=== PATIENT | female | born 1960 | race Caucasian/White ===

== ENCOUNTER 2019-01-17 13:47 | Outpatient (CLI) | payer OTHER ==
[2019-01-17] MEDS ORDERED: GADOPENTETATE DIMEGLUMINE 15 ML VIAL IV ONE (14:22)
== END 2019-01-17 21:20 | disposition home or self-care (01) ==
LOC: SMI 13:47
PROVIDERS: ATTEND Internal Medicine Infectious Disease
DX: M47.816 Spondylosis without myelopathy or radiculopathy, lumbar region (principal); N39.0 Urinary tract infection, site not specified; D72.828 Other elevated white blood cell count
CPT/HCPCS: 72158; A9579

== ENCOUNTER 2019-09-26 19:00 | Inpatient (IN) | payer OTHER, MEDICAID ==
[~2019-09-26] VITALS: Ht 152.4 cm; Wt 47.6 kg
--- NOTE | 2019-09-26 19:00 | NUR ---
BIB sq [facility] from [facility] for respiratory distress. Vent pt, RT at bedside to place pt on vent.
[2019-09-26 19:05] VITALS: BP_SYST 128
--- NOTE | 2019-09-26 19:05 | NUR ---
Patient to ER bed 1 to gown for evaluation. Side rails up. Report given to GIANLUCA KENNEY PATIENT BROUGHT IN BY [facility] FROM RESPIRATORY DISTRESS FROM [facility] NURSING REPORTS TACYPNEIC UPON ARRIVAL. VENT SETTINGS AC 12 VT 3250 AT 25% O2. DISCHARGED FROM [facility] DX OF PNA WIT HISTORY OF COPD, EMPHYSEMA, DEMENTIA, ANXIETY, OSTEOMYELITIS RULL OUT LARYNGEAL CANCERS, CHRONIC ENCHEPHALOPATHY, TYPE 2 DM.
--- NOTE | 2019-09-26 19:05 | NUR ---
ER Dr. Bedoya at bedside examining patient.
--- NOTE | 2019-09-26 19:10 | NUR ---
Note undone in EDM - 09/26/19 at 2116 by [email or web address] Pt came to the ED from [facility] by EMS for respiratory distress. Reports that pt was at [facility] for 30 minutes after being discharged from [facility] with dx of pneumonia. Reports that pt was tachypneic at [facility]. Pt is non-verbal which is her baseline. Reports pt has hx of laryngeal CA, anxiety, COPD, Dementia, dysphagia, HTN, osteomyletis, g-tube, COPD, emphysema.
--- NOTE | 2019-09-26 19:10 | NUR ---
Pt came to the ED from [facility] by EMS for respiratory distress. Reports that pt was at [facility] for 30 minutes after being discharged from [facility] with dx of pneumonia. Reports that pt was tachypneic at [facility]. Pt is non-verbal which is her baseline. Reports pt has hx of laryngeal CA, anxiety, COPD, Dementia, dysphagia,osteomyletis, g-tube, COPD, emphysema.
[2019-09-26] MEDS ORDERED: ALBUTEROL SULFATE 0.083% 2.5 MG/3 ML VIAL.NEB INH ONE (19:15)
[2019-09-26] MEDS ORDERED: LEVOFLOXACIN 500 MG/D5W 100 ML IV ONE (19:15)
[2019-09-26] MEDS ORDERED: LORA-258 GT (19:29)
[2019-09-26] MEDS ORDERED: ALBU2.5V7 INH (19:29)
[2019-09-26] MEDS ORDERED: MIRT15TA7 GT (19:29)
[2019-09-26] MEDS ORDERED: PRED15SO23 GT (19:29)
[2019-09-26] MEDS ORDERED: SER25 GT (19:29)
[2019-09-26] MEDS ORDERED: CALC-823 GT (19:29)
[2019-09-26] MEDS ORDERED: ACET325T53 GT (19:29)
[2019-09-26] MEDS ORDERED: [UNRECOGNIZED DRUG - OTHER] TP (19:29)
[2019-09-26] MEDS ORDERED: LANS15CA19 GT (19:29)
[2019-09-26] MEDS ORDERED: MAGN400T10 GT (19:29)
[2019-09-26] MEDS ORDERED: HYDR-3607 GT (19:29)
[2019-09-26] MEDS ORDERED: BUDESONIDE INH (19:29)
[2019-09-26] MEDS ORDERED: ASCO500T20 GT (19:29)
[2019-09-26] MEDS ORDERED: IPRA4AER INH (19:29)
[2019-09-26] MEDS ORDERED: LACT1TAB10 GT (19:29)
[2019-09-26] MEDS ORDERED: SULF1TAB48 GT (19:29)
[2019-09-26] MEDS ORDERED: LOVI40 SQ (19:29)
--- NOTE | 2019-09-26 19:30 | NUR ---
Medication reconciliation completed with information provided by [facility]. Any prior medication reconciliation on file was reviewed and corrected.
[2019-09-26 19:50] LABS: BASOPHILS # (AUTO) 0.1 K/uL (0.0-0.2); BASOPHILS % (AUTO) 0.6 % (0.0-2.0); EOSINOPHILS % (AUTO) 0.5 % (0.0-4.0); HEMATOCRIT 27.4 % (36-48); HEMOGLOBIN 9.2 g/dL (12.0-16.0); LYMPHOCYTES # (AUTO) 0.3 K/uL (1.0-5.5); MEAN CORPUSCULAR HEMOGLOBIN 32 pg (27-31); MEAN CORPUSCULAR HGB CONC 34 % (32-36); MEAN CORPUSCULAR VOLUME 95 fL (79.0-98.0); MONOCYTES # (AUTO) 0.4 K/uL (0.0-1.0); MONOCYTES % (AUTO) 3.9 % (1.7-9.3); NEUTROPHILS # (AUTO) 8.6 K/uL (1.8-7.7); PLATELET COUNT (AUTO) 355 K/uL (130-430); RED BLOOD CELL COUNT(AUTO) 2.88 MIL/uL (4.2-6.2); RED CELL DISTRIBUTION WIDTH 16.7 % (9.0-15.0); WHITE BLOOD COUNT (AUTO) 9.3 K/uL (4.8-10.8)
[2019-09-26 20:00] LABS: CALCIUM 8.3 mg/dL (8.4-11.0); CREATININE 0.53 mg/dL (0.55-1.30); POTASSIUM 3.1 mmol/L (3.5-5.1)
[2019-09-26 20:06] LABS: ALBUMIN 1.8 g/dL (3.4-4.8); INR 1.1 (0.8-1.2); TOTAL BILIRUBIN 0.4 mg/dL (0.0-1.0)
--- NOTE | 2019-09-26 20:10 | NUR ---
Pt with large diarrhea BM. Sacral decubitus noted as documented per admission report as Stage III from [facility]. No dsg to site and wound covered in feces. Also red and irritated external hemorroid noted. Pt cleaned, wound cleaned with NS and covered with non adherent dsg. New linens applied to bed. Pt tolerated well.
[2019-09-26] MEDS ORDERED: HYDROcodone/ACETAMIN 5-325 MG TAB (NORCO/ VICODIN) GT PRN (20:15)
[2019-09-26] MEDS ORDERED: VANCOMYCIN HCL 1,000 MG in NS 250 ML IV ONE (20:15)
[2019-09-26] MEDS ORDERED: PIPERACILLIN/TAZO 3.375 GM in NS 50 ML IV ONE ×5 (20:15)
--- NOTE | 2019-09-26 20:15 | NUR ---
# 16 FR Pollack catheter with use of sterile technique. Immediate return of 50 cc clear and yellow urine noted. Bedside drainage bag placed below level of bladder. Urine sample collected and sent to lab. Pt tolerated procedure well. Patient unable to toilet self.
--- NOTE | 2019-09-26 20:30 | NUR ---
Called Dr. Soto if Admit orders can be changed to Tele due to pt's VSS. States, "Yes, you can change to telemetry." ER MD and CN made aware. Order changed per MD order.
--- NOTE | 2019-09-26 20:56 | NUR ---
Contacted Dr. Soto regarding antibiotics ordered per Dr. Black. Pt to receive Zosyn and Vancomycin as ordered. Informed Dr. Soto that Levoquin 500 mg IVPB was already given from orders of previous ER MD. Warner to not given another dose of Levaquin at this time.
[2019-09-26 20:58] LABS: BILIRUBIN,URINE NEGATIVE (NEGATIVE); BLOOD, URINE NEGATIVE (NEGATIVE); CLARITY/URINE CLEAR (CLEAR); COLOR,URINE YELLOW (YELLOW); GLUCOSE,URINE NEGATIVE (NEGATIVE); KETONES,URINE NEGATIVE (NEGATIVE); LEUKOCYTE ESTERASE ,URINE TRACE (NEGATIVE); NITRITE, URINE NEGATIVE (NEGATIVE); PROTEIN URINE NEGATIVE (NEGATIVE); UROBILINOGEN,URINE 0.2 (0.2-1.0)
[2019-09-26] MEDS ORDERED: QUEtiapine FUMARATE 25 MG TABLET GT SCH ×2 (21:00→22:00)
--- NOTE | 2019-09-26 21:00 | NUR ---
Spoke to pts DEYANIRA Adrian who gives consent for CT with contrast. POJoss spoke to charge and confirmed. paperwork placed in chart.
[2019-09-26 21:06] LABS: RBC,URINE 0-3 /HPF (0-3)
[2019-09-26 21:07] LABS: BACTERIA,URINE FEW /HPF (None Seen); URINE AMORPHOUS PHOSPHATES 1+ /HPF (None Seen)
--- NOTE | 2019-09-26 21:10 | NUR ---
Pts family member reports that she was at [facility] for PNA, she states that they were going to do a test to see if there was a "mass in her lungs." But did not to do the test. MICHAEL SCHMIDT made aware.
--- NOTE | 2019-09-26 21:19 | NUR ---
Pt going to CT scan for CTA with contrast. Tolerated well. Will cont. to monitor.
--- NOTE | 2019-09-26 21:21 | NUR ---
Patient will be admitted to care of Dr. Soto. Admitted to Tele unit. Will go to room 125A. Belongings list completed. Complete and up to date summary report printed. Report to be given at bedside with opportunity for questions.
--- NOTE | 2019-09-26 21:22 | NUR ---
Called [facility] for bed, reports it is not ready yet. Pt is in CT, will go to the floor when pt returns.
[2019-09-26] MEDS ORDERED: IOHEXOL 350 mgI/mL, 150 ML INFUS..BTL IV ONE (21:38)
[2019-09-26] MEDS ORDERED: VANCOMYCIN HCL 1000 MG/VIAL IV ONE (21:38)
[2019-09-26] MEDS ORDERED: PIPERACILLIN/TAZOBACTAM 3.375 GM/VIAL (ZOSYN) IV ONE (21:38)
[2019-09-26] MEDS ORDERED: LORazepam 2 MG/ML VIAL IVP ONE (21:45)
--- NOTE | 2019-09-26 21:55 | NUR ---
Pt in CT scan, unable to lie on back. Pt wailing arms. ER made aware. Md put in order for 1mg Ativan IVP.
[2019-09-26] MEDS ORDERED: POTASSIUM CHLORIDE 20 MEQ/PKT PACKET GT SCH (22:00)
[2019-09-26] MEDS ORDERED: CALCIUM CARBONATE/VITAMIN D3 1 TAB TABLET GT SCH (22:00)
[2019-09-26] MEDS ORDERED: MIRTAZAPINE 15 MG TABLET GT SCH (22:00)
[2019-09-26] MEDS ORDERED: ASCORBIC ACID 500 MG TABLET GT SCH (22:00)
--- NOTE | 2019-09-26 22:00 | NUR ---
Administered Ativan 1mg IVP per MD order. Pt tolerated well. Pt on cardiac and O2 monitor. Will cont. to monitor. RT and myself at bedside.
--- NOTE | 2019-09-26 22:30 | NUR ---
Transfer to Tele via ACLS protocol. Licensed nurse present. IV present no signs or symptoms of infiltration.
--- NOTE | 2019-09-26 23:18 | NUR ---
ADMIT NOTE Received pt from ER to the floor with a diagnosis of acute on chronic resp.failure. Admission process initiated. patient oriented to pain management, safety and call light-teach back done.
--- NOTE | 2019-09-26 23:36 | NUR ---
CONSULTATION PAGED REASON FOR CONSULTATION:RESP FAILURE WAS CONSULT CALLED?Y PERSON WHO WAS NOTIFIED:SERJIO CONSULTING PHYSICIAN:JUANIS OLIVEROS (NINOSKA TOUSSAINT DICTAPHONE MECHANIC) SR. MANAGER SPECIALTY:PULMONARY SR. MANAGER PHONE NUMBER:[phone] ORDERING PHYSICIAN:PAM SMITH
--- NOTE | 2019-09-26 23:42 | NUR ---
CONSULTATION PAGED REASON FOR CONSULTATION:TRACH CANCER WAS CONSULT CALLED?Y PERSON WHO WAS NOTIFIED:ADIEL CONSULTING PHYSICIAN:ANABEL BLUE DIETITIAN CONSULTANT SPECIALTY:ONCOLOGY/HEMATOLOGY DIETITIAN CONSULTANT PHONE NUMBER:[phone] ORDERING PHYSICIAN:PAM SMITH
[2019-09-26] MEDS: IPRATROPIUM/ALBUTEROL SULFATE 3 ML AMPUL.NEB (DUONEB) INH SCH (23:46)
[2019-09-27] VITALS (35 sets, daily range): BP systolic 89–129
[2019-09-27] MEDS: DEXTROSE 50% JECT 50 ML DISP.SYRIN IVP PRN ×4 (00:16→20:08)
--- NOTE | 2019-09-27 00:30 | NUR ---
TRANSFER FROM [facility] PT TRANSFERRED FROM [facility] AT THIS TIME IN STABLE CONDITION. REPORT RECEIVED FROM JOSE A HOUGH. PT RECEIVED IN BED WITH EYES OPEN, NON VERBAL AND RESPONDING TO TACTILE STIMULATION. PT TRACH TO VENT, VENT SETTINGS: AC 12, TV 350, FIO2 50%, PEEP 6. MARIELA MIDLINE IN PLACE RUNNING LR @ 20 CC/HR. G TUBE IN PLACE CLAMPED. BILATERAL SOFT WRIST RESTRAINTS IN PLACE, NO S/S OF INJURY NOTED. MARTÍNEZ CATH IN PLACE DRAINING YELLOW URINE TO GRAVITY. HOB ELEVATED, BED IN LOWEST POSITION, CALL LIGHT IN REACH. WILL CONTINUE TO MONITOR PT.
--- NOTE | 2019-09-27 01:00 | NUR ---
pt.was rcieved fabian the er-dept.pt.preseted trachlvetn setup pwer rtr.pt.had ignacio vents etingds;tv;350,fio-2%=50%,a/c 12,peep:6.abfg's were attedne to values abnoermal.it was notd fio-2%was initiate @50%.limit beyound th mst uniut. pt.wsas orderwed icu admit initially rachel was re-assigned to mst;in error. paged re;pt's ssus;fioi2%;5-%not w/in thw mst unit parameters. stsed the pt was initiallyt order tee incu 's call diregt to cherelle;rn/chg.pt, ode to inu.pt.transferred to incu:bed:#2.i conveyed th pt's data/info to ranulfo;rn.i conveye to ranulfo;y pt.pret g-tube; feed;glucerna to be initiatwd;@the spoflz91ye/hr.pt.prest pic lone;:x2 lumnes;lt.bicpet.iv fkkuids;llr/vancomycin [id number] initiuated.pt.presrte,foely cath;intacyt;paytent:urnei content prest.blod glucose assd;value;58mg/dl.i administered d50 ivp x1 per ptotocolvia th pic cine.blood glucso reased;value;106mg/dl.pt.presents wounds;multiple:note;sacrum,extensive denuded area. Addendum: 09/27/19 at 0228 by Derek Byrnes RN pt.presented affect;restless.loc;confused.pt.removed the trach;r/t paged;trach re-inserted;restraints ordered procured .i initiated the restraints charting;wrist;bilateral.application per protocol..
[2019-09-27] MEDS: LR 1,000 ML IV SCH ×2 (02:23→20:07)
[2019-09-27] MEDS: MAGNESIUM OXIDE 400 MG TABLET GT SCH ×3 (02:24→20:07)
[2019-09-27] MEDS: IPRATROPIUM/ALBUTEROL SULFATE 3 ML AMPUL.NEB (DUONEB) INH SCH ×5 (03:58→23:05)
--- NOTE | 2019-09-27 07:20 | NUR ---
RECEIVED NURSING REPORT FROM PSYCHOLOGICAL ANTHROPOLOGIST VANGIE Castanon
[2019-09-27 07:24] LABS: BASOPHILS % (AUTO) 0.4 % (0.0-2.0); EOSINOPHILS # (AUTO) 0.1 K/uL (0.0-0.4); EOSINOPHILS % (AUTO) 0.9 % (0.0-4.0); HEMATOCRIT 23.8 % (36-48); HEMOGLOBIN 8.1 g/dL (12.0-16.0); LYMPHOCYTES # (AUTO) 0.5 K/uL (1.0-5.5); LYMPHOCYTES % (AUTO) 6.8 % (20.5-51.5); MEAN CORPUSCULAR HEMOGLOBIN 32 pg (27-31); MEAN CORPUSCULAR HGB CONC 34 % (32-36); MEAN CORPUSCULAR VOLUME 94 fL (79.0-98.0); MONOCYTES # (AUTO) 0.3 K/uL (0.0-1.0); NEUTROPHILS # (AUTO) 6.6 K/uL (1.8-7.7); NEUTROPHILS % (AUTO) 87.9 % (40.0-70.0); PLATELET COUNT (AUTO) 304 K/uL (130-430); RED BLOOD CELL COUNT(AUTO) 2.53 MIL/uL (4.2-6.2); RED CELL DISTRIBUTION WIDTH 16.8 % (9.0-15.0); WHITE BLOOD COUNT (AUTO) 7.5 K/uL (4.8-10.8)
[2019-09-27] MEDS ORDERED: BUDESONIDE 0.5 MG/2 ML AMPUL.NEB INH ONE (07:30)
[2019-09-27 07:39] LABS: POTASSIUM 3.6 mmol/L (3.5-5.1)
--- NOTE | 2019-09-27 07:42 | NUR ---
ENDORSEMENT BEDSIDE REPORT GIVEN TO NICHOLAS HOUGH USING SBAR APPROACH.
[2019-09-27 07:50] LABS: CALCIUM 8.1 mg/dL (8.4-11.0); CREATININE 0.49 mg/dL (0.55-1.30); FREE T4 (FREE THYROXINE) 0.7 ng/dl (0.8-1.5)
[2019-09-27 08:26] LABS: TOTAL IRON BIND. CAPACITY 97 ug/dL (250-450)
[2019-09-27] MEDS: prednisoLONE 15 MG/5 ML UDC GT SCH (09:00)
[2019-09-27] MEDS: LACTOBACILLUS RHAMNOSUS GG 1 CAP CAPSULE GT SCH (09:00)
[2019-09-27] MEDS: LORazepam 2 MG/ML VIAL IVP PRN ×2 (09:29→14:45)
[2019-09-27] MEDS: ENOXAPARIN SODIUM 40 MG/0.4 ML SYRINGE SQ SCH (09:31)
[2019-09-27] MEDS: LANSOPRAZOLE 30 MG CAPSULE.DR GT SCH (09:32)
[2019-09-27] MEDS: ASCORBIC ACID 500 MG TABLET GT SCH ×2 (09:32→20:08)
[2019-09-27] MEDS: QUEtiapine FUMARATE 25 MG TABLET GT SCH ×3 (09:32→20:08)
[2019-09-27] MEDS: CALCIUM CARBONATE/VITAMIN D3 1 TAB TABLET GT SCH ×2 (09:36→20:08)
--- NOTE | 2019-09-27 10:15 | NUR ---
AT 1015 Dr. CARDONA SEE PATIENT, ORDERED FOLLOW UP CHEST X-RAY, ABG IN A.M
--- NOTE | 2019-09-27 10:23 | NUR ---
Nutrition Update Barrett Scale 12 noted. Pt admitted for acute on chronic respiratory failure Tube Feeding: Glucerna 1.5 at 50ml/hr with 100ml Q6H FWF and Prosource BID BMI: 20.5 kg/m2 RD to follow per nutrition care standards.
[2019-09-27] MEDS: SULFAMET 800MG/TMP 160MG, 20 ML UDBTL GT SCH (12:08)
[2019-09-27] MEDS: INSULIN REGULAR, HUMAN 100 UNITS/ML, 10 ML VIAL (humuLIN R) SUBCUT PRN ×2 (12:13→17:38)
--- NOTE | 2019-09-27 12:33 | NUR ---
BLOOD SUGAR 57, ORDERED GIVE D50 W ONE AMP IV PUSH
--- NOTE | 2019-09-27 14:20 | NUR ---
AT 1400 P.M, SEE PATIENT, ORDERED COLLECTION STOOL O.B
--- NOTE | 2019-09-27 15:00 | NUR ---
AT 1500 P.M, FINISHED HEMODIALYSIS, OFF WATER 1500 ML Addendum: 09/27/19 at 1710 by Honorio Jj RN WRONG PATIENT CHARTING
[2019-09-27] MEDS ORDERED: EPOETIN ALFA 4,000 UNITS/ML VIAL SUBCUT ONE (15:30)
[2019-09-27] MEDS ORDERED: NOREPINEPHRINE BITARTRATE 4 MG in D5W 246 ML IV PRN (16:15)
--- NOTE | 2019-09-27 16:17 | NUR ---
PATIENT HAD 2 TIMES, BLOOD SUGAR LESS THAN 70 MG/DL, AND SHOW HYPOTENSION WHEN SHE WAS ASLEEP, AT 1552 P.M, Dr. KNOX SEE PATIENT, ORDERED ON LEVOPHED DRIP NEED( KEEP SBP > 90 MMHG), AND FOLLOW UP LAB IN A.M, PATIENT IS VERY AGITATION, CONFUSION, PULLED OUT MARTÍNEZ CATHETER, ORDERED INSERT NEW MARTÍNEZ CATHETER AND BILATERAL WRISTS WEAR RESTRAINT CONTINUE FOR SAFETY
--- NOTE | 2019-09-27 16:26 | NUR ---
ORDERED CHANGE FORMULA TO JEVITY 1.2 AT 50 ML/HR Addendum: 09/27/19 at 1636 by Honorio Jj RN JEVITY 1.5
--- NOTE | 2019-09-27 17:05 | NUR ---
AT 1645 P.M, SEE PATIENT ( NEW CONSULT ) ORDERED START LEVAQUIN THERAPY
[2019-09-27] MEDS: SOD FERRIC GLUC COMPLEX/SUC 125 MG in NS 100 ML IV SCH (17:31)
[2019-09-27] MEDS: LEVOFLOXACIN 250 MG/D5W 50 ML IV SCH (17:32)
[2019-09-27] MEDS: PIPERACILLIN/TAZO 2.25G/DEX-IS 50 ML IV SCH ×2 (17:47→23:13)
--- NOTE | 2019-09-27 19:20 | NUR ---
PM ASSESSMENT Pt in bed with eyes closed resting comfortably. No signs of acute distress or discomfort noted. Pt trach to vent with vent settings: AC 12, TV 350, Fio2 40% and PEEP of 6, pt tolerating settings well with O2 sats @ 98% and even and unlabored breathing. Pt has MARIELA bradford, c/d/i. Infusing LR @ 20 cc/hr. Saúl noted infusing jevity 1.5 @ 50 cc/hr. Pollack cath noted draining urine to gravity. Bed is locked and in lowest position, call light within reach, will cont to monitor pt. Addendum: 09/27/19 at 2305 by Isiah Montelongo RN Pt's PEEP of 5, not 6.
--- NOTE | 2019-09-27 19:29 | NUR ---
GIVE COMPLETE NURSING REPORT TO PRODUCTION MACHINE OPERATOR MARGARET Castanon
[2019-09-27] MEDS: BUDESONIDE 0.5 MG/2 ML AMPUL.NEB INH SCH (19:50)
[2019-09-27] MEDS: MIRTAZAPINE 15 MG TABLET GT SCH (20:08)
--- NOTE | 2019-09-27 20:08 | NUR ---
Pt's fingerstick blood glucose 59 @ this time. Dextrose 50% injection given at this time IVP per MD order. Will recheck blood glucose.
--- NOTE | 2019-09-27 20:28 | NUR ---
Pt's fingerstick blood glucose 92 at this time. Will cont to monitor pt.
[2019-09-28] VITALS (31 sets, daily range): BP systolic 89–125
--- NOTE | 2019-09-28 | NUR ---
Pt in bed with eyes closed resting comfortably, no signs of acute distress or discomfort noted. Bed is locked and in lowest position, call light within reach, will cont to monitor pt.
[2019-09-28] MEDS: IPRATROPIUM/ALBUTEROL SULFATE 3 ML AMPUL.NEB (DUONEB) INH SCH ×6 (03:00→23:04)
[2019-09-28] MEDS: LORazepam 2 MG/ML VIAL IVP PRN ×2 (05:24→09:42)
--- NOTE | 2019-09-28 05:30 | NUR ---
CHG CHG bath given to pt at this time. Pt tolerated well. No signs of acute distress or discomfort noted. Will cont to monitor pt.
[2019-09-28] MEDS: DEXTROSE 50% JECT 50 ML DISP.SYRIN IVP PRN (06:20)
[2019-09-28] MEDS: PIPERACILLIN/TAZO 2.25G/DEX-IS 50 ML IV SCH ×3 (06:20→21:50)
--- NOTE | 2019-09-28 06:20 | NUR ---
Pt's fingerstick blood glucose 32 @ this time. Dextrose 50% injection given at this time IVP per MD order. Will recheck blood glucose.
--- NOTE | 2019-09-28 06:38 | NUR ---
Pt's fingerstick blood glucose 73 @ this time. Pt shows not acute distress or discomfort noted. Will make MD aware and continue to monitor blood sugar.
--- NOTE | 2019-09-28 07:05 | NUR ---
ENDORSEMENT Report given to oncoming dayshift RN using SBAR format and pt care was endorsed. No signs of acute distress or discomfort noted.
--- NOTE | 2019-09-28 07:07 | NUR ---
RECEIVED NURSING REPORT FROM SALESPERSON SEWING MACHINES MARGARET Castanon, PAGED Dr. KNOX REGARDING OF PATIENT IS SHOW HYPOGLYCEMIA DURING THE SALESPERSON SEWING MACHINES
[2019-09-28] MEDS: BUDESONIDE 0.5 MG/2 ML AMPUL.NEB INH SCH ×2 (07:54→20:07)
--- NOTE | 2019-09-28 08:15 | NUR ---
AT 0813 A.M, CALLED BACK, ORDERED CHANGE IVF TO D10W AT 50 ML/HR
[2019-09-28] MEDS ORDERED: D10W 1,000 ML IV SCH (08:30)
[2019-09-28 08:33] LABS: BASOPHILS % (AUTO) 0.7 % (0.0-2.0); EOSINOPHILS # (AUTO) 0.1 K/uL (0.0-0.4); EOSINOPHILS % (AUTO) 2.5 % (0.0-4.0); HEMATOCRIT 23.3 % (36-48); LYMPHOCYTES # (AUTO) 0.4 K/uL (1.0-5.5); LYMPHOCYTES % (AUTO) 8.5 % (20.5-51.5); MEAN CORPUSCULAR HEMOGLOBIN 32 pg (27-31); MEAN CORPUSCULAR HGB CONC 34 % (32-36); MEAN CORPUSCULAR VOLUME 95 fL (79.0-98.0); MONOCYTES # (AUTO) 0.4 K/uL (0.0-1.0); MONOCYTES % (AUTO) 8.2 % (1.7-9.3); NEUTROPHILS # (AUTO) 3.9 K/uL (1.8-7.7); NEUTROPHILS % (AUTO) 80.1 % (40.0-70.0); PLATELET COUNT (AUTO) 271 K/uL (130-430); RED BLOOD CELL COUNT(AUTO) 2.47 MIL/uL (4.2-6.2); RED CELL DISTRIBUTION WIDTH 16.9 % (9.0-15.0); WHITE BLOOD COUNT (AUTO) 4.8 K/uL (4.8-10.8)
[2019-09-28] MEDS: D10W 1,000 ML IV SCH (09:00)
[2019-09-28 09:29] LABS: ERYTHROCYTE SEDIMENTATION RATE 101 MM/HR (0-20)
[2019-09-28 09:38] LABS: CALCIUM 8.2 mg/dL (8.4-11.0); CREATININE 0.55 mg/dL (0.55-1.30); FREE T4 (FREE THYROXINE) 0.6 ng/dl (0.8-1.5); POTASSIUM 3.4 mmol/L (3.5-5.1); THYROID STIMULATING HORMONE 7.47 uIu/mL (0.36-3.74)
[2019-09-28] MEDS: LANSOPRAZOLE 30 MG CAPSULE.DR GT SCH (09:44)
[2019-09-28] MEDS: MAGNESIUM OXIDE 400 MG TABLET GT SCH ×2 (09:44→21:49)
[2019-09-28] MEDS: SULFAMET 800MG/TMP 160MG, 20 ML UDBTL GT SCH (09:44)
[2019-09-28] MEDS: LACTOBACILLUS RHAMNOSUS GG 1 CAP CAPSULE GT SCH (09:44)
[2019-09-28] MEDS: ASCORBIC ACID 500 MG TABLET GT SCH ×2 (09:44→21:49)
[2019-09-28] MEDS: CALCIUM CARBONATE/VITAMIN D3 1 TAB TABLET GT SCH ×2 (09:45→21:49)
[2019-09-28] MEDS: QUEtiapine FUMARATE 25 MG TABLET GT SCH ×3 (09:45→21:49)
[2019-09-28] MEDS: ENOXAPARIN SODIUM 40 MG/0.4 ML SYRINGE SQ SCH (09:46)
[2019-09-28] MEDS: prednisoLONE 15 MG/5 ML UDC GT SCH (09:46)
--- NOTE | 2019-09-28 10:40 | NUR ---
Dr. CARDONA SEE PATIENT, ORDERED CHANGE ZOSYN TO EVERY 8 HOURS
--- NOTE | 2019-09-28 10:51 | NUR ---
RECEIVED THE LAB RESULT: MRSA POSITIVE IN NARES, AT 1045 A.M, SEE PATIENT, DOCTOR WAS AWARE, NO NEW ORDERED FOR IT
--- NOTE | 2019-09-28 13:24 | NUR ---
Dietitian Recommendations 1. Continue Jevity 1.5 at 50ml/hr and Prosource BID 2. Provides 1800kcal, 77gPro, 1312ml of free water. Prosource BID provides 200kcal and 20gPro. Total meets 136%kcal and 104% pro estimated nutrition needs. Please see Nutrition Assessment for further details. LT, RD
--- NOTE | 2019-09-28 14:30 | NUR ---
CALLED, ORDERED START MUPIROCIN OINTMENT THERAPY
--- NOTE | 2019-09-28 15:15 | NUR ---
SEE PATIENT, ORDERED FOLLOW UP LAB. IN A.M, ORDERED BILATERAL WRISTS WEAR RESTRAINT CONTINUE FOR SAFETY
[2019-09-28] MEDS ORDERED: MUPIROCIN 2% TOPICAL OINTMENT 22 GM NS ONE (15:30)
[2019-09-28] MEDS: SOD FERRIC GLUC COMPLEX/SUC 125 MG in NS 100 ML IV SCH (16:19)
[2019-09-28] MEDS: LEVOFLOXACIN 250 MG/D5W 50 ML IV SCH (16:19)
--- NOTE | 2019-09-28 19:30 | NUR ---
PM ASSESSMENT REPORT RECEIVED FROM NICHOLAS HOUGH. PT RECEIVED IN BED WITH EYES OPEN, RESPONDING TO VERBAL STIMULATION. VSS, NO S/S OF ACUTE DISTRESS NOTED. PT TRACH TO VENT, VENT SETTINGS: AC 12, TV 350, FIO2 40%, PEEP 5. MARIELA MIDLINE IN PLACE INFUSING D10W @ 50 CC/HR AND NS TKO FOR PIGGYBACK INFUSIONS. BILATERAL SOFT WRIST RESTRAINTS IN PLACE, NO S/S OF INJURY NOTED. G TUBE IN PLACE RUNNING JEVITY 2 50 CC/HR. MARTÍNEZ CATH IN PLACE DRAINING YELLOW URINE TO GRAVITY. HOB ELEVATED, BED IN LOWEST POSITION, CALL LIGHT IN REACH. WILL CONTINUE TO MONITOR PT.
--- NOTE | 2019-09-28 19:37 | NUR ---
GIVE COMPLETE NURSING REPORT TO WOOD ROOM SUPERVISOR VANGIE Castanon
[2019-09-28] MEDS: MIRTAZAPINE 15 MG TABLET GT SCH (21:49)
[2019-09-28] MEDS: MUPIROCIN 2% TOPICAL OINTMENT 22 GM NS SCH (21:51)
[2019-09-29] VITALS (25 sets, daily range): BP systolic 95–132
[2019-09-29] MEDS: LORazepam 2 MG/ML VIAL IVP PRN ×2 (00:27→08:51)
[2019-09-29] MEDS: IPRATROPIUM/ALBUTEROL SULFATE 3 ML AMPUL.NEB (DUONEB) INH SCH ×6 (04:01→23:15)
[2019-09-29] MEDS: D10W 1,000 ML IV SCH (06:02)
[2019-09-29] MEDS: PIPERACILLIN/TAZO 2.25G/DEX-IS 50 ML IV SCH ×3 (06:05→21:53)
[2019-09-29 06:41] LABS: BASOPHILS % (AUTO) 0.4 % (0.0-2.0); HEMATOCRIT 22.7 % (36-48); HEMOGLOBIN 7.6 g/dL (12.0-16.0); LYMPHOCYTES # (AUTO) 0.5 K/uL (1.0-5.5); LYMPHOCYTES % (AUTO) 12.8 % (20.5-51.5); MEAN CORPUSCULAR HEMOGLOBIN 32 pg (27-31); MEAN CORPUSCULAR HGB CONC 34 % (32-36); MEAN CORPUSCULAR VOLUME 95 fL (79.0-98.0); MONOCYTES # (AUTO) 0.4 K/uL (0.0-1.0); MONOCYTES % (AUTO) 9.6 % (1.7-9.3); NEUTROPHILS # (AUTO) 3.2 K/uL (1.8-7.7); NEUTROPHILS % (AUTO) 76.2 % (40.0-70.0); PLATELET COUNT (AUTO) 226 K/uL (130-430); RED BLOOD CELL COUNT(AUTO) 2.39 MIL/uL (4.2-6.2); RED CELL DISTRIBUTION WIDTH 16.7 % (9.0-15.0); WHITE BLOOD COUNT (AUTO) 4.1 K/uL (4.8-10.8)
[2019-09-29 06:56] LABS: CALCIUM 8.1 mg/dL (8.4-11.0); CHLORIDE 108 mmol/L (98-107); CREATININE 0.49 mg/dL (0.55-1.30); GLUCOSE 119 mg/dL (70-99); POTASSIUM 3.2 mmol/L (3.5-5.1); SODIUM SERUM 138 mmol/L (136-145); UREA NITROGEN, BLOOD 10 mg/dL (8-21)
[2019-09-29 06:58] LABS: ANION GAP < 3 (5-15); GFR AFRICAN AMERICAN 166 mL/min (>90)
[2019-09-29] MEDS ORDERED: LEVOTHYROXINE SODIUM 0.025 MG TABLET PO SCH (07:00)
--- NOTE | 2019-09-29 07:25 | NUR ---
AT 0715 A.M, RECEIVED NURSING REPORT FROM DIRECTOR OF CONSTRUCTION VANGIE Castanon
--- NOTE | 2019-09-29 07:26 | NUR ---
PATIENT HAD LARGE AMOUNT LOOSE STOOL, ORDERED COLLECTION STOOL OB AND SENT TO LAB,THEN GIVE BED BATH AND CHG BATH, AND WOUND CARE
--- NOTE | 2019-09-29 07:26 | NUR ---
ENDORSEMENT BEDSIDE REPORT GIVEN TO NICHOLAS HOUGH USING BEDSIDE REPORT.
--- NOTE | 2019-09-29 07:45 | NUR ---
PAGED , REGARDING OF ABNORMAL LAB RESULT, WAITING FOR DOCTOR CALL BACK
[2019-09-29] MEDS: BUDESONIDE 0.5 MG/2 ML AMPUL.NEB INH SCH ×2 (08:17→19:59)
[2019-09-29] MEDS: prednisoLONE 15 MG/5 ML UDC GT SCH (08:50)
[2019-09-29] MEDS: SULFAMET 800MG/TMP 160MG, 20 ML UDBTL GT SCH (08:50)
[2019-09-29] MEDS: QUEtiapine FUMARATE 25 MG TABLET GT SCH ×3 (08:51→21:52)
[2019-09-29] MEDS: LACTOBACILLUS RHAMNOSUS GG 1 CAP CAPSULE GT SCH (08:51)
[2019-09-29] MEDS: MAGNESIUM OXIDE 400 MG TABLET GT SCH ×2 (08:51→21:52)
[2019-09-29] MEDS: ASCORBIC ACID 500 MG TABLET GT SCH ×2 (08:51→21:52)
[2019-09-29] MEDS: LANSOPRAZOLE 30 MG CAPSULE.DR GT SCH (08:52)
[2019-09-29] MEDS: MUPIROCIN 2% TOPICAL OINTMENT 22 GM NS SCH ×2 (08:53→21:53)
[2019-09-29] MEDS: CALCIUM CARBONATE/VITAMIN D3 1 TAB TABLET GT SCH ×2 (08:53→21:52)
[2019-09-29] MEDS: ENOXAPARIN SODIUM 40 MG/0.4 ML SYRINGE SQ SCH (08:59)
--- NOTE | 2019-09-29 09:45 | NUR ---
AT 0945 A.M, Dr. KNOX CALLED BACK, ORDERED GIVE BLOOD TRANSFUSION P-RBC ONE UNIT, AND KCL 40 MEQ VIA G-T X ONCE, AND START PROTONIX THERAPY
[2019-09-29] MEDS ORDERED: POTASSIUM CHLORIDE 20 MEQ/PKT PACKET PO ONE (10:00)
--- NOTE | 2019-09-29 10:02 | NUR ---
AT 0955 A.M, Dr. RUIZ SEE PATIENT, WAS AWARE PATIENT,S CONDITION
[2019-09-29] MEDS ORDERED: PANTOPRAZOLE SODIUM 40 MG/VIAL (PROTONIX) IVP ONE (10:30)
--- NOTE | 2019-09-29 12:05 | NUR ---
AT 1155 A.M, SPOKE TO PATIENT,S SON Mr.RAMOS CARVER ,OBTAINED THE BLOOD TRANSFUSION PHONE CONSENT IN THE CHART, AND THE COPY SENT TO BLOOD BANK
[2019-09-29] MEDS: SOD FERRIC GLUC COMPLEX/SUC 125 MG in NS 100 ML IV SCH (15:29)
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
--- NOTE | 2019-09-29 16:10 | NUR ---
Wound Evaluation: Wound Consult received from Dr. Soto. Thank you, Dr. Soto, for the consult. Patient received in a Nell bed with an IsoFlex RUBEN mattress with low air-loss therapy, awake, alert, confused, and mouths words secondary to tracheostomy tube. Patient is unable to turn in bed independently. Barrett score is a 14. Past Medical History: Sepsis, Septic Shock, End Stage COPD (Emphysema), Anoxic Encephalopathy, history of G-tube and Pollack Catheter, Asthma, persistent Hypokalemia, UTI, Chronic respiratory failure, status post Cardiopulmonary Arrest, Dementia, Hypertension, Hyperlipidemia, Arthritis, Laryngeal Cancer, Anemia, Peptic Ulcer Disease, Sacral decubitus, Osteomyelitis. Recent labs: WBC 4.1, RBC 2.39, hemoglobin 7.6, hematocrit 22.7, ESR 101, potassium 3.2, chloride 108, BUN 10, creatinine 0.49, GFR 137, glucose 119, POC glucose 117, calcium 8.1, albumin 1.8, d-dimer 1050. Microbiology: Blood culture results 2 in progress. MRSA screen results positive. Tracheal aspirate culture results positive for pseudomonas aeruginosa (MDRO, ROOF TRUSS MACHINE TENDER). Urine culture results negative. Stool OB results negative. Intrinsic factors that delay wound healing: COPD, Anoxic Encephalopathy, Asthma, Respiratory Failure, Hypoalbuminemia. Extrinsic factors that delay wound healing: Immobility. Wound Assessment: 1. Sacral-Coccygeal area: Unstageable Pressure ulcer, present on admission. Wound bed has 100% yellow slough. Mild odor, no drainage. Periwound is pink, macerated. Periwound and surrounding tissue has scar tissue, and blanchable erythema. Wound measures 3.0 cm x 4.0 cm x 1.2 cm. Undermining present from 12-2 o'clock (0.3 cm from 12 o'clock to 2 o'clock). Tunneling present at 8-10 o'clock measuring 2.1 cm depth. Tunnel is connecting to site 2. Recommend: Cleanse wound with normal saline. Apply moisture barrier cream to periwound. Apply Venelex ointment to wound bed. Pack wound with 1/2 inch iodoform packing strip. Cover with foam dressing. Perform wound care daily, and as needed for dressing soiling or dislodgment. 2. Left Sacral area: Unstageable Pressure ulcer, present on admission. Wound bed has 60% yellow tissue, 40% pink tissue. No odor, no drainage. Periwound is pink. Site is boggy upon palpation. Wound measures 3.0 cm x 1.4 cm. Tunneling from site 1 appears to be connecting to site 2. Recommend: Cleanse wound with normal saline. Apply moisture barrier cream to periwound. Apply Venelex ointment to wound bed. Cover with foam dressing. Perform wound care daily, and as needed for dressing soiling or dislodgment. 3. Right Medial Malleolus: Unstageable pressure ulcer, present on admission. Site has 100% yellow eschar. No odor, no drainage. Periwound intact. Dry, stable. Wound measures 1.2 cm x 1.3 cm. Recommend: [place] site with Betadine. Allow to air dry. Cover with foam dressing. Perform wound care daily, and as needed for dressing soiling or dislodgment. 4. Right Distal Medial Lower Extremity, Superior to Site 3: Wound of unknown etiology, present on admission. Site has 90% brown tissue, 10% pink tissue. No odor, scant sanguineous drainage. Periwound intact. Wound measures 3.1 cm x 1.8 cm. Recommend: Cleanse wound with normal saline. Apply moisture barrier cream to periwound. Apply Venelex ointment to wound bed. Cover with foam dressing. Perform wound care daily, and as needed for dressing soiling or dislodgment. 5. right olecranon: Chronic wound of unknown etiology, present on admission. Site has 100% brown tissue. No odor, no drainage. Periwound intact. Wound measures 0.2 cm x 0.4 cm. 6. Coccygeal, Bilateral Hip and Lumbosacral joint areas: Bony areas with little adipose tissue and minimal muscle tissue. Recommend: Cover sites with foam dressings. Perform site care daily, and as needed for dressing soiling or dislodgment. Also recommend: Reposition patient side to side only every two hours with pillow support, and off-load pressure areas with pillows for pressure re-distribution. Offload, elevate and float heels with pillows. Perform skin care and monitor skin integrity q shift. Use moisture barrier cream on buttocks, and other moisture susceptible areas qid and as needed for soiling. Maintain patient on a low air-loss mattress.
[2019-09-29] MEDS: LEVOFLOXACIN 250 MG/D5W 50 ML IV SCH (16:41)
--- NOTE | 2019-09-29 17:08 | NUR ---
AT 1700 START BLOOD TRANSFUSION P-RBC ONE UNIT, NO S/S OF ADVERSE REACTION
--- NOTE | 2019-09-29 18:14 | NUR ---
AT 1645 P.M, SEE PATIENT, ORDERED DOWN GRADE TO TELE, PREPARE MOVE PATIENT TO TELE BED 110 A
--- NOTE | 2019-09-29 19:15 | NUR ---
GIVE COMPLETE NURSING REPORT TO MED-SURG COLLECTION TEAM LEAD LOLIS Castanon
--- NOTE | 2019-09-29 19:20 | NUR ---
OPENING NOTE RECEIVED CARE OF PT AND SBAR REPORT. PT IS AAOX1, NONVERBAL, BREATHING IS UNLABORED TO VENT SETTINGS. VENT SETTINGS ARE FOLLOWED: AC 12, TV 350, FIO2 40%, PEEP 5. BLOOD TRANSFUSION IS INFUSING. IVF INFUSING ORDERED. NO S/S OF ACUTE DISTRESS. TUBE FEEDING IS RUNNING. ASPIRATION PRECAUTIONS MAINTAINED. NO SIGN OF PAIN OR DISCOMFORT. SAFETY AND CONTACT PRECAUTIONS ARE IN PLACE. BILATERAL SOFT-WRIST RESTRAINTS ARE IN PLACE. WILL MONITOR.
[2019-09-29] MEDS ORDERED: BALSAM PERU/CASTOR OIL 60 GM OINT...G. TP ONE (20:00)
--- NOTE | 2019-09-29 20:35 | NUR ---
END OF BLOOD TRANSFUSION PT TOLERATED WELL WITH NO S/S OF ADVERSE REACTION
--- NOTE | 2019-09-29 20:39 | NUR ---
Mustapha Greenberg s/w Grace
[2019-09-29] MEDS ORDERED: COLISTIMETHATE SODIUM 75 MG in NS 50 ML IV SCH (21:00)
[2019-09-29] MEDS: MIRTAZAPINE 15 MG TABLET GT SCH (21:52)
[2019-09-29] MEDS: PANTOPRAZOLE SODIUM 40 MG/VIAL (PROTONIX) IVP SCH (21:52)
--- NOTE | 2019-09-29 21:54 | NUR ---
MEDICATION PASS DUE MEDICATIONS ADMINISTERED ORDERED. GTUBE IS PATENT AND FLUSHING WELL WITH 5 CC OF RESIDUAL. ACCUCHECK SHOWED BLOOD SUGAR OF 96, NO INSULIN COVERAGE INDICATED. SAFETY AND ASPIRATION PRECAUTIONS MAINTAINED. WILL MONITOR.
--- NOTE | 2019-09-29 23:26 | NUR ---
CLEANED/REPOSITIONED PT INCONTINENT OF BOWELS. PT CLEANED AND PROVIDED WITH CLEAN GOWN AND LINEN. PT REPOSITIONED WITH PILLOW SUPPORT. PT TOLERATED WELL. SAFETY AND CONTACT PRECAUTIONS MAINTAINED. WILL MONITOR.
[2019-09-30] VITALS: BP_SYST 122
[2019-09-30] MEDS: D10W 1,000 ML IV SCH ×2 (00:09→21:38)
[2019-09-30 00:22] VITALS: BP_SYST 114
--- NOTE | 2019-09-30 01:42 | NUR ---
RN ROUNDS: PT RESTING IN BED, NO S/S OF ACUTE DISTRESS. WILL MONITOR.
[2019-09-30] MEDS: IPRATROPIUM/ALBUTEROL SULFATE 3 ML AMPUL.NEB (DUONEB) INH SCH ×6 (02:45→23:09)
--- NOTE | 2019-09-30 03:58 | NUR ---
CLEANED/REPOSITIONED PT CLEANED AND PROVIDED WITH CLEAN GOWN AND LINEN. PT REPOSITIONED WITH PILLOW SUPPORT. PT TOLERATED WELL. SAFETY AND CONTACT PRECAUTIONS MAINTAINED. WILL MONITOR.
[2019-09-30] MEDS: PIPERACILLIN/TAZO 2.25G/DEX-IS 50 ML IV SCH ×2 (06:23→14:44)
[2019-09-30] MEDS: LEVOTHYROXINE SODIUM 0.025 MG TABLET PO SCH (06:24)
--- NOTE | 2019-09-30 06:26 | NUR ---
ACCUCHECK BLOOD SUGAR OF 91, NO INSULIN COVERAGE INDICATED PER SLIDING SCALE.
[2019-09-30 07:06] LABS: FOLATE (FOLIC ACID) 19.3 ng/mL (>3.0)
[2019-09-30] MEDS: BUDESONIDE 0.5 MG/2 ML AMPUL.NEB INH SCH ×2 (07:17→19:45)
[2019-09-30 07:23] LABS: EOSINOPHILS # (AUTO) 0.1 K/uL (0.0-0.4); EOSINOPHILS % (AUTO) 2.5 % (0.0-4.0); HEMATOCRIT 30.9 % (36-48); HEMOGLOBIN 10.2 g/dL (12.0-16.0); LYMPHOCYTES # (AUTO) 0.5 K/uL (1.0-5.5); LYMPHOCYTES % (AUTO) 12.8 % (20.5-51.5); MEAN CORPUSCULAR HEMOGLOBIN 32 pg (27-31); MEAN CORPUSCULAR HGB CONC 33 % (32-36); MEAN CORPUSCULAR VOLUME 96 fL (79.0-98.0); MONOCYTES # (AUTO) 0.3 K/uL (0.0-1.0); NEUTROPHILS # (AUTO) 2.9 K/uL (1.8-7.7); NEUTROPHILS % (AUTO) 74.7 % (40.0-70.0); PLATELET COUNT (AUTO) 268 K/uL (130-430); RED BLOOD CELL COUNT(AUTO) 3.21 MIL/uL (4.2-6.2); RED CELL DISTRIBUTION WIDTH 16.7 % (9.0-15.0); WHITE BLOOD COUNT (AUTO) 3.9 K/uL (4.8-10.8)
--- NOTE | 2019-09-30 07:44 | NUR ---
CLOSING NOTE PT IS AAOX1, NONVERBAL, BREATHING IS UNLABORED TO VENT SETTINGS. VENT SETTINGS ARE FOLLOWED: AC 12, TV 350, FIO2 40%, PEEP 5. BLOOD TRANSFUSION IS INFUSING. IVF INFUSING ORDERED. NO S/S OF ACUTE DISTRESS. TUBE FEEDING IS RUNNING. ASPIRATION PRECAUTIONS MAINTAINED. NO SIGN OF PAIN OR DISCOMFORT. SAFETY AND CONTACT PRECAUTIONS ARE IN PLACE. BILATERAL SOFT-WRIST RESTRAINTS ARE IN PLACE. CARE ENDORSED TO DAY SHIFT RN.
[2019-09-30 08:00] VITALS: BP_SYST 128
--- NOTE | 2019-09-30 08:00 | NUR ---
Initial note: Patient is awake, but confuse, on Trach with Vent: AC-12, TV 350, FiO2 40%, PEEP 5, IVF with D10W at 50 ml/hr infusing via left Mid line, GT feeding with 1.5 Jevity running at 50 ml/hr, Pollack catheter is draining well via gravity. Shr is on Air Mattress.
[2019-09-30] MEDS: BALSAM PERU/CASTOR OIL 60 GM OINT...G. TP SCH (09:00)
[2019-09-30 09:09] LABS: ALBUMIN 1.8 g/dL (3.4-4.8); CALCIUM 8.7 mg/dL (8.4-11.0); CREATININE 0.5 mg/dL (0.55-1.30); TOTAL BILIRUBIN 0.5 mg/dL (0.0-1.0)
[2019-09-30] MEDS: MAGNESIUM OXIDE 400 MG TABLET GT SCH ×2 (09:55→21:42)
[2019-09-30] MEDS: CALCIUM CARBONATE/VITAMIN D3 1 TAB TABLET GT SCH ×2 (09:55→21:42)
[2019-09-30] MEDS: ASCORBIC ACID 500 MG TABLET GT SCH ×2 (09:55→21:42)
[2019-09-30] MEDS: QUEtiapine FUMARATE 25 MG TABLET GT SCH ×3 (09:55→21:42)
[2019-09-30] MEDS: SULFAMET 800MG/TMP 160MG, 20 ML UDBTL GT SCH (09:56)
[2019-09-30] MEDS: LACTOBACILLUS RHAMNOSUS GG 1 CAP CAPSULE GT SCH (09:56)
[2019-09-30] MEDS: prednisoLONE 15 MG/5 ML UDC GT SCH (09:57)
[2019-09-30] MEDS: PANTOPRAZOLE SODIUM 40 MG/VIAL (PROTONIX) IVP SCH ×2 (09:57→21:43)
[2019-09-30] MEDS: MUPIROCIN 2% TOPICAL OINTMENT 22 GM NS SCH ×2 (09:58→21:46)
[2019-09-30] MEDS: POTASSIUM CHLORIDE 20 MEQ/PKT PACKET GT SCH (09:58)
[2019-09-30] MEDS: ENOXAPARIN SODIUM 40 MG/0.4 ML SYRINGE SQ SCH (10:00)
[2019-09-30] MEDS: COLISTIMETHATE SODIUM 75 MG in NS 50 ML IV SCH ×2 (10:01→21:38)
[2019-09-30 12:14] VITALS: BP_SYST 128
--- NOTE | 2019-09-30 12:30 | NUR ---
round: Dr Soto makes round with new orders.
[2019-09-30 13:10] VITALS: BP_SYST 106
[2019-09-30] MEDS: SOD FERRIC GLUC COMPLEX/SUC 125 MG in NS 100 ML IV SCH (15:30)
[2019-09-30 17:07] VITALS: BP_SYST 100
--- NOTE | 2019-09-30 17:30 | NUR ---
ID round: Dr. Greenberg has made round and has new order for antibiotics.
--- NOTE | 2019-09-30 19:00 | NUR ---
Closing note: Patient is stable, tolerating Ventilator and Tube feeding well, no sign of distress.
--- NOTE | 2019-09-30 19:49 | NUR ---
INITIAL ASSESSMENT AT INITIAL ASSESSMENT PATIENT IS STABLE AND LAYING IN BED. NO SIGNS OR SYMPTOMS OF RESPIRATORY DISTRESS NOTED. EDUCATED PATIENT TECHNICIAN SUPPORT ENGINEER LIGHT. PATIENT UNSUCCESSFULLY DEMONSTRATES USAGE OF CALL LIGHT DUE TO LIMITED MOVEMENT. WILL CONTINUE TO CHECK ON PATIENT EVERY 2 HOURS. PLAN OF CARE DISCUSSED WITH PATIENT AT THIS TIME. BED IS LOCKED, ALARMED, AND AT THE LOWEST POSITION. WITH FLACC SCALE PATIENT SHOOK HER HEAD TO NO PAIN AT THIS MOMENT. FALL, SAFETY, CONTACT, AND RESPIRATORY PRECAUTION WILL BE PLACED THROUGHOUT THE SHIFT.
[2019-09-30] MEDS: MIRTAZAPINE 15 MG TABLET GT SCH (21:42)
[2019-10-01] MEDS: CEFTAZIDIME/AVIBACTAM 1.25 GM in NS 100 ML IV SCH ×4 (00:09→22:51)
--- NOTE | 2019-10-01 00:24 | NUR ---
ROUNDING PATIENT IS LAYING IN BED AND STABLE. NO SIGNS OR SYMPTOMS OF REPERTORY DISTRESS NOTED. CALL LIGHT IN REACH. BED IS LOCKED, ALARMED, AND AT THE LOWEST POSITION WILL CONTINUE TO MONITOR.
[2019-10-01 01:28] VITALS: BP_SYST 110
[2019-10-01] MEDS: IPRATROPIUM/ALBUTEROL SULFATE 3 ML AMPUL.NEB (DUONEB) INH SCH ×5 (03:17→20:14)
[2019-10-01] MEDS: LEVOTHYROXINE SODIUM 0.025 MG TABLET PO SCH (06:18)
--- NOTE | 2019-10-01 06:49 | NUR ---
CLOSING NOTES PATIENT IS LAYING IN BED AND STABLE. NO SIGNS OR SYMPTOMS OF RESPIRATORY DISTRESS NOTED. CALL LIGHT IN REACH. BED IS LOCKED, ALARMED, AND AT THE LOWEST POSITION. FALL, SAFETY, AND ASPIRATION PRECAUTION HAS BEEN PLACED THROUGHOUT THE SHIFT. WILL CONTINUE TO MONITOR UNTIL BED SIDE REPORT IS GIVEN TO AM SHIFT.
--- NOTE | 2019-10-01 07:15 | NUR ---
report received at the bedside. patient awake x 1. called by her name open her eyes and smile. lungs bilaterally with slight crackles noted. on mechanical ventilator of ac 12, tv 350, peep 5 and Fio2 of 40%. abdomen soft and non distended. with g tube of Jevity 1.5 at 50cc/hr infusing on well. no residual noted. has left upper arm midline 2 lumen noted. with iv fluids of D10 at 50cc/hr infusing on well. has brady catheter in placed draining well. hourly rounding. still with bilateral wrist restraints noted.
[2019-10-01] MEDS: BUDESONIDE 0.5 MG/2 ML AMPUL.NEB INH SCH ×2 (07:30→20:13)
[2019-10-01 07:49] VITALS: BP_SYST 97
[2019-10-01] MEDS: ENOXAPARIN SODIUM 40 MG/0.4 ML SYRINGE SQ SCH (09:23)
[2019-10-01] MEDS: COLISTIMETHATE SODIUM 75 MG in NS 50 ML IV SCH (09:23)
[2019-10-01] MEDS: POTASSIUM CHLORIDE 20 MEQ/PKT PACKET GT SCH (09:24)
[2019-10-01] MEDS: SULFAMET 800MG/TMP 160MG, 20 ML UDBTL GT SCH (09:27)
[2019-10-01] MEDS: prednisoLONE 15 MG/5 ML UDC GT SCH (09:27)
[2019-10-01] MEDS: PANTOPRAZOLE SODIUM 40 MG/VIAL (PROTONIX) IVP SCH ×2 (09:28→21:31)
[2019-10-01] MEDS: ASCORBIC ACID 500 MG TABLET GT SCH ×2 (09:28→21:31)
[2019-10-01] MEDS: CALCIUM CARBONATE/VITAMIN D3 1 TAB TABLET GT SCH ×2 (09:28→21:31)
[2019-10-01] MEDS: QUEtiapine FUMARATE 25 MG TABLET GT SCH ×3 (09:28→21:31)
[2019-10-01] MEDS: MAGNESIUM OXIDE 400 MG TABLET GT SCH ×2 (09:28→21:31)
[2019-10-01] MEDS: LACTOBACILLUS RHAMNOSUS GG 1 CAP CAPSULE GT SCH (09:28)
[2019-10-01] MEDS: MUPIROCIN 2% TOPICAL OINTMENT 22 GM NS SCH ×2 (09:30→21:00)
[2019-10-01] MEDS: BALSAM PERU/CASTOR OIL 60 GM OINT...G. TP SCH (09:31)
--- NOTE | 2019-10-01 09:34 | NUR ---
due meds given
[2019-10-01 09:39] LABS: BASOPHILS % (AUTO) 0.5 % (0.0-2.0); EOSINOPHILS # (AUTO) 0.1 K/uL (0.0-0.4); EOSINOPHILS % (AUTO) 2.9 % (0.0-4.0); HEMOGLOBIN 10.3 g/dL (12.0-16.0); LYMPHOCYTES # (AUTO) 0.7 K/uL (1.0-5.5); LYMPHOCYTES % (AUTO) 15.6 % (20.5-51.5); MEAN CORPUSCULAR HEMOGLOBIN 32 pg (27-31); MEAN CORPUSCULAR HGB CONC 33 % (32-36); MEAN CORPUSCULAR VOLUME 96 fL (79.0-98.0); MONOCYTES # (AUTO) 0.4 K/uL (0.0-1.0); MONOCYTES % (AUTO) 8.3 % (1.7-9.3); NEUTROPHILS # (AUTO) 3.1 K/uL (1.8-7.7); NEUTROPHILS % (AUTO) 72.7 % (40.0-70.0); PLATELET COUNT (AUTO) 215 K/uL (130-430); RED BLOOD CELL COUNT(AUTO) 3.22 MIL/uL (4.2-6.2); RED CELL DISTRIBUTION WIDTH 16.5 % (9.0-15.0); WHITE BLOOD COUNT (AUTO) 4.2 K/uL (4.8-10.8)
[2019-10-01 10:26] LABS: CALCIUM 8.4 mg/dL (8.4-11.0); CREATININE 0.5 mg/dL (0.55-1.30)
--- NOTE | 2019-10-01 11:00 | NUR ---
called Gi lab and spoke to sindi HOUGH regarding the procedure in am for Bronchoscopy at the bedside at 1000am. made aware
--- NOTE | 2019-10-01 11:20 | NUR ---
consent signed obtain via phone by the son. dr ortiz made aware. and procedure will be in bedside, due to isolation.
--- NOTE | 2019-10-01 11:25 | NUR ---
DR FONTANEZ CAME ORDERED TO HAVE BRONCHOSCOPY IN AM.
[2019-10-01 12:00] VITALS: BP_SYST 109
[2019-10-01] MEDS: SOD FERRIC GLUC COMPLEX/SUC 125 MG in NS 100 ML IV SCH (15:25)
--- NOTE | 2019-10-01 15:44 | NUR ---
Nutrition F/U (short note d/t high patient load) MARISA reviewed pt's current EMR including diet Hx, physician notes, nursing notes, pertinent labs/meds/procedures, care trends, and care activity. Subjective Info: Pt was seen resting in bed, TF Jevity 1.5 hung, but not infusing -- LEGAL SECRETARY stated pt will be changed soon. RN reported that pt had been tolerating TF well, no residuals. Pt would benefit from wound healing modualr. NEW Estimated Caloric Needs: 6088-3622 kcal/day (30-35 kcal/kg CBW for wound healing) NEW Estimated Protein Needs: 71-94 gm/day (1.5-2 gm/kg CBW for wound healing) NEW Estimated Fluid Needs: 1.5-1.7 L/day (1 ml/kcal/day for wound healing) Recommend: Jevity 1.5 at 50 ml/hr, Colt BID, Free Water Flush: 100 ml Q6h via GT Provides: 2080 kcal/day, 102 gm protein/day, and 1312 ml free water/day Meets: 124% of upper end of estimated caloric needs and 109% of upper end of estimated protein needs High Risk; F/U within 2-3 days Addendum: 10/01/19 at [address] CORRECTION: Recommend: Jevity 1.5 at 50 ml/hr, Colt BID, Prosource BID, Free Water Flush: 100 ml Q6h via GT Provides: 2080 kcal/day, 102 gm protein/day, and 1312 ml free water/day Meets: 124% of upper end of estimated caloric needs and 109% of upper end of estimated protein needs
--- NOTE | 2019-10-01 16:00 | NUR ---
due meds given as ordered.
[2019-10-01 17:08] VITALS: BP_SYST 105
--- NOTE | 2019-10-01 17:38 | NUR ---
DID WOUND CARE ON THE SACRAL AREA AND OTHERS BUT NO PHOTOS TAKEN. PATIENT VERY AGITATED. BUT CLEANING AND DRESSING OF WOUND DONE.
[2019-10-01] MEDS: D10W 1,000 ML IV SCH (18:07)
--- NOTE | 2019-10-01 18:16 | NUR ---
latest bs 113 mg.dl. no coverage given.
--- NOTE | 2019-10-01 19:34 | NUR ---
ENDORSED TO INCOMING NURSE CECI HOUGH
--- NOTE | 2019-10-01 19:35 | NUR ---
ROUNDS PATIENT RESTING COMFORTABLY IN BED, NOT IN DISTRESS, VITALS STABLE. ASSESSMENT DONE AND DOCUEMNTED. SEE FLOWSHEET. NEEDS ATTENDED TO. SAFETY AND FALL PRECAUTION MEASURES IN PLACED. WILL CONTINUE TO MONITOR.
--- NOTE | 2019-10-01 21:13 | NUR ---
MEDICATION DUE MEDICATIONS GIVEN SCHEDULED, TOLERATED WELL. WILL CONTINUE TO MONITOR.
[2019-10-01] MEDS: MIRTAZAPINE 15 MG TABLET GT SCH (21:31)
--- NOTE | 2019-10-02 00:07 | NUR ---
PATIENT RESTING: Patient resting quietly. No acute distress noted. Vital signs within normal range.
--- NOTE | 2019-10-02 00:12 | NUR ---
PATIENT RESTING: Patient resting quietly. No acute distress noted. Vital signs within normal range.
[2019-10-02] MEDS: IPRATROPIUM/ALBUTEROL SULFATE 3 ML AMPUL.NEB (DUONEB) INH SCH ×7 (00:44→23:21)
[2019-10-02] MEDS: COLISTIMETHATE SODIUM 150 MG VIAL INH SCH ×3 (00:48→21:00)
[2019-10-02 01:19] VITALS: BP_SYST 96
--- NOTE | 2019-10-02 04:13 | NUR ---
ROUNDS PATIENT ASLEEP, VITALS STABLE, NO SIGNS OF ANY PAIN AND DISCOMFORT NOTED. WILL CONTINUE TO MONITOR.
[2019-10-02] MEDS: CEFTAZIDIME/AVIBACTAM 1.25 GM in NS 100 ML IV SCH ×3 (05:30→21:01)
--- NOTE | 2019-10-02 06:50 | NUR ---
CLOSING NOTES PATIENT AWAKE, NOT IN DISTRESS, VITALS STABLE. ALL NEEDS ATTENDED TO. SAFETY MEASURES MAINTAINED. CALL LIGHT PLACED WITHIN REACH.
[2019-10-02] MEDS: LEVOTHYROXINE SODIUM 0.025 MG TABLET PO SCH (07:00)
--- NOTE | 2019-10-02 07:25 | NUR ---
Am Rounds: Patient awake but non verbal during rounds. On contact isolation precaution rendered. On trach vent,Fio2=40%,Ac=12,Kl=876,Peep=5. Tube feeds running at 50cc/h.Left upper midline,dressing clean and dry. Bilateral soft wrist restraint on. Call light with in reach. Bed locked at lowest position. Condition stable.
[2019-10-02] MEDS: BUDESONIDE 0.5 MG/2 ML AMPUL.NEB INH SCH ×2 (08:12→20:26)
[2019-10-02] MEDS: QUEtiapine FUMARATE 25 MG TABLET GT SCH ×3 (09:00→20:39)
[2019-10-02] MEDS: MIDAZOLAM HCL 5 MG/5 ML VIAL ONE ×4 (09:31→10:13)
[2019-10-02] MEDS: PANTOPRAZOLE SODIUM 40 MG/VIAL (PROTONIX) IVP SCH ×2 (09:44→20:39)
[2019-10-02] MEDS: MUPIROCIN 2% TOPICAL OINTMENT 22 GM NS SCH ×2 (09:50→20:40)
[2019-10-02 09:52] VITALS: BP_SYST 106
[2019-10-02] MEDS: MEPERIDINE HCL/PF 100 MG/ML AMP ONE ×2 (10:12→10:28)
--- NOTE | 2019-10-02 10:19 | NUR ---
Bronchoscopy: Bronchoscopy at bedside. Team from gi lab and resource nurse at the bedside.Rt standby.Dr Leyva will do bronchoscopy at the bedside.
--- NOTE | 2019-10-02 11:00 | NUR ---
RN ROUNDS: BRONCHOSCOPY DONE. NO ACUTE DISTRESS.RESUMED ALL MEDS PER G TUBE ORDERED BY DR FONTANEZ.
[2019-10-02] MEDS ORDERED: PREDNISONE 5 MG TABLET PO ONE (11:30)
[2019-10-02 12:00] VITALS: BP_SYST 100
--- NOTE | 2019-10-02 12:00 | NUR ---
RN ROUNDS: TUBE FEEDS ON GOING. NO RESIDUALS PRIOR TO GIVING MEDS. FLUSHED WITH WATER PER G-TUBE.TOLERATED WELL.
[2019-10-02] MEDS: POTASSIUM CHLORIDE 20 MEQ/PKT PACKET GT SCH (12:23)
[2019-10-02] MEDS: CALCIUM CARBONATE/VITAMIN D3 1 TAB TABLET GT SCH ×2 (12:23→20:39)
[2019-10-02] MEDS: LACTOBACILLUS RHAMNOSUS GG 1 CAP CAPSULE GT SCH (12:24)
[2019-10-02] MEDS: MAGNESIUM OXIDE 400 MG TABLET GT SCH ×2 (12:24→20:39)
[2019-10-02] MEDS: ASCORBIC ACID 500 MG TABLET GT SCH ×2 (12:24→20:39)
[2019-10-02] MEDS: SULFAMET 800MG/TMP 160MG, 20 ML UDBTL GT SCH (12:25)
[2019-10-02] MEDS: ENOXAPARIN SODIUM 40 MG/0.4 ML SYRINGE SQ SCH (12:26)
[2019-10-02] MEDS: D10W 1,000 ML IV SCH (12:52)
[2019-10-02] MEDS: BALSAM PERU/CASTOR OIL 60 GM OINT...G. TP SCH (12:52)
--- NOTE | 2019-10-02 13:35 | NUR ---
BEATRICE, MD DR COE WAS PAGED, DR RODAS LIFE TRAINER RE: CURRENT ANTIBIOTIC IS RESISTANT. SPOKE TO BRIAN
--- NOTE | 2019-10-02 16:00 | NUR ---
WOUND CARE: CLEANSE NS SACRAL AREA,PAT DRY,VENELEX OINTMENT TO WOUND BED,PACK WITH IODOFORM 1 INCH AND SURE PREP TO CARY WOUND AREA AND COVERED WITH SACRAL FOAM DRESSING.
[2019-10-02] MEDS: SOD FERRIC GLUC COMPLEX/SUC 125 MG in NS 100 ML IV SCH (16:09)
[2019-10-02 17:17] LABS: INSULIN 31.3 uIU/mL (2.6-24.9)
[2019-10-02 17:20] VITALS: BP_SYST 129
--- NOTE | 2019-10-02 18:17 | NUR ---
END OF SHIFT: TOLERATED VENT SETTINGS,FIO2=40%. TUBE FEEDS ON GOING. NO RESIDUALS PRIOR TO GIVING MEDS. IV FLUIDS RUNNING AT LEFT UPPER ARM MIDLINE. MARTÍNEZ IN SITU. PRACTICE GUIDELINES MET THROUGH OUT THE SHIFT. NOT IN ANY DISTRESS.
--- NOTE | 2019-10-02 19:49 | NUR ---
Initial note: Report received from charan HOUGH. Patient is awake in bed, no acute distress. Alert and oriented to name, non-verbal. Trach to vent in place, tolerating settings of AC 12, TV 350, FiO2 40%, PEEP 5.0. IV fluids infusing per MD order to MARIELA midline, no infiltration noted. Tubefeeding in place per MD order, 10 ML gastric residual noted. Pollack catheter draining yellow urine to gravity. Call light with patient. Bed locked in lowest position, side rails raised x3, bed alarm on, room close to nurses' station. Safety,fall, contact isolation precautions in place. Will continue with plan of care. Addendum: 10/02/19 at 2250 by Olegario Flower RN Bilateral soft wrist restraints in place per MD order for patient's safety. No sign of skin breakdown noted to bilateral wrists.
[2019-10-02 20:00] VITALS: BP_SYST 108
[2019-10-02] MEDS: MIRTAZAPINE 15 MG TABLET GT SCH (20:39)
--- NOTE | 2019-10-02 20:52 | NUR ---
Blood sugar: Patient's blood sugar at this time is 100. Currently receiving D10W via MARIELA midline at ordered rate and tubefeeding Jevity 1.5 via G-tube at ordered rate. Call light with patient. Will monitor for signs/symptoms of hypoglycemia.
--- NOTE | 2019-10-02 23:13 | NUR ---
Rounds: Patient is resting in bed, does not show any acute distress. No change in vent settings, tolerating well. IV fluids infusing per MD order. Pollack catheter draining yellow urine to gravity. Call light with patient. Safety, fall, contact iso precautions in place. Will continue with plan of care.
[2019-10-03] VITALS (30 sets, daily range): BP systolic 79–134
[2019-10-03] MEDS ORDERED: NACL 0.9% 1,000 ML IV SCH (00:15)
--- NOTE | 2019-10-03 00:15 | NUR ---
Dr. Soto: Dr. Soto was made aware over phone regarding patient's decreased BP. MD made aware of current vitals, including lowest BP recorded at 72/49 and highest at 89/54. stated he will put in orders. New orders acknowledged at this time, will carry out.
--- NOTE | 2019-10-03 00:26 | NUR ---
Dr. Soto: Dr. Soto called station to clarify orders. Verified by read-back, will input orders accordingly.
[2019-10-03] MEDS ORDERED: methylPREDNISolone SOD SUCC/PF 62.5 MG/ML VIAL ONE (00:36)
--- NOTE | 2019-10-03 00:41 | NUR ---
Note: Patient is awake and alert, non-verbal, but able to answer questions by nodding/shaking head. 1L NS bolus still infusing. SBP sustaining in the 70's, occasionally reaching low 80's. Patient's bedside blood sugar is 97. Cont. to closely monitor.
--- NOTE | 2019-10-03 00:46 | NUR ---
Paged Dr. Soto s/yg Neal.
--- NOTE | 2019-10-03 00:54 | NUR ---
Dr. Soto: Called MD for order clarification, new orders input accordingly. MD was updated patient's current condition, including SBP sustaining in the 70's and that NS bolus is still infusing. MD ordered to transfer patient to ICU. RN to input order.
[2019-10-03] MEDS ORDERED: NACL 0.9% 1,000 ML IV ONE (01:00)
[2019-10-03] MEDS ORDERED: methylPREDNISolone SOD SUCC/PF 62.5 MG/ML VIAL IVP ONE (01:00)
--- NOTE | 2019-10-03 01:00 | NUR ---
Transfer to ICU: Patient was transferred to ICU bed 4. Accompanied by 2 RN's and 1 RT. Patient is awake and alert, non-verbal. 1L NS bolus and D10W at 50 ML/HR infusing as ordered to MARIELA double lumen midline, no infiltration present. G-tube receiving tubefeeding Jevity 1.5 at 50 ML/HR . Pollack catheter draining to gravity, JV BASEBALL COACH reported that she had emptied 1000 ML yellow urine at midnight. Report given at bedside using SBAR approach.
--- NOTE | 2019-10-03 01:01 | NUR ---
TRANSFER TO ICU Pt brought in by [facility] RN via bed, Pt is awake, non verbal with trach in place and secured well, O2 saturation at 99% with no respiratory distress noted. BP at 120/48 with 200ml remaining on normal saline bolus. Clean dry dressing noted on the buttocks. Gtube in place with tubefeeding jevity ongoing. Pollack catheter in placed draining clear yellow urine to gravity. Safety precaution observed. Bed lock and restraint in placed with MD aware. Will continue to monitor Pt.
[2019-10-03] MEDS ORDERED: NOREPINEPHRINE 4 MG/4 ML VIAL IV ONE (01:26)
[2019-10-03] MEDS ORDERED: HYDROCORTISONE SOD SUCC 100 MG/2 ML VIAL IVP SCH (01:30)
[2019-10-03] MEDS: IPRATROPIUM/ALBUTEROL SULFATE 3 ML AMPUL.NEB (DUONEB) INH SCH ×6 (03:30→23:23)
--- NOTE | 2019-10-03 03:30 | NUR ---
Pt in bed, no acute distress noted at this time. Will continue to monitor Pt.
[2019-10-03] MEDS: LEVOTHYROXINE SODIUM 0.025 MG TABLET PO SCH (06:03)
[2019-10-03] MEDS: CEFTAZIDIME/AVIBACTAM 1.25 GM in NS 100 ML IV SCH ×3 (06:04→21:41)
--- NOTE | 2019-10-03 06:49 | NUR ---
Pt in bed, no acute distress noted. IV lines and skin checked. Will give report to oncoming RN.
--- NOTE | 2019-10-03 07:15 | NUR ---
OPENING NOTE SBAR REPORT RECEIVED FROM TIFF HOUGH. ASSUMED CARE OF PATIENT.
[2019-10-03] MEDS: BUDESONIDE 0.5 MG/2 ML AMPUL.NEB INH SCH ×2 (07:30→19:54)
[2019-10-03 07:42] LABS: BASOPHILS % (AUTO) 0.3 % (0.0-2.0); EOSINOPHILS % (AUTO) 0.1 % (0.0-4.0); HEMATOCRIT 29.6 % (36-48); HEMOGLOBIN 10.2 g/dL (12.0-16.0); LYMPHOCYTES # (AUTO) 0.3 K/uL (1.0-5.5); LYMPHOCYTES % (AUTO) 5.8 % (20.5-51.5); MEAN CORPUSCULAR HEMOGLOBIN 33 pg (27-31); MEAN CORPUSCULAR HGB CONC 35 % (32-36); MEAN CORPUSCULAR VOLUME 95 fL (79.0-98.0); MONOCYTES % (AUTO) 0.7 % (1.7-9.3); NEUTROPHILS # (AUTO) 5.4 K/uL (1.8-7.7); NEUTROPHILS % (AUTO) 93.1 % (40.0-70.0); PLATELET COUNT (AUTO) 258 K/uL (130-430); RED BLOOD CELL COUNT(AUTO) 3.11 MIL/uL (4.2-6.2); RED CELL DISTRIBUTION WIDTH 17.2 % (9.0-15.0); WHITE BLOOD COUNT (AUTO) 5.8 K/uL (4.8-10.8)
[2019-10-03] MEDS ORDERED: PREDNISONE 5 MG TABLET PO SCH (08:00)
--- NOTE | 2019-10-03 08:15 | NUR ---
AM ASSESSMENT PT LAYING IN BED. PT ANO X1. PT HAS TRACHEOSTOMY TO MECHANICAL VENTILATION. VENT SETTINGS AC 12, TIDAL VOLUME 350, FiO2 40%, PEEP 5. PLASTIC CUFF 7. PT TOLERATING VENT SETTINGS. PT HAS DIMINISHED LUNG SOUNDS IN BILATERAL BASES. CLEAR LUNG SOUNDS IN UPPER LOBES. PT HAS LUE PICC LINE RUNNING D10 @ 50 ML/HR. PT HAS G TUBE RUNNING ON JEVITY 1.5 @ 50 ML/HR. G TUBE FLUSHES WELL. RESIDUAL VOLUME 5 ML. MARTÍNEZ CATHETER DRAINING TO GRAVITY. URINE CLEAR AND YELLOW. SKIN BREAKDOWN ON SACRUM. DRY SCABS NOTED TO RIGHT ANKLE, RIGHT FOOT, LEFT FOREARM AND LEFT ELBOW. PT CONTRACTED IN LOWER AND UPPER EXTREMITIES. BED IN LOWEST POSITION. CALL LIGHT WITHIN REACH. SAFETY PRECAUTIONS IN PLACE. WILL CONTINUE TO MONITOR.
[2019-10-03 08:29] LABS: CALCIUM 8.9 mg/dL (8.4-11.0); CREATININE 0.64 mg/dL (0.55-1.30); POTASSIUM 4.7 mmol/L (3.5-5.1); TOTAL BILIRUBIN 0.4 mg/dL (0.0-1.0)
[2019-10-03] MEDS: ENOXAPARIN SODIUM 40 MG/0.4 ML SYRINGE SQ SCH (08:30)
[2019-10-03] MEDS: ASCORBIC ACID 500 MG TABLET GT SCH ×2 (08:31→21:20)
[2019-10-03] MEDS: QUEtiapine FUMARATE 25 MG TABLET GT SCH ×3 (08:31→21:20)
[2019-10-03] MEDS: LACTOBACILLUS RHAMNOSUS GG 1 CAP CAPSULE GT SCH (08:31)
[2019-10-03] MEDS: CALCIUM CARBONATE/VITAMIN D3 1 TAB TABLET GT SCH ×2 (08:31→21:20)
[2019-10-03] MEDS: SULFAMET 800MG/TMP 160MG, 20 ML UDBTL GT SCH (08:31)
[2019-10-03] MEDS: MAGNESIUM OXIDE 400 MG TABLET GT SCH ×2 (08:31→21:20)
[2019-10-03] MEDS: POTASSIUM CHLORIDE 20 MEQ/PKT PACKET GT SCH (08:33)
[2019-10-03] MEDS: PREDNISONE 20 MG TABLET PO SCH (08:34)
[2019-10-03] MEDS: PANTOPRAZOLE SODIUM 40 MG/VIAL (PROTONIX) IVP SCH ×2 (08:34→21:20)
[2019-10-03] MEDS: MUPIROCIN 2% TOPICAL OINTMENT 22 GM NS SCH (08:36)
[2019-10-03] MEDS: BALSAM PERU/CASTOR OIL 60 GM OINT...G. TP SCH (08:37)
[2019-10-03] MEDS: COLISTIMETHATE SODIUM 150 MG VIAL INH SCH ×2 (09:00→20:20)
[2019-10-03] MEDS ORDERED: PREDNISONE 10 MG TABLET PO SCH (09:00)
--- NOTE | 2019-10-03 11:40 | NUR ---
MD Rounds Dr. Leyva @ bedside. No new orders received.
--- NOTE | 2019-10-03 13:00 | NUR ---
MD Rounds Dr. Soto @ bedside for examination. New orders received and carried out.
--- NOTE | 2019-10-03 16:30 | NUR ---
RN UPDATE PT IN NO DISTRESS. WOUND CARE PERFORMED MD ORDERED. SACRAL AREA COVERED WITH FOAM DRESSING. PT TOLERATED PROCEDURE WELL. WILL CONTINUE TO MONITOR.
[2019-10-03] MEDS: SOD FERRIC GLUC COMPLEX/SUC 125 MG in NS 100 ML IV SCH (17:47)
--- NOTE | 2019-10-03 18:56 | NUR ---
Transfer Patient transferred to telemetry unit room 110A via bed. RN and RT present during transfer. Patient in no signs of distress. Endorsed patient to pearl hand using SBAR format.
--- NOTE | 2019-10-03 19:03 | NUR ---
FROM ICU Received pt and endorsement from ICU nurse. Pt is resting in bed with both eyes closed, with visible chest rise and fall with non-labored breathing noted. Pt on mech vent with settings, AC:12, Tv:350, FiO2:40%. Pt on saline lock on left upper arm midline. Pt on G-tube feeding with Jevity 1.5 at 50ml/hr and infusing well. Pt on brady catheter with yellow urine noted in the bag and hanged below bladder level. No signs of pain like moaning or grimacing noted. No signs of acute distress or SOB noted. Safety precautions in place with 3 side rails up, wheels locked, bed alarm on and in lowest level. Will continue to monitor.
[2019-10-03] MEDS: MIRTAZAPINE 15 MG TABLET GT SCH (21:20)
--- NOTE | 2019-10-03 21:41 | NUR ---
MED PASS Assessed for bowel sounds and is active upon auscultation. Residual is 0. All Gt and IV due meds given and pt tolerating well. Aspiration precaution maintained with head elevated at 40 degrees. No signs of acute distress noted. Will continue to monitor.
--- NOTE | 2019-10-03 23:50 | NUR ---
ROUNDS Pt is awake, non-verbal and lying in bed. Pt moving around at times, no signs of acute distress noted. No moaning or grimacing noted. IVF and tube feeding are infusing well. Restraints in place with no signs of injury. Aspiration and safety precautions in place. Will continue to monitor.
[2019-10-04 00:28] VITALS: BP_SYST 118
--- NOTE | 2019-10-04 02:13 | NUR ---
ROUNDS Pt is resting in bed with both eyes closed, with visible chest rise and fall with non-labored breathing noted. No changes in mechanical vent with settings. G-tube feeding is infusing well. No moaning or grimacing noted. No signs of acute distress. Will continue to monitor.
[2019-10-04] MEDS: IPRATROPIUM/ALBUTEROL SULFATE 3 ML AMPUL.NEB (DUONEB) INH SCH ×5 (03:08→20:00)
--- NOTE | 2019-10-04 04:30 | NUR ---
INCONTINENCE CARE Incontinence care and wound care rendered with RN HOME HEALTH Analyn and pt tolerated well. Suctioning done as needed. No signs of acute distress noted. Aspiration and safety precautions in place. Will continue to monitor.
[2019-10-04] MEDS: CEFTAZIDIME/AVIBACTAM 1.25 GM in NS 100 ML IV SCH ×3 (05:07→22:30)
[2019-10-04] MEDS: LEVOTHYROXINE SODIUM 0.025 MG TABLET PO SCH (06:30)
--- NOTE | 2019-10-04 07:02 | NUR ---
CLOSING NOTES Pt is resting in bed with both eyes closed, with visible chest rise and fall with non-labored breathing noted. IVF and tube feeding are infusing well. No signs of pain like moaning or grimacing noted. No signs of acute distress or SOB noted. Kept brady bag hanged below bladder level. All needs attended throughout the shift. Aspiration precaution maintained with head elevated at 40 degrees. Safety precautions maintained with 3 side rails up, wheels locked, bed alarm on and in lowest level. Will endorse to day shift nurse.
--- NOTE | 2019-10-04 07:30 | NUR ---
OPENING NOTE Patient resting in the bed. No acute distress. HOB elevated. Trach intact to sade setting as ordered. GT intact, patent. On Jevity 1.5 at 50ml/hr, infusing well. Midline intact to MARIELA, no redness, no swelling noted, covered with clean and dry transparent dressing. F/C intact, drain gravity. Bilateral soft wrist restraint in place, pulse present, able to move fingers and hands without problem. On contact isolation. Safety measure maintained. Call light within reached. Bed locked in low position, side rails up. Will continue to monitor.
[2019-10-04] MEDS: BUDESONIDE 0.5 MG/2 ML AMPUL.NEB INH SCH ×2 (07:31→20:31)
[2019-10-04] MEDS: COLISTIMETHATE SODIUM 150 MG VIAL INH SCH ×2 (07:37→20:32)
[2019-10-04 08:00] VITALS: BP_SYST 105
[2019-10-04] MEDS: PANTOPRAZOLE SODIUM 40 MG/VIAL (PROTONIX) IVP SCH ×2 (08:15→21:42)
[2019-10-04] MEDS: BALSAM PERU/CASTOR OIL 60 GM OINT...G. TP SCH (08:15)
[2019-10-04] MEDS: QUEtiapine FUMARATE 25 MG TABLET GT SCH ×3 (08:15→21:42)
[2019-10-04] MEDS: PREDNISONE 20 MG TABLET PO SCH (08:15)
[2019-10-04] MEDS: CALCIUM CARBONATE/VITAMIN D3 1 TAB TABLET GT SCH ×2 (08:15→21:41)
[2019-10-04] MEDS: ASCORBIC ACID 500 MG TABLET GT SCH ×2 (08:15→21:42)
[2019-10-04] MEDS: LACTOBACILLUS RHAMNOSUS GG 1 CAP CAPSULE GT SCH (08:15)
[2019-10-04] MEDS: POTASSIUM CHLORIDE 20 MEQ/PKT PACKET GT SCH (08:15)
[2019-10-04] MEDS: MAGNESIUM OXIDE 400 MG TABLET GT SCH ×2 (08:15→21:41)
[2019-10-04] MEDS: ENOXAPARIN SODIUM 40 MG/0.4 ML SYRINGE SQ SCH (08:17)
--- NOTE | 2019-10-04 08:20 | NUR ---
AM SCHEDULE MED GIVEN, TOLERATED WELL.
--- NOTE | 2019-10-04 10:30 | NUR ---
BM Cleaned the patient with bed bath given. No acute distress. Tolerated well. safety measure maintained. Call light within reached. Continue to monitor.
--- NOTE | 2019-10-04 11:54 | NUR ---
BS=75 No insulin coverage needed per sliding scale.
[2019-10-04 12:00] VITALS: BP_SYST 100
--- NOTE | 2019-10-04 12:20 | NUR ---
SEEN AND EXAMINED BY JUANIS MARTINEZ.
--- NOTE | 2019-10-04 13:55 | NUR ---
SEEN AND EXAMINED BY DR. KNOX [facility].
--- NOTE | 2019-10-04 14:50 | NUR ---
SEEN AND EXAMINED BY ISAMAR HAWTHORNE.
[2019-10-04] MEDS ORDERED: ERGOCALCIFEROL 8000 UNITS/ML ORAL SOLUTION, 60 ML BOTTLE GT ONE (15:00)
[2019-10-04] MEDS ORDERED: MULTIVIT-MINERALS/FERROUS GLUC 15 ML UDC GT ONE (15:00)
[2019-10-04] MEDS ORDERED: FERROUS SULFATE 300 MG/5 ML UDC GT ONE (15:00)
--- NOTE | 2019-10-04 15:33 | NUR ---
Nutrition F/U RD reviewed pt's current EMR record including diet Hx, physician notes, nursing notes, pertinent labs/meds/procedures, care trends, and care activity. Admission Dx: Acute on chronic respiratory failure PMH: chronic respiratory failure, trach/vent dependent, G-tube feeding, COPD, dementia, anxiety, laryngeal CA, DM2 per physician notes. Current Diet Order/Nutrition Support: Jevity 1.5 at 50 ml/hr, Colt BID, Prosource BID, Free Water Flush: 100 ml Q6h via GT x3days Subjective Info: Pt seen resting in bed w/ TF infusing as per physician orders. Per EMR, no residuals noted, and pt has been tolerating TF well. Current TF regimen is adequate/appropriate. Estimated Caloric Needs: 0593-6591 kcal/day (30-35 kcal/kg CBW for wound healing) Estimated Protein Needs: 71-94 gm/day (1.5-2 gm/kg CBW for wound healing) Estimated Fluid Needs: 1.5-1.7 L/day (1 ml/kcal/day for wound healing) Problem/Etiology/Signs/Symptoms Increased nutrient needs related to increased metabolic demands as evidenced by laryngeal cancer, wound to coccyx. *ongoing Expected Outcomes/Goals Monitor EN support with goals of pt meeting at least 90% of estimated nutritional needs, labs trending WNL, and skin integrity/wt maintenance. Recommend continuing Jevity 1.5 at 50 ml/hr, Colt BID, Prosource BID, Free Water Flush: 100 ml Q6h via GT Provides: 2080 kcal/day, 102 gm protein/day, and 1312 ml free water/day Meets: 124% of upper end of estimated caloric needs and 109% of upper end of estimated protein needs Moderate Risk; F/U within 3-5 days
--- NOTE | 2019-10-04 15:39 | NUR ---
Dietitian Recommendations * Recommend continuing Jevity 1.5 at 50 ml/hr, Colt BID, Prosource BID, Free Water Flush: 100 ml Q6h via GT Provides: 2080 kcal/day, 102 gm protein/day, and 1312 ml free water/day Meets: 124% of upper end of estimated caloric needs and 109% of upper end of estimated protein needs LP, RD Please refer to Nutrition F/U for details.
[2019-10-04 15:43] LABS: BASOPHILS % (AUTO) 0.1 % (0.0-2.0); EOSINOPHILS % (AUTO) 0.4 % (0.0-4.0); HEMATOCRIT 32.9 % (36-48); HEMOGLOBIN 10.9 g/dL (12.0-16.0); LYMPHOCYTES # (AUTO) 0.4 K/uL (1.0-5.5); LYMPHOCYTES % (AUTO) 7.1 % (20.5-51.5); MEAN CORPUSCULAR HEMOGLOBIN 32 pg (27-31); MEAN CORPUSCULAR HGB CONC 33 % (32-36); MONOCYTES # (AUTO) 0.1 K/uL (0.0-1.0); MONOCYTES % (AUTO) 2.7 % (1.7-9.3); NEUTROPHILS # (AUTO) 4.5 K/uL (1.8-7.7); NEUTROPHILS % (AUTO) 89.7 % (40.0-70.0); PLATELET COUNT (AUTO) 221 K/uL (130-430); RED BLOOD CELL COUNT(AUTO) 3.39 MIL/uL (4.2-6.2); RED CELL DISTRIBUTION WIDTH 18.2 % (9.0-15.0)
[2019-10-04 15:49] LABS: CALCIUM 9.4 mg/dL (8.4-11.0); CREATININE 0.65 mg/dL (0.55-1.30); MEAN CORPUSCULAR VOLUME 97 fL (79.0-98.0); POTASSIUM 5.6 mmol/L (3.5-5.1)
[2019-10-04 16:00] VITALS: BP_SYST 102
--- NOTE | 2019-10-04 16:24 | NUR ---
MIDLINE WITH 6CM OUT, DR. KNOX MAKE AWARE WITH ORDER FOR PICC LINE NURSE TO CHECK MIDLINE.
--- NOTE | 2019-10-04 17:08 | NUR ---
VF=081 No insulin coverage needed per sliding scale.
--- NOTE | 2019-10-04 17:10 | NUR ---
SEEN AND EXAMINED BY ANABEL CHAMORRO.
--- NOTE | 2019-10-04 17:18 | NUR ---
ID DOCTOR CALLED ISAMAR ALBRIGHT AT [phone] SPOKE WITH RAYSHAWN.
[2019-10-04] MEDS: SOD FERRIC GLUC COMPLEX/SUC 125 MG in NS 100 ML IV SCH (18:01)
--- NOTE | 2019-10-04 18:10 | NUR ---
PICC LINE NURSEJOHN CALLED Talked to John regarding the midline with 6cm out. Checked with Dariel RN, flushed with NS with good blood return, no swelling noted on the site. Checked with chest c-ray result did not mention any tip of catheter. Per John that means not the PICC line, if flushable and with good blood return that is okay to use. Only monitor any swelling and drainage.
--- NOTE | 2019-10-04 18:55 | NUR ---
CLOSING NOTE Patient resting in the bed. No acute distress. HOB elevated. Trach intact to vent setting as ordered. GT intact, patent. On Jevity 1.5 at 50ml/hr, infusing well. Midline intact to MARIELA, no redness, no swelling noted, covered with clean and dry transparent dressing. F/C intact, drain gravity. Bilateral soft wrist restraint in place, pulse present, able to move fingers and hands without problem. On contact isolation. All needs met. Safety measure maintained. Call light within reached. Bed locked in low position, side rails up. Will endorse to night nurse.
--- NOTE | 2019-10-04 19:30 | NUR ---
OPENING NOTES/NEW IV LINE/ Receive report from GIANLUCA ARBOLEDA. Patient AOx1, awake at this time, MARIELA mid line, no patency, infiltration noted, confirmed with Gerald HOUGH, charge nurse, removed by RN. Re inserted a new IV line in the Right forearm, attempted once with 22G needle, patient tolerated well. On ventilator, operating well. Pollack catheter, attached and secured, draining by gravity. Sarcal dressing dry, clean and intact. on Bilateral soft restraints, no injury noted, bilateral pulse is noted. G-tube dressing dry and intact, able to aspirate residual less than 1ml. Safety precautions in place. Bed alarm on, Call light within reach, will continue to monitor patient
--- NOTE | 2019-10-04 19:55 | NUR ---
PAGED PAGED DR. COE, SPOKE WITH MELO
[2019-10-04 20:00] VITALS: BP_SYST 102
--- NOTE | 2019-10-04 21:40 | NUR ---
MED PASS/BS 69 Due medication given at this time via G-TUbe, able to aspirate residual less than 1ml, patency noted. BS checked, result was 69. D50 given to patient per protocol. No signs of respiratory distress and discomfort noted, Safety precautions in place. Will continue to monitor patient.
[2019-10-04] MEDS: FERROUS SULFATE 300 MG/5 ML UDC GT SCH (21:41)
[2019-10-04] MEDS: MIRTAZAPINE 15 MG TABLET GT SCH (21:42)
[2019-10-04] MEDS: DEXTROSE 50% JECT 50 ML DISP.SYRIN IVP PRN (22:09)
[2019-10-04] MEDS ORDERED: CEFTAZIDIME 1 GM VIAL ONE (22:15)
--- NOTE | 2019-10-04 23:45 | NUR ---
RN ROUNDS Patient asleep at this time, no signs of respiratory distress and discomfort noted. Breathing even and unlabored. HOB slightly elevated. On bilateral soft restraints, no injury noted, bilateral radial pulse present. Mechanical ventilator is operating well. Safety precautions in place. Will continue to monitor patient
[2019-10-05 00:32] VITALS: BP_SYST 103
--- NOTE | 2019-10-05 01:30 | NUR ---
RN ROUNDS Patient asleep, no signs of respiratory distress and discomfort noted. Breathing even and unlabored. HOB slightly elevated. On bilateral soft restraints, no injury noted, bilateral radial pulse present. Mechanical ventilator is operating well. Pollack attached and secured, draining by gravity. Safety precautions in place. Will continue to monitor patient
--- NOTE | 2019-10-05 03:57 | NUR ---
RN ROUNDS Patient asleep at this time. No signs of respiratory distress and discomfort noted. Breathing even and unlabored. HOB slightly raised. On mechanical ventilator, operating well. On bilateral soft wrist restraints, no injury noted. Repositioned for comfort. Safety precautions in place. Will continue to monitor patient
[2019-10-05] MEDS: IPRATROPIUM/ALBUTEROL SULFATE 3 ML AMPUL.NEB (DUONEB) INH SCH ×7 (04:15→22:47)
--- NOTE | 2019-10-05 05:28 | NUR ---
PERICARE/CATHETER CARE/WOUND DRESSING Tita care and brady catheter care done at this time with the help of Mirna COSTA. Wound dressing in the sacral region done, per protocol. Patient tolerated well. NO signs of respiratory distress and discomfort noted. On mechanical ventilator operating well. Safety precautions in place. Will continue to monitor
[2019-10-05] MEDS: LEVOTHYROXINE SODIUM 0.025 MG TABLET PO SCH (06:12)
[2019-10-05] MEDS: CEFTAZIDIME/AVIBACTAM 1.25 GM in NS 100 ML IV SCH ×3 (06:12→21:30)
--- NOTE | 2019-10-05 07:00 | NUR ---
CLOSING NOTE Patient resting in the bed. No acute distress and discomfort note. HOB raised. Trach intact to vent setting as ordered. GT intact, patent. On Jevity 1.5 at 50ml/hr, infusing well. Pollack catheter, secured and intact, draining by gravity. Bilateral soft wrist restraint in place, pulse present, able to move fingers and hands without problem. On contact isolation. Dressing in the sacral clean, dry and intact. All needs met throughout the shift. Safety precautions in place. Call light within reached. Bed locked in lowest position, side rails up. Will continue to monitor until endorse to oncoming nurse.
--- NOTE | 2019-10-05 07:35 | NUR ---
OPENING NOTE Patient resting in the bed. No acute distress. HOB elevated. Trach intact to vent setting as ordered. GT intact, patent. On Jevity 1.5 at 50ml/hr, infusing well. SL intact to RFA, no redness,no swelling, patent. F/C intact, drain gravity. Bilateral soft wrist restraint in place, pulse present, able to move fingers and hands without problem. On contact isolation. Safety measure maintained. Call light within reached. Bed locked in low position, side rails up. Will continue to monitor.
[2019-10-05] MEDS: BUDESONIDE 0.5 MG/2 ML AMPUL.NEB INH SCH ×2 (07:40→20:11)
[2019-10-05 08:00] VITALS: BP_SYST 98
[2019-10-05] MEDS: COLISTIMETHATE SODIUM 150 MG VIAL INH SCH ×2 (08:01→20:36)
[2019-10-05 08:29] LABS: BASOPHILS % (AUTO) 0.4 % (0.0-2.0); EOSINOPHILS # (AUTO) 0.1 K/uL (0.0-0.4); EOSINOPHILS % (AUTO) 2.9 % (0.0-4.0); HEMATOCRIT 30.6 % (36-48); HEMOGLOBIN 10.4 g/dL (12.0-16.0); LYMPHOCYTES # (AUTO) 0.6 K/uL (1.0-5.5); LYMPHOCYTES % (AUTO) 12.2 % (20.5-51.5); MEAN CORPUSCULAR HEMOGLOBIN 33 pg (27-31); MEAN CORPUSCULAR HGB CONC 34 % (32-36); MEAN CORPUSCULAR VOLUME 96 fL (79.0-98.0); MONOCYTES # (AUTO) 0.4 K/uL (0.0-1.0); MONOCYTES % (AUTO) 7.9 % (1.7-9.3); NEUTROPHILS # (AUTO) 3.9 K/uL (1.8-7.7); NEUTROPHILS % (AUTO) 76.6 % (40.0-70.0); PLATELET COUNT (AUTO) 184 K/uL (130-430); RED BLOOD CELL COUNT(AUTO) 3.18 MIL/uL (4.2-6.2); RED CELL DISTRIBUTION WIDTH 17.8 % (9.0-15.0); WHITE BLOOD COUNT (AUTO) 5.1 K/uL (4.8-10.8)
[2019-10-05] MEDS: POTASSIUM CHLORIDE 20 MEQ/PKT PACKET GT SCH (08:48)
[2019-10-05] MEDS: CALCIUM CARBONATE/VITAMIN D3 1 TAB TABLET GT SCH ×2 (08:48→21:10)
[2019-10-05] MEDS: PANTOPRAZOLE SODIUM 40 MG/VIAL (PROTONIX) IVP SCH ×2 (08:48→21:10)
[2019-10-05] MEDS: LACTOBACILLUS RHAMNOSUS GG 1 CAP CAPSULE GT SCH (08:48)
[2019-10-05] MEDS: FERROUS SULFATE 300 MG/5 ML UDC GT SCH ×2 (08:48→21:10)
[2019-10-05] MEDS: QUEtiapine FUMARATE 25 MG TABLET GT SCH ×3 (08:49→21:10)
[2019-10-05] MEDS: ASCORBIC ACID 500 MG TABLET GT SCH ×2 (08:49→21:10)
[2019-10-05] MEDS: PREDNISONE 20 MG TABLET PO SCH (08:49)
[2019-10-05] MEDS: MULTIVIT-MINERALS/FERROUS GLUC 15 ML UDC GT SCH (08:49)
[2019-10-05] MEDS: MAGNESIUM OXIDE 400 MG TABLET GT SCH ×2 (08:49→21:10)
[2019-10-05] MEDS: ERGOCALCIFEROL 8000 UNITS/ML ORAL SOLUTION, 60 ML BOTTLE GT SCH (08:49)
[2019-10-05] MEDS: BALSAM PERU/CASTOR OIL 60 GM OINT...G. TP SCH (08:51)
[2019-10-05] MEDS: ENOXAPARIN SODIUM 40 MG/0.4 ML SYRINGE SQ SCH (08:51)
--- NOTE | 2019-10-05 08:52 | NUR ---
AM SCHEDULE MED GIVEN, TOLERATED WELL.
[2019-10-05 08:59] LABS: ALBUMIN 2.2 g/dL (3.4-4.8); CREATININE 0.51 mg/dL (0.55-1.30); POTASSIUM 4.2 mmol/L (3.5-5.1); TOTAL BILIRUBIN 0.5 mg/dL (0.0-1.0)
--- NOTE | 2019-10-05 10:18 | NUR ---
ROUND Patient resting in the bed. No acute distress. HOB elevated. Tract intact to vent. GT intact, continue on GTF tolerated well. F/C intact, drain gravity. Safety measure maintained. Call light within reached. Bilateral soft wrist restraint in place, able to move fingers and hands without difficulty, pulse present. Continue on contact isolation. Continue to monitor.
--- NOTE | 2019-10-05 11:25 | NUR ---
SEEN AND EXAMINED BY ISAMAR HAWTHORNE.
--- NOTE | 2019-10-05 11:35 | NUR ---
BS=85 No insulin coverage needed per sliding scale.
--- NOTE | 2019-10-05 11:45 | NUR ---
SEEN AND EXAMINED BY JUANIS MARTINEZ.
[2019-10-05 12:55] VITALS: BP_SYST 99
--- NOTE | 2019-10-05 13:52 | NUR ---
ROUND Patient resting in the bed. No acute distress. HOB elevated. Tract intact to vent. GT intact, continue on GTF tolerated well. F/C intact, drain gravity. Bilateral soft wrist restraint in place, able to move fingers and hands without difficulty, pulse present. Safety measure maintained. Call light within reached. Continue on contact isolation. Continue to monitor.
[2019-10-05 16:10] VITALS: BP_SYST 95
--- NOTE | 2019-10-05 17:22 | NUR ---
MIDLINE Dr. Soto [facility] seen the patient, informed to Dr. Soto, patient's midline was out last night, on peripheral line now. Dr. Soto stated "the patient needs a midline for IV antibiotic". Dr. Soto ordered midline placement noted and carried out.
--- NOTE | 2019-10-05 17:54 | NUR ---
BS=92 No insulin coverage needed per sliding scale.
--- NOTE | 2019-10-05 17:55 | NUR ---
BS=92 No insulin coverage needed per sliding scale.
--- NOTE | 2019-10-05 18:53 | NUR ---
CLOSING NOTE Patient resting in the bed. No acute distress. HOB elevated. Trach intact to vent setting as ordered. GT intact, patent. On Jevity 1.5 at 50ml/hr, infusing well. SL intact to RFA, no redness,no swelling, patent. F/C intact, drain gravity. Bilateral soft wrist restraint in place, pulse present, able to move fingers and hands without problem. On contact isolation. All needs met. Safety measure maintained. Call light within reached. Bed locked in low position, side rails up. Will endorse to night nurse.
--- NOTE | 2019-10-05 19:10 | NUR ---
OPENING NOTES PATIENT IN BED AWAKE. DENIES ANY PAIN AT THIS TIME. BREATHING UNLABORED ON MECHANICAL VENTILATOR WITH SETTINGS TOLERATED. PATIENT FOR MIDLINE PLACEMENT TONIGHT. BILATERAL SOFT WRIST RESTRAINTS IN PLACED FOR PATIENT SAFETY. BED IN LOWEST LOCKED POSITION. CALL LIGHT WITH IN REACH.
[2019-10-05 21:08] VITALS: BP_SYST 124
[2019-10-05] MEDS: MIRTAZAPINE 15 MG TABLET GT SCH (21:10)
--- NOTE | 2019-10-05 21:30 | NUR ---
MED PASS PATIENT DUE MEDICATIONS GIVEN AND TOLERATED. VITAL SIGNS STABLE. GT FEEDING NO RESIDUAL OBTAINED. HOB ELEVATED.
--- NOTE | 2019-10-05 22:00 | NUR ---
HS CARE HS CARE DONE. ALL LINENS CHANGED. PATIENT PROVIDED WITH NEW GOWN.
--- NOTE | 2019-10-05 22:10 | NUR ---
RESTRAINTS PATIENT TWO SONS AT BEDSIDE. THEY REQUESTED RESTRAINTS TO BE OFF WHILE THEY ARE AT THE BEDSIDE. BILATERAL SOFT WRIST RESTRAINTS REMOVED. INSTRUCTED FAMILY TO NOTIFY NURSE BEFORE THEY LEAVE SO STAFF CAN PUT BACK RESTRAINTS. FAMILY VERBALIZES UNDERSTANDING OF INSTRUCTION.
--- NOTE | 2019-10-05 23:00 | NUR ---
DECANNULATION RESPONDED TO VENT ALARM FOUND PATIENT TRACH CONNECTOR IN PATIENT MOUTH. PATIENT TWO SONS LEFT WITH OUT NOTIFYING NURSE INSTRUCTED. RESTRAINTS REMAINS OFF. PATIENT CONNECTED BACK TO TRACH BUT FOUND OUT THAT TRACH IS ACTUALLY OUT WITH BALLOON INTACT. BALLOON DEFLATED TRACH REINSERTED WITH OUT DIFFICULTY BALLOON REINFLATED AND SECURED WITH TRACH TIE . PATIENT SHOWS NO SIGNS OF DISTRESS. CALLED PATIENT SON TALKED TO WEN OVER THE PHONE. NOTIFIED OF PATIENT DECANNULATION. REMINDED SON NOT TO DO IT AGAIN LEAVING PATIENT RESTRAINTS OFF AND NOT NOTIFYING NURSING STAFF. SON WAS APOLOGETIC AND WAS CONCERNED OF HER MOTHER CONDITION. INFORMED SON THAT SO FAR PATIENT IS DOING OK AND WILL CONTINUE TO MONITOR.
--- NOTE | 2019-10-05 23:00 | NUR ---
PT SON'S LEFT I PUT ON THE TX. I WAS NOT AWARE THAT RESTRAINTS HAD BEEN REMOVED. RN CAME IN TO THE SOUND OF THE ALARM TO FIND PT HAD PULLED OUT HER TRACH AND IT WAS IN HER MOUTH. WE PUT BACK THE TRACH, ADDED AIR TO THE CUFF, SECURED THE TRACH AGAIN, AND RESTRAINED THE PT'S HANDS AGAIN. Addendum: 10/05/19 at 2339 by Celia Jaimes RT Amended: Links added.
[2019-10-06 00:05] VITALS: BP_SYST 115
--- NOTE | 2019-10-06 01:00 | NUR ---
ROUNDS PATIENT AWAKE NO DISTRESS NOTED. BILATERAL SOFT WRIST RESTRAINTS INTACT. HOB UP. GT FEEDING INFUSING.
--- NOTE | 2019-10-06 02:43 | NUR ---
ROUNDS PATIENT RESTING EYES CLOSED. NO DISTRESS NOTED.
[2019-10-06] MEDS: IPRATROPIUM/ALBUTEROL SULFATE 3 ML AMPUL.NEB (DUONEB) INH SCH ×6 (04:27→23:32)
[2019-10-06] MEDS: CEFTAZIDIME/AVIBACTAM 1.25 GM in NS 100 ML IV SCH ×3 (05:23→23:04)
--- NOTE | 2019-10-06 05:30 | NUR ---
AM CARE AM CARE DONE. PATIENT CHUX CHANGED. GT DRESSING CHANGED. STOMA SITE NO REDNESS OR DRAINAGE NOTED. SACRAL DRESSING DRY AND INTACT.
[2019-10-06] MEDS: LEVOTHYROXINE SODIUM 0.025 MG TABLET PO SCH (05:31)
--- NOTE | 2019-10-06 06:44 | NUR ---
CLOSING NOTES PATIENT RESTING IN BED. BREATHING UNLABORED. CURRENT VENT SETTINGS TOLERATED. GT FEEDING NO RESIDUAL OBTAINED. PATIENT NEEDS ATTENDED. BILATERAL SOFT WRIST RESTRAINTS IN PLACED FOR PATIENT SAFETY. BED IN LOWEST LOCKED POSITION. HOB UP. CALL LIGHT WITH IN REACH.
[2019-10-06 07:08] LABS: BASOPHILS % (AUTO) 0.5 % (0.0-2.0); EOSINOPHILS # (AUTO) 0.1 K/uL (0.0-0.4); EOSINOPHILS % (AUTO) 2.5 % (0.0-4.0); HEMATOCRIT 32.8 % (36-48); HEMOGLOBIN 11.1 g/dL (12.0-16.0); LYMPHOCYTES # (AUTO) 0.8 K/uL (1.0-5.5); LYMPHOCYTES % (AUTO) 16.9 % (20.5-51.5); MEAN CORPUSCULAR HEMOGLOBIN 33 pg (27-31); MEAN CORPUSCULAR HGB CONC 34 % (32-36); MEAN CORPUSCULAR VOLUME 97 fL (79.0-98.0); MONOCYTES # (AUTO) 0.5 K/uL (0.0-1.0); MONOCYTES % (AUTO) 10.2 % (1.7-9.3); NEUTROPHILS # (AUTO) 3.4 K/uL (1.8-7.7); NEUTROPHILS % (AUTO) 69.9 % (40.0-70.0); PLATELET COUNT (AUTO) 209 K/uL (130-430); RED BLOOD CELL COUNT(AUTO) 3.39 MIL/uL (4.2-6.2); RED CELL DISTRIBUTION WIDTH 18.3 % (9.0-15.0); WHITE BLOOD COUNT (AUTO) 4.8 K/uL (4.8-10.8)
[2019-10-06] MEDS: BUDESONIDE 0.5 MG/2 ML AMPUL.NEB INH SCH ×2 (07:42→19:44)
[2019-10-06 07:52] LABS: ALBUMIN 2.4 g/dL (3.4-4.8); CALCIUM 9.6 mg/dL (8.4-11.0); CREATININE 0.61 mg/dL (0.55-1.30); POTASSIUM 4.4 mmol/L (3.5-5.1); TOTAL BILIRUBIN 0.5 mg/dL (0.0-1.0)
[2019-10-06 08:00] VITALS: BP_SYST 100
--- NOTE | 2019-10-06 08:00 | NUR ---
Initial notes- In bed, awake non verbal. on vent via trach, tolerating setting well. No residual on gt feeding note. turned and repositioned. Oral care done. on bilateral wrist restraint. maintain on contact isolation. will continue to monitor.
[2019-10-06] MEDS: MAGNESIUM OXIDE 400 MG TABLET GT SCH ×2 (08:41→23:04)
[2019-10-06] MEDS: PANTOPRAZOLE SODIUM 40 MG/VIAL (PROTONIX) IVP SCH ×2 (08:41→23:04)
[2019-10-06] MEDS: ASCORBIC ACID 500 MG TABLET GT SCH ×2 (08:41→23:05)
[2019-10-06] MEDS: FERROUS SULFATE 300 MG/5 ML UDC GT SCH ×2 (08:41→23:04)
[2019-10-06] MEDS: PREDNISONE 20 MG TABLET PO SCH (08:41)
[2019-10-06] MEDS: POTASSIUM CHLORIDE 20 MEQ/PKT PACKET GT SCH (08:42)
[2019-10-06] MEDS: LACTOBACILLUS RHAMNOSUS GG 1 CAP CAPSULE GT SCH (08:42)
[2019-10-06] MEDS: CALCIUM CARBONATE/VITAMIN D3 1 TAB TABLET GT SCH ×2 (08:42→23:04)
[2019-10-06] MEDS: QUEtiapine FUMARATE 25 MG TABLET GT SCH ×3 (08:42→23:05)
[2019-10-06] MEDS: MULTIVIT-MINERALS/FERROUS GLUC 15 ML UDC GT SCH (08:43)
[2019-10-06] MEDS: ERGOCALCIFEROL 8000 UNITS/ML ORAL SOLUTION, 60 ML BOTTLE GT SCH (08:43)
[2019-10-06] MEDS: BALSAM PERU/CASTOR OIL 60 GM OINT...G. TP SCH (08:46)
[2019-10-06] MEDS: ENOXAPARIN SODIUM 40 MG/0.4 ML SYRINGE SQ SCH (08:51)
[2019-10-06] MEDS: COLISTIMETHATE SODIUM 150 MG VIAL INH SCH ×3 (09:00→20:09)
[2019-10-06 10:26] VITALS: BP_SYST 100
--- NOTE | 2019-10-06 10:38 | NUR ---
Notes- Turn and repositioned, no acute distress noted.
[2019-10-06 11:37] VITALS: BP_SYST 96
--- NOTE | 2019-10-06 12:00 | NUR ---
Try to do oral care, pt close her mouth and refuses at this time.
--- NOTE | 2019-10-06 14:00 | NUR ---
turned and repositioned, tolerating feeding. will continue to monitor.
[2019-10-06 16:00] VITALS: BP_SYST 94
--- NOTE | 2019-10-06 17:00 | NUR ---
ROUNDS- INFORMED DR. KNOX THAT DR. SOTO RECOMMEND [facility]. PER LIS[facility]TE, PT CAN GO BACK TO [facility].
--- NOTE | 2019-10-06 17:31 | NUR ---
Discharge Planning: DCP faxed pt referral to [facility] (f [phone] p [phone])
--- NOTE | 2019-10-06 18:10 | NUR ---
RESTING AT THIS TIME, NO ACUTE DISTRESS NOTED. TOLERATED FEEDING AND VENT SETTINGS. WILL MONITOR.
[2019-10-06 21:00] VITALS: BP_SYST 105
--- NOTE | 2019-10-06 22:15 | NUR ---
BLOOD SUGAR BSG 108 mg dl TUBE FEEDING GTF tolerating @ 50 ml hour no s/sx of aspiration continue to monitor .
[2019-10-06] MEDS: MIRTAZAPINE 15 MG TABLET GT SCH (23:04)
--- NOTE | 2019-10-07 | NUR ---
TRACH suction up right position minimal ventilator alarming patient awake non verbal chest movement symmetrical .
[2019-10-07 00:20] VITALS: BP_SYST 96
[2019-10-07] MEDS: IPRATROPIUM/ALBUTEROL SULFATE 3 ML AMPUL.NEB (DUONEB) INH SCH ×6 (03:57→23:36)
--- NOTE | 2019-10-07 04:58 | NUR ---
BED BATH implemented off loading & turning kept clean also dry as needed .
[2019-10-07] MEDS: LEVOTHYROXINE SODIUM 0.025 MG TABLET PO SCH (06:59)
[2019-10-07] MEDS: CEFTAZIDIME/AVIBACTAM 1.25 GM in NS 100 ML IV SCH (07:00)
--- NOTE | 2019-10-07 07:30 | NUR ---
OPENING NOTES: RECEIVED PATIENT FROM [employer] WAREHOUSE DEVELOPER NURSE. PATIENT IS ASLEEP IN BED. NO SIGNS OF DISTRESS OR SHORTNESS OF BREATH NOTED. PATIENT IS ON MECHANICAL VENTILATION WITH SETTINGS OF AC: 12. TV:450, PEEP:5, AND FIO2:40%. PATIENT IS ON BILATERAL WRIST RESTRAINTS DUE TO PULLING OUT HER TRACH AND MIDLINE. NO SIGNS OF DECREASED CIRCULATION NOTED. MARTÍNEZ CATHETER INTACT AND DRAINING BY GRAVITY. G-TUBE INTACT WITH CLEAN, DRY DRESSING. MIDLINE INTACT WITH CLEAN, DRY DRESSING. PATIENT IN STABLE CONDITION. SAFETY, FALL, ASPIRATION AND CONTACT PRECAUTIONS ARE IN PLACE. BED LOCKED IN LOWEST POSITION WITH CALL LIGHT IN REACH. WILL CONTINUE TO MONITOR PATIENT FOR ANY CHANGES.
[2019-10-07] MEDS: BUDESONIDE 0.5 MG/2 ML AMPUL.NEB INH SCH ×2 (07:44→19:49)
[2019-10-07 07:45] VITALS: BP_SYST 102
[2019-10-07 08:22] VITALS: BP_SYST 102
[2019-10-07] MEDS: COLISTIMETHATE SODIUM 150 MG VIAL INH SCH ×2 (09:34→20:09)
[2019-10-07] MEDS: FERROUS SULFATE 300 MG/5 ML UDC GT SCH (09:56)
[2019-10-07] MEDS: PREDNISONE 20 MG TABLET PO SCH (09:56)
[2019-10-07] MEDS: MAGNESIUM OXIDE 400 MG TABLET GT SCH (09:56)
[2019-10-07] MEDS: PANTOPRAZOLE SODIUM 40 MG/VIAL (PROTONIX) IVP SCH (09:56)
[2019-10-07] MEDS: CALCIUM CARBONATE/VITAMIN D3 1 TAB TABLET GT SCH (09:56)
[2019-10-07] MEDS: LACTOBACILLUS RHAMNOSUS GG 1 CAP CAPSULE GT SCH (09:56)
[2019-10-07] MEDS: ASCORBIC ACID 500 MG TABLET GT SCH (09:56)
[2019-10-07] MEDS: ERGOCALCIFEROL 8000 UNITS/ML ORAL SOLUTION, 60 ML BOTTLE GT SCH (09:57)
[2019-10-07] MEDS: MULTIVIT-MINERALS/FERROUS GLUC 15 ML UDC GT SCH (09:57)
[2019-10-07] MEDS: QUEtiapine FUMARATE 25 MG TABLET GT SCH ×2 (09:57→15:17)
[2019-10-07] MEDS: POTASSIUM CHLORIDE 20 MEQ/PKT PACKET GT SCH (09:57)
[2019-10-07] MEDS: BALSAM PERU/CASTOR OIL 60 GM OINT...G. TP SCH (09:58)
[2019-10-07] MEDS: ENOXAPARIN SODIUM 40 MG/0.4 ML SYRINGE SQ SCH (10:00)
--- NOTE | 2019-10-07 10:10 | NUR ---
RN ROUNDS: PATIENT IS ASLEEP IN BED. NO SIGNS OF DISTRESS OR SHORTNESS OF BREATH NOTED. PATIENT IN STABLE CONDITION. WILL CONTINUE TO MONITOR PATIENT FOR ANY CHANGES.
[2019-10-07 11:51] VITALS: BP_SYST 96
--- NOTE | 2019-10-07 12:10 | NUR ---
RN ROUNDS: PATIENT WAS ABLE TO MANIPULATE HER HAND TO PULL OFF HER TRACH IN THE RESTRAINTS. TRACH WAS REINSERTED AND SUCTIONED. PATIENT WAS REEDUCATED ON REASONS TO KEEP THE TRACH IN. PATIENT NODDED IN UNDERSTANDING. BILATERAL SOFT WRIST RESTRAINTS WERE SECURED WITH NO SIGNS OF DECREASED SKIN CIRCULATION NOTED. PATIENT IN STABLE CONDITION. WILL CONTINUE TO MONITOR PATIENT FOR ANY CHANGES.
--- NOTE | 2019-10-07 14:05 | NUR ---
RN ROUNDS: PATIENT IS AWAKE AND ALERT x1 BUT NONVERBAL. PATIENT CONTINUES TO ATTEMPT TO PULL OFF HER TRACH. PATIENT REEDUCATED ON THE REASON SHE NEEDS TO KEEP THE TRACH ON. PATIENT NODDED IN UNDERSTANDING. PATIENT IN STABLE CONDITION. WILL CONTINUE TO MONITOR PATIENT FOR ANY CHANGES.
[2019-10-07 16:50] VITALS: BP_SYST 99
--- NOTE | 2019-10-07 18:51 | NUR ---
CLOSING NOTES: PATIENT IS ASLEEP IN BED. NO SIGNS OF DISTRESS OR SHORTNESS OF BREATH NOTED. PATIENT IS ON MECHANICAL VENTILATION WITH SETTINGS OF AC: 12. TV:450, PEEP:5, AND FIO2:40%. PATIENT IS ON BILATERAL WRIST RESTRAINTS DUE TO PULLING OUT HER TRACH AND MIDLINE. NO SIGNS OF DECREASED CIRCULATION NOTED. MARTÍNEZ CATHETER INTACT AND DRAINING BY GRAVITY. G-TUBE INTACT WITH CLEAN, DRY DRESSING. MIDLINE INTACT WITH CLEAN, DRY DRESSING. PATIENT IN STABLE CONDITION. SAFETY, FALL, ASPIRATION AND CONTACT PRECAUTIONS REMAINED IN PLACE THROUGHOUT THE SHIFT. BED LOCKED IN LOWEST POSITION WITH CALL LIGHT IN REACH. WILL ENDORSE PATIENT CARE TO ONCOMING RESIDENTIAL CAREGIVER NURSE.
--- NOTE | 2019-10-07 22:25 | NUR ---
GASTRIC TUBE FEEDING JEVITY @ 50 ML HOUR tube placement verified via auscultation Residual 10 ML no s/x of aspiration tolerating .
--- NOTE | 2019-10-08 | NUR ---
Tracheal suction upright position minimal ventilator alarming noted chest movement shallow also symmetrical activity tolerated .
[2019-10-08] MEDS: CALCIUM CARBONATE/VITAMIN D3 1 TAB TABLET GT SCH ×3 (00:01→21:38)
[2019-10-08] MEDS: MIRTAZAPINE 15 MG TABLET GT SCH ×2 (00:01→21:38)
[2019-10-08] MEDS: QUEtiapine FUMARATE 25 MG TABLET GT SCH ×4 (00:01→16:18)
[2019-10-08 00:36] VITALS: BP_SYST 94
[2019-10-08] MEDS: IPRATROPIUM/ALBUTEROL SULFATE 3 ML AMPUL.NEB (DUONEB) INH SCH ×6 (03:28→23:46)
--- NOTE | 2019-10-08 05:45 | NUR ---
Wound care to sacral site area implemented as ordered , patient kept clean also dry as needed off loading with position change also tolerated .
[2019-10-08] MEDS: LEVOTHYROXINE SODIUM 0.025 MG TABLET PO SCH (06:43)
[2019-10-08] MEDS: BUDESONIDE 0.5 MG/2 ML AMPUL.NEB INH SCH ×2 (07:22→19:56)
[2019-10-08 07:23] LABS: BASOPHILS % (AUTO) 0.9 % (0.0-2.0); EOSINOPHILS # (AUTO) 0.2 K/uL (0.0-0.4); EOSINOPHILS % (AUTO) 3.2 % (0.0-4.0); HEMATOCRIT 35.2 % (36-48); HEMOGLOBIN 11.5 g/dL (12.0-16.0); LYMPHOCYTES # (AUTO) 1.1 K/uL (1.0-5.5); LYMPHOCYTES % (AUTO) 19.5 % (20.5-51.5); MEAN CORPUSCULAR HEMOGLOBIN 32 pg (27-31); MEAN CORPUSCULAR HGB CONC 33 % (32-36); MEAN CORPUSCULAR VOLUME 98 fL (79.0-98.0); MONOCYTES # (AUTO) 0.4 K/uL (0.0-1.0); MONOCYTES % (AUTO) 8.2 % (1.7-9.3); NEUTROPHILS # (AUTO) 3.7 K/uL (1.8-7.7); NEUTROPHILS % (AUTO) 68.2 % (40.0-70.0); PLATELET COUNT (AUTO) 211 K/uL (130-430); RED BLOOD CELL COUNT(AUTO) 3.59 MIL/uL (4.2-6.2); RED CELL DISTRIBUTION WIDTH 19.1 % (9.0-15.0); WHITE BLOOD COUNT (AUTO) 5.5 K/uL (4.8-10.8)
--- NOTE | 2019-10-08 07:30 | NUR ---
OPENING NOTES: RECEIVED PATIENT FROM BRAKE SPECIALIST NURSE. PATIENT IS ASLEEP IN BED. NO SIGNS OF DISTRESS OR SHORTNESS OF BREATH NOTED. PATIENT IS ON MECHANICAL VENTILATION WITH SETTINGS OF AC: 12. TV:450, PEEP:5, AND FIO2:40%. PATIENT IS ON BILATERAL WRIST RESTRAINTS DUE TO PULLING OUT HER TRACH AND MIDLINE. NO SIGNS OF DECREASED CIRCULATION NOTED. MARTÍNEZ CATHETER INTACT AND DRAINING BY GRAVITY. G-TUBE INTACT WITH CLEAN, DRY DRESSING. MIDLINE INTACT WITH CLEAN, DRY DRESSING. PATIENT IN STABLE CONDITION. SAFETY, FALL, ASPIRATION AND CONTACT PRECAUTIONS ARE IN PLACE. BED LOCKED IN LOWEST POSITION WITH CALL LIGHT IN REACH. WILL CONTINUE TO MONITOR PATIENT FOR ANY CHANGES.
[2019-10-08 08:30] VITALS: BP_SYST 80
[2019-10-08] MEDS: FERROUS SULFATE 300 MG/5 ML UDC GT SCH ×3 (08:38→21:38)
[2019-10-08] MEDS: MULTIVIT-MINERALS/FERROUS GLUC 15 ML UDC GT SCH (08:38)
[2019-10-08] MEDS: ERGOCALCIFEROL 8000 UNITS/ML ORAL SOLUTION, 60 ML BOTTLE GT SCH (08:39)
[2019-10-08] MEDS: POTASSIUM CHLORIDE 20 MEQ/PKT PACKET GT SCH (08:39)
[2019-10-08] MEDS: MAGNESIUM OXIDE 400 MG TABLET GT SCH ×3 (08:40→21:38)
[2019-10-08] MEDS: PREDNISONE 20 MG TABLET PO SCH (08:40)
[2019-10-08] MEDS: ASCORBIC ACID 500 MG TABLET GT SCH ×3 (08:40→21:38)
[2019-10-08] MEDS: LACTOBACILLUS RHAMNOSUS GG 1 CAP CAPSULE GT SCH (08:40)
[2019-10-08] MEDS: PANTOPRAZOLE SODIUM 40 MG/VIAL (PROTONIX) IVP SCH ×3 (08:40→21:38)
[2019-10-08] MEDS: BALSAM PERU/CASTOR OIL 60 GM OINT...G. TP SCH (08:41)
[2019-10-08] MEDS: ENOXAPARIN SODIUM 40 MG/0.4 ML SYRINGE SQ SCH (08:42)
--- NOTE | 2019-10-08 10:10 | NUR ---
0910 FOUND PT PULLED OUT TRACH. PUT BACK TRACH. NO RESPIRATORY DISTRESS NOTED. SPO2 93%, HR 87. RN SYMONE AWARE.
--- NOTE | 2019-10-08 10:20 | NUR ---
RN ROUNDS: PATIENT IS AWAKE AND ALERT x1 ATTEMPTING TO GET OUT OF BED. PATIENT MANAGED TO PULL OUT HER TRACH EVEN IN BILATERAL WRIST RESTRAINTS. RESTRAINTS WERE REAPPLIED WITH NO DECREASE IN CIRCULATION. PATIENT IN STABLE CONDITION. WILL CONTINUE TO MONITOR PATIENT FOR ANY CHANGES.
[2019-10-08 12:25] VITALS: BP_SYST 90
--- NOTE | 2019-10-08 14:05 | NUR ---
RN ROUNDS: PATIENT IS AWAKE IN BED AND TRYING TO GET UP OUT OF BED. PATIENT IS TRYING TO STICK HER HANDS IN HER MOUTH. PATIENT WAS REEDUCATED ON WHY SHE NEEDS TO STAY LAYING IN BED. BILATERAL WRIST RESTRAINTS IN PLACE WITH NO SIGNS OF DECREASED SKIN CIRCULATION. PATIENT IN STABLE CONDITION. WILL CONTINUE TO MONITOR PATIENT FOR ANY CHANGES.
[2019-10-08 15:31] VITALS: BP_SYST 103
--- NOTE | 2019-10-08 16:15 | NUR ---
RN ROUNDS: PATIENT IS AWAKE AND ALERT x1 LAYING IN BED. PATIENT IS IN BILATERAL WRIST RESTRAINTS DUE TO PULLING OUT HER TRACH WITH NO SIGNS OF DECREASED CIRCULATION. PATIENT IN STABLE CONDITION. WILL CONTINUE TO MONITOR PATIENT FOR ANY CHANGES.
--- NOTE | 2019-10-08 18:19 | NUR ---
MD ROUNDS: DR. KNOX MAKING HIS ROUNDS. AWARE OF PATIENT'S CONDITION. NEW ORDERS GIVEN.
--- NOTE | 2019-10-08 19:15 | NUR ---
OPENING NOTES RECEIVED PATIENT IN BED RESTING BILATERAL WRIST RESTRAINTS IN PLACED FOR PATIENT SAFETY. BREATHING UNLABORED TRACH TO VENT WITH SETTINGS TOLERATED. GT FEEDING IN FUSING ORDERED. BED IN LOWEST LOCKED POSITION WITH ALARM ON. CALL LIGHT WITH IN REACH.
[2019-10-08] MEDS: QUEtiapine FUMARATE 100 MG TABLET GT SCH (21:38)
--- NOTE | 2019-10-08 21:38 | NUR ---
MED PASS PATIENT DUE MEDICATIONS GIVEN. GT FEEDING TOLERATED. NO RESIDUAL OBTAINED. HOB ELEVATED. VITAL SIGNS STABLE.
[2019-10-08 21:42] VITALS: BP_SYST 98
--- NOTE | 2019-10-09 00:30 | NUR ---
ROUNDS PATIENT RESTING. NO DISTRESS NOTED.
[2019-10-09 01:41] VITALS: BP_SYST 109
[2019-10-09] MEDS: IPRATROPIUM/ALBUTEROL SULFATE 3 ML AMPUL.NEB (DUONEB) INH SCH (02:41)
[2019-10-09] MEDS: PREDNISONE 20 MG TABLET PO SCH (08:00)
[2019-10-09] MEDS: ERGOCALCIFEROL 8000 UNITS/ML ORAL SOLUTION, 60 ML BOTTLE GT SCH (09:00)
[2019-10-09] MEDS: BALSAM PERU/CASTOR OIL 60 GM OINT...G. TP SCH (09:00)
[2019-10-09] MEDS: LACTOBACILLUS RHAMNOSUS GG 1 CAP CAPSULE GT SCH (09:00)
[2019-10-09] MEDS: ENOXAPARIN SODIUM 40 MG/0.4 ML SYRINGE SQ SCH (09:00)
[2019-10-09] MEDS: POTASSIUM CHLORIDE 20 MEQ/PKT PACKET GT SCH (09:00)
[2019-10-09] MEDS: MULTIVIT-MINERALS/FERROUS GLUC 15 ML UDC GT SCH (09:00)
[2019-10-10] MEDS: PREDNISONE 20 MG TABLET PO SCH (08:00)
[2019-10-10] MEDS: ERGOCALCIFEROL 8000 UNITS/ML ORAL SOLUTION, 60 ML BOTTLE GT SCH (09:00)
[2019-10-10] MEDS: ENOXAPARIN SODIUM 40 MG/0.4 ML SYRINGE SQ SCH (09:00)
[2019-10-10] MEDS: BALSAM PERU/CASTOR OIL 60 GM OINT...G. TP SCH (09:00)
[2019-10-10] MEDS: MULTIVIT-MINERALS/FERROUS GLUC 15 ML UDC GT SCH (09:00)
[2019-10-10] MEDS: POTASSIUM CHLORIDE 20 MEQ/PKT PACKET GT SCH (09:00)
[2019-10-10] MEDS: LACTOBACILLUS RHAMNOSUS GG 1 CAP CAPSULE GT SCH (09:00)
[2019-10-10 20:00] VITALS: BP_SYST 94
--- NOTE | 2019-10-10 20:00 | NUR ---
Dr. Soto rounds: MD at bedside to assess patient, was informed regarding patient's SBP currently sustaining in the 80's. Per MD, SBP in the 80's is fine. Orders received for CBC/CMP in the AM. Verified by read-back, RN to input.
[2019-10-10] MEDS: QUEtiapine FUMARATE 100 MG TABLET GT SCH (21:35)
[2019-10-10] MEDS: FERROUS SULFATE 300 MG/5 ML UDC GT SCH (21:35)
[2019-10-10] MEDS: MIRTAZAPINE 15 MG TABLET GT SCH (21:35)
[2019-10-10] MEDS: MAGNESIUM OXIDE 400 MG TABLET GT SCH (21:36)
[2019-10-10] MEDS: ASCORBIC ACID 500 MG TABLET GT SCH (21:36)
[2019-10-10] MEDS: CALCIUM CARBONATE/VITAMIN D3 1 TAB TABLET GT SCH (21:36)
[2019-10-10] MEDS: PANTOPRAZOLE SODIUM 40 MG/VIAL (PROTONIX) IVP SCH (21:37)
[2019-10-10] MEDS: IPRATROPIUM/ALBUTEROL SULFATE 3 ML AMPUL.NEB (DUONEB) INH SCH (23:15)
[2019-10-11 00:50] VITALS: BP_SYST 91
--- NOTE | 2019-10-11 00:52 | NUR ---
Rounds: Patient is resting in bed, not showing any acute distress. Tolerating vent settings, no changes. Midline to JAYDE patent and benign. Call light with patient. Safety,fall,contact iso precautions in place. Will continue monitoring.
--- NOTE | 2019-10-11 02:00 | NUR ---
RN Rounds Patient resting in bed, eyes closed, even and unlabored breathing, tolerating ventilator well, no signs of acute distress, patient tolerating tube feeding well, bilateral soft wrist restraints and right mitten in place with no sign of skin break down, safety, fall, and isolation precautions in place, call light with patient, will continue to monitor.
[2019-10-11] MEDS: IPRATROPIUM/ALBUTEROL SULFATE 3 ML AMPUL.NEB (DUONEB) INH SCH ×6 (03:55→23:19)
--- NOTE | 2019-10-11 05:30 | NUR ---
Wound care: Wound care performed for sacral wound per MD order and wound care nurse recommendations. Patient tolerated well. Will monitor dressing for soilage and dislodgment.
[2019-10-11] MEDS: QUEtiapine FUMARATE 100 MG TABLET GT SCH (05:41)
[2019-10-11] MEDS: LEVOTHYROXINE SODIUM 0.025 MG TABLET PO SCH (06:50)
[2019-10-11] MEDS: BUDESONIDE 0.5 MG/2 ML AMPUL.NEB INH SCH ×2 (07:50→19:58)
[2019-10-11] MEDS: PANTOPRAZOLE SODIUM 40 MG/VIAL (PROTONIX) IVP SCH ×2 (08:25→22:52)
[2019-10-11] MEDS: CALCIUM CARBONATE/VITAMIN D3 1 TAB TABLET GT SCH ×2 (08:26→22:52)
[2019-10-11] MEDS: POTASSIUM CHLORIDE 20 MEQ/PKT PACKET GT SCH (08:26)
[2019-10-11] MEDS: ENOXAPARIN SODIUM 40 MG/0.4 ML SYRINGE SQ SCH (08:26)
[2019-10-11] MEDS: ASCORBIC ACID 500 MG TABLET GT SCH ×2 (08:26→22:51)
[2019-10-11] MEDS: PREDNISONE 20 MG TABLET PO SCH (08:26)
[2019-10-11] MEDS: MAGNESIUM OXIDE 400 MG TABLET GT SCH ×2 (08:26→22:51)
[2019-10-11] MEDS: FERROUS SULFATE 300 MG/5 ML UDC GT SCH ×2 (08:27→22:50)
[2019-10-11] MEDS: LACTOBACILLUS RHAMNOSUS GG 1 CAP CAPSULE GT SCH (08:27)
[2019-10-11] MEDS: MULTIVIT-MINERALS/FERROUS GLUC 15 ML UDC GT SCH (08:27)
[2019-10-11] MEDS: ERGOCALCIFEROL 8000 UNITS/ML ORAL SOLUTION, 60 ML BOTTLE GT SCH (08:28)
[2019-10-11] MEDS: BALSAM PERU/CASTOR OIL 60 GM OINT...G. TP SCH (08:31)
[2019-10-11 12:00] VITALS: BP_SYST 92
[2019-10-11 16:54] VITALS: BP_SYST 96
--- NOTE | 2019-10-11 19:30 | NUR ---
Opening Note Received patient resting in bed w/ eyes closed, no s/sx of distress. Nonlabored breathing on ventilator w/ settings AC 12 TV 350 FIO2 40% and PEEP 5. Patient has bilat wrist restraints, and mitten on right hand. Bed is locked in lowest position, side rails up 3x, bed alarm on and call light w/in reach.
[2019-10-11 19:50] VITALS: BP_SYST 106
[2019-10-11] MEDS: MIRTAZAPINE 15 MG TABLET GT SCH (22:51)
[2019-10-12] MEDS: QUEtiapine FUMARATE 100 MG TABLET GT SCH ×3 (00:10→18:22)
[2019-10-12] MEDS: IPRATROPIUM/ALBUTEROL SULFATE 3 ML AMPUL.NEB (DUONEB) INH SCH ×4 (03:45→15:36)
[2019-10-12] MEDS: LEVOTHYROXINE SODIUM 0.025 MG TABLET PO SCH (06:26)
[2019-10-12] MEDS: BUDESONIDE 0.5 MG/2 ML AMPUL.NEB INH SCH (07:20)
--- NOTE | 2019-10-12 07:45 | NUR ---
Opening Note Received patient sleeping on bed. Easily arousable. Trach to vent. Chest rise and falling noted. Tolerating vent settings. No acute distress noted. No SOB. Skin warm and dry to touch. Midline at right upper arm, intact and patent. G-tube intact and patent. No residual. Pollack catheter intact and patent. Urine is dark yellow. Discussed plan of care. Continue contact precautions. All needs met. Bed in low and locked position. Call light within reach. Side rails up x3. Bed alarm on. Continue to monitor.
--- NOTE | 2019-10-12 08:25 | NUR ---
Seen and examined by Dr. Maravilla.
[2019-10-12 08:30] LABS: CREATININE 0.6 mg/dL (0.55-1.30); POTASSIUM 3.6 mmol/L (3.5-5.1)
[2019-10-12] MEDS: PANTOPRAZOLE SODIUM 40 MG/VIAL (PROTONIX) IVP SCH ×2 (08:35→20:22)
[2019-10-12] MEDS: LACTOBACILLUS RHAMNOSUS GG 1 CAP CAPSULE GT SCH (08:38)
[2019-10-12] MEDS: POTASSIUM CHLORIDE 20 MEQ/PKT PACKET GT SCH (08:38)
[2019-10-12] MEDS: FERROUS SULFATE 300 MG/5 ML UDC GT SCH ×2 (08:38→20:22)
[2019-10-12] MEDS: ASCORBIC ACID 500 MG TABLET GT SCH ×2 (08:38→20:24)
[2019-10-12] MEDS: ENOXAPARIN SODIUM 40 MG/0.4 ML SYRINGE SQ SCH (08:38)
[2019-10-12] MEDS: ERGOCALCIFEROL 8000 UNITS/ML ORAL SOLUTION, 60 ML BOTTLE GT SCH (08:38)
[2019-10-12] MEDS: MAGNESIUM OXIDE 400 MG TABLET GT SCH ×2 (08:38→20:23)
[2019-10-12] MEDS: PREDNISONE 20 MG TABLET PO SCH (08:38)
[2019-10-12] MEDS: CALCIUM CARBONATE/VITAMIN D3 1 TAB TABLET GT SCH ×2 (08:38→20:37)
[2019-10-12] MEDS: BALSAM PERU/CASTOR OIL 60 GM OINT...G. TP SCH (08:39)
[2019-10-12] MEDS: MULTIVIT-MINERALS/FERROUS GLUC 15 ML UDC GT SCH (08:39)
[2019-10-12 09:03] LABS: THYROID STIMULATING HORMONE 5.13 uIu/mL (0.36-3.74)
--- NOTE | 2019-10-12 09:11 | NUR ---
Meds administered. Teaching done on medication. Tolerated well. No acute distress. Continue to monitor. HOB up. Tolerated G-tube feedings. All needs met. Call light within reach. Continue to monitor.
[2019-10-12 11:39] VITALS: BP_SYST 103
--- NOTE | 2019-10-12 11:45 | NUR ---
BS BLOOD GLUCOSE 100 MG/DL WITH NO INSULIN COVERAGE NEEDED. TEACHING DONE ON DIABETES. REPOSITIONED FOR COMFORT. ALL NEEDS MET. CONT TO MONITOR
--- NOTE | 2019-10-12 13:50 | NUR ---
SEEN AND EXAMINED BY AT BEDSIDE. REPORTED TO MD PATIENT'S SBP IS IN THE 80'S AND PATIENT DOES NOT HAVE ANY IVF. PATIENT IS PRODUCING ADEQUATE AMOUNT OF URINE. MD ORDERED TO INCREASE GTF TO JEVITY 1.5 60CC/HR AND H2O FLUSH TO [id number]; ORDER NOTED AND CARRIED OUT
[2019-10-12 14:12] VITALS: BP_SYST 103
--- NOTE | 2019-10-12 15:00 | NUR ---
NOTE PATIENT NOTED COUGHING. PATIENT TOLERATED SUCTIONING; YELLOW THICK SECRETIONS NOTED. ORAL CARE PROVIDED, ALONA WELL. ALL NEEDS MET. CONT TO MONITOR
[2019-10-12 16:16] VITALS: BP_SYST 98
--- NOTE | 2019-10-12 17:00 | NUR ---
Blood glucose checked. 91mg/dL. Tolerated well. No acute distress. Routine meds administered as ordered. Tolerated well. No acute distress. Will continue to monitor.
--- NOTE | 2019-10-12 18:45 | NUR ---
CLOSING NOTE PT'S CENTRAL LINE DRESSING CHANGED. ASEPTIC TECHNIQUE PERFORMED. TOLERATED WELL. NO ACUTE DISTRESS. PATIENT IS STABLE. BED IN LOW AND LOCKED POSITION. SIDE RAILS UP X3. SOFT WRIST RESTRAINTS BILATERALLY AND SOFT RIGHT HAND MITTEN PER PROTOCOL. ALL NEEDS MET. CALL LIGHT WITHIN REACH. WILL ENDORSE TO NEXT NURSE.
--- NOTE | 2019-10-12 19:14 | NUR ---
Opening Note Received patient resting in bed, awake and presently calm. No s/sx of distress and not restless. Nonlabored breathing on ventilator w/ settings AC 12 TV 350 FIO2 40% and PEEP 5. Patient has bilat wrist restraints, and mitten on right hand. Bed is locked in lowest position, side rails up 3x, bed alarm on and call light w/in reach.
[2019-10-12 20:00] VITALS: BP_SYST 90
[2019-10-12] MEDS: MIRTAZAPINE 15 MG TABLET GT SCH (20:22)
[2019-10-12] MEDS: CEFTAZIDIME/AVIBACTAM 2.5 GM in NS 100 ML IV SCH (20:25)
[2019-10-13] MEDS: IPRATROPIUM/ALBUTEROL SULFATE 3 ML AMPUL.NEB (DUONEB) INH SCH ×7 (00:26→23:20)
[2019-10-13] MEDS: QUEtiapine FUMARATE 100 MG TABLET GT SCH ×5 (00:59→23:16)
[2019-10-13 01:16] VITALS: BP_SYST 90
--- NOTE | 2019-10-13 04:10 | NUR ---
patient care vent assessment, reposition, oral care done. Hung new bottle of Jevity 1.5 running at 60 ml/ hr, tolerating.
[2019-10-13] MEDS: LEVOTHYROXINE SODIUM 0.025 MG TABLET PO SCH (06:04)
--- NOTE | 2019-10-13 06:30 | NUR ---
patient care 5 ml residual noted. 200ml water flush given, with lucy and medications. Patient tolerated. Dressing change done.
--- NOTE | 2019-10-13 07:03 | NUR ---
Nutrition Update Barrett Scale 14 noted. Pt admitted for Acute on Chronic respiratory Failure Diet: TF Jevity 1.5 at 60ml/hr, [employer] BID, Colt BID, FWF 200ml Q6h via GT BMI: 20.5 kg/m2 RD to follow per nutrition care standards.
[2019-10-13] MEDS: BUDESONIDE 0.5 MG/2 ML AMPUL.NEB INH SCH ×2 (07:59→19:47)
[2019-10-13 08:00] VITALS: BP_SYST 86
--- NOTE | 2019-10-13 08:00 | NUR ---
initial notes rec patient awake non verbally responsive with a ventilator. no sob noted. bed to the lowest position and side rails up and locked. stephenie reatraint in placed and checked for circulation. gt feeding chelsea well and no residual noted.
[2019-10-13] MEDS: COLISTIMETHATE SODIUM 150 MG VIAL INH SCH ×2 (08:28→20:12)
[2019-10-13] MEDS: ASCORBIC ACID 500 MG TABLET GT SCH ×2 (09:45→20:52)
[2019-10-13] MEDS: PREDNISONE 20 MG TABLET PO SCH (09:45)
[2019-10-13] MEDS: CALCIUM CARBONATE/VITAMIN D3 1 TAB TABLET GT SCH ×2 (09:46→20:51)
[2019-10-13] MEDS: MULTIVIT-MINERALS/FERROUS GLUC 15 ML UDC GT SCH (09:46)
[2019-10-13] MEDS: FERROUS SULFATE 300 MG/5 ML UDC GT SCH ×2 (09:46→20:51)
[2019-10-13] MEDS: LACTOBACILLUS RHAMNOSUS GG 1 CAP CAPSULE GT SCH (09:46)
[2019-10-13] MEDS: POTASSIUM CHLORIDE 20 MEQ/PKT PACKET GT SCH (09:46)
[2019-10-13] MEDS: PANTOPRAZOLE SODIUM 40 MG/VIAL (PROTONIX) IVP SCH ×2 (09:48→20:51)
[2019-10-13] MEDS: CEFTAZIDIME/AVIBACTAM 2.5 GM in NS 100 ML IV SCH ×2 (09:48→20:53)
[2019-10-13] MEDS: ERGOCALCIFEROL 8000 UNITS/ML ORAL SOLUTION, 60 ML BOTTLE GT SCH (09:49)
--- NOTE | 2019-10-13 10:00 | NUR ---
rounds due meds chelsea well. pt's get confused at intervals otherwise will sleep. turned repositioned for comfort.
[2019-10-13 11:29] VITALS: BP_SYST 99
--- NOTE | 2019-10-13 12:00 | NUR ---
rounds pt had a bowel movement and was cleaned. keep patient dry and cleaned. turned repositoned for comfort
--- NOTE | 2019-10-13 13:00 | NUR ---
rounds no hypo hyperglycemic reaction noted. call light within reached but on restraints. suctioned prn obtaining thick greenish drainage.
[2019-10-13] MEDS: ENOXAPARIN SODIUM 40 MG/0.4 ML SYRINGE SQ SCH (13:17)
[2019-10-13] MEDS: BALSAM PERU/CASTOR OIL 60 GM OINT...G. TP SCH (13:23)
--- NOTE | 2019-10-13 15:00 | NUR ---
rounds asleep when rounds made. no sob noted. turned repositioned for comfort.
[2019-10-13 15:27] VITALS: BP_SYST 94
[2019-10-13] MEDS: MAGNESIUM OXIDE 400 MG TABLET GT SCH ×2 (18:13→20:52)
--- NOTE | 2019-10-13 18:30 | NUR ---
closing notes due meds chelsea well thru the gt. no hypo hyperglycemic reaction noted. call light within reached. turned repositioned for comfort.
--- NOTE | 2019-10-13 19:55 | NUR ---
PM SHIFT ASSESSMENT Received patient lying in bed, awake, no distress noted, trach with vent, Midline to right upper arm intact and patent, saline locked, patient on gt feeding of jevity 1.5 @ 60 ml/hr, no residual noted, patient repositioned and turned with pillow support, brady catheter secured and to gravity, draining digna urine, bilateral wrist restraints in place, fall and isolation precautions in place, will monitor.
[2019-10-13 20:00] VITALS: BP_SYST 111
[2019-10-13] MEDS: MIRTAZAPINE 15 MG TABLET GT SCH (20:59)
--- NOTE | 2019-10-13 21:30 | NUR ---
MED PASS Patient awake, in no distress, due medications administered via gtube, no residual noted, flushed with 100 ml of water, patient tolerated well, blood sugar check 92 this pm, no insulin coverage needed.
--- NOTE | 2019-10-13 23:00 | NUR ---
RN ROUNDS Patient awake, had a bowel movement, hygiene care provided, foam dressing applied to sacral wound, patient repositioned and turned. Fall and safety measures maintained.
[2019-10-14] VITALS (7 sets, daily range): BP systolic 74–91
--- NOTE | 2019-10-14 00:37 | NUR ---
RN ROUNDS Patient sleeping, no distress noted, vitals stable, due medications administered via gtube, no residual noted, aspiration precautions maintained, repositioned and turned with pillow support, will closely monitor.
--- NOTE | 2019-10-14 02:19 | NUR ---
RN ROUNDS Patient sleeping, no distress noted, repositioned and turned with pillow support, fall and isolation precautions in place, will closely monitor.
[2019-10-14] MEDS: IPRATROPIUM/ALBUTEROL SULFATE 3 ML AMPUL.NEB (DUONEB) INH SCH ×6 (03:48→23:27)
--- NOTE | 2019-10-14 04:36 | NUR ---
RN ROUNDS Patient continues to sleep, no distress noted, gtube feeding ongoing, repositioned and turned with pillow support, fall and isolation precautions in place, will closely monitor.
[2019-10-14] MEDS: LEVOTHYROXINE SODIUM 0.025 MG TABLET PO SCH (05:51)
[2019-10-14] MEDS: QUEtiapine FUMARATE 100 MG TABLET GT SCH ×3 (05:51→17:29)
--- NOTE | 2019-10-14 06:35 | NUR ---
MED PASS/RN ROUNDS Patient awake, in no distress, due medications administered via gtube, no residual noted, flushed with 100 ml of water, patient tolerated well, blood sugar check this am of 96, no insulin coverage needed. Pollack catheter secured and to gravity, Patient repositioned and turned with pillow support, bilateral wrist restraints in place, fall and isolation precautions maintained, will continue to monitor until report given to am nurse.
[2019-10-14] MEDS: BUDESONIDE 0.5 MG/2 ML AMPUL.NEB INH SCH ×2 (07:13→20:31)
--- NOTE | 2019-10-14 07:30 | NUR ---
Opening note Patient resting in bed at this time, awake. No SOB. No complaints of pain. Midline, patent, intact. No infiltration noted. Gt feeding tolerating well. No residual noted. No nausea, no vomiting noted. No abdominal distention. Pollack catheter in place, draining yellow urine. bilateral soft wrist restraints in place. Removed restraints, patient noted to be agitated, hitting and attempting to remove Gtube and Midline. restraints reinforced. On contact isolation precautions for MDRO MRSA of sputum. On safety and aspiration precautions, HOB kept elevated, 3 side rails up, call light within reach. patient in stable condition. Will continue to monitor.
[2019-10-14] MEDS: COLISTIMETHATE SODIUM 150 MG VIAL INH SCH ×2 (08:02→20:51)
--- NOTE | 2019-10-14 08:05 | NUR ---
Low BP Patient noted with BP of 80/55. Asymptomatic. patient is wake, and moving all extremities. Paged MD awaiting call back.
[2019-10-14] MEDS: CEFTAZIDIME/AVIBACTAM 2.5 GM in NS 100 ML IV SCH ×2 (09:00→21:24)
[2019-10-14] MEDS: ENOXAPARIN SODIUM 40 MG/0.4 ML SYRINGE SQ SCH (09:00)
[2019-10-14] MEDS: ERGOCALCIFEROL 8000 UNITS/ML ORAL SOLUTION, 60 ML BOTTLE GT SCH (09:00)
[2019-10-14] MEDS: POTASSIUM CHLORIDE 20 MEQ/PKT PACKET GT SCH (09:00)
--- NOTE | 2019-10-14 09:00 | NUR ---
Low BP/ Dr armas call back called back, aware of patient BP. Patient having urine output in brady catheter. aware. No new orders at this time.
[2019-10-14] MEDS: FERROUS SULFATE 300 MG/5 ML UDC GT SCH ×2 (09:01→21:24)
[2019-10-14] MEDS: CALCIUM CARBONATE/VITAMIN D3 1 TAB TABLET GT SCH ×2 (09:01→21:22)
[2019-10-14] MEDS: MAGNESIUM OXIDE 400 MG TABLET GT SCH ×2 (09:01→21:23)
[2019-10-14] MEDS: LACTOBACILLUS RHAMNOSUS GG 1 CAP CAPSULE GT SCH (09:01)
[2019-10-14] MEDS: PANTOPRAZOLE SODIUM 40 MG/VIAL (PROTONIX) IVP SCH ×2 (09:01→21:24)
[2019-10-14] MEDS: ASCORBIC ACID 500 MG TABLET GT SCH ×2 (09:01→21:23)
[2019-10-14] MEDS: PREDNISONE 20 MG TABLET PO SCH (09:01)
[2019-10-14] MEDS: MULTIVIT-MINERALS/FERROUS GLUC 15 ML UDC GT SCH (09:01)
[2019-10-14] MEDS: BALSAM PERU/CASTOR OIL 60 GM OINT...G. TP SCH (09:02)
--- NOTE | 2019-10-14 09:20 | NUR ---
Medications All morning medications given as ordered. No adverse side effects noted.
--- NOTE | 2019-10-14 12:00 | NUR ---
GT flushed GT flushed as ordered. No adverse side effects. No complaints of pain. no nausea, no vomiting. No residual noted.
--- NOTE | 2019-10-14 14:00 | NUR ---
dressing change wound care done as ordered, no adverse side effects.
--- NOTE | 2019-10-14 14:32 | NUR ---
CONSULT PSYCH AGITATION DR LEWIS [phone] S/W [facility] OFFICE FACE SHEET FAXED TO [phone]
--- NOTE | 2019-10-14 16:50 | NUR ---
wound care Wound care done as ordered. Linens changed. Wrist restraints released. Patient attempted to get out of bed, attempted to pull on PICC line. Restraints reinforced. Patient in stable condition.
--- NOTE | 2019-10-14 18:51 | NUR ---
Closing note Patient resting in bed at this time, awake. No SOB. No complaints of pain. Midline, patent, intact. No infiltration noted. Gt feeding tolerating well. No residual noted. No nausea, no vomiting noted. No abdominal distention. Pollack catheter in place, draining yellow urine. bilateral soft wrist restraints in place. Removed restraints, patient noted to be agitated, and attempting to remove Gtube and Midline. restraints reinforced. On contact isolation precautions for MDRO MRSA of sputum. On safety and aspiration precautions, HOB kept elevated, 3 side rails up, call light within reach. patient in stable condition. All needs met.
--- NOTE | 2019-10-14 20:00 | NUR ---
RECIEVED REPORT, PATIENT CONFUSED, A/OX/1, RESPIRATIONS EVEN AND UNLABORED, TRACH DEPENDENT,VENT SETTINGS AC=12 TIDAL VOLUME = 250, PEEP=5 AND FIO2= 40%, HOB ELEVATED, NONVERBAL NPO, GTUBE PATENT/INTACT INFUSING JEVITY 1.5 @ 60 ML/HR AND TOLERATING WATER FLUSH OF 200 ML WELL,JAYDE MIDLINE PATENT AND INTACT SALINE LOCKED, DOES HAVE RFA SALINE LOCK # 22G, LEFT, DRSG C/D/I ON SACRUM AND RIGHT ANKLE, MARTÍNEZ CATHER DRAINING CLEAR YELLOW URINE, WRIST RESTRAINTS IN PLACE DOES HAVE MITTEN ON RIGHT HAND, NSR ON TELE MONITOR,, CONTACT ISOLATION FOR MDRO IN THE SPUTUM AND MRSA IN THE NARES,BLOOD GLUCOSE RESULTS =120 NO COVERAGE NEEDED,, SR'S UP X'S 3, CALL LIGHT WITHIN REACH, BED IN LOW POSITION, WILL CONTINUE TO MONITOR FOR ANY S/S OF RESP/CARDIAC DISTRESS.
[2019-10-14] MEDS: MIRTAZAPINE 15 MG TABLET GT SCH (21:22)
--- NOTE | 2019-10-15 | NUR ---
RESTING QUIETLY IN BED WITH EYES OPEN, IN NO ACUTE RESP DISTRESS @ THIS TIME, WILL CONTINUE TO MONITOR.
[2019-10-15] MEDS: QUEtiapine FUMARATE 100 MG TABLET GT SCH ×5 (01:18→23:37)
[2019-10-15] MEDS: IPRATROPIUM/ALBUTEROL SULFATE 3 ML AMPUL.NEB (DUONEB) INH SCH ×5 (03:33→22:59)
[2019-10-15 04:00] VITALS: BP_SYST 86
[2019-10-15] MEDS: LEVOTHYROXINE SODIUM 0.025 MG TABLET PO SCH (06:32)
--- NOTE | 2019-10-15 06:45 | NUR ---
CLOSING NOTE: TURNED AND REPOSITIONED Q 2 HRS, WRIST RESTRAINT ON LEFT HAND AND MITTEN REMAINS ON RIGHT HAND , MARTÍNEZ DRAINING CLEAR YELLOW URINE,TRACH DEPENDENT, GT PATENT AND INTACT, FORMULA INFUSING WITHOUT DIFFICULTY, BLOOD GLUCOSE RESULTS= 109, WILL ENDORSE TO ON COMING DAY RN.
[2019-10-15 07:14] LABS: BASOPHILS % (AUTO) 0.8 % (0.0-2.0); EOSINOPHILS # (AUTO) 0.1 K/uL (0.0-0.4); EOSINOPHILS % (AUTO) 2.6 % (0.0-4.0); HEMATOCRIT 30.6 % (36-48); HEMOGLOBIN 10.2 g/dL (12.0-16.0); LYMPHOCYTES # (AUTO) 1.1 K/uL (1.0-5.5); LYMPHOCYTES % (AUTO) 19.5 % (20.5-51.5); MEAN CORPUSCULAR HEMOGLOBIN 33 pg (27-31); MEAN CORPUSCULAR HGB CONC 33 % (32-36); MEAN CORPUSCULAR VOLUME 99 fL (79.0-98.0); MONOCYTES # (AUTO) 0.5 K/uL (0.0-1.0); MONOCYTES % (AUTO) 9.1 % (1.7-9.3); NEUTROPHILS # (AUTO) 3.9 K/uL (1.8-7.7); PLATELET COUNT (AUTO) 138 K/uL (130-430); WHITE BLOOD COUNT (AUTO) 5.7 K/uL (4.8-10.8)
--- NOTE | 2019-10-15 07:30 | NUR ---
Opening note Patient resting in bed at this time, awake. No SOB. No complaints of pain. Midline, patent, intact. No infiltration noted. Gt feeding tolerating well. No residual noted. No nausea, no vomiting noted. No abdominal distention. Pollack catheter in place, draining yellow urine. bilateral soft wrist restraints in place. Removed restraints, patient noted to be agitated, hitting and not allowing to flush G tube. restraints reinforced. On contact isolation precautions for MDRO of sputum and MRSA of nares. On safety and aspiration precautions, HOB kept elevated, 3 side rails up, call light within reach. patient in stable condition. Will continue to monitor.
[2019-10-15] MEDS: BUDESONIDE 0.5 MG/2 ML AMPUL.NEB INH SCH ×2 (07:58→20:18)
[2019-10-15 08:00] VITALS: BP_SYST 88
[2019-10-15] MEDS: CEFTAZIDIME/AVIBACTAM 2.5 GM in NS 100 ML IV SCH ×2 (09:25→21:01)
[2019-10-15] MEDS: ENOXAPARIN SODIUM 40 MG/0.4 ML SYRINGE SQ SCH (09:25)
[2019-10-15] MEDS: ERGOCALCIFEROL 8000 UNITS/ML ORAL SOLUTION, 60 ML BOTTLE GT SCH (09:29)
[2019-10-15] MEDS: FERROUS SULFATE 300 MG/5 ML UDC GT SCH ×2 (09:29→21:00)
[2019-10-15] MEDS: MULTIVIT-MINERALS/FERROUS GLUC 15 ML UDC GT SCH (09:30)
[2019-10-15] MEDS: ASCORBIC ACID 500 MG TABLET GT SCH ×2 (09:30→21:00)
[2019-10-15] MEDS: POTASSIUM CHLORIDE 20 MEQ/PKT PACKET GT SCH (09:30)
[2019-10-15] MEDS: MAGNESIUM OXIDE 400 MG TABLET GT SCH ×2 (09:30→21:00)
[2019-10-15] MEDS: LACTOBACILLUS RHAMNOSUS GG 1 CAP CAPSULE GT SCH (09:31)
[2019-10-15] MEDS: PREDNISONE 20 MG TABLET PO SCH (09:31)
[2019-10-15] MEDS: PANTOPRAZOLE SODIUM 40 MG/VIAL (PROTONIX) IVP SCH ×2 (09:31→21:02)
[2019-10-15] MEDS: CALCIUM CARBONATE/VITAMIN D3 1 TAB TABLET GT SCH ×2 (09:31→21:00)
[2019-10-15] MEDS: BALSAM PERU/CASTOR OIL 60 GM OINT...G. TP SCH (09:32)
--- NOTE | 2019-10-15 09:45 | NUR ---
Medications All morning medications given as ordered. No adverse side effects noted. GT feeding replaced. GT flushed as ordered.
--- NOTE | 2019-10-15 11:13 | NUR ---
CALLED FOLLOW UP CONSULT FOR
[2019-10-15 11:37] VITALS: BP_SYST 80
[2019-10-15] MEDS: COLISTIMETHATE SODIUM 150 MG VIAL INH SCH ×2 (11:46→23:00)
--- NOTE | 2019-10-15 12:00 | NUR ---
GT flushed Gt flushed as ordered. No adverse side effects noted. No residual noted. GT in place, patent, and intact.
--- NOTE | 2019-10-15 13:23 | NUR ---
Nutrition F/U RD reviewed pt's current EMR record including diet Hx, physician notes, nursing notes, pertinent labs/meds/procedures, care trends, and care activity. Admission Dx: Acute on chronic respiratory failure PMH: chronic respiratory failure, trach/vent dependent, G-tube feeding, COPD, dementia, anxiety, laryngeal CA, DM2 per physician notes. Current Diet Order/Nutrition Support: Jevity 1.5 at 60 ml/hr, Prosource BID, Colt BID, Free Water Flush: 200 Q6H via GT x3 days Subjective Info: Pt seen resting in bed w/ TF infusing as per physician orders -- 98 ml infused so far at time of RD visit. Per RN, pt has been tolerating TF well, no residual, and no pending plans/procedures. RN stated that she has not received Prosource an Colt supplements from [facility] staff yet, but will administer once they become available. Current TF regimen is adequate/appropriate. Estimated Caloric Needs: 3328-3902 kcal/day (30-35 kcal/kg CBW for wound healing) Estimated Protein Needs: 71-94 gm/day (1.5-2 gm/kg CBW for wound healing) Estimated Fluid Needs: 1.5-1.7 L/day (1 ml/kcal/day for wound healing) Problem/Etiology/Signs/Symptoms Increased nutrient needs related to increased metabolic demands as evidenced by laryngeal cancer, wound to coccyx. *ongoing Expected Outcomes/Goals Monitor EN support with goals of pt meeting at least 90% of estimated nutritional needs, labs trending WNL, and skin integrity/wt maintenance. Dietitian Recommendations * Recommend continuing Jevity 1.5 at 60 ml/hr, Prosource BID, Colt BID, Free Water Flush: 200 Q6H via GT Provides: 2440 kcal/day, 127 gm protein/day, and 1894 ml free water/day Meets: 145% of upper end of estimated caloric needs and 135% of upper end of estimated protein needs Moderate Risk; F/U within 3-5 days
--- NOTE | 2019-10-15 13:31 | NUR ---
Dietitian Recommendations * Recommend continuing Jevity 1.5 at 60 ml/hr, Prosource BID, Colt BID, Free Water Flush: 200 Q6H via GT Provides: 2440 kcal/day, 127 gm protein/day, and 1894 ml free water/day Meets: 145% of upper end of estimated caloric needs and 135% of upper end of estimated protein needs LP, RD Please refer to Nutrition F/U for details.
--- NOTE | 2019-10-15 14:00 | NUR ---
Gt supplements Gt supplement given as ordered. No adverse side effects noted. No complaints of pain.
[2019-10-15 15:00] VITALS: BP_SYST 80
[2019-10-15 15:39] VITALS: BP_SYST 85
--- NOTE | 2019-10-15 15:55 | NUR ---
Wound Re-Evaluation: Patient received in a [place] bed with an IsoFlex RUBEN mattress with low air-loss therapy, awake, alert, confused, and mouths words secondary to tracheostomy tube. Patient is unable to turn in bed independently. Barrett score is a 14. Microbiology: Blood culture results 2 negative. Intrinsic factors that delay wound healing: COPD, Anoxic Encephalopathy, Asthma, Respiratory Failure, Hypoalbuminemia. Extrinsic factors that delay wound healing: Immobility. Wound Assessment: 1. Sacral-Coccygeal area: Unstageable Pressure ulcer, present on admission. Wound bed has 80% yellow slough, 20% pink tissue. Mild odor, no drainage. Periwound is blanchable pink, macerated. Periwound and surrounding tissue has scar tissue, and blanchable erythema. Wound measures 2.7 cm x 2.0 cm x 0.9 cm. Undermining present from 8-1 o'clock (2.2 cm at 9 o'clock; 1.2 cm at 12 o'clock). Tunneling present at 8-10 o'clock measuring 2.0 cm depth. Tunnel is connecting to site 2. Recommend continue: Cleanse wound with normal saline. Apply moisture barrier cream to periwound. Apply Venelex ointment to wound bed. Pack wound with 1/2 inch iodoform packing strip. Cover with foam dressing. Perform wound care daily, and as needed for dressing soiling or dislodgment. 2. Left Sacral area: Unstageable Pressure ulcer, present on admission. Site has 100% pink scar tissue. No odor, no drainage. Periwound is pink. Tunneling from site 1 appears to be connecting to site 2. Recommend: Cover with Sacral foam dressing. Perform site care daily, and as needed for dressing soiling or dislodgment. 3. Right Medial Malleolus: Unstageable pressure ulcer, present on admission. Site has 100% yellow eschar. No odor, no drainage. Periwound intact. Dry, stable. Wound measures 2.0 cm x 1.5 cm. Recommend continue: [place] site with Betadine. Allow to air dry. Cover with foam dressing. Perform wound care daily, and as needed for dressing soiling or dislodgment. 4. Right Distal Medial Lower Extremity, Superior to Site 3: Wound of unknown etiology, present on admission. Site has 90% brown tissue, 10% pink tissue. No odor, scant sanguineous drainage. Periwound intact. Wound measures 3.0 cm x 1.8 cm. Recommend continue: Cleanse wound with normal saline. Apply moisture barrier cream to periwound. Apply Venelex ointment to wound bed. Cover with foam dressing. Perform wound care daily, and as needed for dressing soiling or dislodgment. 5. Right Olecranon: Chronic wound of unknown etiology, present on admission. Site has 100% brown tissue. No odor, no drainage. Periwound intact. Wound measures 0.2 cm x 0.4 cm. 6. Coccygeal, Bilateral Hip and Lumbosacral joint areas: Bony areas with little adipose tissue and minimal muscle tissue. Recommend continue: Cover sites with foam dressings. Perform site care daily, and as needed for dressing soiling or dislodgment. Also recommend continue: Reposition patient side to side only every two hours with pillow support, and off-load pressure areas with pillows for pressure re-distribution. Offload, elevate and float heels with pillows. Perform skin care and monitor skin integrity q shift. Use moisture barrier cream on buttocks, and other moisture susceptible areas qid and as needed for soiling. Maintain patient on a low air-loss mattress.
--- NOTE | 2019-10-15 16:30 | NUR ---
Wound care Wound care done as ordered. Pictures taken. GT flushed as ordered. No adverse side effects. No nausea, no vomiting.
--- NOTE | 2019-10-15 18:30 | NUR ---
Closing note Patient resting in bed at this time, awake. No SOB. No complaints of pain. Midline, patent, intact. No infiltration noted. Gt feeding tolerating well. No residual noted. No nausea, no vomiting noted. No abdominal distention. Pollack catheter in place, draining yellow urine. bilateral soft wrist restraints in place. Removed restraints, patient noted to be agitated, and attempting to remove tubings. restraints reinforced. On contact isolation precautions for MDRO of sputum MRSA of nares. On safety and aspiration precautions, HOB kept elevated, 3 side rails up, call light within reach. patient in stable condition. All needs met.
--- NOTE | 2019-10-15 19:55 | NUR ---
OPENING NOTES Received bedside report from GIANLUCA Jain. Patient is resting in bed, awake, alert, oriented x 1. Patient is on a vent, is breathing evenly and nonlabored. Patient has JAYDE midline, patent and benign, on gtube feeding, has a FC attached, secured, and draining by gravity. Patient also has a right forearm IV which was infiltrated, discontinued that IV line, patient tolerated it well. Patient is on bilateral wrist restraints and has a mitten on the right hand. Call light with patient, instructed group home paraprofessional light system, patient unable to state understanding due to confusion and being nonverbal. Bed is locked, armed, and at a lowest position. Will continue to monitor.
[2019-10-15] MEDS: MIRTAZAPINE 15 MG TABLET GT SCH (21:00)
--- NOTE | 2019-10-15 21:00 | NUR ---
MEDICATIONS Patient is resting in bed, awake, breathing evenly and nonlabored. Checked gt for residual, given medications, educated patient on medications, patient unable to state understanding due to confusion, flushed gt, patient tolerated it well. No other needs at this time, fall/safety precautions.
[2019-10-15] MEDS: MIDODRINE HCL 5 MG TABLET (PROAMATINE) GT SCH (21:01)
--- NOTE | 2019-10-15 23:45 | NUR ---
MEDICATIONS/ROUNDS Patient is resting in bed, awake, breathing evenly and nonlabored. Checked gt for residual, administered medication via gt, educated patient on medication, patient unable to state understanding due to confusion and being nonverbal, flushed gt, patient tolerated it well. Provided hygiene care and changed wound dressing. Patient tolerated it well. No other needs at this time, fall/safety precautions.
[2019-10-16] MEDS: MIDODRINE HCL 5 MG TABLET (PROAMATINE) GT SCH ×6 (00:15→21:19)
[2019-10-16 00:19] VITALS: BP_SYST 100
--- NOTE | 2019-10-16 01:40 | NUR ---
ROUNDS Patient resting in bed, eyes closed, breathing easy and nonlabored. Patient continues to be on bilateral wrist restraints. Hygiene care provided. No other needs at this time. Fall/safety precautions.
--- NOTE | 2019-10-16 03:30 | NUR ---
ROUNDS Patient resting in bed, eyes closed, breathing easy and nonlabored. Patient continues to be on bilateral wrist restraints. No other needs at this time. Fall/safety precautions.
[2019-10-16] MEDS: IPRATROPIUM/ALBUTEROL SULFATE 3 ML AMPUL.NEB (DUONEB) INH SCH ×5 (04:07→23:07)
[2019-10-16] MEDS ORDERED: QUEtiapine FUMARATE 100 MG TABLET GT SCH (06:00)
[2019-10-16] MEDS: LEVOTHYROXINE SODIUM 0.025 MG TABLET PO SCH (06:21)
[2019-10-16] MEDS: QUEtiapine FUMARATE 25 MG TABLET GT SCH ×4 (06:21→23:31)
--- NOTE | 2019-10-16 06:46 | NUR ---
MED PASS/RN ROUNDS Patient awake, in no distress, due medications administered via gtube, no residual noted, flushed with water, patient tolerated well, blood sugar check this am of 105, no insulin coverage needed. Pollack catheter secured and to gravity, Patient had another bowel movement, hygiene care provided, new sacral foam dressing applied due to soilage, patient repositioned and turned with pillow support, bilateral wrist restraints in place, fall and isolation precautions maintained, will continue to monitor until report given to am nurse.
--- NOTE | 2019-10-16 07:50 | NUR ---
opening note patient is resting in bed, with assist patient was cleaned after having a bowel movement, dressing reenforced, RT is about to give breathing treatment, no signs of distress at this time, educated patient companion light system and plan of care, patient is nonverbal, restraints in place, brady in place, midline dressing in tact, fall/safety and contact precautions in place, vent settings AC 12, TV 350, FiO2 40, PEEP 5, tube feeding is running and patient is tolerating well.
[2019-10-16 08:05] VITALS: BP_SYST 85
[2019-10-16] MEDS: CEFTAZIDIME/AVIBACTAM 2.5 GM in NS 100 ML IV SCH ×2 (09:02→21:16)
[2019-10-16] MEDS: ERGOCALCIFEROL 8000 UNITS/ML ORAL SOLUTION, 60 ML BOTTLE GT SCH (09:02)
[2019-10-16] MEDS: PREDNISONE 20 MG TABLET PO SCH (09:03)
[2019-10-16] MEDS: PANTOPRAZOLE SODIUM 40 MG/VIAL (PROTONIX) IVP SCH ×2 (09:03→21:16)
[2019-10-16] MEDS: CALCIUM CARBONATE/VITAMIN D3 1 TAB TABLET GT SCH ×2 (09:03→21:19)
[2019-10-16] MEDS: POTASSIUM CHLORIDE 20 MEQ/PKT PACKET GT SCH (09:03)
[2019-10-16] MEDS: MULTIVIT-MINERALS/FERROUS GLUC 15 ML UDC GT SCH (09:03)
[2019-10-16] MEDS: MAGNESIUM OXIDE 400 MG TABLET GT SCH ×2 (09:03→21:16)
[2019-10-16] MEDS: LACTOBACILLUS RHAMNOSUS GG 1 CAP CAPSULE GT SCH (09:03)
[2019-10-16] MEDS: FERROUS SULFATE 300 MG/5 ML UDC GT SCH ×2 (09:03→21:16)
[2019-10-16] MEDS: ASCORBIC ACID 500 MG TABLET GT SCH ×2 (09:03→21:16)
[2019-10-16] MEDS: BALSAM PERU/CASTOR OIL 60 GM OINT...G. TP SCH (09:04)
[2019-10-16] MEDS: ENOXAPARIN SODIUM 40 MG/0.4 ML SYRINGE SQ SCH (09:05)
--- NOTE | 2019-10-16 10:00 | NUR ---
lab draw called lab to do CBC draw on patient, patient is more cooperative with letting them do blood draw, patient tolerated well.
[2019-10-16 10:18] LABS: BASOPHILS % (AUTO) 0.8 % (0.0-2.0); EOSINOPHILS # (AUTO) 0.2 K/uL (0.0-0.4); EOSINOPHILS % (AUTO) 3.9 % (0.0-4.0); HEMATOCRIT 30.1 % (36-48); HEMOGLOBIN 10.1 g/dL (12.0-16.0); LYMPHOCYTES # (AUTO) 0.8 K/uL (1.0-5.5); LYMPHOCYTES % (AUTO) 13.3 % (20.5-51.5); MEAN CORPUSCULAR HEMOGLOBIN 33 pg (27-31); MEAN CORPUSCULAR HGB CONC 34 % (32-36); MEAN CORPUSCULAR VOLUME 98 fL (79.0-98.0); MONOCYTES # (AUTO) 0.4 K/uL (0.0-1.0); MONOCYTES % (AUTO) 6.7 % (1.7-9.3); NEUTROPHILS # (AUTO) 4.5 K/uL (1.8-7.7); NEUTROPHILS % (AUTO) 75.3 % (40.0-70.0); PLATELET COUNT (AUTO) 148 K/uL (130-430); RED BLOOD CELL COUNT(AUTO) 3.06 MIL/uL (4.2-6.2); RED CELL DISTRIBUTION WIDTH 17.2 % (9.0-15.0)
[2019-10-16] MEDS: BUDESONIDE 0.5 MG/2 ML AMPUL.NEB INH SCH ×2 (11:21→19:51)
[2019-10-16] MEDS: COLISTIMETHATE SODIUM 150 MG VIAL INH SCH (11:22)
--- NOTE | 2019-10-16 12:00 | NUR ---
cleaned patient after having a bowel movement, patient agitated and uncooperative, wound care done, patient tolerated well, I informed RD about the patient have diarrhea, no signs of distress at this time, no other needs addressed at this time, fall/safety and contact precautions in place.
[2019-10-16 12:29] VITALS: BP_SYST 96
--- NOTE | 2019-10-16 12:32 | NUR ---
RD spoke to GIANLUCA Hamilton regarding pt's diarrhea that began last night and is occurring every hour. Diarrhea may be due to increase in rate from Jevity 1.5 at 50ml/hr to Jevity 1.5 at 60ml/hr. RD recommended to change rate back to Jevity 1.5 at 50ml/hr, which will meet pt's estimated nutrition needs at 124% of upper end of estimated caloric needs and 109% of upper end of estimated protein needs. RD will continue to monitor tube feeding tolerance.
[2019-10-16] MEDS ORDERED: LORazepam 2 MG/ML VIAL IVP ONE (14:45)
--- NOTE | 2019-10-16 14:55 | NUR ---
cleaned patient after having a bowel movement, patient agitated and uncooperative, wound care done, patient tolerated well, I informed RD about the patient have diarrhea, no signs of distress at this time, no other needs addressed at this time, fall/safety and contact precautions in place, spoke with Dr Soto about an order for ativan so patient can have her CT test, RT was called for heads up so they can come when I am ready to take her to CT.
[2019-10-16 16:16] VITALS: BP_SYST 93
[2019-10-16] MEDS ORDERED: MIDODRINE HCL 5 MG TABLET (PROAMATINE) GT ONE (16:30)
--- NOTE | 2019-10-16 16:30 | NUR ---
CT scan accompanied patient to CT with assist, patient tolerated well with no signs of distress, patient back in room now, fall/safety and contact precautions in place.
--- NOTE | 2019-10-16 18:30 | NUR ---
CLOSING NOTE patient is resting in bed, eyes closed breathing easy and nonlabored, no signs of distress at this time, patient is nonverbal, restraints in place, brady in place, midline dressing in tact, fall/safety and contact precautions in place, vent settings AC 12, TV 350, FiO2 40, PEEP 5, tJEvity 1.5 running @ 50ml/hr and patient is tolerating well, bed in lowest position, bed alarm on, side rails up, will endorse report to noc shift nurse to continue with care, patient's ProAmatine was changed to 10mg TID.
--- NOTE | 2019-10-16 19:55 | NUR ---
OPENING NOTES Received bedside report from GIANLUCA Hamilton. Patient is resting in bed, eyes closed. Patient is on a vent, is breathing evenly and nonlabored. Patient has JAYDE midline, patent and benign, on gtube feeding, has a FC attached, secured, and draining by gravity. Patient is on bilateral wrist restraints and has mitten restraints on bilateral hands. Repositioned patient. Call light with patient, instructed probation officer light system, patient unable to state understanding due to confusion and being nonverbal. Bed is locked, armed, and at a lowest position. Will continue to monitor.
[2019-10-16 21:14] VITALS: BP_SYST 100
[2019-10-16] MEDS: MIRTAZAPINE 15 MG TABLET GT SCH (21:19)
--- NOTE | 2019-10-16 21:30 | NUR ---
MEDICATIONS Patient is resting in bed, awake, breathing evenly and nonlabored. Medications given, educated patient on medications, patient unable to state understanding due to confusion and being noverbal. Blood sugar checked, hygiene care provided. No other needs at this time. Fall/safety precautions.
--- NOTE | 2019-10-16 23:40 | NUR ---
ROUNDS Patient resting in bed, eyes closed, breathing easy and nonlabored. Patient continues to be on bilateral wrist restraints and bilateral mittens. No other needs at this time. Fall/safety precautions.
[2019-10-16 23:48] VITALS: BP_SYST 107
--- NOTE | 2019-10-17 02:23 | NUR ---
ROUNDS Patient resting in bed, eyes closed, breathing easy and nonlabored. Patient continues to be on bilateral wrist restraints and bilateral mittens. No s/s of distress at this time. No other needs at this time. Fall/safety precautions.
[2019-10-17] MEDS: IPRATROPIUM/ALBUTEROL SULFATE 3 ML AMPUL.NEB (DUONEB) INH SCH ×6 (03:20→23:49)
[2019-10-17] MEDS: QUEtiapine FUMARATE 25 MG TABLET GT SCH ×4 (05:52→23:36)
[2019-10-17] MEDS: LEVOTHYROXINE SODIUM 0.025 MG TABLET PO SCH (06:11)
[2019-10-17 06:50] LABS: BASOPHILS % (AUTO) 0.8 % (0.0-2.0); EOSINOPHILS # (AUTO) 0.2 K/uL (0.0-0.4); EOSINOPHILS % (AUTO) 5.4 % (0.0-4.0); HEMATOCRIT 32.3 % (36-48); HEMOGLOBIN 10.8 g/dL (12.0-16.0); LYMPHOCYTES # (AUTO) 0.8 K/uL (1.0-5.5); LYMPHOCYTES % (AUTO) 18.2 % (20.5-51.5); MEAN CORPUSCULAR HEMOGLOBIN 33 pg (27-31); MEAN CORPUSCULAR HGB CONC 34 % (32-36); MEAN CORPUSCULAR VOLUME 98 fL (79.0-98.0); MONOCYTES # (AUTO) 0.4 K/uL (0.0-1.0); NEUTROPHILS % (AUTO) 67.6 % (40.0-70.0); PLATELET COUNT (AUTO) 181 K/uL (130-430); RED BLOOD CELL COUNT(AUTO) 3.29 MIL/uL (4.2-6.2); RED CELL DISTRIBUTION WIDTH 17.3 % (9.0-15.0); WHITE BLOOD COUNT (AUTO) 4.4 K/uL (4.8-10.8)
--- NOTE | 2019-10-17 06:54 | NUR ---
CLOSING NOTES Patient resting in bed, awake, breathing easy and nonlabored. Patient continues to be on bilateral wrist restraints and bilateral mittens. No s/s of distress at this time. No other needs at this time. Hygiene care provided, wound care done, medications given, educated patient on medications, patient unable to state understanding due to confusion and being nonverbal. Patient tolerated them well. Will endorse care to morning shift RN. Fall/safety precautions.
[2019-10-17] MEDS: BUDESONIDE 0.5 MG/2 ML AMPUL.NEB INH SCH ×2 (07:20→19:55)
[2019-10-17 07:49] VITALS: BP_SYST 82
[2019-10-17] MEDS: ENOXAPARIN SODIUM 40 MG/0.4 ML SYRINGE SQ SCH (08:05)
[2019-10-17] MEDS: LACTOBACILLUS RHAMNOSUS GG 1 CAP CAPSULE GT SCH (08:06)
[2019-10-17] MEDS: POTASSIUM CHLORIDE 20 MEQ/PKT PACKET GT SCH (08:06)
[2019-10-17] MEDS: CEFTAZIDIME/AVIBACTAM 2.5 GM in NS 100 ML IV SCH ×2 (08:06→20:57)
[2019-10-17] MEDS: ERGOCALCIFEROL 8000 UNITS/ML ORAL SOLUTION, 60 ML BOTTLE GT SCH (08:06)
[2019-10-17] MEDS: MIDODRINE HCL 5 MG TABLET (PROAMATINE) GT SCH ×3 (08:07→20:58)
[2019-10-17] MEDS: FERROUS SULFATE 300 MG/5 ML UDC GT SCH ×2 (08:07→20:57)
[2019-10-17] MEDS: MAGNESIUM OXIDE 400 MG TABLET GT SCH ×2 (08:07→20:57)
[2019-10-17] MEDS: ASCORBIC ACID 500 MG TABLET GT SCH ×2 (08:07→20:57)
[2019-10-17] MEDS: CALCIUM CARBONATE/VITAMIN D3 1 TAB TABLET GT SCH ×2 (08:07→20:58)
[2019-10-17] MEDS: PREDNISONE 20 MG TABLET PO SCH (08:07)
[2019-10-17] MEDS: PANTOPRAZOLE SODIUM 40 MG/VIAL (PROTONIX) IVP SCH ×2 (08:07→20:57)
[2019-10-17] MEDS: MULTIVIT-MINERALS/FERROUS GLUC 15 ML UDC GT SCH (08:07)
--- NOTE | 2019-10-17 09:30 | NUR ---
Wound care/safety Patient repositioned , dressing sacral area fell off , dressing done documented to flow sheet, repositioned , right malone dressing dry/intact., BLE supported by pillow, patient able to move positioned ,on air mattress, on bilateral wrist restraints and mittens , risk of removing trache , lines, falling, frequent monitoring.
[2019-10-17] MEDS: BALSAM PERU/CASTOR OIL 60 GM OINT...G. TP SCH (09:38)
[2019-10-17 09:40] VITALS: BP_SYST 126
--- NOTE | 2019-10-17 12:10 | NUR ---
Low blood pressure Patient is very awake , cooperative , smiles no sign of acute discomfort, blood pressure is low which is chronic according to admitting doctor Charles tinajero monitor.
[2019-10-17 12:53] VITALS: BP_SYST 87
--- NOTE | 2019-10-17 14:54 | NUR ---
PATIENT RESTING: Patient resting quietly. No acute distress noted, blood pressure still borderline below 90, awake/alert nods if answer question, safety/fall precaution initiated..
[2019-10-17 16:39] VITALS: BP_SYST 89
--- NOTE | 2019-10-17 16:40 | NUR ---
Skin care/comfort Patient had a small bowel movement soft stool , sacral dressing kept dry/clean perineal care given skin cream barrier applied , repositioned , HOB aspiration precaution ,BLE supported by pillow, safety/fall precaution initiated, bed alarm , restraints.
[2019-10-17 17:09] VITALS: BP_SYST 102
--- NOTE | 2019-10-17 18:40 | NUR ---
Closing notes Patient is awake bitting her mittens ,,safety/fall precaution initiated on bed alarm ,due meds given, oxygen saturation 98%.
--- NOTE | 2019-10-17 19:15 | NUR ---
OPENING NOTES Bedside report received from dayshift nurse. Patient received lying in bed, awake, confused. No s/s of acute distress noted. Breathing is even and unlabored, Vent to trach with settings of AC 12, FiO2 40%, TV 350, and PEEP of 5. Patient tolerating well, SPO2 at 98. Skin warm and dry to touch. Tube feeding infusing well. Bilateral soft wrist restraints in place, bilateral mittens in place, no signs of injuries noted. Bed alarm on. Bed is locked and at lowest position. Will continue to monitor.
[2019-10-17 20:00] VITALS: BP_SYST 96
[2019-10-17] MEDS: MIRTAZAPINE 15 MG TABLET GT SCH (20:58)
--- NOTE | 2019-10-17 21:00 | NUR ---
MEDPASS Patient in bed, attempting to bite mittens on bilateral hands. RN told patient to stop, patient follows orders. Scheduled medications administered at this time. Residual at zero ml at this time. Patient tolerating tube feeding. Heels offloaded with pillow. Pollack attached, secured, and draining by gravity. All needs met. Bed alarm on. Will continue to monitor.
--- NOTE | 2019-10-17 23:00 | NUR ---
ROUNDS Patient in bed, eyes are closed, appears to be asleep. No s/s of acute distress noted. Breathing even and unlabored, HOB raised, vent to trach, settings remain the same, patient tolerating well, SPO2 98. IVF and GTUBE infusing well. Pollack attached, secured, and draining by gravity. Bed alarm on. Bed is locked and at lowest position. Will continue to monitor.
[2019-10-18] VITALS: BP_SYST 109
--- NOTE | 2019-10-18 01:00 | NUR ---
INCONTINENT CARE Incontinent care rendered by FACILITIES ENGINEERING MANAGER at this time. Patient tolerating well. All needs met at this time. Will continue to monitor.
--- NOTE | 2019-10-18 03:00 | NUR ---
ROUNDS Patient in bed asleep at this time. No s/s of acute distress noted. Breathing even and unlabored. IVF and GTUBE infusing well. Pollack attached, secured, and draining by gravity. All needs met. Bed alarm on. Will continue to monitor.
[2019-10-18] MEDS: IPRATROPIUM/ALBUTEROL SULFATE 3 ML AMPUL.NEB (DUONEB) INH SCH ×6 (03:56→23:38)
--- NOTE | 2019-10-18 05:00 | NUR ---
DRESSING CHANGE Sacral dressing changed at this time. Woundcare orders carried out. All needs met. Bed alarm on. Will continue to monitor.
[2019-10-18] MEDS: QUEtiapine FUMARATE 25 MG TABLET GT SCH ×3 (06:01→18:00)
[2019-10-18] MEDS: LEVOTHYROXINE SODIUM 0.025 MG TABLET PO SCH (06:02)
--- NOTE | 2019-10-18 06:39 | NUR ---
CLOSING NOTES Patient in bed, awake, attempting to bite her mittens. No s/s of acute distress. Breathing even and unlabored. Vent connected to trach. HOB raised. Patient tolerating well, SPO2 at 97. Gtube infusing well. IV site patent, no signs of infiltration or infection noted. Skin warm and dry to touch. Pollack attached, secured, and draining by gravity. All needs met throughout the shift. Fall, safety, and isolation precautions maintained throughout the shift. Will continue to monitor until patient care is endorsed to oncoming dayshift nurse.
--- NOTE | 2019-10-18 07:30 | NUR ---
Neuro/comfort Patient awake/alert bitting her mittens , perineal care given with small BM skin cream barrier applied, patient able to lift her butt helping to clean , follow simple instruction, repositioned., all BLE kept supported by pillow.
[2019-10-18] MEDS: BUDESONIDE 0.5 MG/2 ML AMPUL.NEB INH SCH ×2 (07:31→19:49)
[2019-10-18] MEDS: ENOXAPARIN SODIUM 40 MG/0.4 ML SYRINGE SQ SCH (08:07)
[2019-10-18] MEDS: MULTIVIT-MINERALS/FERROUS GLUC 15 ML UDC GT SCH (08:07)
[2019-10-18] MEDS: ERGOCALCIFEROL 8000 UNITS/ML ORAL SOLUTION, 60 ML BOTTLE GT SCH (08:07)
[2019-10-18] MEDS: FERROUS SULFATE 300 MG/5 ML UDC GT SCH ×2 (08:07→21:01)
[2019-10-18] MEDS: PANTOPRAZOLE SODIUM 40 MG/VIAL (PROTONIX) IVP SCH ×2 (08:08→21:02)
[2019-10-18] MEDS: MAGNESIUM OXIDE 400 MG TABLET GT SCH ×2 (08:08→21:01)
[2019-10-18] MEDS: CALCIUM CARBONATE/VITAMIN D3 1 TAB TABLET GT SCH ×2 (08:08→21:01)
[2019-10-18] MEDS: ASCORBIC ACID 500 MG TABLET GT SCH ×2 (08:08→21:01)
[2019-10-18] MEDS: MIDODRINE HCL 5 MG TABLET (PROAMATINE) GT SCH ×3 (08:08→21:01)
[2019-10-18] MEDS: LACTOBACILLUS RHAMNOSUS GG 1 CAP CAPSULE GT SCH (08:08)
[2019-10-18] MEDS: PREDNISONE 20 MG TABLET PO SCH (08:08)
[2019-10-18] MEDS: CEFTAZIDIME/AVIBACTAM 2.5 GM in NS 100 ML IV SCH ×2 (08:11→21:02)
[2019-10-18 08:34] VITALS: BP_SYST 88
[2019-10-18 08:42] LABS: CALCIUM 9.2 mg/dL (8.4-11.0); CREATININE 0.46 mg/dL (0.55-1.30); POTASSIUM 4.7 mmol/L (3.5-5.1)
[2019-10-18] MEDS: POTASSIUM CHLORIDE 20 MEQ/PKT PACKET GT SCH (08:50)
[2019-10-18] MEDS: BALSAM PERU/CASTOR OIL 60 GM OINT...G. TP SCH (10:07)
--- NOTE | 2019-10-18 10:10 | NUR ---
Wound care Patient had small bowel movement soft , perineal care given , wound care completed , release restraints kept with mittens will monitor safety/fall precaution initiated.
[2019-10-18 11:30] VITALS: BP_SYST 103
--- NOTE | 2019-10-18 12:00 | NUR ---
Patient is calm and cooperative released restraints, kept mittens, kept most of the tubing in hiding, semi fowlers , tolerating tube feeding well ,safety/fall/aspiration precaution, will monitor.
--- NOTE | 2019-10-18 13:47 | NUR ---
Perineal care given had a moderate amount of stool , foam dressing changed with smear of stool, repositioned , cooperative/calm on mittens only, will monitor.
[2019-10-18 15:23] VITALS: BP_SYST 93
[2019-10-18 17:59] VITALS: BP_SYST 101
--- NOTE | 2019-10-18 18:52 | NUR ---
Patient was too sleepy but arousable , monitor NSR , oxygen saturation 98% , kept warm with mittens, safety/fall precaution initiated.
--- NOTE | 2019-10-18 19:10 | NUR ---
OPENING NOTES Bedside report received from dayshift nurse. Patient received lying in bed, eyes closed, appears to be asleep. No s/s of acute distress noted. Breathing even and unlabored, HOB raised, Vent to trach with settings of AC 12, FiO2 40%, TV 350, PEEP 5. Gtube feeding infusing well. Mittens attached to both hands, no signs of injuries noted. Pollack attached, secured, and draining by gravity. Bed alarm on. Bed is locked and at lowest position. Will continue to monitor.
[2019-10-18 20:00] VITALS: BP_SYST 111
--- NOTE | 2019-10-18 21:00 | NUR ---
ROUNDS Patient in bed, asleep at this time. No signs of discomfort noted. Chest rise and fall even bilaterally. Bed alarm on. Bed is locked and at lowest position. Will continue to monitor.
[2019-10-18] MEDS: MIRTAZAPINE 15 MG TABLET GT SCH (21:01)
--- NOTE | 2019-10-18 22:41 | NUR ---
TRACH PULLED OUT/RESTRAINTS PLACED Trach pulled out at this time. RT and charge nurse at bedside, trach placed, connected to vent. Patient tolerating well, SPO2 at 98, no signs of acute distress. Bilateral soft wrist restraints placed. All needs met. Bed alarm on. Will continue to monitor.
[2019-10-19] VITALS: BP_SYST 102
--- NOTE | 2019-10-19 | NUR ---
ROUNDS Patient in bed, sleeping. No signs of discomfort noted. Chest rise and fall even bilaterally. Trach to vent attached, and operating. HOB raised, GTUBE infusing well. Pollack attached, secured, and draining by gravity. All needs met. Bed alarm on. Will continue to monitor.
[2019-10-19] MEDS: QUEtiapine FUMARATE 25 MG TABLET GT SCH ×5 (00:52→23:45)
[2019-10-19] MEDS ORDERED: QUEtiapine FUMARATE 25 MG TABLET ONE ×3 (00:57→23:08)
--- NOTE | 2019-10-19 02:00 | NUR ---
ROUNDS Patient asleep. No s/s of acute distress. Breathing even and unlabored. All needs met. All safety precautions in place. Will continue to monitor.
[2019-10-19] MEDS: IPRATROPIUM/ALBUTEROL SULFATE 3 ML AMPUL.NEB (DUONEB) INH SCH ×6 (03:44→23:47)
--- NOTE | 2019-10-19 04:00 | NUR ---
MIDLINE DRESSING CHANGED Dressing changed at this time. Patient was restless, needed another RN to hold her down and keep her still. All needs at this time met. Will continue to monitor.
[2019-10-19] MEDS: LEVOTHYROXINE SODIUM 0.025 MG TABLET PO SCH (06:06)
--- NOTE | 2019-10-19 06:25 | NUR ---
CLOSING NOTES/SEROQUEL DOSE NOT AVAILABLE Scheduled Seroquel is not available at this time, not enough inside the pyxis. Charge nurse and superintendent warehouse made aware, RN advised to endorse to dayshift and communicate with pharmacy to resupply. Patient in bed, awake, no s/s of acute distress noted. Breathing even and unlabored, vent to trach attached and operating, patient tolerating well, HOB raised. Gtube feeding infusing well. IV site patent, no signs of infiltration or infection noted. Skin warm and dry to touch. Pollack attached, secured, and draining by gravity. All needs met throughout the shift. Fall, safety, and isolation precautions maintained throughout the shift. Will continue to monitor until patient care is endorsed to oncoming dayshift nurse.
[2019-10-19] MEDS: PREDNISONE 20 MG TABLET PO SCH (07:45)
[2019-10-19 08:00] VITALS: BP_SYST 95
[2019-10-19] MEDS: BUDESONIDE 0.5 MG/2 ML AMPUL.NEB INH SCH ×2 (08:05→19:38)
[2019-10-19] MEDS: LACTOBACILLUS RHAMNOSUS GG 1 CAP CAPSULE GT SCH (10:20)
[2019-10-19] MEDS: FERROUS SULFATE 300 MG/5 ML UDC GT SCH ×2 (10:21→20:58)
[2019-10-19] MEDS: MULTIVIT-MINERALS/FERROUS GLUC 15 ML UDC GT SCH (10:21)
[2019-10-19] MEDS: CALCIUM CARBONATE/VITAMIN D3 1 TAB TABLET GT SCH ×2 (10:22→20:59)
[2019-10-19] MEDS: POTASSIUM CHLORIDE 20 MEQ/PKT PACKET GT SCH (10:22)
[2019-10-19] MEDS: ASCORBIC ACID 500 MG TABLET GT SCH ×2 (10:23→20:58)
[2019-10-19] MEDS: PANTOPRAZOLE SODIUM 40 MG/VIAL (PROTONIX) IVP SCH ×2 (10:23→20:59)
[2019-10-19] MEDS: MIDODRINE HCL 5 MG TABLET (PROAMATINE) GT SCH ×3 (10:23→20:58)
[2019-10-19] MEDS: ENOXAPARIN SODIUM 40 MG/0.4 ML SYRINGE SQ SCH (10:24)
[2019-10-19] MEDS: MAGNESIUM OXIDE 400 MG TABLET GT SCH ×2 (10:25→20:59)
[2019-10-19] MEDS: ERGOCALCIFEROL 8000 UNITS/ML ORAL SOLUTION, 60 ML BOTTLE GT SCH (10:27)
[2019-10-19] MEDS: BALSAM PERU/CASTOR OIL 60 GM OINT...G. TP SCH (10:28)
[2019-10-19 11:49] VITALS: BP_SYST 90
[2019-10-19 15:36] VITALS: BP_SYST 91
[2019-10-19] MEDS: CEFTAZIDIME/AVIBACTAM 2.5 GM in NS 100 ML IV SCH ×2 (17:47→20:58)
--- NOTE | 2019-10-19 19:15 | NUR ---
OPENING NOTES Bedside report received from dayshift nurse. Patient received lying in bed, eyes closed, appears to be asleep. No s/s of acute distress noted. Breathing is even and unlabored. IV antibiotics infusing well, Gtube feeding infusing well. Vent to trach attached and operating. HOB raised. Pollack attached secured and draining by gravity. Soft wrist restraints in place on bilateral wrist, no signs of injuries noted. Mittens in place on bilateral hands. Bed alarm on. Bed is locked and at lowest position. Will continue to monitor.
[2019-10-19 20:00] VITALS: BP_SYST 93
[2019-10-19] MEDS: MIRTAZAPINE 15 MG TABLET GT SCH (20:59)
--- NOTE | 2019-10-19 21:00 | NUR ---
ROUNDS Patient in bed sleeping at this time. No signs of discomfort noted. Chest rise and fall even bilaterally. Trach to vent attached and operating. HOB raised. Gtube infusing well. Pollack attached, secured and draining by gravity. Bilateral soft wrist restraints in place and mittens, no signs of injuries noted. Bed alarm on. Bed is locked and at lowest position. Will continue to monitor.
--- NOTE | 2019-10-19 23:00 | NUR ---
PERICARE Patient receiving gabrielle care from SALES ENABLEMENT CONSULTANT at this time. Patient tolerating well. NO s/s of acute distress. Breathing even and unlabored. All needs met. Will continue to monitor.
[2019-10-20] VITALS: BP_SYST 98
--- NOTE | 2019-10-20 01:00 | NUR ---
ROUNDS Patient in bed awake, agitated, biting mittens. Vent to trach attached and operating. HOB raised, Gtube infusing well. Pollack draining by gravity. Bilateral soft wrist restraints in place, mittens in place. Bed alarm on. Bed is locked and at lowest position. Will continue to monitor.
--- NOTE | 2019-10-20 03:00 | NUR ---
ROUNDS Patient in bed asleep. No signs of discomfort noted. Chest rise and fall even bilaterally. Vent to trach attached and operating. Bilateral soft wrist restraints in place, and mittens. Pollack attached, secured, and draining by gravity. Gtube infusing well. Bed alarm on. Bed is locked and at lowest position. Will continue to monitor.
[2019-10-20] MEDS: IPRATROPIUM/ALBUTEROL SULFATE 3 ML AMPUL.NEB (DUONEB) INH SCH ×6 (03:36→23:19)
--- NOTE | 2019-10-20 05:00 | NUR ---
ROUNDS Patient in bed biting on mitten at this time. No signs of discomfort noted. Chest rise and fall even bilaterally. All needs met. Bed alarm on. Will continue to monitor.
[2019-10-20] MEDS: LEVOTHYROXINE SODIUM 0.025 MG TABLET PO SCH (05:59)
[2019-10-20] MEDS: QUEtiapine FUMARATE 25 MG TABLET GT SCH ×2 (06:11→14:32)
[2019-10-20] MEDS ORDERED: QUEtiapine FUMARATE 25 MG TABLET ONE (06:24)
--- NOTE | 2019-10-20 06:39 | NUR ---
CLOSING NOTES Patient in bed, awake, biting on mitten. No s/s of acute distress noted. Breathing even and unlabored, HOB raised, trach to vent attached and operating. Gtube feeding infusing well. Pollack attached, secured, and draining by gravity. IV site patent, no signs of infiltration or infection noted. Bilateraly soft wrist restraints in place, and mittens. Skin warm and dry to touch. All needs met throughout shift. Fall, safety, and isolation precautions maintained throughout shift. Will continue to monitor until patient care is endorsed to oncoming dayshift nurse.
[2019-10-20] MEDS: BUDESONIDE 0.5 MG/2 ML AMPUL.NEB INH SCH ×2 (07:57→18:43)
[2019-10-20 09:07] LABS: BASOPHILS % (AUTO) 0.5 % (0.0-2.0); EOSINOPHILS # (AUTO) 0.2 K/uL (0.0-0.4); EOSINOPHILS % (AUTO) 3.1 % (0.0-4.0); HEMATOCRIT 30.8 % (36-48); HEMOGLOBIN 10.4 g/dL (12.0-16.0); LYMPHOCYTES % (AUTO) 17.8 % (20.5-51.5); MEAN CORPUSCULAR HEMOGLOBIN 33 pg (27-31); MEAN CORPUSCULAR HGB CONC 34 % (32-36); MEAN CORPUSCULAR VOLUME 99 fL (79.0-98.0); MONOCYTES # (AUTO) 0.4 K/uL (0.0-1.0); MONOCYTES % (AUTO) 7.6 % (1.7-9.3); NEUTROPHILS # (AUTO) 4.2 K/uL (1.8-7.7); PLATELET COUNT (AUTO) 158 K/uL (130-430); RED BLOOD CELL COUNT(AUTO) 3.11 MIL/uL (4.2-6.2); RED CELL DISTRIBUTION WIDTH 16.9 % (9.0-15.0); WHITE BLOOD COUNT (AUTO) 5.9 K/uL (4.8-10.8)
[2019-10-20 10:24] LABS: CALCIUM 9.1 mg/dL (8.4-11.0); POTASSIUM 4.1 mmol/L (3.5-5.1)
[2019-10-20 10:25] LABS: CREATININE 0.48 mg/dL (0.55-1.30)
[2019-10-20 11:13] LABS: ERYTHROCYTE SEDIMENTATION RATE 50 MM/HR (0-20)
[2019-10-20 11:18] VITALS: BP_SYST 88
[2019-10-20] MEDS: CEFTAZIDIME/AVIBACTAM 2.5 GM in NS 100 ML IV SCH ×2 (11:29→22:31)
[2019-10-20] MEDS: MIDODRINE HCL 5 MG TABLET (PROAMATINE) GT SCH ×4 (11:30→22:31)
[2019-10-20] MEDS: LACTOBACILLUS RHAMNOSUS GG 1 CAP CAPSULE GT SCH (11:30)
[2019-10-20] MEDS: CALCIUM CARBONATE/VITAMIN D3 1 TAB TABLET GT SCH ×2 (11:30→22:24)
[2019-10-20] MEDS: POTASSIUM CHLORIDE 20 MEQ/PKT PACKET GT SCH (11:30)
[2019-10-20] MEDS: MAGNESIUM OXIDE 400 MG TABLET GT SCH ×2 (11:31→22:25)
[2019-10-20] MEDS: FERROUS SULFATE 300 MG/5 ML UDC GT SCH ×2 (11:31→22:24)
[2019-10-20] MEDS: PREDNISONE 20 MG TABLET PO SCH (11:31)
[2019-10-20] MEDS: PANTOPRAZOLE SODIUM 40 MG/VIAL (PROTONIX) IVP SCH ×2 (11:32→22:24)
[2019-10-20] MEDS: ENOXAPARIN SODIUM 40 MG/0.4 ML SYRINGE SQ SCH (11:33)
[2019-10-20] MEDS: MULTIVIT-MINERALS/FERROUS GLUC 15 ML UDC GT SCH (13:09)
[2019-10-20] MEDS: ERGOCALCIFEROL 8000 UNITS/ML ORAL SOLUTION, 60 ML BOTTLE GT SCH (13:10)
[2019-10-20] MEDS: ASCORBIC ACID 500 MG TABLET GT SCH ×2 (13:10→22:24)
[2019-10-20] MEDS: BALSAM PERU/CASTOR OIL 60 GM OINT...G. TP SCH (13:11)
--- NOTE | 2019-10-20 14:20 | NUR ---
Nutrition F/U RD reviewed pt's current EMR including diet Hx, physician notes, nursing notes, pertinent labs/meds/procedures, care trends and care activity. Current Nutrition Support: Jevity 1.5 at 60ml/hr, Prosource BID, Colt BID, Free Water Flush 200ml Q6H via GT x 8 days Subjective information: Pt seen earlier this morning. EN infusing. Pt is on vent, on restraints as pt tried to pull out trach yesterday per bed huddle discussion. Per RN, pt has been tolerating EN support, no residual this morning and no episode of diarrhea reported. Current EN support remains appropriate. 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 *ongoing Expected Outcomes/Goals Monitor EN support with goals of pt meeting at least 90% of estimated nutritional needs, labs trending WNL, and skin integrity/wt maintenance. Dietitian Recommendations * Recommend continuing Jevity 1.5 at 60 ml/hr, Prosource BID, Colt BID, Free Water Flush: 200 Q6H via GT Provides: 2440 kcal/day, 127 gm protein/day, and 1894 ml free water/day Meets: 145% of upper end of estimated caloric needs and 135% of upper end of estimated protein needs Moderate Risk; F/U within 3-5 days
--- NOTE | 2019-10-20 14:24 | NUR ---
Dietitian Recommendations * Recommend continuing Jevity 1.5 at 60 ml/hr, Prosource BID, Colt BID, Free Water Flush: 200 Q6H via GT Provides: 2440 kcal/day, 127 gm protein/day, and 1894 ml free water/day Meets: 145% of upper end of estimated caloric needs and 135% of upper end of estimated protein needs [facility], RD
[2019-10-20 15:30] VITALS: BP_SYST 132
--- NOTE | 2019-10-20 17:15 | NUR ---
DC PLANNING: DC BARRIERS RESTRAINTS PER SNF UNABLE TO ACCEPT PATIENT UNTIL OFF RESTRAINTS. PER NURSING REPORT ATTEMPTED RESTRAINT REMOVAL PATIENT PULLED OUT TRACH.
[2019-10-20] MEDS ORDERED: LOPERAMIDE HCL 2 MG CAPSULE PO ONE (19:00)
--- NOTE | 2019-10-20 19:58 | NUR ---
OPENING NOTES Received report from morning shift RN. Patient is resting in bed, eyes closed, breathing evenly and nonlabored. Patient has a midline on JAYDE, patent and benign, no s/s of infiltration or infections noted. GT feeding running at 50mL/hr. FC attached and secured in place, draining by gravity. Patient is on a vent: 12 AC, 40% FiO2, TV 350, PEEP at 5. Patient is on bilateral wrist and mitten restraints due to pulling lines. No s/s of distress at this time. No other needs at this time. Will continue to monitor. Addendum: 10/21/19 at 0307 by Jaleel Ryan RN Fall/safety/aspiration precautions.
[2019-10-20 20:00] VITALS: BP_SYST 93
[2019-10-20] MEDS: DIPHENHYDRAMINE HCL 50 MG CAPSULE GT SCH (22:25)
--- NOTE | 2019-10-20 22:30 | NUR ---
MEDICATIONS/ROUNDS Patient is resting in bed, awake, nonverbal, breathing evenly and nonlabored. Educated patient on medications, patient unable to state understanding due to confusion and being nonverbal. Administered medications, patient tolerated them well. No other needs at this time. Fall/safety/aspiration precautions. Addendum: 10/21/19 at 0548 by Jaleel Ryan RN Hygiene care performed. Wound care done and dressing changed.
[2019-10-20] MEDS: MIRTAZAPINE 15 MG TABLET GT SCH (22:31)
[2019-10-20 23:50] VITALS: BP_SYST 96
--- NOTE | 2019-10-21 00:30 | NUR ---
MEDICATIONS/ROUNDS Patient is resting in bed, awake, nonverbal, breathing evenly and nonlabored. Educated patient on medication, patient unable to state understanding due to confusion and being nonverbal. Administered medication, patient tolerated it well. No other needs at this time. Fall/safety/aspiration precautions.
[2019-10-21] MEDS: QUEtiapine FUMARATE 100 MG TABLET GT SCH ×5 (00:52→23:18)
[2019-10-21] MEDS: IPRATROPIUM/ALBUTEROL SULFATE 3 ML AMPUL.NEB (DUONEB) INH SCH ×5 (02:03→23:45)
--- NOTE | 2019-10-21 02:30 | NUR ---
ROUNDS Patient is resting in bed, eyes closed, breathing evenly and nonlabored. No s/s of distress at this time. No other needs at this time. Fall/safety/aspiration precautions.
--- NOTE | 2019-10-21 04:10 | NUR ---
ROUNDS Patient is resting in bed, awake, breathing evenly and nonlabored. Patient continues to be on bilateral wrist and mitten restraints at this time due to pulling on lines. No s/s of distress at this time. No other needs at this time. Fall/safety/aspiration precautions.
[2019-10-21] MEDS: LEVOTHYROXINE SODIUM 0.025 MG TABLET PO SCH (06:32)
--- NOTE | 2019-10-21 06:46 | NUR ---
CLOSING NOTES Patient is resting in bed, awake, breathing evenly and nonlabored. Educated patient on medications, patient unable to state understanding due to being nonverbal and confusion. Administered medications, patient tolerated them well. Changed gt dressing, patient tolerated it well. Patient continues to be on restraints due to attempting to pull lines and tubes. Will report plan of care and endorse to morning shift RN. Fall/safety/respiratory/aspiration precautions.
[2019-10-21] MEDS: BUDESONIDE 0.5 MG/2 ML AMPUL.NEB INH SCH ×2 (07:42→20:44)
--- NOTE | 2019-10-21 08:00 | NUR ---
ASSUMPTION OF CARE: RECEIVED PT A/A/OX1, TO NAME ONLY, DX:INADEQUATE VENTILATION, R/T ACUTE ON CHRONIC RESPIRATORY FAILURE, MECHANICALLY VENTILATED WITH SETTING OF AC=12, JC=079, FIO2=40%, AND PEEP OF 5, SATURATING 100%, BREATH SOUNDS ARE CLEAR, BREATHING UNLABORED, NO DISTRESS NOTED, DENIES HAVING PAIN, TOLERATING G-TUBE FEEDING, NO RESIDUAL, HAS BILATERAL SOFT WRIST RESTRAINTS, DUE TO COMBATIVENESS AND TRYING TO REMOVE TRACH FROM VENT, IV MIDLINE TO RIGHT UPPER ARM, INTACT, PATENT, NO REDNESS OR SWELLING, SIDE RAILS UP X3, HOB UP 45 DEGREE, CALL LIGHT PLACED WITHIN REACH, WILL CONT' TO MONITOR AND ASSESS.
[2019-10-21 08:40] VITALS: BP_SYST 77
--- NOTE | 2019-10-21 08:45 | NUR ---
NURSES NOTES: PT ASSESSED WITH LOW BP=77/52 ON LEFT UPPER ARM AND 68/42 ON RIGHT LOWER ARM, CALL PLACED TO , MESSAGE LEFT WITH JOSEE, AWAITING CALL BACK.
[2019-10-21] MEDS: DIPHENHYDRAMINE HCL 50 MG CAPSULE GT SCH ×3 (09:00→22:46)
--- NOTE | 2019-10-21 09:00 | NUR ---
SALES OPERATIONS: MORNING MEDS GIVEN, PER ORDERED BY Nando, TOLERATED WELL, WILL CONT' WITH POC.
[2019-10-21] MEDS: FERROUS SULFATE 300 MG/5 ML UDC GT SCH ×2 (09:08→22:45)
[2019-10-21] MEDS: PANTOPRAZOLE SODIUM 40 MG/VIAL (PROTONIX) IVP SCH ×2 (09:09→22:45)
[2019-10-21] MEDS: POTASSIUM CHLORIDE 20 MEQ/PKT PACKET GT SCH (09:09)
[2019-10-21] MEDS: MAGNESIUM OXIDE 400 MG TABLET GT SCH ×2 (09:09→22:46)
[2019-10-21] MEDS: CALCIUM CARBONATE/VITAMIN D3 1 TAB TABLET GT SCH ×2 (09:09→22:46)
[2019-10-21] MEDS: MIDODRINE HCL 5 MG TABLET (PROAMATINE) GT SCH ×3 (09:09→22:45)
[2019-10-21] MEDS: LACTOBACILLUS RHAMNOSUS GG 1 CAP CAPSULE GT SCH (09:09)
[2019-10-21] MEDS: ASCORBIC ACID 500 MG TABLET GT SCH ×2 (09:10→22:46)
[2019-10-21] MEDS: PREDNISONE 20 MG TABLET PO SCH (09:10)
[2019-10-21] MEDS: ENOXAPARIN SODIUM 40 MG/0.4 ML SYRINGE SQ SCH (09:12)
[2019-10-21] MEDS: ERGOCALCIFEROL 8000 UNITS/ML ORAL SOLUTION, 60 ML BOTTLE GT SCH (09:17)
[2019-10-21] MEDS: MULTIVIT-MINERALS/FERROUS GLUC 15 ML UDC GT SCH (09:18)
[2019-10-21] MEDS: BALSAM PERU/CASTOR OIL 60 GM OINT...G. TP SCH (09:48)
[2019-10-21] MEDS: CEFTAZIDIME/AVIBACTAM 2.5 GM in NS 100 ML IV SCH ×2 (09:51→22:45)
[2019-10-21 11:22] VITALS: BP_SYST 79
--- NOTE | 2019-10-21 12:00 | NUR ---
NURSES NOTES: PT ASLEEP IN POSITION OF COMFORT, NO CHANGES IN CONDITION NOTED, BREATHING EASY, NO S/S OF DISTRESS, WILL CONT' TO MONITOR AND ASSESS.
[2019-10-21 12:14] VITALS: BP_SYST 79
--- NOTE | 2019-10-21 15:00 | NUR ---
NURSES NOTES: PT ASLEEP IN POSITION OF COMFORT, NO CHANGES IN CONDITION NOTED, BREATHING EASY, NO S/S OF DISTRESS, WILL CONT' TO MONITOR AND ASSESS.
[2019-10-21 15:15] VITALS: BP_SYST 80
--- NOTE | 2019-10-21 18:00 | NUR ---
END OF SHIFT: PT HAS NO S/S OF PAIN OR DISCOMFORT, RESTING IN POSITION OF COMFORT, NEEDS MET, FEET OFF LOADED WITH PILLOWS, CALL LIGHT WITHIN REACH, WILL CONT' WITH POC.
--- NOTE | 2019-10-21 19:20 | NUR ---
OPENING NOTES Pt and endorsement received from day shift nurse. Pt is awake, non-verbal and lying in bed. No moaning or grimacing noted. No signs of acute distress or SOB noted. Pt on saline lock on right upper arm midline. Pt on G-tube feeding with Jevity 1.5 at 50ml/hr and infusing well. Pt on brady catheter with yellow urine noted in the bag and hanged below bladder level. Pt on soft wrists restraints and mittens, with no signs of injury noted. Safety precautions in place with 3 side rails up, wheels locked, bed alarm on and in lowest level. Call light with pt. Will continue to monitor.
[2019-10-21 20:41] LABS: CRYPTOCOCCUS AG, SERUM NEGATIVE (NEGATIVE)
[2019-10-21 22:41] VITALS: BP_SYST 84
[2019-10-21] MEDS: MIRTAZAPINE 15 MG TABLET GT SCH (22:45)
--- NOTE | 2019-10-21 22:46 | NUR ---
ROUNDS Pt is awake, biting her mittens and moving around the bed. No grimacing or moaning noted. No signs of acute distress noted. IVF infusing well. All due meds given. Safety precautions in place. Will continue to monitor.
--- NOTE | 2019-10-22 00:35 | NUR ---
ROUNDS Pt is resting in bed with both eyes closed, with visible chest rise and fall with non-labored breathing noted. IVF and G-tube are infusing well. No moaning or grimacing noted. No signs of acute distress noted. Safety precautions in place. Will continue to monitor.
[2019-10-22 02:19] VITALS: BP_SYST 83
--- NOTE | 2019-10-22 02:30 | NUR ---
ROUNDS Pt is awake, alert and lying in bed. G-tube and IVF infusing well. No signs of acute distress noted. No signs of pain like moaning. Safety precautions in place. Will continue to monitor.
[2019-10-22] MEDS: IPRATROPIUM/ALBUTEROL SULFATE 3 ML AMPUL.NEB (DUONEB) INH SCH ×6 (04:09→23:09)
--- NOTE | 2019-10-22 04:30 | NUR ---
INCONTINENCE CARE Incontinence care and wound care rendered with IGOR Macias and pt tolerated well. Photos also taken. IVF and G-tube are infusing well. No signs of acute distress noted. Safety precautions in place. Will continue to monitor.
[2019-10-22] MEDS: LEVOTHYROXINE SODIUM 0.025 MG TABLET PO SCH (06:02)
[2019-10-22] MEDS: QUEtiapine FUMARATE 100 MG TABLET GT SCH ×3 (06:02→17:25)
--- NOTE | 2019-10-22 06:35 | NUR ---
CLOSING NOTES Pt is awake, alert and lying in bed. No moaning or grimacing noted. No signs of acute distress or SOB noted. IVF and G-tube are infusing well. All needs attended throughout the shift. Safety precautions in place with 3 side rails up, wheels locked, bed alarm on and in lowest level. Call light with pt. Will endorse to day shift nurse.
[2019-10-22] MEDS: BUDESONIDE 0.5 MG/2 ML AMPUL.NEB INH SCH ×2 (06:40→20:15)
[2019-10-22 08:10] VITALS: BP_SYST 89
--- NOTE | 2019-10-22 08:10 | NUR ---
Opening note patient resting in bed, awake, no signs of distress, patient is vent to trach AC 12, TV 350, FiO2 40%, Peep of 5, assessment complete, midline is intact and infusing well, G tube in place, no residual output at this time, Pollack Catheter in place draining to gravity, continuing to monitor, bed in lowest position, three side rails up, bed alarm on, fall, aspiration, isolation precautions in place.
[2019-10-22] MEDS: BALSAM PERU/CASTOR OIL 60 GM OINT...G. TP SCH (09:00)
--- NOTE | 2019-10-22 09:30 | NUR ---
Medication patient resting in bed, no signs of pain, no signs of distress, no residual output from G tube at this time, medications administered per MD orders, patient tolerated well , Midline intact and infusing well, continuing to monitor the patient, bed in lowest position, three side rails up, fall, aspiration, and isolation precautions in place.
[2019-10-22] MEDS: MIDODRINE HCL 5 MG TABLET (PROAMATINE) GT SCH ×3 (09:37→20:46)
[2019-10-22] MEDS: ASCORBIC ACID 500 MG TABLET GT SCH ×2 (09:37→20:45)
[2019-10-22] MEDS: FERROUS SULFATE 300 MG/5 ML UDC GT SCH ×2 (09:37→20:44)
[2019-10-22] MEDS: MAGNESIUM OXIDE 400 MG TABLET GT SCH ×2 (09:37→20:44)
[2019-10-22] MEDS: PANTOPRAZOLE SODIUM 40 MG/VIAL (PROTONIX) IVP SCH ×2 (09:37→20:46)
[2019-10-22] MEDS: POTASSIUM CHLORIDE 20 MEQ/PKT PACKET GT SCH (09:37)
[2019-10-22] MEDS: CALCIUM CARBONATE/VITAMIN D3 1 TAB TABLET GT SCH ×2 (09:37→20:44)
[2019-10-22] MEDS: DIPHENHYDRAMINE HCL 50 MG CAPSULE GT SCH ×2 (09:37→15:21)
[2019-10-22] MEDS: PREDNISONE 20 MG TABLET PO SCH (09:37)
[2019-10-22] MEDS: LACTOBACILLUS RHAMNOSUS GG 1 CAP CAPSULE GT SCH (09:37)
[2019-10-22] MEDS: MULTIVIT-MINERALS/FERROUS GLUC 15 ML UDC GT SCH (09:37)
[2019-10-22] MEDS: ERGOCALCIFEROL 8000 UNITS/ML ORAL SOLUTION, 60 ML BOTTLE GT SCH (09:38)
[2019-10-22] MEDS: ENOXAPARIN SODIUM 40 MG/0.4 ML SYRINGE SQ SCH (09:40)
[2019-10-22] MEDS: CEFTAZIDIME/AVIBACTAM 2.5 GM in NS 100 ML IV SCH ×2 (09:59→20:45)
--- NOTE | 2019-10-22 11:54 | NUR ---
RN rounds/Medication patient resting in bed, awake, no signs of distress, no residual output from G tube at this time, administered medication per MD orders, patient tolerated well, restraints in place, no signs of skin breakdown or injury, continuing to monitor, bed in lowest position, three side rails up, bed alarm on, fall, aspiration and isolation precautions in place.
[2019-10-22 12:00] VITALS: BP_SYST 95
--- NOTE | 2019-10-22 13:15 | NUR ---
RN rounds patient resting in bed, awake, no signs of distress, tolerating ventilator at this time, restraints in place, no signs of skin breakdown, no signs of injury, continuing to monitor, bed in lowest position, three side rails up, bed alarm on, fall, aspiration and isolation precautions in place.
--- NOTE | 2019-10-22 15:33 | NUR ---
RN rounds patient resting in bed, no signs of distress, cleaned, turned and repositioned patient with SOFT MUD MOLDER, patient tolerated well, no residual output from G tube at this time, medication administered per MD orders, patient tolerated well, continuing to monitor, bed in lowest position, three side rails up, bed alarm on, fall, aspiration, isolation precautions in place.
[2019-10-22 16:00] VITALS: BP_SYST 85
--- NOTE | 2019-10-22 17:30 | NUR ---
RN rounds/Medication patient resting in bed, awake, no signs of distress, no residual output from G tube, administered medication per MD orders, patient tolerated well, unable to give one time dose for 1644, medication not yet available, called pharmacy to deliver medication, will follow up as needed, continuing to monitor the patient, bed in lowest position, three side rails up, bed alarm on, fall, aspiration and isolation precautions in place. Addendum: 10/22/19 at 1803 by Rajesh Thompson RN Followed up with one time dose of Atarax, patient tolerated well.
--- NOTE | 2019-10-22 18:29 | NUR ---
Closing note patient resting in bed, awake, no signs of distress, all needs met, will endorse report to NOC shift nurse, bed in lowest position, three side rails up, bed alarm on, restraints in place, no signs of skin breakdown or injury, fall, aspiration and isolation precautions in place.
[2019-10-22 19:00] VITALS: BP_SYST 92
--- NOTE | 2019-10-22 19:15 | NUR ---
change of shift.pt.presents isolation status;contact;mdro;sputum/mrsa;nares.pt.presents restraints;wrist;bilateral/mittens; hands. pt.presents trach/vents settings reviewed;tv;350,fio-2%=40%,a/c;12,p;5.pt.presents mid-line:location;rt.bicept.iv lock. pt.presents g-tube;g-tube feed;jevity:1.2 infusing.pt.presents to brady cath;intact;patent urine content present.call light/ telephone w/in reach of the pt.
[2019-10-22 20:00] VITALS: BP_SYST 92
--- NOTE | 2019-10-22 20:00 | NUR ---
pt.assessed.v/s assessed;B/P VALUES NOTED LOW..HAS BEEN APPRISeD.vent settings reviewed:corralate to the md's orders. g-tube intact;patent;g-tube feed infusing.mid-line;rt.bicept intact;patent;iv lock.i have placed a nsg/pt.alert sign;hob;2/t mid-line. location;rt.bicept.brady cath intact;patent:urine content present.pt.assessed for cleanliness.pt.repositioned.i have attended to the oral/trach care.i have attended to the oral/trach suction.general status stable.respiratory status stable:o2=sat%=100% 2/t vent settings.call light/telephone placed w/in reach of the pt. Addendum: 10/23/19 at 0256 by Derek Byrnes RN restraints;mittens/wrist in place.skin/circulation assessed w/in normal limits.
[2019-10-22] MEDS: MIRTAZAPINE 15 MG TABLET GT SCH (20:45)
--- NOTE | 2019-10-22 21:00 | NUR ---
2100p medications administered via the g-tube;meds administered w/out resistance;g-tube patent.
--- NOTE | 2019-10-22 22:00 | NUR ---
pt.assessed.vent settings reviewed.pt.tolerating the vent settings.i have attended to the oral/trach care.i have attended to the oral/trach suction.mid-line intact;patent;iv ns-flush infusing.g-tube intact;patent;g-tube feed infusing.brady cath intact;patent;urine content present.general status stable.respiratory status stable:o2-sat%=100%.skin/circulation assessed w/in normal limits.call light/telephone placed w/in reach of the pt.
--- NOTE | 2019-10-23 | NUR ---
pt.assessed.v/s assessed;values w/inn nr0oa limits;note b/p values.low values w/in the status of the previous b/p values.vent settings reviewed.pt tolerating the vent settings.i have assessed the skin/circulation:w/in normal limits;restraints in place.pt. assessed for cleanliness.pt.cleaned.i have attended to the oral/trach care.i have attended to the oral/trach suction.mid-line intact;patent;iv ns-flush infusing.g-tube intact;patent;g-tube feed infusing.brady cath intact;patent;urine content present. general status stable.respiratory status stable;o2=sat%=100%.call light/telephone placed w/in reach of the pt.
[2019-10-23] MEDS: QUEtiapine FUMARATE 100 MG TABLET GT SCH ×5 (00:19→23:47)
[2019-10-23 01:54] VITALS: BP_SYST 128
--- NOTE | 2019-10-23 02:00 | NUR ---
pt.assessed.pt.vent setting reviewed;pt.tolerating the vent settings.i have attended to the oral/trach care.i have attended t o the oral/trach suction.mid line assessed;intact;patent iv ns-flush infusing.g-tube intact;patent g-tube feed infusing.brady cath intact;patent;urine content presents.pt.assessed for cleanliness.pt.repositioned.general status stable.respiratory status stable; 02-sat%=100%.call light/telephone placed w/in the reach of the pt. Addendum: 10/23/19 at 0236 by Derek Byrnes RN skin/circulation assessed w/in normal limits.restraints in place.
[2019-10-23] MEDS: IPRATROPIUM/ALBUTEROL SULFATE 3 ML AMPUL.NEB (DUONEB) INH SCH ×5 (03:33→19:58)
--- NOTE | 2019-10-23 04:00 | NUR ---
pt.assessed.vent settings reviewed pt.tolerating the vent settings.i have attended to the oral/trach care.i have attended to the oral/trach suction.mid-line intact;patent;iv ns-flush infusing.g-tube intact;patent;g-tube feed infusing.brady cath intact;patent;urine content present.general status stable.respiratory status stable;02-sat%=100%.pt.assessed for cleanliness.pt.repositioned.call light/telephone placed w/in the reach of the pt.
[2019-10-23] MEDS: LEVOTHYROXINE SODIUM 0.025 MG TABLET PO SCH (05:28)
--- NOTE | 2019-10-23 06:21 | NUR ---
pt.assessed.vent settings reviewed.pt.tolerating the vent settings.i have attended to the oral/trach care/i have attended to the oral trach suction.mid;line intact;patent;iv lock.g-tube intact;patent;g-tube feed infusing.brady cath intact;patent;urine content present.pt.assessed for cleanliness.pt.cleaned repositioned.general status stable,.respiratory status stable;unlabored r/t vent settings:0-2saa5%=100%.call light/telephone placed w/in reach of the pt.restraints;wrist/mittens in placed.skin /circulation assessed w/in normal limits. Addendum: 10/23/19 at 0628 by Derek Byrnes RN i have administered seroquel/synthroid 06-0700a dose via g-tube w/out resistance.
--- NOTE | 2019-10-23 07:15 | NUR ---
OPENING NOTE: Received SBAR report and plan of care from night auditor RN.
[2019-10-23] MEDS: BUDESONIDE 0.5 MG/2 ML AMPUL.NEB INH SCH ×2 (07:19→19:58)
[2019-10-23 08:00] VITALS: BP_SYST 96
[2019-10-23] MEDS: ENOXAPARIN SODIUM 40 MG/0.4 ML SYRINGE SQ SCH (09:00)
--- NOTE | 2019-10-23 09:00 | NUR ---
RN ROUNDS: Patient awake, AOx1, non verbal, trach to vent. Patient is confused and has BUE soft restraints in place. RT upper arm mid line intact, patent flushes well, dressing is clean dry and intact. Vent is connected and running AC12. Patient is confused but showing no signs of distress, breathing is even and unlabored.
[2019-10-23] MEDS: PANTOPRAZOLE SODIUM 40 MG/VIAL (PROTONIX) IVP SCH ×2 (09:21→20:12)
[2019-10-23] MEDS: PREDNISONE 20 MG TABLET PO SCH (09:21)
[2019-10-23] MEDS: MIDODRINE HCL 5 MG TABLET (PROAMATINE) GT SCH ×3 (09:21→20:11)
[2019-10-23] MEDS: ASCORBIC ACID 500 MG TABLET GT SCH ×2 (09:21→20:12)
[2019-10-23] MEDS: CALCIUM CARBONATE/VITAMIN D3 1 TAB TABLET GT SCH ×2 (09:22→20:12)
[2019-10-23] MEDS: LACTOBACILLUS RHAMNOSUS GG 1 CAP CAPSULE GT SCH (09:22)
[2019-10-23] MEDS: CEFTAZIDIME/AVIBACTAM 2.5 GM in NS 100 ML IV SCH ×2 (09:22→20:13)
[2019-10-23] MEDS: MAGNESIUM OXIDE 400 MG TABLET GT SCH ×2 (09:22→20:12)
[2019-10-23] MEDS: POTASSIUM CHLORIDE 20 MEQ/PKT PACKET GT SCH (09:22)
[2019-10-23] MEDS: FERROUS SULFATE 300 MG/5 ML UDC GT SCH ×2 (09:22→20:11)
[2019-10-23] MEDS: ERGOCALCIFEROL 8000 UNITS/ML ORAL SOLUTION, 60 ML BOTTLE GT SCH (09:24)
[2019-10-23] MEDS: MULTIVIT-MINERALS/FERROUS GLUC 15 ML UDC GT SCH (09:24)
[2019-10-23] MEDS: BALSAM PERU/CASTOR OIL 60 GM OINT...G. TP SCH (09:25)
--- NOTE | 2019-10-23 10:20 | NUR ---
RT NOTE 1020 PT TAKEN OFF VENT, PLACED ON TBAR AT 40% FIO2 10LPM. DR FONTANEZ AT BEDSIDE. PT IS TOLLERATING WELL NO DISTRESS NOTED WILL CONTINUE TO MONITER PT. Addendum: 10/23/19 at 1126 by Allison Flores RT Amended: Links added.
--- NOTE | 2019-10-23 11:00 | NUR ---
RN ROUNDS: Patient remains confused and at risk for pulling out trach and lines. Patient resting in bed watching tv with no signs of distress or discomfort noted. Patient switched to TBAR to trach at 10L and is tolerating well.
[2019-10-23 12:41] VITALS: BP_SYST 95
--- NOTE | 2019-10-23 13:00 | NUR ---
RN ROUNDS: Patient remains confused and restless. Patient tolerating TBAR well. Breathing is even and unlabored, no signs of distress noted.
--- NOTE | 2019-10-23 15:00 | NUR ---
RN ROUNDS: Patient remains confused and restless. Oral care provided Q4hrs. Pericare and cath care provided. Patient tolerating TBAR well. No signs of distress noted.
[2019-10-23 16:41] VITALS: BP_SYST 98
[2019-10-23 16:51] LABS: BASOPHILS # (AUTO) 0.1 K/uL (0.0-0.2); BASOPHILS % (AUTO) 0.8 % (0.0-2.0); EOSINOPHILS # (AUTO) 0.2 K/uL (0.0-0.4); HEMOGLOBIN 12.1 g/dL (12.0-16.0); LYMPHOCYTES # (AUTO) 0.8 K/uL (1.0-5.5); MEAN CORPUSCULAR HEMOGLOBIN 32 pg (27-31); MEAN CORPUSCULAR HGB CONC 33 % (32-36); MEAN CORPUSCULAR VOLUME 99 fL (79.0-98.0); MONOCYTES # (AUTO) 0.5 K/uL (0.0-1.0); MONOCYTES % (AUTO) 7.4 % (1.7-9.3); NEUTROPHILS % (AUTO) 76.8 % (40.0-70.0); PLATELET COUNT (AUTO) 176 K/uL (130-430); RED BLOOD CELL COUNT(AUTO) 3.74 MIL/uL (4.2-6.2); RED CELL DISTRIBUTION WIDTH 18.5 % (9.0-15.0); WHITE BLOOD COUNT (AUTO) 6.5 K/uL (4.8-10.8)
[2019-10-23 16:52] LABS: CALCIUM 9.3 mg/dL (8.4-11.0); CREATININE 0.48 mg/dL (0.55-1.30); POTASSIUM 4.3 mmol/L (3.5-5.1); TOTAL BILIRUBIN 0.5 mg/dL (0.0-1.0)
[2019-10-23 16:53] LABS: ALBUMIN 2.4 g/dL (3.4-4.8)
--- NOTE | 2019-10-23 17:00 | NUR ---
RN ROUNDS: Patient resting in bed. TBAR in place, patient tolerating well. RT upper arm midline intact, patent, flushes well. Breathing is even and unlabored, no signs of distress noted.
--- NOTE | 2019-10-23 19:19 | NUR ---
CLOSING NOTE: Bedside SBAR report given and plan of care endorsed to maintenance technician 3rd shift RN
--- NOTE | 2019-10-23 19:21 | NUR ---
CLOSING NOTE: Bedside SBAR report given and plan of care endorsed to specialty molder RN
--- NOTE | 2019-10-23 19:30 | NUR ---
Opening Note Received patient resting in bed w/ eyes closed, no s/sx of distress. Nonlabored breathing on T-bar at 40%; tolerating. Patient has bilat wrist restraints, and bilat mittens on hands. Bed is locked in lowest position, side rails up 3x, bed alarm on and call light w/in reach.
[2019-10-23 20:00] VITALS: BP_SYST 99
[2019-10-23] MEDS: MIRTAZAPINE 15 MG TABLET GT SCH (20:12)
--- NOTE | 2019-10-23 21:40 | NUR ---
Ventilator Christian, RT informed me patient has been placed on ventilator. I went in and assessed / confirmed settings; AC 12, VT 350, FIO2 40%, PEEP 5. Patient is awake, eyes open.
[2019-10-24 00:04] VITALS: BP_SYST 108
[2019-10-24] MEDS: IPRATROPIUM/ALBUTEROL SULFATE 3 ML AMPUL.NEB (DUONEB) INH SCH ×7 (00:13→23:42)
--- NOTE | 2019-10-24 00:15 | NUR ---
Free water Patient had 5 ml of residual. Provided 200 ml free water flush and administered Seroquel via G-tube as ordered. Restraint release and patient wants to touch trach and is immediately reoriented, she cooperates, though she sucks thumb.
--- NOTE | 2019-10-24 00:23 | NUR ---
Patient care Patient had bowel movement, she was provided with gabrielle-care. Sacral dressing was soiled, dressing changed. Provided oral care and repositioned.
--- NOTE | 2019-10-24 02:20 | NUR ---
resting Patient resting w/ eyes closed, nonlabored breathing, no s/sx of distress. Ventilator settings as ordered.
--- NOTE | 2019-10-24 04:26 | NUR ---
Rounds / Patient care Patient was not receptive to patient care, she was agitated and did not allow oral care, she turned her head away and pushed away with hand. She was restless and also attempting to kick me.
--- NOTE | 2019-10-24 05:30 | NUR ---
Patient care Patient repositioned, no bowel movement. Restless even though release of restraint, she is reaching out with hands and fingers and pushes away my hands as I attempt g-tube care. Nurse advertising assistant helping me with reposition.
[2019-10-24] MEDS: LEVOTHYROXINE SODIUM 0.025 MG TABLET PO SCH (06:04)
[2019-10-24] MEDS: QUEtiapine FUMARATE 100 MG TABLET GT SCH ×3 (06:04→18:18)
--- NOTE | 2019-10-24 06:22 | NUR ---
Free water / medications 5 ml residual noted and returned. Due medications given via G-tube, along with 200 ml free water.
--- NOTE | 2019-10-24 07:00 | NUR ---
CLOSING NOTE Patient resting in comfortable position. Nonlabored breathing on ventilator with settings as ordered. Needs met throughout shift, administered due medications, prosource, lucy and due antibiotics. safety and aspiration precautions in place, will endorse care to incoming day shift nurse.
[2019-10-24 07:17] LABS: BASOPHILS % (AUTO) 0.3 % (0.0-2.0); EOSINOPHILS # (AUTO) 0.2 K/uL (0.0-0.4); EOSINOPHILS % (AUTO) 2.6 % (0.0-4.0); HEMATOCRIT 32.3 % (36-48); LYMPHOCYTES # (AUTO) 0.8 K/uL (1.0-5.5); MEAN CORPUSCULAR HEMOGLOBIN 33 pg (27-31); MEAN CORPUSCULAR HGB CONC 34 % (32-36); MEAN CORPUSCULAR VOLUME 98 fL (79.0-98.0); MONOCYTES # (AUTO) 0.4 K/uL (0.0-1.0); MONOCYTES % (AUTO) 5.9 % (1.7-9.3); NEUTROPHILS # (AUTO) 5.1 K/uL (1.8-7.7); NEUTROPHILS % (AUTO) 78.2 % (40.0-70.0); PLATELET COUNT (AUTO) 146 K/uL (130-430); RED BLOOD CELL COUNT(AUTO) 3.29 MIL/uL (4.2-6.2); RED CELL DISTRIBUTION WIDTH 15.9 % (9.0-15.0); WHITE BLOOD COUNT (AUTO) 6.5 K/uL (4.8-10.8)
[2019-10-24] MEDS: BUDESONIDE 0.5 MG/2 ML AMPUL.NEB INH SCH ×2 (07:18→20:12)
--- NOTE | 2019-10-24 07:20 | NUR ---
AM ROUNDS: PATIENT AWAKE DURING ROUNDS. BEDSIDE REPORT GIVEN BY NIGHT NURSE CHERIE.ON CONTACT ISOLATION PRECAUTION RENDERED RE:MDRO IN SPUTUM AND MRSA NARES. TRACH VENT,FIO2=40%,GOOD SATURATION. WITH BILATERAL SOFT WRIST RESTRAINT ON ORDERED. JAYDE MIDLINE SALINE LOCK. TUBE FEEDS ON GOING AT 60CC/H.MARTÍNEZ IN PLACE. SAFETY MEASURES RENDERED. TOLERATED VENT SETTINGS THIS TIME.
--- NOTE | 2019-10-24 07:20 | NUR ---
RT NOTE 0718 PT TAKEN OFF VENT AT THIS TIME AND PLACED ON TBAR 10LPM 40% FIO2. TX GIVEN PT SUCTIONED. WILL CONTINUE TO MONITER. Addendum: 10/24/19 at 0830 by Allison Flores RT Amended: Links added.
--- NOTE | 2019-10-24 09:30 | NUR ---
Med/gtube: No residuals prior to giving meds. Due crushed meds given per gtube.Tolerated well.Flushed with water after giving medications.
[2019-10-24 09:45] VITALS: BP_SYST 100
[2019-10-24] MEDS: CEFTAZIDIME/AVIBACTAM 2.5 GM in NS 100 ML IV SCH ×2 (09:47→21:40)
[2019-10-24] MEDS: CALCIUM CARBONATE/VITAMIN D3 1 TAB TABLET GT SCH ×2 (09:47→21:38)
[2019-10-24] MEDS: LACTOBACILLUS RHAMNOSUS GG 1 CAP CAPSULE GT SCH (09:47)
[2019-10-24] MEDS: PANTOPRAZOLE SODIUM 40 MG/VIAL (PROTONIX) IVP SCH ×2 (09:47→21:37)
[2019-10-24] MEDS: FERROUS SULFATE 300 MG/5 ML UDC GT SCH ×2 (09:47→21:37)
[2019-10-24] MEDS: MIDODRINE HCL 5 MG TABLET (PROAMATINE) GT SCH ×3 (09:47→21:38)
[2019-10-24] MEDS: POTASSIUM CHLORIDE 20 MEQ/PKT PACKET GT SCH (09:47)
[2019-10-24] MEDS: MAGNESIUM OXIDE 400 MG TABLET GT SCH (09:48)
[2019-10-24] MEDS: PREDNISONE 20 MG TABLET PO SCH (09:48)
[2019-10-24] MEDS: ERGOCALCIFEROL 8000 UNITS/ML ORAL SOLUTION, 60 ML BOTTLE GT SCH (09:49)
[2019-10-24] MEDS: MULTIVIT-MINERALS/FERROUS GLUC 15 ML UDC GT SCH (09:49)
[2019-10-24] MEDS: BALSAM PERU/CASTOR OIL 60 GM OINT...G. TP SCH (09:50)
[2019-10-24] MEDS: ENOXAPARIN SODIUM 40 MG/0.4 ML SYRINGE SQ SCH (09:52)
[2019-10-24] MEDS: ASCORBIC ACID 500 MG TABLET GT SCH ×2 (09:57→21:39)
[2019-10-24 11:28] VITALS: BP_SYST 96
[2019-10-24 11:59] VITALS: BP_SYST 96
--- NOTE | 2019-10-24 12:00 | NUR ---
RN ROUNDS: PATIENT TOLERATED T-BAR AT 10L/MIN,WITH NO PROBLEM. BILATERAL SOFT WRIST/MITTENS ON,NO PROBLEM.
[2019-10-24] MEDS ORDERED: LOPERAMIDE HCL 2 MG CAPSULE PO PRN (14:15)
--- NOTE | 2019-10-24 14:55 | NUR ---
Wound Re-Evaluation: Patient received in a [place] bed with an IsoFlex RUBEN mattress with low air-loss therapy, awake, alert, confused, and mouths words secondary to tracheostomy tube. Patient is unable to turn in bed independently. Barrett score is a 14. Microbiology: Blood culture results 2 negative. Intrinsic factors that delay wound healing: COPD, Anoxic Encephalopathy, Asthma, Respiratory Failure, Hypoalbuminemia. Extrinsic factors that delay wound healing: Immobility. Wound Assessment: 1. Sacral-Coccygeal area: Unstageable Pressure ulcer, present on admission. Wound bed has 70% yellow slough, 30% pink tissue. Mild odor, no drainage. Periwound is blanchable pink, macerated. Periwound and surrounding tissue has scar tissue, and blanchable erythema. Wound measures 1.3 cm x 1.5 cm x 1.4 cm. Undermining present from 9-3 o'clock (1.1 cm at 9 o'clock; 1.9 cm at 12 o'clock; 0.9 cm at 3 o'clock). Tunneling present at 8-10 o'clock measuring 2.0 cm depth. Tunnel is connecting to site 2. Recommend continue: Cleanse wound with normal saline. Apply moisture barrier cream to periwound. Apply Venelex ointment to wound bed. Pack wound with 1/2 inch iodoform packing strip. Cover with foam dressing. Perform wound care daily, and as needed for dressing soiling or dislodgment. 2. Left Sacral area: Pressure ulcer, present on admission. Site has 100% pink scar tissue. No odor, no drainage. Surrounding is pink. Tunneling from site 1 appeared to be connecting to site 2. Will continue to monitor. Recommend: Cover with Sacral foam dressing. Perform site care daily, and as needed for dressing soiling or dislodgment. 3. Right Medial Malleolus: Unstageable pressure ulcer, present on admission. Site has 100% yellow eschar. No odor, no drainage. Periwound intact. Dry, stable. Wound measures 2.0 cm x 1.5 cm. Recommend continue: [place] site with Betadine. Allow to air dry. Cover with foam dressing. Perform wound care daily, and as needed for dressing soiling or dislodgment. 4. Right Distal Medial Lower Extremity, Superior to Site 3: Wound of unknown etiology, present on admission. Wound care performed by dayshift nurse. Dressing not removed for assessment secondary to doing so would decrease wound temperature and retard wound healing rate. Recommend continue: Cleanse wound with normal saline. Apply moisture barrier cream to periwound. Apply Venelex ointment to wound bed. Cover with foam dressing. Perform wound care daily, and as needed for dressing soiling or dislodgment. 5. Right Olecranon: Chronic wound of unknown etiology, present on admission. Wound care performed by dayshift nurse. Dressing not removed for assessment secondary to doing so would decrease wound temperature and retard wound healing rate. 6. Coccygeal, Bilateral Hip and Lumbosacral joint areas: Bony areas with little adipose tissue and minimal muscle tissue. Recommend continue: Cover sites with foam dressings. Perform site care daily, and as needed for dressing soiling or dislodgment. Also recommend continue: Reposition patient side to side only every two hours with pillow support, and off-load pressure areas with pillows for pressure re-distribution. Offload, elevate and float heels with pillows. Perform skin care and monitor skin integrity q shift. Use moisture barrier cream on buttocks, and other moisture susceptible areas qid and as needed for soiling. Maintain patient on a low air-loss mattress.
[2019-10-24 15:06] VITALS: BP_SYST 120
--- NOTE | 2019-10-24 15:30 | NUR ---
WOUND CARE: CLEANSE WITH NS SACRAL WOUND,PAT DRY,BARRIER CREAM TO CARY WOUND AREA,VENELEX OINTMENT TO WOUND BED,PACK WITH 1/2 INCH IODOFORM PACKING STRIP.COVERED WITH SACRAL FOAM DRESSING. Addendum: 10/24/19 at 1729 by Rosibel Conteh RN ADDED NOTES: RIGHT LOWER LEG,CLEANSE WITH NS,PAT DRY,VENELEX OINTMENT TO WOUND BED,BARRIER CREAM TO CARY WOUND AREA AND COVERED WITH FOAM DRESSING.
--- NOTE | 2019-10-24 18:29 | NUR ---
CLOSING NOTES: PATIENT ON T-BAR AT 10L/MIN.WELL TOLERATED. TUBE FEEDS ON GOING. MARTÍNEZ IN PLACE. BILATERAL SOFT WRIST/MITTENS ON.SAFETY MEASURES RENDERED. CONDITION GUARDED.
[2019-10-24] MEDS: MIRTAZAPINE 15 MG TABLET GT SCH (21:38)
--- NOTE | 2019-10-24 22:00 | NUR ---
PT ALERT AND CONFUSED X3 PT ATTEMPT TO KICK NURSES PT ON SOFT RESTRAINT AND MITTENS . PT HAS A H/C THAT IS PATENT . PT ON SINUS RYTHM . ON T-BAR 40% / pt INCONTINENT OF STOOL MARTÍNEZ CATHETHER WITH JONA URINE . ON JEVITY AT 60CC/HR PT HAVE NO RESIDUAL . 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
--- NOTE | 2019-10-24 22:00 | NUR ---
PT RECIEVED AWAKE ALERT AND ORIENTED X4 PT ON ATRIAL FIB . PT ON LOPRESOR. VITAL SIGN STABLE . PT HAS A HEPLOCK AND OXGEN 2 LITER . WILL CONTINUE TO MONITOR PT . PT INSTRUCTED NOT TO GO TO THE BATH ROOM . TO CALL THE THE NURSE FOR BEDPAN .
[2019-10-25] VITALS: BP_SYST 91
--- NOTE | 2019-10-25 | NUR ---
PT VITAL SIGN STABLE . ON SINUS RYTHM -ST . PT STILL HAVE SOFT ARM RESTRAINT . PT TOLERATING FEEDING .
--- NOTE | 2019-10-25 | NUR ---
PT CONTINUE TO AMBULATE TO THE BATH ROOM WITH OUT CALL FOR ASSISTANCE . WHENEVER SHE GOES TO THE BATHROOM HER HEART RATE GOES UP . WILL MCKENZIE TO MONITOR PT .
--- NOTE | 2019-10-25 | NUR ---
PT CONTINUE TO BE ON BE ON SOFT MITEN AND RESTRAINT . PT TOLERATING FEEDING . PT HAD SOFT BM .
[2019-10-25] MEDS: QUEtiapine FUMARATE 100 MG TABLET GT SCH ×4 (00:54→18:26)
[2019-10-25] MEDS: IPRATROPIUM/ALBUTEROL SULFATE 3 ML AMPUL.NEB (DUONEB) INH SCH ×5 (03:53→21:27)
--- NOTE | 2019-10-25 05:30 | NUR ---
A.M CARE DONE . PT ON SINUS RYTHM , TOLERATING FEEDING . RESIDUAL ZERO . WILL COMTINUE TO DONITOR PT PT BREATHING WELL .
[2019-10-25] MEDS: LEVOTHYROXINE SODIUM 0.025 MG TABLET PO SCH (07:03)
[2019-10-25 07:45] VITALS: BP_SYST 90
--- NOTE | 2019-10-25 08:00 | NUR ---
Received pt in bed, pt is aa, unable speak, pt is on trach to t-bar, pt mouths words but i am not able to understand. suction patient via trach and cleansed t-bar as it is full of sputum. pt is on bilat wrist restrain and mittens. safety precaution in place. will cont to monitor.
[2019-10-25] MEDS: BUDESONIDE 0.5 MG/2 ML AMPUL.NEB INH SCH ×2 (08:03→21:28)
[2019-10-25] MEDS: ERGOCALCIFEROL 8000 UNITS/ML ORAL SOLUTION, 60 ML BOTTLE GT SCH (09:14)
[2019-10-25] MEDS: FERROUS SULFATE 300 MG/5 ML UDC GT SCH ×2 (09:15→21:59)
[2019-10-25] MEDS: PANTOPRAZOLE SODIUM 40 MG/VIAL (PROTONIX) IVP SCH ×2 (09:15→22:00)
[2019-10-25] MEDS: CALCIUM CARBONATE/VITAMIN D3 1 TAB TABLET GT SCH ×2 (09:16→22:00)
[2019-10-25] MEDS: LACTOBACILLUS RHAMNOSUS GG 1 CAP CAPSULE GT SCH (09:16)
[2019-10-25] MEDS: MULTIVIT-MINERALS/FERROUS GLUC 15 ML UDC GT SCH (09:16)
[2019-10-25] MEDS: MIDODRINE HCL 5 MG TABLET (PROAMATINE) GT SCH ×3 (09:16→22:05)
[2019-10-25] MEDS: POTASSIUM CHLORIDE 20 MEQ/PKT PACKET GT SCH (09:16)
[2019-10-25] MEDS: PREDNISONE 20 MG TABLET PO SCH (09:16)
[2019-10-25] MEDS: ASCORBIC ACID 500 MG TABLET GT SCH ×2 (09:16→22:00)
[2019-10-25] MEDS: ENOXAPARIN SODIUM 40 MG/0.4 ML SYRINGE SQ SCH (09:17)
[2019-10-25] MEDS: BALSAM PERU/CASTOR OIL 60 GM OINT...G. TP SCH (09:32)
--- NOTE | 2019-10-25 10:00 | NUR ---
patients trach got dislodged, rt called for assist and replace trach back. pt's o12 sat was 92 on room air. noted that stoma opening is very large and trache easily dislodges. will cont to monitor.
--- NOTE | 2019-10-25 12:00 | NUR ---
pt was able to get out of her restraints, tried getting out of bed, seen by oral communication instructor feet already dangling on edge of bed. pt assisted back to bed and restraint re applied.
[2019-10-25] MEDS: CEFTAZIDIME/AVIBACTAM 2.5 GM in NS 100 ML IV SCH ×2 (12:09→22:01)
[2019-10-25 12:30] VITALS: BP_SYST 108
--- NOTE | 2019-10-25 16:19 | NUR ---
Nutrition F/U RD reviewed pt's current EMR including diet Hx, physician notes, nursing notes, pertinent labs/meds/procedures, care trends and care activity. Current Nutrition Support: Jevity 1.5 at 6 0ml/hr, Prosource BID, Colt BID, Free Water Flush 200ml Q6H via GT x13 days Subjective information: Per RN, pt has been tolerating TF well, no residuals, and N/V/C/D. RN also reported pt had soft stool today, and no pending plans/procedures. Current TF regimen remains adequate/appropriate. 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 *ongoing Expected Outcomes/Goals Monitor EN support with goals of pt meeting at least 90% of estimated nutritional needs, labs trending WNL, and skin integrity/wt maintenance. Dietitian Recommendations * Recommend continuing Jevity 1.5 at 60 ml/hr, Prosource BID, Colt BID, Free Water Flush: 200 Q6H via GT Provides: 2440 kcal/day, 127 gm protein/day, and 1894 ml free water/day Meets: 145% of upper end of estimated caloric needs and 135% of upper end of estimated protein needs Moderate Risk; F/U within 3-5 days Addendum: 10/25/19 at [address] RN also administered Colt once today -- RD emphasized pt's complete diet order which includes Prosource BID, Colt BID, and Free Water Flush: 200ml Q6H -- GIANLUCA acknowledged.
--- NOTE | 2019-10-25 16:20 | NUR ---
Dietitian Recommendations * Recommend continuing Jevity 1.5 at 60 ml/hr, Prosource BID, Colt BID, Free Water Flush: 200 Q6H via GT Provides: 2440 kcal/day, 127 gm protein/day, and 1894 ml free water/day Meets: 145% of upper end of estimated caloric needs and 135% of upper end of estimated protein needs LP, RD Please refer to Nutrition F/U for details. Addendum: 10/25/19 at [address] RN also administered Colt once today -- MARISA emphasized pt's complete diet order which includes Prosource BID, Colt BID, and Free Water Flush: 200ml Q6H -- GIANLUCA acknowledged.
[2019-10-25 16:28] VITALS: BP_SYST 103
--- NOTE | 2019-10-25 18:00 | NUR ---
pt in bed, resting, quiet at this time. restraints on.
--- NOTE | 2019-10-25 19:30 | NUR ---
Opening Note Received SBAR report; patient resting in bed w/ eyes closed, no s/sx of distress. Nonlabored breathing on T-bar at 40%; tolerating. Patient has bilat wrist restraints, and right mittens on hands. Bed is locked in lowest position, side rails up 3x, bed alarm on and call light w/in reach.
[2019-10-25 20:20] VITALS: BP_SYST 99
[2019-10-25] MEDS: MIRTAZAPINE 15 MG TABLET GT SCH (22:00)
[2019-10-26] VITALS: BP_SYST 101
[2019-10-26] MEDS: QUEtiapine FUMARATE 100 MG TABLET GT SCH ×4 (00:29→17:36)
[2019-10-26] MEDS: IPRATROPIUM/ALBUTEROL SULFATE 3 ML AMPUL.NEB (DUONEB) INH SCH ×6 (01:10→23:33)
--- NOTE | 2019-10-26 02:30 | NUR ---
Patient care Patient was provided with bed bath, CHG bath and repositioned. She cooperated with restrain release.
--- NOTE | 2019-10-26 03:00 | NUR ---
Dressing change Sacral dressing and ankle dressing changed. Nurse assistant buyer helping with patient. Patient restraint released and she had brief moments of using hand to push my (nurse) hand away and also attempt to scratch buttocks and dressing. She was reoriented and cooperated by distracting self and placing fingers in mouth. Overall tolerated procedure.
--- NOTE | 2019-10-26 03:15 | NUR ---
Midline dressing change Dressing change done per hospital policy. Patient restless, shuffling body and attempting to move arm even though restraint on. Nurse photography assistant assisted in holding patient for dressing change.
--- NOTE | 2019-10-26 04:19 | NUR ---
Rounds Patient on ventilator with settings as ordered, nonlabored breathing, cooperates with reposition. Does not like oral care.
[2019-10-26] MEDS: LEVOTHYROXINE SODIUM 0.025 MG TABLET PO SCH (06:44)
[2019-10-26] MEDS: BUDESONIDE 0.5 MG/2 ML AMPUL.NEB INH SCH ×2 (07:26→19:42)
[2019-10-26 07:56] VITALS: BP_SYST 84
[2019-10-26 08:00] VITALS: BP_SYST 92
--- NOTE | 2019-10-26 08:00 | NUR ---
Opening note, received pt in bed, pt is aa, non verbal on trach to t-bar, no sob, no resp distress. pt on restrain, and bilat wrist mittens. safety precaution in place. bed alrm on. bed in low position. will cont to monitor patient..
[2019-10-26] MEDS: FERROUS SULFATE 300 MG/5 ML UDC GT SCH ×2 (08:54→22:01)
[2019-10-26] MEDS: LACTOBACILLUS RHAMNOSUS GG 1 CAP CAPSULE GT SCH (08:54)
[2019-10-26] MEDS: CALCIUM CARBONATE/VITAMIN D3 1 TAB TABLET GT SCH ×2 (08:54→22:01)
[2019-10-26] MEDS: POTASSIUM CHLORIDE 20 MEQ/PKT PACKET GT SCH (08:54)
[2019-10-26] MEDS: ASCORBIC ACID 500 MG TABLET GT SCH ×2 (08:54→22:02)
[2019-10-26] MEDS: PREDNISONE 20 MG TABLET PO SCH (08:54)
[2019-10-26] MEDS: MIDODRINE HCL 5 MG TABLET (PROAMATINE) GT SCH ×3 (08:55→22:01)
[2019-10-26] MEDS: PANTOPRAZOLE SODIUM 40 MG/VIAL (PROTONIX) IVP SCH ×2 (08:55→22:02)
[2019-10-26] MEDS: ENOXAPARIN SODIUM 40 MG/0.4 ML SYRINGE SQ SCH (08:56)
[2019-10-26] MEDS: MULTIVIT-MINERALS/FERROUS GLUC 15 ML UDC GT SCH (08:56)
[2019-10-26] MEDS: ERGOCALCIFEROL 8000 UNITS/ML ORAL SOLUTION, 60 ML BOTTLE GT SCH (08:57)
[2019-10-26] MEDS: CEFTAZIDIME/AVIBACTAM 2.5 GM in NS 100 ML IV SCH (08:58)
[2019-10-26] MEDS: BALSAM PERU/CASTOR OIL 60 GM OINT...G. TP SCH (09:04)
--- NOTE | 2019-10-26 10:00 | NUR ---
Patient turned and repositioned.
--- NOTE | 2019-10-26 11:30 | NUR ---
pt had bowel incontinence, diarrhea. cleansed and bed changed with mitchell guzman.pt turned and repositioned.
[2019-10-26 12:27] VITALS: BP_SYST 102
[2019-10-26] MEDS ORDERED: COLISTIMETHATE SODIUM 150 MG VIAL INH ONE (13:30)
[2019-10-26] MEDS: LOPERAMIDE HCL 2 MG CAPSULE PO PRN (14:17)
--- NOTE | 2019-10-26 15:00 | NUR ---
pt in bed, sleeping. no sob, no resp distress. restrain on.
--- NOTE | 2019-10-26 16:30 | NUR ---
pt cleansed after incontinence, turned and repositioned. assisted mitchell guzman. pt on restraint , stephenie. wrists and mittens.
[2019-10-26 16:35] VITALS: BP_SYST 96
--- NOTE | 2019-10-26 17:24 | NUR ---
dr dominguez here and seen patient, new orders given and carried out. said just continue giving the cardizem po q6 and he will add digoxin. Addendum: 10/26/19 at 1726 by Joseph Suarez RN wrong entry: please disregard this patient notes. this belongs to another patient.
--- NOTE | 2019-10-26 19:20 | NUR ---
closing notes, pt has been stable , bp within patients normal limits, , pt on modrodrine, on continuos wrist restraints and mittens. pt had 1x diarrhea, given immodium prn. pt turned and repositioned q2 hours. cleansed. endorsed to night nurse.
--- NOTE | 2019-10-26 19:32 | NUR ---
Opening Note Received patient resting in bed w/ eyes closed, no s/sx of distress. Nonlabored breathing on T-bar at 40%; tolerating. Patient has bilat wrist restraints and mittens on hands. Bed is locked in lowest position, side rails up 3x, bed alarm. She has G-tube feeding at 60 ml/hr; aspiration precautions.
[2019-10-26] MEDS: COLISTIMETHATE SODIUM 150 MG VIAL INH SCH (20:04)
--- NOTE | 2019-10-26 20:05 | NUR ---
Ventilator RT at bedside connecting patient to Ventilator.
[2019-10-26 20:10] VITALS: BP_SYST 84
[2019-10-26] MEDS: MIRTAZAPINE 15 MG TABLET GT SCH (22:02)
--- NOTE | 2019-10-26 22:10 | NUR ---
Medications Due medications given via G tube. Patient tolerated. Repositioned and released restraint. G tube feeding as ordered at 60 ml/hr.
[2019-10-27] MEDS: QUEtiapine FUMARATE 100 MG TABLET GT SCH ×4 (00:39→17:09)
[2019-10-27 00:43] VITALS: BP_SYST 104
--- NOTE | 2019-10-27 02:28 | NUR ---
Reposition Reposition and turn, patient cooperates, no kicking. Places fingers to mouth. Upon return of restrain she tilts her head and bites mitten.
[2019-10-27] MEDS: IPRATROPIUM/ALBUTEROL SULFATE 3 ML AMPUL.NEB (DUONEB) INH SCH ×6 (03:30→22:54)
--- NOTE | 2019-10-27 04:00 | NUR ---
Rounds / Patient care / wound dressing Patient receptive to patient care, she tolerated wound dressing change and oral care,. Had bowel movement, she was provided with pericare, CHG bath and bed bath
[2019-10-27] MEDS: LOPERAMIDE HCL 2 MG CAPSULE PO PRN (06:15)
[2019-10-27] MEDS: LEVOTHYROXINE SODIUM 0.025 MG TABLET PO SCH (06:16)
--- NOTE | 2019-10-27 06:40 | NUR ---
Medication / Free water flush No residual noted, administered 200 ml free water flush. Due medication, seroquel and synthroid given, patient tolerated. Immodium given for episode of loose bowel movement.
--- NOTE | 2019-10-27 06:45 | NUR ---
suction canister Suction canister full, replaced with new suction canister
--- NOTE | 2019-10-27 07:00 | NUR ---
CLOSING NOTE Patient resting in comfortable position. Nonlabored breathing on ventilator with settings as ordered. Needs met throughout shift, administered due medications, prosource, and lucy as ordered. Safety and aspiration precautions in place, will endorse care to incoming day shift nurse.
[2019-10-27 07:33] LABS: BASOPHILS % (AUTO) 0.3 % (0.0-2.0); EOSINOPHILS # (AUTO) 0.1 K/uL (0.0-0.4); EOSINOPHILS % (AUTO) 2.5 % (0.0-4.0); HEMATOCRIT 32.8 % (36-48); LYMPHOCYTES # (AUTO) 0.7 K/uL (1.0-5.5); LYMPHOCYTES % (AUTO) 11.8 % (20.5-51.5); MEAN CORPUSCULAR HEMOGLOBIN 33 pg (27-31); MEAN CORPUSCULAR HGB CONC 34 % (32-36); MEAN CORPUSCULAR VOLUME 99 fL (79.0-98.0); MONOCYTES # (AUTO) 0.3 K/uL (0.0-1.0); MONOCYTES % (AUTO) 5.7 % (1.7-9.3); NEUTROPHILS # (AUTO) 4.7 K/uL (1.8-7.7); NEUTROPHILS % (AUTO) 79.7 % (40.0-70.0); PLATELET COUNT (AUTO) 140 K/uL (130-430); RED BLOOD CELL COUNT(AUTO) 3.31 MIL/uL (4.2-6.2); RED CELL DISTRIBUTION WIDTH 16.1 % (9.0-15.0); WHITE BLOOD COUNT (AUTO) 5.9 K/uL (4.8-10.8)
[2019-10-27] MEDS: BUDESONIDE 0.5 MG/2 ML AMPUL.NEB INH SCH ×2 (07:33→19:47)
[2019-10-27 08:00] VITALS: BP_SYST 90
--- NOTE | 2019-10-27 08:00 | NUR ---
Initial notes- In bed, awake. trying to take bite her mittens. Oral care done. Repositioned. no acute distress noted. Will monitor.
[2019-10-27] MEDS: COLISTIMETHATE SODIUM 150 MG VIAL INH SCH ×2 (08:10→20:19)
[2019-10-27] MEDS: BALSAM PERU/CASTOR OIL 60 GM OINT...G. TP SCH (09:00)
[2019-10-27] MEDS: FERROUS SULFATE 300 MG/5 ML UDC GT SCH ×2 (09:10→21:00)
[2019-10-27] MEDS: PANTOPRAZOLE SODIUM 40 MG/VIAL (PROTONIX) IVP SCH ×2 (09:10→22:10)
[2019-10-27] MEDS: MULTIVIT-MINERALS/FERROUS GLUC 15 ML UDC GT SCH (09:11)
[2019-10-27] MEDS: MIDODRINE HCL 5 MG TABLET (PROAMATINE) GT SCH ×3 (09:12→21:00)
[2019-10-27] MEDS: CALCIUM CARBONATE/VITAMIN D3 1 TAB TABLET GT SCH ×2 (09:12→21:00)
[2019-10-27] MEDS: POTASSIUM CHLORIDE 20 MEQ/PKT PACKET GT SCH (09:12)
[2019-10-27] MEDS: ENOXAPARIN SODIUM 40 MG/0.4 ML SYRINGE SQ SCH (09:16)
[2019-10-27] MEDS: LACTOBACILLUS RHAMNOSUS GG 1 CAP CAPSULE GT SCH (09:16)
[2019-10-27] MEDS: PREDNISONE 20 MG TABLET PO SCH (09:17)
[2019-10-27] MEDS: ERGOCALCIFEROL 8000 UNITS/ML ORAL SOLUTION, 60 ML BOTTLE GT SCH (09:17)
[2019-10-27] MEDS: ASCORBIC ACID 500 MG TABLET GT SCH ×2 (09:17→21:00)
--- NOTE | 2019-10-27 10:05 | NUR ---
Notes- Meds given, has small bowel movement. Cleaned and repositioned. On TBAR now, tolerating well.
[2019-10-27 11:28] VITALS: BP_SYST 106
--- NOTE | 2019-10-27 12:20 | NUR ---
Notes- G tube was pulled out at this time.
--- NOTE | 2019-10-27 14:30 | NUR ---
MD ROUNDS- SEEN BY DR. KNOX. MADE AWARE THAT G-TUBE WAS PULLED OUT.
--- NOTE | 2019-10-27 14:48 | NUR ---
GI consult called: for Dr. Chun, regarding g tube placement, ordered by Dr. Soto, spoke with Jyothi.
[2019-10-27 15:26] VITALS: BP_SYST 102
[2019-10-27] MEDS: D5LR 1,000 ML IV SCH (15:59)
--- NOTE | 2019-10-27 17:00 | NUR ---
Notes- Pt O2 sat is 85% even after suctioning. Pt keeps moving. Called and inform to RT.
--- NOTE | 2019-10-27 17:15 | NUR ---
RT NOTES Pt back to vent AC 12 350 +5 40% due to low saturation despite tracheal sxn. RN at bedside
--- NOTE | 2019-10-27 18:24 | NUR ---
Notes- Pt on vent now, tolerating well. IVF infusing well. Still keep moving. No acute distress noted.
[2019-10-27 20:00] VITALS: BP_SYST 109
--- NOTE | 2019-10-27 20:00 | NUR ---
INITIAL NOTES: PT IS AWAKE , ON TRACH WITH VENT SUPPORT , AC 12, TV 350 , FIO2 405 , PT IS TOLERATING THE SETTING WELL , NO S/S OF ANY SOB NOTICED ; ASSESSMENT DONE , NOTICED DRESSING TO THE SACRAL AND R LOWER LEG , WILL CHANGE IT LATER . MARTÍNEZ IS DRAING YELLOW COLOR URIE WITH SEDIMENTS , TO GRAVITY , IV TO THE R UPPER ARM , MIDLINE , FLUSHED WELL ; NOTICED BLOOD RETURN TO THE PURPLE PORT. PT IS VERY RESTLESS , MOVING AROUND IN THE BED . ABDOMEN NOTICED WITH 2 DRY SCAB , PT PULLED OUT GTUBE YESTERDAY , NO DRAINAGE FROM THE SITE . PT IS ON IV FLUID AT 100 CC/HR . MICHAELA WRSIT WITH MITTEN AND SOFT WRSIT RESTRAINT ON . BED IN LOW AND LOCK POSITION , WILL CONITNUE TO MONITOR PT , HOB IS ELEVATED
[2019-10-27] MEDS: MIRTAZAPINE 15 MG TABLET GT SCH (21:00)
--- NOTE | 2019-10-27 22:20 | NUR ---
MEDICATION ; DUE IV MEDICATION PROVIDED , PT ORAL AND TRACHEAL SUCTION PROVIDED ; PT TURNED AND REPOSITIONED .
--- NOTE | 2019-10-28 00:10 | NUR ---
RN NOTES; PT IS VERY RESTLESS AND MOVING AROUND, PTS ORAL CARE GIVEN , WILL CONTINUE TO MONITOR PT , MICHAELA WRIST AND MITTEN RESTRAINT ARE ON . TOLERATING VENT SETTING WELL ; WILL CONTINUE TO MONITOR PT .
[2019-10-28 00:16] VITALS: BP_SYST 98
--- NOTE | 2019-10-28 01:00 | NUR ---
WOUND CARE/ INCONTINENT CARE : PT IS INCONTINENT WITH B]LOOSE BM , PT CLEANED . PTS DRESSING TO SACROCOCCYX REMOVED , WOUND BED IS 65% YELLOW AND 35 %PINK IN COLOR , MILD ODOR NOTICED WOUND MEASURE 2 CM X1.7 CM X 1.5 CM WITH UNDERMINING TO 9 TO 3 0 CLOCK AND TUNNELING PRESENT CLEANED WOUND WITH NORMAL SALINE , PERIWOUND COVERED WITH BARRIER CREAM , APPLIED VENELEX TO WOUND BED AND PACKED WITH IODOFORM PACK , COVERED WITH FOAM DRESSING RIGHT ANTERIOR ANKLE / LOWER LEG NOTICED WITH RED WOUND BED PERIWOUND IS NORMAL , NOTICED 2 MORE DRY SCABS NEAR BY , NO DRAINAGE PRESENT , WOUND CLEANED WITH NS , PAT DRIED APPLIED VENELEX OINTMENT , BARRIER CREAM APPLIED PERIWOUND SITE , WOUND COVERED WITH DRESSING . PT TURED AND REPOSTIONED ; TRACHEAL SUCTION PROVIDED. WILL CONTINUE TO MONITOR PT .
[2019-10-28] MEDS: D5LR 1,000 ML IV SCH ×3 (01:03→22:22)
--- NOTE | 2019-10-28 03:00 | NUR ---
RN ROUNDS: PT IS SLEEPING ON AND OFF , NOT IN ANY ACUTE DISTRESS; WILL CONTINUE TO MONITOR PT .
[2019-10-28] MEDS: IPRATROPIUM/ALBUTEROL SULFATE 3 ML AMPUL.NEB (DUONEB) INH SCH ×4 (03:29→15:40)
--- NOTE | 2019-10-28 05:00 | NUR ---
RN ROUNDS: PT IS SLEEPING , NOT IN ANY ACUTE DISTRESS; TOLERATING VENT SETTING WELL ; NO S/S OF ANY DISTRESS NOTICED ; WILL CONTINUE TO MONITOR PT .
[2019-10-28] MEDS: QUEtiapine FUMARATE 100 MG TABLET GT SCH ×5 (05:39→23:13)
--- NOTE | 2019-10-28 06:00 | NUR ---
RN NOTES; PT IS SLEEPING ON AND OFF , EASILY AROUSABLE WITH TOUCH , NO S/S OF ANY DISTRESS NOTICED ; TOLERATING VENT SETTING WELL , ORAL CARE PROVIDED , SUCTIONING DONE ; PT IS COMFORTABLE . WILL CONTINUE TO MONITOR PT .
[2019-10-28] MEDS: LEVOTHYROXINE SODIUM 0.025 MG TABLET PO SCH (06:25)
--- NOTE | 2019-10-28 07:01 | NUR ---
CLOSING NOTES: PT IS SLEEPING ON AND OFF; TOLERATING VENT SETTING WELL ; ALL NEEDS ATTENDED ; MICHAELA WRIST WITH SOFT WRIST AND MITTEN RESTRAINT ON . MARTÍNEZ IS DRAINING TO GRAVITY . NOT IN ANY ACUTE DISTRESS ; WILL CONTINUE TO MONITOR AND WILL ENDORSE TO NEXT SHIFT NURSE .
[2019-10-28] MEDS: BUDESONIDE 0.5 MG/2 ML AMPUL.NEB INH SCH (07:31)
--- NOTE | 2019-10-28 07:50 | NUR ---
opening note patient is resting in bed, RT is about to give breathing treatment, no signs of distress at this time, educated therapeutic recreation assistant light system and plan of care, patient is nonverbal, restraints in place, brady in place, midline dressing in tact, fall/safety and contact precautions in place, vent settings AC 12, TV 350, FiO2 40, PEEP 5, patient has no g-tube at this time, no tube feeding at this time, unable to give tablet medications and MD is aware.
[2019-10-28 08:00] VITALS: BP_SYST 98
[2019-10-28] MEDS: PREDNISONE 20 MG TABLET PO SCH (08:00)
[2019-10-28] MEDS: MULTIVIT-MINERALS/FERROUS GLUC 15 ML UDC GT SCH (08:15)
[2019-10-28] MEDS: CALCIUM CARBONATE/VITAMIN D3 1 TAB TABLET GT SCH ×2 (08:16→21:00)
[2019-10-28] MEDS: ERGOCALCIFEROL 8000 UNITS/ML ORAL SOLUTION, 60 ML BOTTLE GT SCH (08:16)
[2019-10-28] MEDS: BALSAM PERU/CASTOR OIL 60 GM OINT...G. TP SCH (08:16)
[2019-10-28] MEDS: MIDODRINE HCL 5 MG TABLET (PROAMATINE) GT SCH ×3 (08:16→21:00)
[2019-10-28] MEDS: ASCORBIC ACID 500 MG TABLET GT SCH ×2 (08:16→21:00)
[2019-10-28] MEDS: LACTOBACILLUS RHAMNOSUS GG 1 CAP CAPSULE GT SCH (08:16)
[2019-10-28] MEDS: FERROUS SULFATE 300 MG/5 ML UDC GT SCH ×2 (08:16→21:00)
[2019-10-28] MEDS: POTASSIUM CHLORIDE 20 MEQ/PKT PACKET GT SCH (08:16)
[2019-10-28] MEDS: PANTOPRAZOLE SODIUM 40 MG/VIAL (PROTONIX) IVP SCH ×2 (08:18→22:21)
[2019-10-28] MEDS: COLISTIMETHATE SODIUM 150 MG VIAL INH SCH ×2 (09:00→23:50)
[2019-10-28] MEDS: ENOXAPARIN SODIUM 40 MG/0.4 ML SYRINGE SQ SCH (10:00)
--- NOTE | 2019-10-28 10:00 | NUR ---
dejax Dr Chun came for rounds this morning, updated him on patient, patient stated that it is okay to give lovenox to the patient today, does not know yet when he will be putting a new g tube. educated patient on medication use and side effects, patient is nonverbal, tolerated well, no signs of distress at this time, fall/safety precautions in place.
[2019-10-28 11:28] VITALS: BP_SYST 91
--- NOTE | 2019-10-28 12:05 | NUR ---
lab draw veneer trimmer on the unit, I asked him if he can attempt again blood draw for patient, patient was cooperative with it, no signs of distress at this time, fall/safety and contact precautions in place.
[2019-10-28 12:26] LABS: BASOPHILS % (AUTO) 0.6 % (0.0-2.0); EOSINOPHILS # (AUTO) 0.2 K/uL (0.0-0.4); EOSINOPHILS % (AUTO) 3.9 % (0.0-4.0); HEMATOCRIT 35.3 % (36-48); HEMOGLOBIN 11.9 g/dL (12.0-16.0); LYMPHOCYTES # (AUTO) 0.9 K/uL (1.0-5.5); LYMPHOCYTES % (AUTO) 18.5 % (20.5-51.5); MEAN CORPUSCULAR HEMOGLOBIN 33 pg (27-31); MEAN CORPUSCULAR HGB CONC 34 % (32-36); MEAN CORPUSCULAR VOLUME 99 fL (79.0-98.0); MONOCYTES # (AUTO) 0.3 K/uL (0.0-1.0); MONOCYTES % (AUTO) 6.6 % (1.7-9.3); NEUTROPHILS # (AUTO) 3.3 K/uL (1.8-7.7); NEUTROPHILS % (AUTO) 70.4 % (40.0-70.0); PLATELET COUNT (AUTO) 148 K/uL (130-430); RED BLOOD CELL COUNT(AUTO) 3.58 MIL/uL (4.2-6.2); RED CELL DISTRIBUTION WIDTH 15.5 % (9.0-15.0); WHITE BLOOD COUNT (AUTO) 4.6 K/uL (4.8-10.8)
[2019-10-28 12:51] LABS: ALBUMIN 2.8 g/dL (3.4-4.8); CALCIUM 9.9 mg/dL (8.4-11.0); CREATININE 0.56 mg/dL (0.55-1.30); POTASSIUM 4.3 mmol/L (3.5-5.1); TOTAL BILIRUBIN 0.5 mg/dL (0.0-1.0)
[2019-10-28] MEDS ORDERED: *PPN PER PHARMACY XX PRN ×2 (13:15→13:30)
[2019-10-28] MEDS ORDERED: DEXTROSE 50% JECT 50 ML DISP.SYRIN IVP PRN (13:15)
[2019-10-28] MEDS ORDERED: INSULIN REGULAR, HUMAN 100 UNITS/ML, 10 ML VIAL (humuLIN R) SUBCUT PRN ×2 (13:15→13:30)
--- NOTE | 2019-10-28 14:30 | NUR ---
BLOOD SUGAR CHECK blood sugar check started, no sliding scale needed at this time, educated patient on the need to check it now, patient is nonverbal, new IVF bag hung, fall/safety and contact precautions in place.
[2019-10-28 15:07] VITALS: BP_SYST 101
[2019-10-28] MEDS: DIPHENHYDRAMINE INJ 50 MG/ML VIAL IVP SCH ×3 (15:54→23:17)
--- NOTE | 2019-10-28 16:00 | NUR ---
[facility] has verified the benadry late, they said it was okay to give now and still give the 1800 dose at that time, educated patient on medication, patient nonverbal, no signs of distress at this time, fall/safety and contact precautions in place.
[2019-10-28] MEDS: DEXTROSE 50% JECT 50 ML DISP.SYRIN IVP PRN (18:39)
--- NOTE | 2019-10-28 19:00 | NUR ---
closing note patient is resting in bed, patient suctioned, no signs of distress at this time, patient is nonverbal, restraints in place, brady in place, midline dressing in tact with IVF running, fall/safety and contact precautions in place, vent settings AC 12, TV 350, FiO2 40, PEEP 5, patient has no g-tube at this time, Dr Chun has plans for a new one for 10/30/2019, no tube feeding at this time, unable to give tablet medications and MD is aware, last scheduled blood sugar was 46 and hypoglycemia protocol followed, blood sugar checked 15min later and it was 75, will endorse report to [facility] shift nurse to continue with care, wound care and pictures to be done during shift production associate, holding lovenox for tomorrow.
[2019-10-28 19:30] VITALS: BP_SYST 120
--- NOTE | 2019-10-28 19:30 | NUR ---
INITIAL ASSESSMENT PATIENT IS LAYING IN BED AND STABLE. NO S/S OF RESPIRATORY DISTRESS. AT THIS TIME, ASSESSED PATIENT WITHOUT RESTRAINS. PATIENT TRIED TO PULL OUT LINES AND BECAME COMBATIVE. EDUCATED PATIENT AND RE-ORIENTED PATIENT. RESTRAINS WERE REPLACED. BED IS LOCKED, ALARMED, AND AT THE LOWEST POSITION. FALL, SAFETY, ASPIRATION, CONTACT, AND RESPIRATORY PRECAUTIONS WILL BE PLACED THROUGHOUT THE SHIFT. PATIENT UNSUCCESSFULLY DEMONSTRATES USAGE OF CALL LIGHT AT THIS TIME. WILL MONITOR FREQUENTLY. PATIENT WAS ALSO SUCTIONED AT THIS TIME. PATIENT TOLERATED WELL.
[2019-10-28] MEDS: MIRTAZAPINE 15 MG TABLET GT SCH (21:00)
--- NOTE | 2019-10-28 21:30 | NUR ---
ROUNDING PATIENT IS LAYING IN BED AND STABLE. NO S/S OF RESPIRATORY DISTRESS NOTED. CALL LIGHT IN REACH. BED IS LOCKED, ALARMED, AND AT THE LOWEST POSITION. WILL CONTINUE TO MONITOR.
--- NOTE | 2019-10-28 23:30 | NUR ---
MARTÍNEZ PATIENT PULLED OUT HER MARTÍNEZ AT THIS TIME. NO MAJOR TRAUMA NOTED. NEW MARTÍNEZ WAS REINSERTED AT THIS TIME. PATIENT TOLERATED WELL. PATIENT REPOSITIONED FOR COMFORT. NO S/S OF RESPIRATORY DISTRESS NOTED. CALL LIGHT IS WITHIN REACH. BED IS LOCKED, ALARMED, AND AT THE LOWEST POSITION. WILL CONTINUE TO MONITOR.
--- NOTE | 2019-10-29 | NUR ---
WOUND CARE/PICTURES WOUND CARE WAS PREFORMED AND PICTURES WERE TAKEN AT THIS TIME. PATIENT TOLERATED WELL. PATIENT REPOSITION FOR COMFORT. CALL LIGHT IS WITHIN REACH. BED IS LOCKED, ALARMED, AND AT THE LOWEST POSITION. WILL CONTINUE TO MONITOR.
[2019-10-29] MEDS: IPRATROPIUM/ALBUTEROL SULFATE 3 ML AMPUL.NEB (DUONEB) INH SCH ×8 (00:12→23:36)
[2019-10-29] MEDS: BUDESONIDE 0.5 MG/2 ML AMPUL.NEB INH SCH ×3 (00:15→21:14)
[2019-10-29 01:41] VITALS: BP_SYST 113
--- NOTE | 2019-10-29 01:50 | NUR ---
BLOOD SUGAR CHECK BLOOD SUGAR WAS 44 AT THIS TIME. PROTOCOL INITIATED AND CHARGE NURSE IS AWARE. WILL RE-CHECK BLOOD SUGAR IN 30 MINUTES.
[2019-10-29] MEDS: DEXTROSE 50% JECT 50 ML DISP.SYRIN IVP PRN (01:53)
--- NOTE | 2019-10-29 02:23 | NUR ---
BLOOD SUGAR RE-CHECK PATIENT BLOOD GLUCOSE IS NOW 124. PATIENT IS STABLE AND SHOWS NO S/S OF RESPIRATORY DISTRESS. CALL LIGHT IN REACH. BED IS LOCKED, ALARMED, AND AT THE LOWEST POSITION. WILL CONTINUE TO MONITOR.
--- NOTE | 2019-10-29 04:23 | NUR ---
ROUNDING PATIENT IS SLEEPING IN BED AND STABLE. NO S/S OF RESPIRATORY DISTRESS NOTED. CALL LIGHT IN REACH. BED IS LOCKED, ALARMED, AND AT THE LOWEST POSITION. WILL CONTINUE TO MONITOR.
[2019-10-29] MEDS: QUEtiapine FUMARATE 100 MG TABLET GT SCH ×4 (05:51→23:35)
[2019-10-29] MEDS: DIPHENHYDRAMINE INJ 50 MG/ML VIAL IVP SCH ×3 (05:54→17:50)
--- NOTE | 2019-10-29 06:23 | NUR ---
CLOSING NOTES PATIENT IS LAYING IN BED. NO S/S OF RESPIRATORY DISTRESS NOTED. BED IS LOCKED, ALARMED, AND AT THE LOWEST POSITION. CALL LIGHT IN REACH. FALL, SAFETY, ASPIRATION, CONTACT, AND RESPIRATORY PRECAUTIONS HAS BEEN PLACED THROUGHOUT THE SHIFT. WILL CONTINUE TO MONITOR UNTIL REPORT IS GIVEN TO AM NURSE BY BEDSIDE.
[2019-10-29] MEDS: LEVOTHYROXINE SODIUM 0.025 MG TABLET PO SCH (06:51)
[2019-10-29] MEDS: D5LR 1,000 ML IV SCH ×3 (06:57→20:41)
--- NOTE | 2019-10-29 07:25 | NUR ---
OPENING NOTE patient is resting in bed, RT is about to give breathing treatment, no signs of distress at this time, educated cooperative extension agent light system and plan of care, patient is nonverbal, restraints in place, brady in place, midline dressing in tact, fall/safety and contact precautions in place, vent settings AC 12, TV 350, FiO2 40, PEEP 5, patient has no g-tube at this time, no tube feeding at this time, unable to give tablet medications and MD is aware, per Dr Chun, hold lovenox for today.
--- NOTE | 2019-10-29 07:25 | NUR ---
CLOSING NOTE patient is resting in bed, RT is about to give breathing treatment, no signs of distress at this time, educated content coordinator light system and plan of care, patient is nonverbal, restraints in place, brady in place, midline dressing in tact, fall/safety and contact precautions in place, vent settings AC 12, TV 350, FiO2 40, PEEP 5, patient has no g-tube at this time, no tube feeding at this time, unable to give tablet medications and MD is aware, per Dr Chun, hold Activaided Orthoticsnox for today. Addendum: 10/29/19 at 0726 by Joy Pike RN OPENING NOTE
--- NOTE | 2019-10-29 07:30 | NUR ---
RT Notes: 0726 Pt taken off vent and placed on T-bar. Trach is patent and secure. RN notified. Addendum: 10/29/19 at 1221 by Allison Flores RT Amended: Links added. Addendum: 10/29/19 at 1700 by Allison Flores RT RT NOTE: 0655 Pt taken off vent and placed on T-bar. Trach is patent and secure. RN notified.
[2019-10-29 08:00] VITALS: BP_SYST 113
[2019-10-29] MEDS: PREDNISONE 20 MG TABLET PO SCH (08:00)
[2019-10-29] MEDS: COLISTIMETHATE SODIUM 150 MG VIAL INH SCH ×2 (08:00→23:37)
[2019-10-29] MEDS: FERROUS SULFATE 300 MG/5 ML UDC GT SCH ×2 (08:55→20:19)
[2019-10-29] MEDS: ERGOCALCIFEROL 8000 UNITS/ML ORAL SOLUTION, 60 ML BOTTLE GT SCH (08:55)
[2019-10-29] MEDS: LACTOBACILLUS RHAMNOSUS GG 1 CAP CAPSULE GT SCH (08:55)
[2019-10-29] MEDS: MULTIVIT-MINERALS/FERROUS GLUC 15 ML UDC GT SCH (08:55)
[2019-10-29] MEDS: POTASSIUM CHLORIDE 20 MEQ/PKT PACKET GT SCH (08:56)
[2019-10-29] MEDS: ASCORBIC ACID 500 MG TABLET GT SCH ×2 (08:56→20:20)
[2019-10-29] MEDS: CALCIUM CARBONATE/VITAMIN D3 1 TAB TABLET GT SCH ×2 (08:56→20:19)
[2019-10-29] MEDS: MIDODRINE HCL 5 MG TABLET (PROAMATINE) GT SCH ×3 (08:56→20:19)
[2019-10-29] MEDS: ENOXAPARIN SODIUM 40 MG/0.4 ML SYRINGE SQ SCH (08:56)
[2019-10-29] MEDS: BALSAM PERU/CASTOR OIL 60 GM OINT...G. TP SCH (09:00)
[2019-10-29] MEDS: PANTOPRAZOLE SODIUM 40 MG/VIAL (PROTONIX) IVP SCH ×2 (09:00→20:36)
--- NOTE | 2019-10-29 10:40 | NUR ---
lab draw marketer on the unit, I asked him if he can attempt again blood draw for patient, patient was cooperative with it, no signs of distress at this time, fall/safety and contact precautions in place.
[2019-10-29] MEDS ORDERED: HYDROCORTISONE SOD SUCC 100 MG/2 ML VIAL IVP ONE (10:45)
[2019-10-29 11:13] LABS: ALBUMIN 2.6 g/dL (3.4-4.8); CALCIUM 8.8 mg/dL (8.4-11.0); CREATININE 0.43 mg/dL (0.55-1.30); PHOSPHORUS 3.3 mg/dL (2.7-4.5); POTASSIUM 3.2 mmol/L (3.5-5.1); TOTAL BILIRUBIN 0.6 mg/dL (0.0-1.0)
[2019-10-29 12:22] VITALS: BP_SYST 109
--- NOTE | 2019-10-29 12:55 | NUR ---
ROUNDS patient is resting in bed, eyes closed breathing easy and nonlabored, no signs of distress at this time, on Tbar, RT put he lakisha it since 654 today, fall/safety and contact precautions in place, IVF running and patient tolerating well.
--- NOTE | 2019-10-29 13:34 | NUR ---
Dr Soto and Dr Chun rounds informed patient about patient's CBC results, said he will put orders in. Dr Chun said he will put orders for g tube placement for tomorrow.
[2019-10-29] MEDS ORDERED: POTASSIUM CHLORIDE 40 MEQ, MAGNESIUM SULFATE 4 GM, LIDOCAINE JECT 2% PF 100 MG 50 MG in... IV ONE ×4 (14:00)
--- NOTE | 2019-10-29 14:15 | NUR ---
ROUNDS patient is resting in bed, eyes closed breathing easy and nonlabored, no signs of distress at this time, on Tbar, tolerating well, fall/safety and contact precautions in place, IVF running and patient tolerating well.
[2019-10-29] MEDS ORDERED: CEFAZOLIN 1 GM IVPB PREMIX 50 ML IV ONE (14:30)
[2019-10-29 16:10] VITALS: BP_SYST 85
--- NOTE | 2019-10-29 16:50 | NUR ---
rounds patient is resting in bed, eyes closed breathing easy and nonlabored, no signs of distress at this time, on Tbar, midline flushed, tolerating well, fall/safety and contact precautions in place, IVF running and patient tolerating well.
[2019-10-29 17:16] VITALS: BP_SYST 92
--- NOTE | 2019-10-29 19:05 | NUR ---
CLOSING NOTE patient is resting in bed, no signs of distress at this time, patient is nonverbal, restraints in place, brady in place, midline dressing in tact, fall/safety and contact precautions in place, on T bar 40% patient tolerating well, patient has no g-tube at this time, no tube feeding at this time, unable to give tablet medications and MD is aware, per Dr Chun, hold lovenox for procedure, will endorse report to noc shift nurse to continue with care.
[2019-10-29 19:30] VITALS: BP_SYST 92
--- NOTE | 2019-10-29 19:30 | NUR ---
INITIAL NOTES PATIENT IS CONFUSED. PATIENT IS AGITATED AT THIS TIME. ASSISTED PATIENT WITH RELAXATION TECHNIQUES AND RE-ORIENTED PATIENT. PATIENT IS OTHERWISE STABLE. NO S/S OF RESPIRATORY DISTRESS NOTED. PATIENT UNSUCCESSFULLY DEMONSTRATES USAGE OF CALL LIGHT AT THIS TIME. WILL CONTINUE TO MONITOR FREQUENTLY. FALL, SAFETY, RESPIRATORY, ASPIRATION, AND CONTACT PRECAUTIONS WILL BE PLACED THROUGHOUT THE SHIFT.
--- NOTE | 2019-10-29 19:45 | NUR ---
LOW BLOOD PRESSURE BLOOD PRESSURE WAS 83/50 AND SECOND ATTEMPT WAS 92/62. CALLED DR. KNOX. AWARE. MEDICATION WILL BE GIVEN AT THIS TIME TO INCREASE BP.
[2019-10-29] MEDS: MIRTAZAPINE 15 MG TABLET GT SCH (20:19)
[2019-10-29] MEDS: HYDROCORTISONE SOD SUCC 100 MG/2 ML VIAL IVP SCH (20:36)
[2019-10-29] MEDS ORDERED: MAGNESIUM SULFATE IV SCH ×8 (21:00)
[2019-10-29] MEDS ORDERED: FAT EMULSIONS 250 ML IV SCH (21:00)
[2019-10-29] MEDS ORDERED: TPN PERIPHERAL IV SCH ×8 (21:00)
[2019-10-29] MEDS ORDERED: POTASSIUM CHLORIDE IV SCH ×8 (21:00)
[2019-10-29] MEDS ORDERED: [UNRECOGNIZED DRUG - OTHER] IV SCH ×8 (21:00)
--- NOTE | 2019-10-29 21:45 | NUR ---
ROUNDING PATIENT IS LAYING IN BED AND BITING THE MITTENS. PULSE OX IS CHANGED AT THIS TIME AND NEW MITTENS APPLIED. PATIENT IS OTHERWISE STABLE AND SHOWS NO S/S OF RESPIRATORY DISTRESS NOTED. CALL LIGHT IN REACH. BED IS LOCKED, ALARMED, AND AT THE LOWEST POSITION. WILL CONTINUE TO MONITOR.
--- NOTE | 2019-10-29 23:45 | NUR ---
ROUNDING PATIENT IS RESTING IN BED. NO S/S OF RESPIRATORY DISTRESS NOTED. CALL LIGHT IN REACH. BED IS LOCKED, ALARMED, AND AT THE LOWEST POSITION. WILL CONTINUE TO MONITOR.
[2019-10-30] VITALS: BP_SYST 116
[2019-10-30] MEDS: DIPHENHYDRAMINE INJ 50 MG/ML VIAL IVP SCH ×3 (00:08→12:12)
[2019-10-30] MEDS: IPRATROPIUM/ALBUTEROL SULFATE 3 ML AMPUL.NEB (DUONEB) INH SCH ×6 (03:17→23:20)
--- NOTE | 2019-10-30 05:00 | NUR ---
WOUND CARE WOUND CARE DONE AT THIS TIME. PATIENT TOLERATED WELL. PATIENT REPOSITION FOR COMFORT. NO S/S OF RESPIRATORY DISTRESS NOTED. CALL LIGHT IN REACH. BED IS LOCKED, ALARMED, AT THE LOWEST POSITION. WILL CONTINUE TO MONITOR.
[2019-10-30] MEDS: QUEtiapine FUMARATE 100 MG TABLET GT SCH ×4 (05:50→23:56)
[2019-10-30] MEDS ORDERED: CEFAZOLIN 1 GM IVPB PREMIX 50 ML IV ONE (06:00)
--- NOTE | 2019-10-30 06:00 | NUR ---
CHG CHG BATH GIVEN AT THIS TIME. ANCEF ALSO GIVEN AT THIS TIME. PATIENT TOLERATED WELL. NO S/S OF RESPIRATORY DISTRESS NOTED. CALL LIGHT IN REACH. BED IS LOCKED, ALARMED, AND AT THE LOWEST POSITION. WILL CONTINUE TO MONITOR.
--- NOTE | 2019-10-30 06:30 | NUR ---
CLOSING NOTES PATIENT IS STABLE IN BED. NO S/S OF RESPIRATORY DISTRESS NOTED. CALL LIGHT IN REACH. BED IS LOCKED, ALARMED, AND AT THE LOWEST POSITION. FALL, SAFETY, ASPIRATION, CONTACT, AND RESPIRATORY PRECAUTIONS HAS BEEN PLACED THROUGHOUT THE SHIFT. WILL CONTINUE TO MONITOR UNTIL REPORT IS GIVEN TO AM NURSE BY BEDSIDE.
[2019-10-30] MEDS: LEVOTHYROXINE SODIUM 0.025 MG TABLET PO SCH (07:00)
[2019-10-30] MEDS ORDERED: MEPERIDINE HCL/PF 100 MG/ML AMP ONE ×2 (07:13)
[2019-10-30] MEDS ORDERED: MIDAZOLAM HCL 5 MG/5 ML VIAL ONE ×2 (07:14)
[2019-10-30] MEDS ORDERED: SIMETHICONE 40 MG/0.6 ML ML ONE (07:14)
--- NOTE | 2019-10-30 07:25 | NUR ---
REPORT GIVEN TO GIANLUCA HOGUE. REPORT GIVEN TO GIALNUCA HOGUE AT THIS TIME FOR GI PROCEDURE.
--- NOTE | 2019-10-30 07:30 | NUR ---
RN INITIAL NOTES RECEIVED PATIENT IN BED WITH TRACH ON VENT , AWAKE ALERT BUT NON VERBAL BUT WHISPERS , UNDERSTAND AND ACKNOWLEDGED , WITH MIDLINE X 2 LUMEN WITH TPN INFUSING ORDERED, , PATIENT WILL HAVE A GTUBE INSERTION, AWAITING FOR THE GI DR TO COME, ALL MEDS HELD NPO FOR NOW , WILL RESUME AFTER GI PROCEDURE DONE , MARTÍNEZ CATH INTACT WITH BILAT WRIST RESTRAIN , RELEASED AND MONITORED , HOB ELEVATED NO ASPIRATION NOTED , SAFETY ENSURED
[2019-10-30] MEDS: BUDESONIDE 0.5 MG/2 ML AMPUL.NEB INH SCH ×2 (07:50→19:45)
[2019-10-30 07:53] LABS: ALBUMIN 2.4 g/dL (3.4-4.8); CALCIUM 8.5 mg/dL (8.4-11.0); CREATININE 0.4 mg/dL (0.55-1.30); PHOSPHORUS 2.9 mg/dL (2.7-4.5); POTASSIUM 3.7 mmol/L (3.5-5.1); TOTAL BILIRUBIN 0.4 mg/dL (0.0-1.0)
[2019-10-30] MEDS: PREDNISONE 20 MG TABLET PO SCH (08:00)
--- NOTE | 2019-10-30 08:29 | NUR ---
PT TO HAVE GI PROCEDURE WILL KEEP ON VENT AT THIS TIME PER DR HARMON..
[2019-10-30 09:00] VITALS: BP_SYST 108
[2019-10-30] MEDS: FERROUS SULFATE 300 MG/5 ML UDC GT SCH ×2 (09:00→21:40)
[2019-10-30] MEDS: MIDODRINE HCL 5 MG TABLET (PROAMATINE) GT SCH ×3 (09:00→21:40)
[2019-10-30] MEDS: ENOXAPARIN SODIUM 40 MG/0.4 ML SYRINGE SQ SCH (09:00)
[2019-10-30] MEDS: LACTOBACILLUS RHAMNOSUS GG 1 CAP CAPSULE GT SCH (09:00)
[2019-10-30] MEDS: BALSAM PERU/CASTOR OIL 60 GM OINT...G. TP SCH (09:00)
[2019-10-30] MEDS: ASCORBIC ACID 500 MG TABLET GT SCH (09:00)
[2019-10-30] MEDS: CALCIUM CARBONATE/VITAMIN D3 1 TAB TABLET GT SCH (09:00)
[2019-10-30] MEDS: ERGOCALCIFEROL 8000 UNITS/ML ORAL SOLUTION, 60 ML BOTTLE GT SCH (09:00)
[2019-10-30] MEDS: MULTIVIT-MINERALS/FERROUS GLUC 15 ML UDC GT SCH (09:11)
[2019-10-30] MEDS: POTASSIUM CHLORIDE 20 MEQ/PKT PACKET GT SCH (09:13)
--- NOTE | 2019-10-30 09:15 | NUR ---
S/P GTUBE PATIENT HAD GTUBE INSERTION , TOLERATED , PER GI DR WILL USE GTUBE AFTER 4 HRS ,WILL NEED TO CHECK RESIDUAL AND HOLD IF RESIDUAL >100, WILL FLUSH WATER , APPLIED ABDOMINAL BINDER TO REFRAIN FROM PULLING OUT GTUBE , REPOSITIONED AND PATIENT STILL TRIED HER BEST TO TWIRL AND KEEP REPOSITIONING IN BED , DESIGN LEADER CAME DISCUSSED PATIENT CONDITION
[2019-10-30] MEDS: PANTOPRAZOLE SODIUM 40 MG/VIAL (PROTONIX) IVP SCH ×2 (09:28→21:40)
[2019-10-30] MEDS: HYDROCORTISONE SOD SUCC 100 MG/2 ML VIAL IVP SCH (09:30)
[2019-10-30 12:10] VITALS: BP_SYST 103
--- NOTE | 2019-10-30 14:00 | NUR ---
DR LISETTE SCHMIDT HERE INFORMED AND UPDATED WITH PATIENT CONDITION AND PATIENT PULLED THE TRACT CONNECTED TO VENT . RT WAS ADVISED BY THE ROSS FURNACE OPERATOR TO WEAN PATIENT FROM VENTILATOR AND CONNECT PATIENT TRACT WITH O2 ORDERED , PATIENT ADVISED NOT TO PULL OUT TUBES AND GTUBE USED FOR MEDS FOR NOW THEN ONCE TPN IS CONSUMED OK TO START WITH GTUBE FEEDING , PAGED DR CASTELLANO TO VERIFY WHEN TO START GTUBE FEEDING , DR CRESPO ASK IF PATIENT CAN HAVE SOMETHING FOR THE PAIN OTHER THAN THE TYLENOL ORFERED , SAID HE WILL ORDER ..
--- NOTE | 2019-10-30 14:28 | NUR ---
Nutrition F/U RD reviewed pt's current EMR including diet Hx, physician notes, nursing notes, pertinent labs/meds/procedures, care trends and care activity. Current Nutrition Support: Jevity 1.5 at 60ml/hr, Prosource BID, Colt BID, Free Water Flush 200ml Q6H via GT +D20% AA8.5% at 50ml/hr, IL20% at 10ml/hr via peripheral line Subjective information: Per RN notes, GT insertion today at 9am at bedside. Per GI MD order, use GT after 4 hrs. Last BM 10/28 x 3. Per RN report, RN to clarify w/ GI MD what time MD wants to restart EN support. TPN infusing at 43ml/hr, Lipids at 10ml/hr. May discontinue TPN once EN is tolerated and pt is receiving at least 75% of est needs from EN alone. 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 *ongoing Expected Outcomes/Goals Monitor EN support with goals of pt meeting at least 90% of estimated nutritional needs, labs trending WNL, and skin integrity/wt maintenance. Dietitian Recommendations * Once GT is ready to be used, recommend Jevity 1.2 at 50 ml/hr, Prosource BID, Colt BID, Free Water Flush: 200 Q6H via GT Provides: 1720 kcal/day, 102 gm protein/day, and 1428 ml free water/day Meets: 102% of upper end of estimated caloric needs and 109% of upper end of estimated protein needs * May discontinue PPN once pt is tolerating EN support and meeting at least 75% of est needs. Moderate Risk; F/U within 3-5 days
--- NOTE | 2019-10-30 14:36 | NUR ---
Dietitian Recommendations * Once GT is ready to be used, recommend Jevity 1.2 at 50 ml/hr, Prosource BID, Colt BID, Free Water Flush: 200 Q6H via GT Provides: 1720 kcal/day, 102 gm protein/day, and 1428 ml free water/day Meets: 102% of upper end of estimated caloric needs and 109% of upper end of estimated protein needs * May discontinue PPN once pt is tolerating EN support and meeting at least 75% of est needs. Please see Nutrition F/U note for details. HEATHER, RD
--- NOTE | 2019-10-30 15:00 | NUR ---
PAGED GI PAGED GI TO VERIFY IF TPN IS CONSUMED WHEN IS THE GTUBE FEEDING TO START
[2019-10-30 16:00] VITALS: BP_SYST 110
[2019-10-30] MEDS: D5LR 1,000 ML IV SCH (16:38)
--- NOTE | 2019-10-30 17:56 | NUR ---
SHANKAR GI DR YOLI CHAPARRO GI AGAIN TO FOLLOW WHEN ARE WE STARTING GTUBE FEEDING Addendum: 10/30/19 at 1846 by Anne Marie Mcmanus RN GI /GTUBE FEEDING DR CASTELLANO RETURNED CALL AND OK TO DC TPN AND START GTUBE FEEDING TO 10 CC INITIALLY THEN 10 CC INCREMENT EVERY 2 HOURS TILL GOAL IS MEET WITH DIETARY RECOMMENDS , WILL FOLLOW UP AND MONITOR TOLERANCE TO GTUBEFEEDING , MAINTAINED HBR , TRACT CONNECTED TO T BAR WITH 10L/MIN AND 40%
--- NOTE | 2019-10-30 19:19 | NUR ---
ENDORSEMENT WILL CONT CARE PATIENT TOLERATING GTUBE FEEDING AT 10 CC THIS TIME ENDORSE TO NIGHT GIANLUCA GAONA, WILL CONT WITH IVF ORDERED AND CONT WITH PLAN OF CARE AND WRIST RESTRAIN CONT , SAFETY ENSURED AND CONT WITH TRACH TO BAR , SUCTIONING ORDERED
--- NOTE | 2019-10-30 19:30 | NUR ---
CHANGE OF SHIFT; pt. awake, alert, on awkward position. bilateral soft wrist restraints and mittens in place. IV infusing via PICC line on left arm. T bar via trach intact. contact isolation observed for MDRO sputum. will reassess later.
[2019-10-30] MEDS: COLISTIMETHATE SODIUM 150 MG VIAL INH SCH (20:00)
--- NOTE | 2019-10-30 20:30 | NUR ---
NOTES: pt. repositioned. bilateral soft wrist restraints in place. pt. alert and gets restless/agitated at intervals. IV via PICC line via rt. upper arm. g tube checked , no residual, Jevity 1.2 @ 10 cc/hr., abdominal binder intact. on training development director and shows sinus rhythm. brady cath to osd with yellow urine output. on 10l of O2 via trach to t bar, site clean. on contact isolation MRSA/MDRO sputum. moves all extremities. fall risk precautions. frequent rounds since enable to use call light.
[2019-10-30 21:00] VITALS: BP_SYST 97
[2019-10-30] MEDS ORDERED: K PHOS IV SCH ×8 (21:00)
[2019-10-30] MEDS ORDERED: TPN PERIPHERAL IV SCH ×8 (21:00)
[2019-10-30] MEDS ORDERED: POTASSIUM CHLORIDE IV SCH ×8 (21:00)
[2019-10-30] MEDS ORDERED: [UNRECOGNIZED DRUG - OTHER] IV SCH ×8 (21:00)
[2019-10-30] MEDS ORDERED: MVI IV SCH ×8 (21:00)
--- NOTE | 2019-10-30 21:00 | NUR ---
NOTES: BS checked 68, D50 1 amp IV given per protocol.
[2019-10-30] MEDS: DEXTROSE 50% JECT 50 ML DISP.SYRIN IVP PRN (21:07)
[2019-10-30] MEDS: MIRTAZAPINE 15 MG TABLET GT SCH (21:40)
--- NOTE | 2019-10-30 21:40 | NUR ---
NOTES: BS rechecked 141. pt. asymptomatic.
--- NOTE | 2019-10-30 22:43 | NUR ---
Paged Dr. Chun s/w Zulma
--- NOTE | 2019-10-30 23:34 | NUR ---
NOTES: Dr. Chun return the call and informed him about the tube feed has no goal rate, order goal rate @ 40 cc/hr.
[2019-10-31] VITALS: BP_SYST 101
--- NOTE | 2019-10-31 00:30 | NUR ---
NOTES: pt. able to slide herself down the bed and curl all over, repositioned. bilateral soft wrist restraints and mittens on. always tries to put her hand or thumb on her mouth even with mittens. pt. mouthing words, unable to comprehend.
[2019-10-31] MEDS: DEXTROSE 50% JECT 50 ML DISP.SYRIN IVP PRN (02:20)
--- NOTE | 2019-10-31 02:24 | NUR ---
NOTES: checked BS 66 as scheduled, 1 amp D50 IVP given. pt. very strong, able to get her arm out when restraint released and finger for BS check.
[2019-10-31] MEDS: IPRATROPIUM/ALBUTEROL SULFATE 3 ML AMPUL.NEB (DUONEB) INH SCH ×6 (02:35→23:30)
--- NOTE | 2019-10-31 02:40 | NUR ---
NOTES: rechecked BS 134.
--- NOTE | 2019-10-31 03:26 | NUR ---
NOTES; charge nurse apparently recheck BS 137 since it did not register the BS earlier.
--- NOTE | 2019-10-31 05:30 | NUR ---
NOTES: partial am/pricare done. sacral dressing intact and also rt.leg. bilteral wrist restraints and mittens intact.
--- NOTE | 2019-10-31 06:49 | NUR ---
CLOSING NOTES: pt. sleeping , no acute distress, kept O2 @ 10 l via t bar with track. bilateral soft wrist restraints and mittens in place. g tube feed up to 30 cc/hr. , brady cath to osd. for further care and assistance. contact isolation observed. will endorase to day shift.
--- NOTE | 2019-10-31 07:00 | NUR ---
LATE ENTRY NOTES: pt. was connected back to vent after 1930 last night by RT @ 40% FIO2/TV 350/PEEP 5cm/AC rate 12 with spontaneous breathing. resume to T bar @ 10 liters this am.
[2019-10-31] MEDS: LEVOTHYROXINE SODIUM 0.025 MG TABLET PO SCH (07:28)
--- NOTE | 2019-10-31 07:30 | NUR ---
OPENING NOTES: RECEIVED PATIENT FROM PACK MULE WORKER NURSE. PATIENT IS AWAKE AND ALERT BUT NONVERBAL. PATIENT IS ON TRACH WITH T-BAR AT 10 L O2. PATIENT IS TOLERATING IT WELL WITH NO SIGNS OF DISTRESS OR SHORTNESS OF BREATH NOTED. PATIENT DENIES ANY PAIN AT THE MOMENT. MIDLINE INTACT AND RUNNING FLUIDS ORDERED. MARTÍNEZ CATHETER INTACT AND DRAINING BY GRAVITY. G-TUBE INTACT WITH CLEAN, DRY DRESSING WITH ABDOMINAL BINDER IN PLACE. PATIENT IN STABLE CONDITION. SAFETY, FALL ASPIRATION, AND CONTACT PRECAUTIONS ARE IN PLACE. BED LOCKED IN LOWEST POSITION WITH CALL LIGHT IN REACH. WILL CONTINUE TO MONITOR PATIENT FOR ANY CHANGES. Addendum: 10/31/19 at 0800 by Sarah Cardozo RN BILATERAL SOFT WRIST RESTRAINTS AND MITTENS ARE IN PLACE DUE TO PATIENT ATTEMPTING TO PULL OUT TUBES AND LINES. NO SIGNS OF DECREASED CIRCULATION NOTED.
[2019-10-31] MEDS: QUEtiapine FUMARATE 100 MG TABLET GT SCH ×3 (07:36→18:12)
[2019-10-31] MEDS: D5LR 1,000 ML IV SCH (07:37)
[2019-10-31] MEDS: BUDESONIDE 0.5 MG/2 ML AMPUL.NEB INH SCH (07:54)
[2019-10-31] MEDS: COLISTIMETHATE SODIUM 150 MG VIAL INH SCH ×2 (07:54→20:02)
[2019-10-31] MEDS ORDERED: PREDNISONE 20 MG TABLET GT SCH (08:00)
[2019-10-31 08:01] VITALS: BP_SYST 87
[2019-10-31] MEDS: PANTOPRAZOLE SODIUM 40 MG/VIAL (PROTONIX) IVP SCH ×2 (08:57→21:21)
[2019-10-31] MEDS: MULTIVIT-MINERALS/FERROUS GLUC 15 ML UDC GT SCH (08:57)
[2019-10-31] MEDS: FERROUS SULFATE 300 MG/5 ML UDC GT SCH ×2 (08:57→21:19)
[2019-10-31] MEDS: LACTOBACILLUS RHAMNOSUS GG 1 CAP CAPSULE GT SCH (08:58)
[2019-10-31] MEDS: POTASSIUM CHLORIDE 20 MEQ/PKT PACKET GT SCH (08:58)
[2019-10-31] MEDS: ERGOCALCIFEROL 8000 UNITS/ML ORAL SOLUTION, 60 ML BOTTLE GT SCH (09:00)
[2019-10-31] MEDS: BALSAM PERU/CASTOR OIL 60 GM OINT...G. TP SCH (09:01)
[2019-10-31] MEDS: MIDODRINE HCL 5 MG TABLET (PROAMATINE) GT SCH ×3 (09:01→21:19)
[2019-10-31 09:04] LABS: BASOPHILS % (AUTO) 0.6 % (0.0-2.0); EOSINOPHILS # (AUTO) 0.2 K/uL (0.0-0.4); EOSINOPHILS % (AUTO) 3.7 % (0.0-4.0); HEMOGLOBIN 10.5 g/dL (12.0-16.0); LYMPHOCYTES # (AUTO) 0.6 K/uL (1.0-5.5); LYMPHOCYTES % (AUTO) 13.4 % (20.5-51.5); MEAN CORPUSCULAR HEMOGLOBIN 33 pg (27-31); MEAN CORPUSCULAR HGB CONC 34 % (32-36); MEAN CORPUSCULAR VOLUME 99 fL (79.0-98.0); MONOCYTES # (AUTO) 0.6 K/uL (0.0-1.0); MONOCYTES % (AUTO) 12.4 % (1.7-9.3); NEUTROPHILS # (AUTO) 3.3 K/uL (1.8-7.7); NEUTROPHILS % (AUTO) 69.9 % (40.0-70.0); PLATELET COUNT (AUTO) 130 K/uL (130-430); RED BLOOD CELL COUNT(AUTO) 3.14 MIL/uL (4.2-6.2); RED CELL DISTRIBUTION WIDTH 14.9 % (9.0-15.0); WHITE BLOOD COUNT (AUTO) 4.7 K/uL (4.8-10.8)
--- NOTE | 2019-10-31 10:05 | NUR ---
RN ROUNDS: PATIENT IS ASLEEP IN BED. NO SIGNS OF DISTRESS OR SHORTNESS OF BREATH NOTED. PATIENT ON BILATERAL SOFT WRIST RESTRAINTS AND MITTENS DUE TO PATIENT ATTEMPTING TO PULL OUT TUBES AND LINES. NO SIGNS OF DECREASED CIRCULATION NOTED. PATIENT IN STABLE CONDITION. WILL CONTINUE TO MONITOR PATIENT FOR ANY CHANGES.
[2019-10-31 11:20] VITALS: BP_SYST 103
--- NOTE | 2019-10-31 12:20 | NUR ---
RN ROUNDS: PATIENT IS AWAKE AND ALERT BUT NONVERBAL LAYING DOWN IN BED. PATIENT IS ON BILATERAL SOFT WRIST RESTRAINTS WITH MITTENS DUE TO PATIENT ATTEMPTING TO PULL OUT IV LINES AND TRACH. NO SIGNS OF DECREASED CIRCULATION NOTED. PATIENT IN STABLE CONDITION. WILL CONTINUE TO MONITOR PATIENT FOR ANY CHANGES.
--- NOTE | 2019-10-31 14:35 | NUR ---
RN ROUNDS: PATIENT WAS ATTEMPTING TO GET OUT OF BED. PATIENT IS CRYING AND RESTLESS. WAS ABLE TO CALM PATIENT DOWN. PERFORMED WOUND CARE ON PATIENT AND PUT LOTION ON HER EXTREMITIES. PATIENT DENIES ANY PAIN AT THE MOMENT. NO SIGNS OF DISTRESS OR SHORTNESS OF BREATH NOTED. PATIENT IS ON BILATERAL SOFT WRIST RESTRAINTS WITH MITTENS DUE TO PATIENT ATTEMPTING TO PULL OUT IV LINES, TRACH AND ATTEMPTING TO GET OUT OF BED. PATIENT IN STABLE CONDITION. WILL CONTINUE TO MONITOR PATIENT FOR ANY CHANGES.
[2019-10-31] MEDS ORDERED: PREDNISONE 20 MG TABLET GT ONE (14:45)
[2019-10-31 15:23] VITALS: BP_SYST 107
--- NOTE | 2019-10-31 16:31 | NUR ---
RN ROUNDS: PATIENT IS AWAKE AND ALERT BUT NONVERBAL ATTEMPTING TO GET OUT OF BED. PATIENT WAS ASSISTED BACK IN BED AND IS CURRENTLY LAYING DOWN. PATIENT IS IN BILATERAL SOFT WRIST RESTRAINTS WITH MITTENS ON DUE TO PATIENT ATTEMPTING TO PULL OUT TUBES AND LINES. NO SIGNS OF DECREASED CIRCULATION NOTED. PATIENT IN STABLE CONDITION. WILL CONTINUE TO MONITOR PATIENT FOR ANY CHANGES.
--- NOTE | 2019-10-31 18:56 | NUR ---
CLOSING NOTES: PATIENT IS AWAKE AND ALERT BUT NONVERBAL. BILATERAL SOFT WRIST RESTRAINTS AND MITTENS ARE IN PLACE DUE TO PATIENT ATTEMPTING TO PULL OUT TUBES AND LINES. NO SIGNS OF DECREASED CIRCULATION NOTED. PATIENT IS ON TRACH WITH T-BAR AT 10 L O2. PATIENT IS TOLERATING IT WELL WITH NO SIGNS OF DISTRESS OR SHORTNESS OF BREATH NOTED. PATIENT DENIES ANY PAIN AT THE MOMENT. MIDLINE INTACT AND RUNNING FLUIDS ORDERED. MARTÍNEZ CATHETER INTACT AND DRAINING BY GRAVITY. G-TUBE INTACT WITH CLEAN, DRY DRESSING WITH ABDOMINAL BINDER IN PLACE. PATIENT IN STABLE CONDITION. SAFETY, FALL ASPIRATION, AND CONTACT PRECAUTIONS REMAINED IN PLACE THROUGHOUT THE SHIFT. BED LOCKED IN LOWEST POSITION WITH CALL LIGHT IN REACH. WILL ENDORSE PATIENT CARE TO ONCOMING GUARDIAN FAMILY MEMBER NURSE.
--- NOTE | 2019-10-31 19:30 | NUR ---
CHANGE OF SHIFT; pt. sleeping when received. remains on T bar via trach @ 10 liters of O2. pt. tends to be in awkward position . observed contact isolation for MDRO/MRSA sputum. bilateral soft wrist restraints/mittens. on fall risk precauitons, bed alarm on. will reassess later.
--- NOTE | 2019-10-31 20:30 | NUR ---
NOTES: pt. awakened for VS and assessment. opens eyes when name called, pretty calm. IV on rt. arm , g tube feed continuous, no residual when checked. Jevity 1.5 @ 50 cc/hr. g tube site intact with abdominal binder. brady cath to OSD. patient monitor shows sinus rhythm. continue to monitor.
[2019-10-31 21:00] VITALS: BP_SYST 89
[2019-10-31] MEDS: PREDNISONE 20 MG TABLET GT SCH (21:19)
[2019-10-31] MEDS: MIRTAZAPINE 15 MG TABLET GT SCH (21:19)
--- NOTE | 2019-10-31 22:00 | NUR ---
NOTES: pt. repositioned, still wants her face covered and every now and then tries to put her hand /finger on her mouth rafael. when restraints is release. sacral dressing and rt. leg dressing intact.
[2019-11-01] VITALS: BP_SYST 105
[2019-11-01] MEDS: QUEtiapine FUMARATE 100 MG TABLET GT SCH ×4 (00:06→17:55)
--- NOTE | 2019-11-01 00:30 | NUR ---
NOTES: due medications given thru g tube, flushed with free water. IVF completed, no folllow up IV. condition observed.
--- NOTE | 2019-11-01 02:00 | NUR ---
NOTES: Blood sugar checked 121. pt. awakened but went back to sleep.
[2019-11-01] MEDS: IPRATROPIUM/ALBUTEROL SULFATE 3 ML AMPUL.NEB (DUONEB) INH SCH ×5 (04:10→19:20)
--- NOTE | 2019-11-01 04:15 | NUR ---
NOTES: pt. checked, LIBRARY SERVICES ASSISTANT repositioned her but getting restless and fighting, able to remove restraints. sounds gurgly, suctioned trach. RT came at bedside and suction again via trach. pt. kept on 10 liters O2 via T bar. pt. does not want to rest her back, face down with her arms. stayed at bedside for few minutes to make sure she wont pull out anything. pt. trying to mouth mouth to communicate. condition guarded.
--- NOTE | 2019-11-01 06:08 | NUR ---
NOTES: pt. pretty awake, being resistive and fighting, still able to reach rt. hand to her mouth even with mitten , bilateral wrist restraints in place. repositioned by PROFESSIONAL EMPLOYER CONSULTANT but does not lay still, goes into position.PICC line flushed and clamped.G tube continuous, flused with free water. O2 sat 100%.
[2019-11-01] MEDS: LEVOTHYROXINE SODIUM 0.025 MG TABLET PO SCH (06:21)
[2019-11-01 06:32] LABS: BASOPHILS % (AUTO) 0.3 % (0.0-2.0); EOSINOPHILS % (AUTO) 0.4 % (0.0-4.0); HEMATOCRIT 33.3 % (36-48); HEMOGLOBIN 11.4 g/dL (12.0-16.0); LYMPHOCYTES # (AUTO) 0.2 K/uL (1.0-5.5); LYMPHOCYTES % (AUTO) 3.5 % (20.5-51.5); MEAN CORPUSCULAR HEMOGLOBIN 34 pg (27-31); MEAN CORPUSCULAR HGB CONC 34 % (32-36); MEAN CORPUSCULAR VOLUME 98 fL (79.0-98.0); MONOCYTES # (AUTO) 0.2 K/uL (0.0-1.0); MONOCYTES % (AUTO) 3.1 % (1.7-9.3); NEUTROPHILS # (AUTO) 4.8 K/uL (1.8-7.7); NEUTROPHILS % (AUTO) 92.7 % (40.0-70.0); PLATELET COUNT (AUTO) 155 K/uL (130-430); RED BLOOD CELL COUNT(AUTO) 3.39 MIL/uL (4.2-6.2); WHITE BLOOD COUNT (AUTO) 5.2 K/uL (4.8-10.8)
--- NOTE | 2019-11-01 06:50 | NUR ---
CLOSING NOTES; pt. remains awake, on crisscross position, does not want to move. bilateral wrist restraints and mittens intact . trach intact with T bar. contact isolation observed. for further care and observation and assistance. refused blood sugar checked. will endorse to day shift.
[2019-11-01 07:22] LABS: CALCIUM 8.7 mg/dL (8.4-11.0); CREATININE 0.5 mg/dL (0.55-1.30); POTASSIUM 3.3 mmol/L (3.5-5.1)
--- NOTE | 2019-11-01 07:30 | NUR ---
Initial notes: Patient sleeping. Stable. On isolation precaution. On bilateral soft wrist restraints and soft mittens. Gtube in placed. Pollack cath draining by gravity. Bed alarm on. Safety measures in placed. Report received from GIANLUCA Lange.
[2019-11-01 08:14] VITALS: BP_SYST 107
[2019-11-01] MEDS: COLISTIMETHATE SODIUM 150 MG VIAL INH SCH ×2 (08:15→21:01)
[2019-11-01] MEDS: PANTOPRAZOLE SODIUM 40 MG/VIAL (PROTONIX) IVP SCH ×2 (09:33→20:59)
[2019-11-01] MEDS: BALSAM PERU/CASTOR OIL 60 GM OINT...G. TP SCH (09:34)
[2019-11-01] MEDS: PREDNISONE 20 MG TABLET GT SCH ×2 (09:34→20:56)
[2019-11-01] MEDS: POTASSIUM CHLORIDE 20 MEQ/PKT PACKET GT SCH ×2 (09:35→20:58)
[2019-11-01] MEDS: MIDODRINE HCL 5 MG TABLET (PROAMATINE) GT SCH ×3 (09:35→20:58)
[2019-11-01] MEDS: ERGOCALCIFEROL 8000 UNITS/ML ORAL SOLUTION, 60 ML BOTTLE GT SCH (09:35)
[2019-11-01] MEDS: LACTOBACILLUS RHAMNOSUS GG 1 CAP CAPSULE GT SCH (09:35)
[2019-11-01] MEDS: FERROUS SULFATE 300 MG/5 ML UDC GT SCH (09:35)
[2019-11-01] MEDS: MULTIVIT-MINERALS/FERROUS GLUC 15 ML UDC GT SCH (09:36)
--- NOTE | 2019-11-01 10:24 | NUR ---
ROUNDS: Patient removed soft mittens. Placed it back. Trach suction provided. Medication given thru gtube and patient compliant.
[2019-11-01 11:29] VITALS: BP_SYST 132
--- NOTE | 2019-11-01 13:00 | NUR ---
rounds: Patient removed trach tube. Placed back the tube and mittens. Patient biting her mittens, trying to remove. Re-orient patient not to remove mittens.
[2019-11-01] MEDS: ACETAMINOPHEN 325 MG TABLET GT PRN (14:35)
--- NOTE | 2019-11-01 15:20 | NUR ---
RT NOTES Found trach tube had been pulled out by pt, placed back without issues. Bilateral breath sound/chest rise noted. Pt. was re-educated on dangers of pulling trach tube out. Placed mittens and restraints back on. RN made aware.
[2019-11-01 15:41] VITALS: BP_SYST 113
--- NOTE | 2019-11-01 19:20 | NUR ---
Closing Notes: Patient sleeping. Stable. On contact precaution. On 10L TBAR. I.V. access. Gtube in placed. Pollack cath draining well by gravity. Call light within reach. Safety measures in placed. Report given at bedside.
[2019-11-01 19:52] VITALS: BP_SYST 100
--- NOTE | 2019-11-01 19:54 | NUR ---
OPENING NOTES PATIENT IS LAYING IN BED AND STABLE. NO S/S OF RESPIRATORY DISTRESS NOTED. CALL LIGHT IN REACH. CALL LIGHT TEACHING UNSUCCESSFUL AT THIS TIME. WILL MONITOR FREQUENTLY. PATIENT SHAKES HER HEAD NO WHEN ASKED IN PAIN AND BASED ON FLACC PATIENT SHOWS NO S/S OF PAIN. FALL, SAFETY, RESPIRATORY, ASPIRATION, AND CONTACT PRECAUTIONS WILL BE PLACED THROUGHOUT THE SHIFT. BILATERAL RESTRAINS ARE ALSO CURRENTLY PLACED. RESTRAINTS PROTOCOL WILL BE PLACED Q 2 HOURS.
[2019-11-01] MEDS: MIRTAZAPINE 15 MG TABLET GT SCH (20:59)
--- NOTE | 2019-11-01 21:54 | NUR ---
ROUNDS PATIENT IS AGITATED AT THIS TIME. REORIENTED PATIENT. PATIENT IS OTHERWISE STABLE. NO S/S OF RESPIRATORY DISTRESS NOTED. CALL LIGHT IN REACH. BED IS LOCKED, ALARMED, AND AT THE LOWEST POSITION. WILL CONTINUE TO MONITOR.
--- NOTE | 2019-11-01 23:54 | NUR ---
ROUNDS PATIENT IS LAYING IN BED AT THIS TIME. PATIENT IS STABLE. NO S/S OF RESPIRATORY DISTRESS NOTED. CALL LIGHT IN REACH. BED IS LOCKED, ALARMED, AND AT THE LOWEST POSITION. WILL CONTINUE TO MONITOR.
[2019-11-02] MEDS: QUEtiapine FUMARATE 100 MG TABLET GT SCH ×4 (00:01→20:21)
[2019-11-02 00:38] VITALS: BP_SYST 115
[2019-11-02] MEDS: IPRATROPIUM/ALBUTEROL SULFATE 3 ML AMPUL.NEB (DUONEB) INH SCH ×7 (02:26→23:12)
--- NOTE | 2019-11-02 03:54 | NUR ---
ROUNDING PATIENT IS SLEEPING IN BED AND STABLE. NO S/S OF RESPIRATORY DISTRESS NOTED. WILL CONTINUE TO MONITOR.
--- NOTE | 2019-11-02 05:00 | NUR ---
MIDLINE DRESSING CHANGE PATIENT MIDLINE DRESSING CHANGED AT THIS TIME. PATIENT TOLERATED WELL. NO S/S OF RESPIRATORY DISTRESS NOTED. MIDLINE IS ABLE TO FLUSH. MIDLINE CLEANED USING STERILE TECHNIQUE. PATIENT REPOSITION FOR COMFORT. WILL CONTINUE TO MONITOR.
--- NOTE | 2019-11-02 06:00 | NUR ---
CLOSING NOTES PATIENT CURRENTLY PULLED OUT HER TUBING FOR HER VENT. TUBING WAS PUT BACK IN PLACE. RESTRAINTS WERE READJUSTED. PATIENT IS OTHERWISE STABLE. NO S/S OF RESPIRATORY DISTRESS NOTED. CALL LIGHT IN REACH. BED IS LOCKED, ALARMED, AND AT THE LOWEST POSITION. FALL, SAFETY, ASPIRATION, RESPIRATORY, AND CONTACT PRECAUTIONS HAS BEEN PLACED THROUGHOUT THE SHIFT. WILL CONTINUE TO MONITOR UNTIL REPORT IS GIVEN TO AM NURSE.
[2019-11-02] MEDS: LEVOTHYROXINE SODIUM 0.025 MG TABLET PO SCH (06:46)
[2019-11-02] MEDS: COLISTIMETHATE SODIUM 150 MG VIAL INH SCH (07:22)
[2019-11-02 07:46] VITALS: BP_SYST 107
--- NOTE | 2019-11-02 07:53 | NUR ---
am rounds: Patient is alert, awake. Trach is portex size 7 to t-bar with 40% oxygen. GT intact and patent, secured with abdominal binder, formula of jevity 1.5 at 50cc/hr, no gastric residual noted. Right upper midline with two ports both patent, flushes easily, no blood return. On bilateral wrist and mitten restraints to prevent pulling out of tubings, trach, g-tube. Pollack catheter with light yellow urine output to a bedside bag. Air mattress for low hudson score and wound. On contact isolation for sputum mdro-quality control microbiologist pseudomonas. Aspiration precautions maintained.
[2019-11-02] MEDS: PANTOPRAZOLE SODIUM 40 MG/VIAL (PROTONIX) IVP SCH ×2 (09:07→20:21)
[2019-11-02] MEDS: POTASSIUM CHLORIDE 20 MEQ/PKT PACKET GT SCH ×2 (09:08→20:20)
[2019-11-02] MEDS: PREDNISONE 20 MG TABLET GT SCH ×2 (09:09→20:20)
[2019-11-02] MEDS: ERGOCALCIFEROL 8000 UNITS/ML ORAL SOLUTION, 60 ML BOTTLE GT SCH (09:09)
[2019-11-02] MEDS: FERROUS SULFATE 300 MG/5 ML UDC GT SCH (09:09)
[2019-11-02] MEDS: MULTIVIT-MINERALS/FERROUS GLUC 15 ML UDC GT SCH (09:09)
[2019-11-02] MEDS: MIDODRINE HCL 5 MG TABLET (PROAMATINE) GT SCH ×3 (09:11→20:20)
[2019-11-02] MEDS: LACTOBACILLUS RHAMNOSUS GG 1 CAP CAPSULE GT SCH (09:14)
[2019-11-02] MEDS: BALSAM PERU/CASTOR OIL 60 GM OINT...G. TP SCH (09:15)
[2019-11-02 11:28] VITALS: BP_SYST 112
[2019-11-02] MEDS: ACETAMINOPHEN 325 MG TABLET GT PRN (14:23)
--- NOTE | 2019-11-02 14:33 | NUR ---
Pollack insertion: Pollack cath was seen out with inflated baloon, no trauma noted. Inserted Tajik 16 with clear yellow urine output noted on first attempt uring aseptic technique. securement device used.
--- NOTE | 2019-11-02 15:37 | NUR ---
CONSULTATION PAGED REASON FOR CONSULTATION:PSYCHOSIS WAS CONSULT CALLED?Y PERSON WHO WAS NOTIFIED:QUINTEN CONSULTING PHYSICIAN:OZZY PADILLA (OSMAN YUSUF TRIPE FINISHER) INSPECTOR SET UP AND LAY OUT SPECIALTY:PSYCH INSPECTOR SET UP AND LAY OUT PHONE NUMBER:[phone] ORDERING PHYSICIAN:PAM SMITH
[2019-11-02 15:51] VITALS: BP_SYST 119
[2019-11-02] MEDS: DIPHENHYDRAMINE INJ 50 MG/ML VIAL IVP PRN (17:06)
--- NOTE | 2019-11-02 18:47 | NUR ---
End of shift: Needs attended. DVT prophylaxis verified with Dr. Soto, per , no need for prophylaxis now.
--- NOTE | 2019-11-02 19:50 | NUR ---
INITIAL NOTES PATIENT IS RESTING IN BED. PATIENT IS STABLE. NO S/S OF RESPIRATORY DISTRESS NOTED. PATIENT UNSUCCESSFULLY DEMONSTRATES USAGE OF CALL LIGHT AT THIS TIME DUE TO RESTRAINTS. WILL MONITOR FREQUENTLY. PATIENT IS ON BILATERAL RESTRAINTS. SOFT AND MITTEN. PATIENT SHAKES HER HEAD NO WHEN ASKED FOR PAIN AND BASED ON FLACC SCALE PATIENT SHOWS NO PAIN. PLAN OF CARE DISCUSSED WITH PATIENT. PATIENT IS REORIENTED AT THIS TIME WELL. FALL, SAFETY, CONTACT, ASPIRATION, AND RESPIRATORY PRECAUTIONS WILL BE IN PLACE THROUGHOUT THE SHIFT.
[2019-11-02 20:00] VITALS: BP_SYST 103
[2019-11-02] MEDS: MIRTAZAPINE 15 MG TABLET GT SCH (20:20)
--- NOTE | 2019-11-02 21:50 | NUR ---
ROUNDING/TRACH TUBE PULLED OUT PATIENT REMOVED HER TRACH TUBE AT THIS TIME. TRACH WAS PLACED BACK ON. PATIENT IS AGITATED. REORIENTED PATIENT AT THIS TIME. PATIENT IS OTHERWISE STABLE. NO S/S OF RESPIRATORY DISTRESS NOTED. CALL LIGHT IN REACH. BED IS LOCKED, ALARMED, AND AT THE LOWEST POSITION. WILL CONTINUE TO MONITOR.
--- NOTE | 2019-11-02 23:50 | NUR ---
ROUNDING PATIENT IS LAYING IN BED. NO S/S OF RESPIRATORY DISTRESS NOTED. CALL LIGHT IN REACH. BED IS LOCKED, ALARMED, AND AT THE LOWEST POSITION. WILL CONTINUE TO MONITOR.
[2019-11-03] MEDS: QUEtiapine FUMARATE 100 MG TABLET GT SCH ×4 (00:29→17:49)
[2019-11-03 01:42] VITALS: BP_SYST 116
[2019-11-03] MEDS: IPRATROPIUM/ALBUTEROL SULFATE 3 ML AMPUL.NEB (DUONEB) INH SCH ×6 (03:47→23:17)
--- NOTE | 2019-11-03 03:50 | NUR ---
ROUNDING PATIENT IS LAYING IN BED AND STABLE. NO S/S OF RESPIRATORY DISTRESS NOTED. WILL CONTINUE TO MONITOR.
[2019-11-03] MEDS: LEVOTHYROXINE SODIUM 0.025 MG TABLET PO SCH (06:28)
--- NOTE | 2019-11-03 06:37 | NUR ---
BLOOD SUGAR PATIENT BLOOD SUGAR IS 61. WILL INITIATE PROTOCOL.
[2019-11-03] MEDS: DEXTROSE 50% JECT 50 ML DISP.SYRIN IVP PRN (06:44)
--- NOTE | 2019-11-03 07:29 | NUR ---
BLOOD SUGAR CHECK BLOOD SUGAR CHECK WAS 138. ENDORSED TO AM NURSE.
--- NOTE | 2019-11-03 07:30 | NUR ---
CLOSING NOTES REPORT IS GIVEN TO AM NURSE BY BEDSIDE. PATIENT IS STABLE. NO S/S OF RESPIRATORY DISTRESS NOTED. CALL LIGHT IN REACH.BED IS LOCKED, ALARMED, AND AT THE LOWEST POSITION. FALL, SAFETY, ASPIRATION, RESPIRATORY, AND CONTACT PRECAUTIONS HAS BEEN PLACED THROUGHOUT THE SHIFT.
[2019-11-03 08:09] LABS: BASOPHILS % (AUTO) 0.3 % (0.0-2.0); EOSINOPHILS % (AUTO) 0.5 % (0.0-4.0); HEMATOCRIT 31.3 % (36-48); HEMOGLOBIN 10.5 g/dL (12.0-16.0); LYMPHOCYTES # (AUTO) 0.5 K/uL (1.0-5.5); LYMPHOCYTES % (AUTO) 9.9 % (20.5-51.5); MEAN CORPUSCULAR HEMOGLOBIN 33 pg (27-31); MEAN CORPUSCULAR HGB CONC 34 % (32-36); MEAN CORPUSCULAR VOLUME 98 fL (79.0-98.0); MONOCYTES # (AUTO) 0.4 K/uL (0.0-1.0); MONOCYTES % (AUTO) 6.8 % (1.7-9.3); NEUTROPHILS # (AUTO) 4.5 K/uL (1.8-7.7); NEUTROPHILS % (AUTO) 82.5 % (40.0-70.0); PLATELET COUNT (AUTO) 165 K/uL (130-430); RED BLOOD CELL COUNT(AUTO) 3.19 MIL/uL (4.2-6.2); RED CELL DISTRIBUTION WIDTH 14.8 % (9.0-15.0); WHITE BLOOD COUNT (AUTO) 5.5 K/uL (4.8-10.8)
--- NOTE | 2019-11-03 08:10 | NUR ---
am notes pt restless . reassurance provided. g tube feeding continue as ordered. no residual noted. hob elevated .pulled trach out placed back by RT trach with t bar 40%. no s/s of res distress noted. vitals stable repositioned with pillows. continue on bilt soft wrist restrains and mitten . see flow sheet.will continue to monitor
[2019-11-03 08:15] VITALS: BP_SYST 128
[2019-11-03 08:15] LABS: CALCIUM 8.8 mg/dL (8.4-11.0); CREATININE 0.54 mg/dL (0.55-1.30); POTASSIUM 3.8 mmol/L (3.5-5.1)
--- NOTE | 2019-11-03 08:15 | NUR ---
0815 PT DECANNULATED, PLACED AND SECURED TRACH, PUT ON TBAR 10L 40%FIO2. PT SATING 95% WITH NO DISTRESS NOTED Addendum: 11/03/19 at 1009 by Celia Jaimes RT Amended: Links added.
[2019-11-03] MEDS: MULTIVIT-MINERALS/FERROUS GLUC 15 ML UDC GT SCH (09:45)
[2019-11-03] MEDS: FERROUS SULFATE 300 MG/5 ML UDC GT SCH (09:45)
[2019-11-03] MEDS: MIDODRINE HCL 5 MG TABLET (PROAMATINE) GT SCH ×3 (09:45→21:27)
[2019-11-03] MEDS: POTASSIUM CHLORIDE 20 MEQ/PKT PACKET GT SCH ×2 (09:45→21:27)
[2019-11-03] MEDS: LACTOBACILLUS RHAMNOSUS GG 1 CAP CAPSULE GT SCH (09:45)
[2019-11-03] MEDS: PANTOPRAZOLE SODIUM 40 MG/VIAL (PROTONIX) IVP SCH ×2 (09:45→21:27)
[2019-11-03] MEDS: PREDNISONE 20 MG TABLET GT SCH ×2 (09:46→21:27)
[2019-11-03] MEDS: ERGOCALCIFEROL 8000 UNITS/ML ORAL SOLUTION, 60 ML BOTTLE GT SCH (09:46)
--- NOTE | 2019-11-03 11:30 | NUR ---
RN ROUNDS PT STABLE NOT IN ACUTE DISTRESS. CONTINUE ON TRACT WITH T BAR O2 40% . NOT IN ACUTE DISTRESS. JAYDE MIDLINE 2 PORT. INTACT FLUSHED WELL. NO BLOOD RETURN.MARTÍNEZ INTACT DRAINING YELLOW COLOR URINE. PT CLEANED AND REPOSTIONED. WILL CONTINUE TO MONITOR
[2019-11-03 12:33] VITALS: BP_SYST 117
--- NOTE | 2019-11-03 16:00 | NUR ---
rounds pt stable resting comfortably not in acute distress. pt cleaned and repositioned. g tube feeding continue . no residual noted.no s/s of distress noted. will continue to monitor
[2019-11-03 16:10] VITALS: BP_SYST 101
[2019-11-03] MEDS ORDERED: SERTRALINE HCL 50 MG TABLET PO ONE (17:00)
--- NOTE | 2019-11-03 19:00 | NUR ---
CLOSING NOTES pt stable resting comfortably not in acute distress. . g tube feeding continue . .no s/s of distress noted. REPORT GIVEN TO NIGHT NURSE
--- NOTE | 2019-11-03 19:25 | NUR ---
CHANGE OF SHIFT; pt. received sleeping, no acute distress. on vent via trach. on contact isolation for MDRO/MRSA of sputum. GT tube feeding continuous. will reassess later. on fall risk precautions.
[2019-11-03 20:30] VITALS: BP_SYST 91
--- NOTE | 2019-11-03 20:30 | NUR ---
NOTES: pt. sleeping and awakened in good spirit, try to mouth words to communicate but unable to understand at times. pt. reassured. bilateral soft wrist restraints intact with mittens. on vent via trach # 7 , settings @ FIO2 40% /TV 350/ Peep 5 and AC rate 12 with spontaneous breathing. pt. moves herself on awkward position. G tube checked @ 10 cc residual obtained. abdominal binder in place. rt. leg /ankle dressing changed. sacral wound dressing intact, refused to change at this time. cardiac pattern on sinus rhythm. frequent rounds needed.
--- NOTE | 2019-11-03 21:30 | NUR ---
NOTES: due medications per g tube. IV site on rt. upper arm with mid line catheter. pt. sleeping at intervals.
--- NOTE | 2019-11-03 22:30 | NUR ---
NOTES: pt. sleeping when checked. condition observed. bilateral wrist restraints/mittens intact.
--- NOTE | 2019-11-04 00:01 | NUR ---
NOTES: pt. checked and sleeping quietly. same settings on the vent. condition observed.
[2019-11-04 00:56] VITALS: BP_SYST 130
[2019-11-04] MEDS: QUEtiapine FUMARATE 100 MG TABLET GT SCH ×5 (01:31→23:52)
--- NOTE | 2019-11-04 01:52 | NUR ---
NOTES: due medication given and BS checked 133. pt. pretty awake, biting her thumb on her mouth, able to reach it even with restraint and mitten. reminded not to pull out tubings.
--- NOTE | 2019-11-04 03:31 | NUR ---
NOTES: pretty awake, continuously biting her hand/thumb. complete am care done, repositioned. sacral wound dressing changed. oral care done. suctioned thick mucus secretions via trach. Midline cath ports, flushed and capped. condition unchanged. brady cath patent.
[2019-11-04] MEDS: IPRATROPIUM/ALBUTEROL SULFATE 3 ML AMPUL.NEB (DUONEB) INH SCH ×6 (03:36→23:42)
--- NOTE | 2019-11-04 04:45 | NUR ---
NOTES; pt. went back to sleep, pretty calm. cardiac pattern remains sinus rhythm. bilateral soft wrist restraints/mittens intact. condition guarded. continue to monitor.
--- NOTE | 2019-11-04 06:00 | NUR ---
NOTES: pt. sleeping but easily awakened. IV lock via midline catheter, continuous g tube feeding with Jevity @ 50cc./hr. pt. needs attended. on contact isolation. brady cath to OSD. remains sinus rhythm. fall risk precautions. bilateral soft wrist restraints with mittens.
[2019-11-04] MEDS: LEVOTHYROXINE SODIUM 0.025 MG TABLET PO SCH (06:10)
--- NOTE | 2019-11-04 06:35 | NUR ---
CLOSING NOTES; PT. SLEEPING AT THIS TIME,NO COMPLAINTS NOTED. CONTINUOUS G TUBE FEEDING, ABDOMINAL BINDER INTACT. FOELY CATH TO OSD. MID LINE CATH INTACT, FLUSHED. SAME SETTINGS ON VENT VIA TRACH. ON CONTACT ISOLATION, FREQUENT ROUNDS SINCE UNABLE TO USE CALL LIGHT. BILATERAL WRIST RESTRAINTS WITH MITTENS. FOR FURTHER CARE AND ASSISTANCE.
--- NOTE | 2019-11-04 07:45 | NUR ---
INITIAL NOTE PT RESTING IN BED, NO ACUTE DISTRESS NOTED. PT ON VENT. TUBE FEED INFUSING WELL. BILATERAL RESTRAINTS ON PT, SKIN WITHIN NORMAL LIMITS. MARTÍNEZ DRAINING TO GRAVITY. CALL LIGHT WITHIN REACH, BED IN LOW AND LOCKED POSITION WITH BED ALARM ON.
[2019-11-04 08:00] VITALS: BP_SYST 118
[2019-11-04] MEDS ORDERED: SERTRALINE HCL 50 MG TABLET PO SCH (09:00)
[2019-11-04] MEDS: PANTOPRAZOLE SODIUM 40 MG/VIAL (PROTONIX) IVP SCH ×2 (09:17→21:53)
[2019-11-04] MEDS: POTASSIUM CHLORIDE 20 MEQ/PKT PACKET GT SCH ×2 (09:17→21:53)
[2019-11-04] MEDS: ERGOCALCIFEROL 8000 UNITS/ML ORAL SOLUTION, 60 ML BOTTLE GT SCH (09:18)
[2019-11-04] MEDS: FERROUS SULFATE 300 MG/5 ML UDC GT SCH (09:18)
[2019-11-04] MEDS: BALSAM PERU/CASTOR OIL 60 GM OINT...G. TP SCH (09:18)
[2019-11-04] MEDS: MULTIVIT-MINERALS/FERROUS GLUC 15 ML UDC GT SCH (09:18)
[2019-11-04] MEDS: LACTOBACILLUS RHAMNOSUS GG 1 CAP CAPSULE GT SCH (09:19)
[2019-11-04] MEDS: PREDNISONE 20 MG TABLET GT SCH ×2 (09:19→21:53)
[2019-11-04] MEDS: MIDODRINE HCL 5 MG TABLET (PROAMATINE) GT SCH ×3 (09:23→21:53)
--- NOTE | 2019-11-04 09:45 | NUR ---
RN ROUNDS PT AWAKE, WATCHING TELEVISION. RT AT BEDSIDE SUCTIONING PT. PT TOLERATED WELL. NO ACUTE DISTRESS NOTED. WILL CONTINUE TO MONITOR.
[2019-11-04 11:31] VITALS: BP_SYST 111
--- NOTE | 2019-11-04 11:45 | NUR ---
RN ROUNDS PT AWAKE, NO DISTRESS NOTED, REPOSITIONED FOR COMFORT, PT TOLERATED WELL.
--- NOTE | 2019-11-04 13:31 | NUR ---
RN ROUNDS PT AWAKE, PT REMAINS ON BILATERAL SOFT WRIST RESTRAINTS, PT COOPERATIVE AND CALM. WILL CONTINUE TO MONITOR.
--- NOTE | 2019-11-04 15:31 | NUR ---
WOUND CARE SACRAL WOUND CHANGED. PT TOLERATED WELL. REFER TO [facility] FOR TREATMENT.
[2019-11-04 15:46] VITALS: BP_SYST 110
--- NOTE | 2019-11-04 17:16 | NUR ---
FOLLOW UP CONSULT FOR / SPOKE TO EXCHANGE NURSE.
--- NOTE | 2019-11-04 17:30 | NUR ---
Nutrition F/U RD reviewed pt's current EMR including diet Hx, physician notes, nursing notes, pertinent labs/meds/procedures, care trends, and care activity. Current Nutrition Support: Jevity 1.5 at 50 ml/hr, Free Water Flush: 100 ml Q6H via GT x4 days Subjective information: Pt seen w/ bilateral wrist restraints w/ TF infusing as per physician order. Per nursing notes, pt has been tolerating TF well. Current TF regimen is adequate/appropriate. 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 *ongoing Expected Outcomes/Goals Monitor EN support with goals of pt meeting at least 90% of estimated nutritional needs, labs trending WNL, and skin integrity/wt maintenance. Dietitian Recommendations * Recommend continuing Jevity 1.5 at 50 ml/hr, Free Water Flush: 100 ml Q6H via GT Provides: 1800 kcal/day, 77 gm protein/day, and 1312 ml free water/day Meets: 107% of upper end of estimated caloric needs and 108% of lower end of estimated protein needs Moderate Risk; F/U within 3-5 days
--- NOTE | 2019-11-04 17:31 | NUR ---
RN ROUNDS SUCTIONED PT, PT TOLERATED WELL. REPOSITIONED FOR COMFORT.
--- NOTE | 2019-11-04 17:35 | NUR ---
Dietitian Recommendations * Recommend continuing Jevity 1.5 at 50 ml/hr, Free Water Flush: 100 ml Q6H via GT Provides: 1800 kcal/day, 77 gm protein/day, and 1312 ml free water/day Meets: 107% of upper end of estimated caloric needs and 108% of lower end of estimated protein needs LP, RD Please refer to Nutrition F/U for details.
--- NOTE | 2019-11-04 18:36 | NUR ---
CLOSING NOTE PT AWAKE, RESTING IN BED. BILATERAL WRIST RESTRAINTS IN PLACE. IV SALINE LOCKED. MARTÍNEZ DRAINING TO GRAVITY. ISOLATION PRECAUTIONS IN PLACE. ALL NEEDS MET THROUGHOUT SHIFT. CALL LIGHT WITHIN REACH, BED IN LOW AND LOCKED POSITION WITH BED ALARM ON. WILL CONTINUE TO MONITOR UNTIL PT CARE IS ENDORSED TO [employer]CEMENT AGENT RN.
--- NOTE | 2019-11-04 19:30 | NUR ---
INITIAL ASSESSMENT PATIENT IS LAYING IN BED AND STABLE. NO S/S OF RESPIRATORY DISTRESS NOTED. PATIENT IS ON A VENT. PLAN OF CARE DISCUSSED WITH PATIENT AT THIS TIME. PATIENT IS UNSUCCESSFUL TO DEMONSTRATE CALL LIGHT USAGE AT THIS TIME. WILL CONTINUE TO MONITOR FREQUENTLY. PATIENT IS ALSO ON BILATERAL RESTRAINTS. WILL CHECK RESTRAINTS [id number]. BED IS LOCKED, ALARMED, AND AT THE LOWEST POSITION. FALL, SAFETY, ASPIRATION, RESPIRATORY AND CONTACT PRECAUTIONS WILL BE IN PLACE THROUGHOUT THE SHIFT.
[2019-11-04 20:00] VITALS: BP_SYST 106
--- NOTE | 2019-11-04 21:00 | NUR ---
ROUNDING PATIENT IS LAYING IN BED AND STABLE. NO S/S OF RESPIRATORY DISTRESS NOTED. WILL CONTINUE TO MONITOR,
[2019-11-04] MEDS: SERTRALINE HCL 50 MG TABLET PO SCH (21:53)
--- NOTE | 2019-11-04 23:00 | NUR ---
PATIENT PULLED OUT VENT PATIENT PULLED OUT HER VENT AT THIS TIME. CALLED RT. TRACH IS PLACED BACK IN. ONCE VENT WAS PLACED, PATIENT WAS HYPEROXYGENATION AND SUCTIONED. PATIENT TOLERATED WELL. OTHERWISE, PATIENT IS STABLE. WILL CONTINUE TO MONITOR FREQUENTLY.
--- NOTE | 2019-11-05 | NUR ---
CLEANED/WOUND CARE PATIENT HAD A BOWEL MOVEMENT AT THIS TIME. PATIENT WAS CLEANED AND WOUND CARE WAS PREFORMED AT THIS TIME. PATIENT TOLERATED WELL. NO S/S OF RESPIRATORY DISTRESS. PATIENT REPOSITION FOR COMFORT. WILL CONTINUE TO MONITOR.
[2019-11-05 01:43] VITALS: BP_SYST 119
--- NOTE | 2019-11-05 02:00 | NUR ---
ROUNDING/BOWEL MOVEMENT PATIENT HAD A BOWEL MOVEMENT AT THIS TIME. PATIENT IS CLEANED AND REPOSITION FOR COMFORT. PATIENT TOLERATED WELL. DRESSING IS CLEAN AND INTACT. NO S/S OF RESPIRATORY DISTRESS NOTED. CALL LIGHT IN REACH. BED IS LOCKED, ALARMED, AND AT THE LOWEST POSITION. WILL CONTINUE TO MONITOR.
[2019-11-05] MEDS: IPRATROPIUM/ALBUTEROL SULFATE 3 ML AMPUL.NEB (DUONEB) INH SCH ×6 (02:32→23:11)
--- NOTE | 2019-11-05 04:00 | NUR ---
ROUNDING PATIENT IS SLEEPING IN BED. PATIENT IS STABLE. NO S/S OF RESPIRATORY DISTRESS NOTED. CALL LIGHT IN REACH. BED IS LOCKED, ALARMED, AND AT THE LOWEST POSITION. WILL CONTINUE TO MONITOR.
--- NOTE | 2019-11-05 05:00 | NUR ---
PULLED OUT MARTÍNEZ PATIENT PULLED OUT MARTÍNEZ AT THIS TIME. NO MAJOR S/S OF TRAUMA AT THE SITE. NEW MARTÍNEZ INSERTED WITH THE HELP OF TWO NURSES. PATIENT TOLERATED WELL. PATIENT IS OTHERWISE STABLE. NO S/S OF RESPIRATORY DISTRESS NOTED. CALL LIGHT IN REACH. BED IS LOCKED, ALARMED, AND AT THE LOWEST POSITION. WILL CONTINUE TO MONITOR.
[2019-11-05] MEDS: LEVOTHYROXINE SODIUM 0.025 MG TABLET PO SCH (06:38)
[2019-11-05] MEDS: QUEtiapine FUMARATE 100 MG TABLET GT SCH ×4 (06:38→23:39)
--- NOTE | 2019-11-05 06:51 | NUR ---
CLOSING NOTES PATIENT IS STABLE AND IN BED. NO S/S OF RESPIRATORY DISTRESS. CALL LIGHT IN REACH. BED IS LOCKED, ALARMED, AND AT THE LOWEST POSITION. FALL, SAFETY, ASPIRATION, RESPIRATORY, AND CONTACT PRECAUTIONS HAS BEEN PLACED THROUGHOUT THE SHIFT. BLOOD SUGAR WAS AT 80. WILL CONTINUE TO MONITOR UNTIL REPORT IS GIVEN TO AM NURSE BY BEDSIDE.
--- NOTE | 2019-11-05 07:40 | NUR ---
AM rounds: Patient is asleep, on the sade via trach with settings TV 350- AC 12-Fio2 40%-Peep 5. GT feeding of Jevity 1.5 at 50 ml/hr via GT. With bilateral mittens and soft wrist restraints to prevent pulling out of trach and tubings. Low air loss mattress for low hudson score and existing wounds. Pollack catheter with yellow urine output to a bedside drainage. On contact isolation for Sputum MDRO-TOWER OPERATOR. Bed alarm is on, call light within reach.
[2019-11-05 07:50] VITALS: BP_SYST 119
--- NOTE | 2019-11-05 07:55 | NUR ---
RT NOTES- PT OFF VENT PT AWAKE AND ALERT. PT OFF VENTILATOR AND PLACED ON T-BAR 40% COOL AEROSOL WITH CUFF DEFLATED. NO RESPIRATORY DISTRESS NOTED.
[2019-11-05] MEDS: PANTOPRAZOLE SODIUM 40 MG/VIAL (PROTONIX) IVP SCH ×2 (09:04→20:45)
[2019-11-05] MEDS: FERROUS SULFATE 300 MG/5 ML UDC GT SCH (09:07)
[2019-11-05] MEDS: PREDNISONE 20 MG TABLET GT SCH ×2 (09:07→20:45)
[2019-11-05] MEDS: LACTOBACILLUS RHAMNOSUS GG 1 CAP CAPSULE GT SCH (09:07)
[2019-11-05] MEDS: POTASSIUM CHLORIDE 20 MEQ/PKT PACKET GT SCH ×2 (09:07→20:45)
[2019-11-05] MEDS: MIDODRINE HCL 5 MG TABLET (PROAMATINE) GT SCH ×3 (09:07→20:46)
[2019-11-05] MEDS: ERGOCALCIFEROL 8000 UNITS/ML ORAL SOLUTION, 60 ML BOTTLE GT SCH (09:08)
[2019-11-05] MEDS: SERTRALINE HCL 50 MG TABLET PO SCH ×2 (09:08→20:45)
[2019-11-05] MEDS: MULTIVIT-MINERALS/FERROUS GLUC 15 ML UDC GT SCH (09:08)
[2019-11-05 09:21] VITALS: BP_SYST 114
[2019-11-05] MEDS: BALSAM PERU/CASTOR OIL 60 GM OINT...G. TP SCH (09:25)
--- NOTE | 2019-11-05 11:00 | NUR ---
Rounds: Patient frequently attempts to loosen restraints or reach over to the trach.
[2019-11-05 11:16] VITALS: BP_SYST 95
--- NOTE | 2019-11-05 15:00 | NUR ---
Rounds: Trach was seen out. Put it back without difficulty, patient was in no distress.
[2019-11-05 15:04] VITALS: BP_SYST 93
--- NOTE | 2019-11-05 18:23 | NUR ---
End of shift: Needs attended. No change in assessment.
--- NOTE | 2019-11-05 19:45 | NUR ---
Opening notes Received report. Patient is resting in bed, patient was repositioned. No signs of distress noted. Patient placed on vent by respiratory therapist. AC 12, Vt 350, FiO2 40%, PEEP 5. Patient tolerating well, O2 sat at 95%. VSS. Bilateral wrist and mittens restraints in place, no signs of injury noted. Pollack catheter in place, draining urine. No other needs at this time. Call light with the patient, safety precautions in place.
[2019-11-05 20:18] VITALS: BP_SYST 115
--- NOTE | 2019-11-05 20:45 | NUR ---
Medications/Hygiene care Medications given. Educated the action and side effects of medications. Patient tolerated well. No residual noted from Gtube. G-tube flushed with ease. New bottle of feeding hung. Patient had BM and hygiene care provided. Patient attempts to pull trach when removed from restraints. No other needs. Call light with the patient. Safety precautions in place.
--- NOTE | 2019-11-05 22:35 | NUR ---
Patient pulled out Trach Patient able to remove trach despite being in restraints. Trach reinserted with ease. O2 sat 95%. Call light with the patient. Safety precautions in place.
[2019-11-06] VITALS: BP_SYST 91
--- NOTE | 2019-11-06 00:30 | NUR ---
Sleeping Patient sleeping. No signs of distress noted. Breathing even and unlabored. Bilateral restraints in place. No signs of injury noted. Call light with the patient. Safety precautions in place.
--- NOTE | 2019-11-06 02:44 | NUR ---
Hygiene care provided. Patient BM. Patient tolerated well. Bilateral wrist restraints in place. No signs of injury noted. Call light with the patient. Safety precautions in place.
[2019-11-06] MEDS: IPRATROPIUM/ALBUTEROL SULFATE 3 ML AMPUL.NEB (DUONEB) INH SCH ×6 (03:14→23:15)
--- NOTE | 2019-11-06 04:34 | NUR ---
Sleeping Patient in and out of sleep. No signs of distress noted. Breathing even and unlabored. O2 sat 95%. Bilateral wrist restraints in place, no signs of injury noted. Call light with the patient. Safety precautions in place.
[2019-11-06] MEDS: LEVOTHYROXINE SODIUM 0.025 MG TABLET PO SCH (06:20)
[2019-11-06] MEDS: QUEtiapine FUMARATE 100 MG TABLET GT SCH ×4 (06:20→23:53)
[2019-11-06 06:27] LABS: BASOPHILS % (AUTO) 0.1 % (0.0-2.0); EOSINOPHILS % (AUTO) 0.1 % (0.0-4.0); HEMATOCRIT 35.4 % (36-48); LYMPHOCYTES # (AUTO) 0.7 K/uL (1.0-5.5); LYMPHOCYTES % (AUTO) 10.3 % (20.5-51.5); MEAN CORPUSCULAR HEMOGLOBIN 33 pg (27-31); MEAN CORPUSCULAR HGB CONC 34 % (32-36); MEAN CORPUSCULAR VOLUME 98 fL (79.0-98.0); MONOCYTES # (AUTO) 0.2 K/uL (0.0-1.0); MONOCYTES % (AUTO) 3.2 % (1.7-9.3); NEUTROPHILS # (AUTO) 6.1 K/uL (1.8-7.7); NEUTROPHILS % (AUTO) 86.3 % (40.0-70.0); PLATELET COUNT (AUTO) 239 K/uL (130-430); RED BLOOD CELL COUNT(AUTO) 3.62 MIL/uL (4.2-6.2); RED CELL DISTRIBUTION WIDTH 14.5 % (9.0-15.0)
--- NOTE | 2019-11-06 06:48 | NUR ---
Closing notes Patient is resting in bed. No signs of distress noted. Breathing even and unlabored tolerating current vent settings at 95%. Midline patent and intact, G-tube infusing feeding. Pollack catheter in place, draining urine. Bilateral wrist restraints in place, no signs of injury noted. All needs met throughout the shift. call light with the patient. Safety precautions in place. Will endorse care to day shift RN.
--- NOTE | 2019-11-06 07:25 | NUR ---
AM ROUNDS: PATIENT SLEEPING DURING ROUNDS.ON TRACH VENT WITH FIO2=40%,GOOD SATURATION. TUBE FEEDS ON GOING. JAYDE MIDLINE DRESSING CLEAN AND DRY. WITH BILATERAL SOFT WRIST RESTRAINT ON WITH SOFT MITTENS ON WELL. MARTÍNEZ IN PLACE. CONTINUE TO MONITOR.
--- NOTE | 2019-11-06 07:40 | NUR ---
0740 PLACED PT ON T-BAR 10L 02 40% FIO2, SATING 94%. NO DISTRESS NOTED Addendum: 11/06/19 at 0833 by Celia Jaimes RT Amended: Links added.
--- NOTE | 2019-11-06 07:50 | NUR ---
RN ROUNDS: PATIENT OFF VENT.CONNECTED TO T-BAR @ 10L/MIN.GOOD SATURATION.
--- NOTE | 2019-11-06 09:00 | NUR ---
MEDS/G TUBE: NO RESIDUALS PRIOR TO GIVING MEDS.CRUSHED MEDS GIVEN AND TOLERATED WELL.NO PROBLEM.FLUSHED WITH WATER AFTER GIVING MEDICATIONS.
[2019-11-06] MEDS: LACTOBACILLUS RHAMNOSUS GG 1 CAP CAPSULE GT SCH (09:22)
[2019-11-06] MEDS: FERROUS SULFATE 300 MG/5 ML UDC GT SCH (09:23)
[2019-11-06] MEDS: SERTRALINE HCL 50 MG TABLET PO SCH ×2 (09:23→21:45)
[2019-11-06] MEDS: POTASSIUM CHLORIDE 20 MEQ/PKT PACKET GT SCH ×2 (09:23→21:45)
[2019-11-06] MEDS: PANTOPRAZOLE SODIUM 40 MG/VIAL (PROTONIX) IVP SCH ×2 (09:23→21:44)
[2019-11-06] MEDS: MIDODRINE HCL 5 MG TABLET (PROAMATINE) GT SCH ×3 (09:23→21:45)
[2019-11-06] MEDS: MULTIVIT-MINERALS/FERROUS GLUC 15 ML UDC GT SCH (09:24)
[2019-11-06] MEDS: PREDNISONE 20 MG TABLET GT SCH ×2 (09:24→21:44)
[2019-11-06] MEDS: ERGOCALCIFEROL 8000 UNITS/ML ORAL SOLUTION, 60 ML BOTTLE GT SCH (09:24)
[2019-11-06] MEDS: BALSAM PERU/CASTOR OIL 60 GM OINT...G. TP SCH (09:25)
[2019-11-06 09:54] VITALS: BP_SYST 94
--- NOTE | 2019-11-06 12:17 | NUR ---
T-BAR: PATIENT TOLERATED T-BAR @ 10L/MIN,GOOD SATURATION WITH FIO2=40%. RESTING. BILATERAL SOFT WRIST RESTRAINT/MITTENS ON.NOT IN ANY DISTRESS.
[2019-11-06 13:42] VITALS: BP_SYST 112
--- NOTE | 2019-11-06 17:02 | NUR ---
1600 PT DECANNULATED TRACH. REINSERTED TRACH. SXN MOD THICK YELLOW-GREEN SECRETIONS AT [facility]. TRACH INTACT AND SECURE. NO DISTRESS NOTED. Addendum: 11/06/19 at 1704 by Celia Jaimes RT Amended: Links added.
--- NOTE | 2019-11-06 17:20 | NUR ---
RIGHT LOWER LEG WOUND DRESSING CHANGE: CLEANSE WITH NS,PAT DRY.VENELEX OINTMENT TO WOUND BED,BARRIER CREAM TO CARY WOUND AREA,COVERED WITH FOAM DRESSING.
[2019-11-06 18:10] VITALS: BP_SYST 89
--- NOTE | 2019-11-06 18:28 | NUR ---
CLOSING NOTES: PATIENT ON T-BAR AT 10 L/MIN,GOOD SATURATION. TUBE FEEDS RUNNING WELL. JAYDE MIDLINE ,DRESSING CLEAN AND DRY. MARTÍNEZ IN SITU. BILATERAL SOFT WRIST RESTRAIN AND MITTENS ON. PATIENT MOVES A LOT,CONTINUE TO MONITOR.SAFETY MEASURES RENDERED. PRACTICE GUIDELINES MET THROUGH OUT THE SHIFT.
--- NOTE | 2019-11-06 19:30 | NUR ---
Opening notes Received report. Patient resting in bed. Patient had removed trach. Trach reinserted and tolerating T-bar 40%FiO2. O2 sat at 95%. G-tube in place, infusing feeding. Midline in place, saline locked. Pollack catheter in place draining yellow urine. Bilateral wrist restraints in place, no signs of injury noted. Call light with the patient. Safety precautions in place.
[2019-11-06 21:00] VITALS: BP_SYST 89
--- NOTE | 2019-11-06 21:45 | NUR ---
Medications given via g-tube. No residual noted. Educated the action and side effects of medications. Patient tolerated well. Patient repositioned. No other needs. Call light with the patient. Safety precautions in place.
--- NOTE | 2019-11-07 | NUR ---
Resting Patient resting in bed. No signs of distress noted. Tolerating t-bar at FiO2 40%. Feeding infusing. No other needs. Call light with the patient. Safety precautions in place.
[2019-11-07 00:22] VITALS: BP_SYST 109
--- NOTE | 2019-11-07 02:28 | NUR ---
Resting Patient had disconnect T-bar. T-bar reconnected and patient was suctioned. Patient tolerated well. O2 sat 96-98%. Patient repositioned. No other needs. Call light with the patient. Safety precautions in place.
[2019-11-07] MEDS: IPRATROPIUM/ALBUTEROL SULFATE 3 ML AMPUL.NEB (DUONEB) INH SCH ×6 (02:55→23:37)
--- NOTE | 2019-11-07 04:30 | NUR ---
Hygiene care done. Patient tolerated well. Patient also suctioned and turned and repositioned. No other needs. Call light with the patient. Safety precautions in place.
[2019-11-07] MEDS: LEVOTHYROXINE SODIUM 0.025 MG TABLET PO SCH (05:58)
[2019-11-07] MEDS: QUEtiapine FUMARATE 100 MG TABLET GT SCH ×3 (05:58→17:26)
--- NOTE | 2019-11-07 06:28 | NUR ---
Closing notes Patient is resting in bed. No signs of distress noted. Breathing even and unlabored tolerating t-bar 10 L at 95%. Midline patent and intact, G-tube infusing feeding. Pollack catheter in place, draining urine. Bilateral wrist restraints in place, no signs of injury noted. All needs met throughout the shift. call light with the patient. Safety precautions in place. Will endorse care to day shift RN.
--- NOTE | 2019-11-07 08:00 | NUR ---
Initial notes- in bed, awake. on tbar at 10l, 40% fio2 tolerating well. no acute distress noted. on soft wrist restraints and mittens, circulation intact. bed alarm on. maintain on contact isolation. will monitor.
[2019-11-07 08:01] VITALS: BP_SYST 107
[2019-11-07] MEDS: SERTRALINE HCL 50 MG TABLET PO SCH ×2 (08:31→21:03)
[2019-11-07] MEDS: POTASSIUM CHLORIDE 20 MEQ/PKT PACKET GT SCH ×2 (08:31→21:03)
[2019-11-07] MEDS: FERROUS SULFATE 300 MG/5 ML UDC GT SCH (08:31)
[2019-11-07] MEDS: MIDODRINE HCL 5 MG TABLET (PROAMATINE) GT SCH ×3 (08:31→21:03)
[2019-11-07] MEDS: BALSAM PERU/CASTOR OIL 60 GM OINT...G. TP SCH (08:31)
[2019-11-07] MEDS: LACTOBACILLUS RHAMNOSUS GG 1 CAP CAPSULE GT SCH (08:31)
[2019-11-07] MEDS: PANTOPRAZOLE SODIUM 40 MG/VIAL (PROTONIX) IVP SCH ×2 (08:31→21:04)
[2019-11-07] MEDS: ERGOCALCIFEROL 8000 UNITS/ML ORAL SOLUTION, 60 ML BOTTLE GT SCH (08:32)
[2019-11-07] MEDS: MULTIVIT-MINERALS/FERROUS GLUC 15 ML UDC GT SCH (08:32)
[2019-11-07] MEDS: PREDNISONE 20 MG TABLET GT SCH ×2 (08:32→21:03)
[2019-11-07 11:16] VITALS: BP_SYST 95
[2019-11-07 11:17] VITALS: BP_SYST 106
--- NOTE | 2019-11-07 12:00 | NUR ---
Notes- Pt still keep moving. O2 sat at 94% on t bar, 10L, 40% fio2 reading on the machine at bedside. No acute distress noted.
[2019-11-07] MEDS: ACETAMINOPHEN 325 MG TABLET GT PRN (12:05)
--- NOTE | 2019-11-07 16:00 | NUR ---
Notes- brady catheter wa out. Re- inserted a new one. Pt tolerated well
[2019-11-07 16:14] VITALS: BP_SYST 105
--- NOTE | 2019-11-07 19:25 | NUR ---
CHANGE OF SHIFT; pt. awake, being cleaned by YARDAGE ESTIMATOR when received. on contact isolation for MDRO/MRSA sputum. on T bar via trach. bilateral soft wrist restraints and mittens in place. will reassess later. on fall risk precautions.
--- NOTE | 2019-11-07 20:30 | NUR ---
NOTES: pt. sleeping on and off, now biting her left hand with her mouth, able to reach even on restraints and mittens, checked residual only 10 cc. obtained. IV lock , with midline catheter on rt. upper arm. G tube site with abdominal binder. noted lots of mucus secretions drained from tech site, suctioned via trach and cleaned upper chest . brady cath to OSD. cardiac pattern shows sinus rhythm. frquent rounds since unable to use call light.
[2019-11-07 21:00] VITALS: BP_SYST 99
--- NOTE | 2019-11-07 22:32 | NUR ---
NOTES: pt. sleeping on and off. bilateral soft wrist restraints and mittens intact. condition monitor.
--- NOTE | 2019-11-08 00:30 | NUR ---
NOTES: been awake but pretty calm, does not want to be stimulated . gets agitated easily. been suctioning via trach with thick mucus s ecretions, able to cough it up, yellowish in color.
[2019-11-08 00:45] VITALS: BP_SYST 105
[2019-11-08] MEDS: QUEtiapine FUMARATE 100 MG TABLET GT SCH ×5 (01:25→23:27)
--- NOTE | 2019-11-08 02:30 | NUR ---
NOTES: pt. asleep when checked, but gets into awkward position even after repositioning. condition guarded. bilateral soft wrist restraints intact with mittens.
[2019-11-08] MEDS: IPRATROPIUM/ALBUTEROL SULFATE 3 ML AMPUL.NEB (DUONEB) INH SCH ×6 (03:59→23:23)
--- NOTE | 2019-11-08 04:15 | NUR ---
NOTES: pt. pulse ox sensor not reading, checked, changed sensor and replace battery. skin discoloration on both legs, dressing intact on rt. leg and sacral dressing, pt. agitated does not want any thing to be done,pushing me away. pt. pretty strong. kept warm with blanket. Mid line cath dressing done. G tube feeding continuous.
--- NOTE | 2019-11-08 04:50 | NUR ---
NOTES: RT changed gauze on trach site and suctioned via trach.
--- NOTE | 2019-11-08 05:23 | NUR ---
NOTES: pad noted wet, instill @ 5 cc. of sterile water on the balloon of the brady. pt. repositioned. will observe. pt. needs attended.
[2019-11-08] MEDS: LEVOTHYROXINE SODIUM 0.025 MG TABLET PO SCH (06:07)
--- NOTE | 2019-11-08 06:47 | NUR ---
CLOSING NOTES; component lab tech unable to draw blood ,will send somebody later. pt. g tube continuous. IV site clean , mid line cath intact. brady cath to OSD. bilateral soft wrist restraints and mittens. for further care and assistance. on contact isolation. on fall risk precautions.
[2019-11-08 07:40] LABS: BASOPHILS % (AUTO) 0.1 % (0.0-2.0); EOSINOPHILS % (AUTO) 0.2 % (0.0-4.0); HEMATOCRIT 35.9 % (36-48); HEMOGLOBIN 12.1 g/dL (12.0-16.0); LYMPHOCYTES # (AUTO) 0.6 K/uL (1.0-5.5); LYMPHOCYTES % (AUTO) 10.1 % (20.5-51.5); MEAN CORPUSCULAR HEMOGLOBIN 33 pg (27-31); MEAN CORPUSCULAR HGB CONC 34 % (32-36); MEAN CORPUSCULAR VOLUME 97 fL (79.0-98.0); MONOCYTES # (AUTO) 0.2 K/uL (0.0-1.0); MONOCYTES % (AUTO) 3.1 % (1.7-9.3); NEUTROPHILS # (AUTO) 5.1 K/uL (1.8-7.7); NEUTROPHILS % (AUTO) 86.5 % (40.0-70.0); PLATELET COUNT (AUTO) 217 K/uL (130-430); RED BLOOD CELL COUNT(AUTO) 3.69 MIL/uL (4.2-6.2); RED CELL DISTRIBUTION WIDTH 14.2 % (9.0-15.0); WHITE BLOOD COUNT (AUTO) 5.9 K/uL (4.8-10.8)
[2019-11-08 07:53] VITALS: BP_SYST 96
--- NOTE | 2019-11-08 08:00 | NUR ---
Initial notes- In bed awake, ON T- BAR tolerating well. Oral care and sunctioning done. Turn and repositioned. will monitor.
[2019-11-08] MEDS: FERROUS SULFATE 300 MG/5 ML UDC GT SCH (08:37)
[2019-11-08] MEDS: LACTOBACILLUS RHAMNOSUS GG 1 CAP CAPSULE GT SCH (08:38)
[2019-11-08] MEDS: PANTOPRAZOLE SODIUM 40 MG/VIAL (PROTONIX) IVP SCH ×2 (08:38→21:19)
[2019-11-08] MEDS: POTASSIUM CHLORIDE 20 MEQ/PKT PACKET GT SCH ×2 (08:38→21:30)
[2019-11-08] MEDS: MIDODRINE HCL 5 MG TABLET (PROAMATINE) GT SCH ×3 (08:38→21:18)
[2019-11-08] MEDS: SERTRALINE HCL 50 MG TABLET PO SCH ×2 (08:38→21:18)
[2019-11-08] MEDS: MULTIVIT-MINERALS/FERROUS GLUC 15 ML UDC GT SCH (08:39)
[2019-11-08] MEDS: ERGOCALCIFEROL 8000 UNITS/ML ORAL SOLUTION, 60 ML BOTTLE GT SCH (08:39)
[2019-11-08 08:40] VITALS: BP_SYST 96
[2019-11-08] MEDS: PREDNISONE 20 MG TABLET GT SCH ×2 (08:40→21:18)
[2019-11-08] MEDS: BALSAM PERU/CASTOR OIL 60 GM OINT...G. TP SCH (08:40)
[2019-11-08 11:23] VITALS: BP_SYST 106
--- NOTE | 2019-11-08 12:00 | NUR ---
Notes- In bed, awake. oral care and sunctioning done. tolerating feeding and Tbar at 10L, FIO2 is 40%. No acute distress noted.
[2019-11-08 15:47] VITALS: BP_SYST 110
--- NOTE | 2019-11-08 15:47 | NUR ---
notes- awake, having breathing treatments. due meds given.
--- NOTE | 2019-11-08 18:30 | NUR ---
Notes- still awake , still on Restraints, circulation is intact. No acute distress noted. Will endorse.
--- NOTE | 2019-11-08 19:30 | NUR ---
CHANGE OF SHIFT; pt. awake, trying to get loose, been all over the bed, on awkward position. On T bar via trach. on contact isolation for MDRO/MRSA sputum. G tube feed continuous. will reassess later.
--- NOTE | 2019-11-08 20:15 | NUR ---
NOTES: pt. getting restless, pt. almost pull out trach. Rt at bedside and able to catch it. and secure. T bar via trach @ 10liters of O2. HOB elevated. G tube checked, no residual. brady cath to OSD. IV lock , midline catheter on rt. upper arm./ cardiac pattern on sinus rhythm. moves all extremities. bilateral soft wrist restraints with mittens in place. frequent rounds, unable to use call light. on fall risk precautions.
[2019-11-08 21:00] VITALS: BP_SYST 99
--- NOTE | 2019-11-08 22:00 | NUR ---
NOTES: repositioned, remains awake, been suctioning via trach, with big stoma, RT aware, dripping secretions.. continuous g tube feed. had bowel movement earlie. kept clean and dry. replace sacral dressing.
[2019-11-09 00:44] VITALS: BP_SYST 99
--- NOTE | 2019-11-09 02:00 | NUR ---
NOTES: been sleeping at short intervals, been pretty awake. condition guarded. continue to monitor. remains sinus rhythm.
[2019-11-09] MEDS: IPRATROPIUM/ALBUTEROL SULFATE 3 ML AMPUL.NEB (DUONEB) INH SCH ×6 (03:11→23:14)
--- NOTE | 2019-11-09 04:00 | NUR ---
NOTES: repositioned. pt. needs attended. checked residual, none. continue feeding. repositioned.
--- NOTE | 2019-11-09 05:30 | NUR ---
NOTES: partial am care done. repositioned. had small smear of bm, observed contact isolation. restraints with mittens intact. suctioned via trach.
[2019-11-09] MEDS: LEVOTHYROXINE SODIUM 0.025 MG TABLET PO SCH (06:14)
[2019-11-09] MEDS: QUEtiapine FUMARATE 100 MG TABLET GT SCH ×4 (06:22→23:38)
--- NOTE | 2019-11-09 06:53 | NUR ---
CLOSING NOTES; O@ @ 10 liters ,on T bar via trach, been suctioning frequently , need to change sensor, pt. still gets restless even on bilateral wrist restraints with mittens. for further care and assist. noted some leak on dax brady @ 5 cc sterile water. will endorse to day shift.
--- NOTE | 2019-11-09 07:00 | NUR ---
OPENING NOTE RECEIVED REPORT FROM [facility] NURSE. PATIENT AWAKE AND ALERT. NO ACUTE DISTRESS NOTED. R UPPER MIDLINE INTACT AND PATENT. NO SIGNS OF INFILTRATION. MARTÍNEZ CATHETER INTACT AND PATENT. DRAINING WELL. G-TUBE INTACT AND PATENT. CHECKED PLACEMENT. NO RESIDUAL NOTED. SURROUNDING SKIN INTACT. BILATERAL SOFT WRIST RESTRAINTS AND MITTENS INTACT. NO SIGNS OF INJURY NOR REDNESS NOTED. ALL NEEDS MET. BED ALARM ON. CALL LIGHT IN REACH. FALL AND ASPIRATION AND CONTACT PRECAUTIONS IN PLACE. CONTINUE TO MONITOR.
--- NOTE | 2019-11-09 07:40 | NUR ---
0740 CLEANED TRACH LELE #7, SXN TH, GREEN SECRETIONS AT [facility] Addendum: 11/09/19 at 1010 by Celia Jaimes RT Amended: Links added.
[2019-11-09 08:00] VITALS: BP_SYST 88
[2019-11-09] MEDS: SERTRALINE HCL 50 MG TABLET PO SCH ×2 (09:04→21:05)
[2019-11-09] MEDS: POTASSIUM CHLORIDE 20 MEQ/PKT PACKET GT SCH ×2 (09:04→21:05)
[2019-11-09] MEDS: FERROUS SULFATE 300 MG/5 ML UDC GT SCH (09:04)
[2019-11-09] MEDS: PANTOPRAZOLE SODIUM 40 MG/VIAL (PROTONIX) IVP SCH ×2 (09:04→21:05)
[2019-11-09] MEDS: MIDODRINE HCL 5 MG TABLET (PROAMATINE) GT SCH ×3 (09:04→21:05)
--- NOTE | 2019-11-09 09:04 | NUR ---
MEDS MEDS ADMINISTERED ORDERED PER MD. TOLERATED WELL. EDUCATION GIVEN. NO ACUTE DISTRESS NOTED. HOB ELEVATED. CALL LIGHT IN REACH. ALL NEEDS MET. FALL AND ASPIRATION PRECAUTIONS IN PLACE. CONTINUE TO MONITOR.
[2019-11-09] MEDS: ERGOCALCIFEROL 8000 UNITS/ML ORAL SOLUTION, 60 ML BOTTLE GT SCH (09:05)
[2019-11-09] MEDS: MULTIVIT-MINERALS/FERROUS GLUC 15 ML UDC GT SCH (09:05)
[2019-11-09] MEDS: LACTOBACILLUS RHAMNOSUS GG 1 CAP CAPSULE GT SCH (09:05)
[2019-11-09] MEDS: PREDNISONE 20 MG TABLET GT SCH ×2 (09:06→21:05)
[2019-11-09] MEDS: BALSAM PERU/CASTOR OIL 60 GM OINT...G. TP SCH (09:06)
--- NOTE | 2019-11-09 11:04 | NUR ---
ROUNDS PT AWAKE AND ALERT IN BED WATCHING TELEVISION. NO ACUTE DISTRESS NOTED. SUCTIONED PATIENT. TOLERATED WELL. CALL LIGHT IN REACH. ALL NEEDS MET. CONTINUE TO MONITOR.
[2019-11-09 11:16] VITALS: BP_SYST 105
--- NOTE | 2019-11-09 12:00 | NUR ---
NOTE SUCTIONED PATIENT; NOTED LARGE AMT OF THICK YELLOW SECRETIONS NOTED. PATIENT TOLERATED WELL. HOB UP. NO ACUTE DISTRESS. NO SOB. ALL NEEDS MET. CONT TO MONITOR WITH FREQUENT VISUAL CHECKS
--- NOTE | 2019-11-09 14:30 | NUR ---
WOUND CARE ASSISTED STOPBOARD ASSEMBLER WITH INCONTINENCE CARE. WOUND CARE PROVIDED, ALONA WELL. REPOSITIONED FOR COMFORT. ALL NEEDS MET. CALL LIGHT IN REACH. CONT TO MONITOR WITH FREQUENT VISUAL CHECKS
[2019-11-09 15:07] VITALS: BP_SYST 105
[2019-11-09] MEDS: ACETAMINOPHEN 325 MG TABLET GT PRN (15:10)
--- NOTE | 2019-11-09 15:10 | NUR ---
ROUTINE MEDS MEDS ADMINISTERED ORDERED PER MD. TOLERATED WELL. HOB ELEVATED. EDUCATION GIVEN. NO ACUTE DISTRESS NOTED. ALL NEEDS MET. CALL LIGHT IN REACH. FALL AND ASPIRATION PRECAUTIONS IN PLACE. CONTINUE TO MONITOR.
--- NOTE | 2019-11-09 16:08 | NUR ---
SEEN AND EXAMINED BY DR. KNOX AT BEDSIDE
[2019-11-09 19:00] VITALS: BP_SYST 91
--- NOTE | 2019-11-09 19:32 | NUR ---
CLOSING NOTE PT AWAKE IN BED. NO ACUTE DISTRESS NOTED. MIDLINE INTACT AND PATENT. NO SIGNS OF INFILTRATION. MARTÍNEZ CATHETER INTACT AND PATENT. DRAINING WELL. G-TUBE INTACT AND PATENT. TOLERATING G-TUBE FEEDING WELL. ABDOMINAL BINDER IN PLACE. ALL NEEDS ANTICIPATED AND MET. FALL AND ASPIRATION PRECAUTIONS IN PLACE. CALL LIGHT IN REACH. REPORT GIVEN TO GIANLUCA TORRES.
--- NOTE | 2019-11-09 19:40 | NUR ---
INITIAL NOTES PATIENT IS LAYING IN BED AND STABLE. NO S/S OF RESPIRATORY DISTRESS NOTED. PATIENT UNSUCCESSFULLY DEMONSTRATES USAGE OF CALL LIGHT AT THIS TIME. WILL CONTINUE TO MONITOR. PLAN OF CARE IS DISCUSSED WITH PATIENT AT THIS TIME. PATIENT SHAKES HER HEAD NO TO PAIN. PATIENT IS REACHING FOR HER TRACH. EDUCATION ON TRACH WAS GIVEN AT THIS TIME. FALL, SAFETY, ASPIRATION, RESPIRATORY, AND CONTACT PRECAUTIONS WILL BE IN PLACED THROUGHOUT THE SHIFT.
--- NOTE | 2019-11-09 23:40 | NUR ---
PULLED OUT TRACH PATIENT PULLED OUT TRACH AT THIS TIME. RT IS BY BEDSIDE AND WAS RE-INSERTED. ONCE ON THE TRACH, PATIENT IS STABLE. NO S/S OF RESPIRATORY DISTRESS NOTED. CALL LIGHT IN REACH. BED IS LOCKED, ALARMED, AND AT THE LOWEST POSITION. WILL CONTINUE TO MONITOR.
[2019-11-10 01:00] VITALS: BP_SYST 111
[2019-11-10] MEDS: IPRATROPIUM/ALBUTEROL SULFATE 3 ML AMPUL.NEB (DUONEB) INH SCH ×6 (04:04→23:19)
--- NOTE | 2019-11-10 05:09 | NUR ---
ROUNDING PATIENT IS LAYING IN BED AND WATCHING TV. NO S/S OF RESPIRATORY DISTRESS NOTED. CALL LIGHT IN REACH. BED IS LOCKED, ALARMED, AND AT THE LOWEST POSITION. WILL CONTINUE TO MONITOR.
[2019-11-10] MEDS: QUEtiapine FUMARATE 100 MG TABLET GT SCH ×4 (06:05→23:35)
[2019-11-10] MEDS: LEVOTHYROXINE SODIUM 0.025 MG TABLET PO SCH (06:05)
--- NOTE | 2019-11-10 06:33 | NUR ---
CLOSING NOTES PATIENT IS STABLE AND LAYING IN BED. NO S/S OF RESPIRATORY DISTRESS NOTED. CALL LIGHT IN REACH. BED IS LOCKED, ALARMED, AND AT THE LOWEST POSITION. FALL, SAFETY, CONTACT, ASPIRATION, AND RESPIRATORY PRECAUTIONS HAS BEEN IN PLACE THROUGHOUT THE SHIFT. WILL CONTINUE TO MONITOR UNTIL REPORT IS GIVEN TO AM NURSE BY BEDSIDE.
--- NOTE | 2019-11-10 07:38 | NUR ---
OPENING NOTE Patient resting in the bed. No acute distress. Trach intact to cool aerosol. HOB elevated. Skin warm and dry to touch. Midline intact to JAYDE, no redness, no swelling, no drainage, covered with clean and dry transparent dressing. Bilateral hand mittens and soft wrist restraint in placed, pulse present. Able to move hands and fingers without problem. F/C intact, drain gravity. On contact isolation. Safety measure maintained. Bed locked in low position, side rails up, bed alarm on. Call light within reached. Will continue to monitor.
[2019-11-10 08:00] VITALS: BP_SYST 107
--- NOTE | 2019-11-10 08:26 | NUR ---
RT SUCTIONED PATIENT AT THIS TIME.
[2019-11-10 08:28] LABS: BASOPHILS % (AUTO) 0.3 % (0.0-2.0); EOSINOPHILS # (AUTO) 0.1 K/uL (0.0-0.4); EOSINOPHILS % (AUTO) 1.2 % (0.0-4.0); HEMATOCRIT 36.4 % (36-48); HEMOGLOBIN 12.5 g/dL (12.0-16.0); LYMPHOCYTES # (AUTO) 1.2 K/uL (1.0-5.5); LYMPHOCYTES % (AUTO) 18.9 % (20.5-51.5); MEAN CORPUSCULAR HEMOGLOBIN 33 pg (27-31); MEAN CORPUSCULAR HGB CONC 34 % (32-36); MEAN CORPUSCULAR VOLUME 97 fL (79.0-98.0); MONOCYTES # (AUTO) 0.5 K/uL (0.0-1.0); MONOCYTES % (AUTO) 8.3 % (1.7-9.3); NEUTROPHILS # (AUTO) 4.5 K/uL (1.8-7.7); NEUTROPHILS % (AUTO) 71.3 % (40.0-70.0); PLATELET COUNT (AUTO) 244 K/uL (130-430); RED BLOOD CELL COUNT(AUTO) 3.74 MIL/uL (4.2-6.2); RED CELL DISTRIBUTION WIDTH 13.9 % (9.0-15.0); WHITE BLOOD COUNT (AUTO) 6.3 K/uL (4.8-10.8)
[2019-11-10] MEDS: PANTOPRAZOLE SODIUM 40 MG/VIAL (PROTONIX) IVP SCH ×2 (10:06→20:38)
[2019-11-10] MEDS: PREDNISONE 20 MG TABLET GT SCH ×2 (10:06→20:38)
[2019-11-10] MEDS: SERTRALINE HCL 50 MG TABLET PO SCH ×2 (10:06→20:38)
[2019-11-10] MEDS: FERROUS SULFATE 300 MG/5 ML UDC GT SCH (10:06)
[2019-11-10] MEDS: LACTOBACILLUS RHAMNOSUS GG 1 CAP CAPSULE GT SCH (10:07)
[2019-11-10] MEDS: POTASSIUM CHLORIDE 20 MEQ/PKT PACKET GT SCH ×2 (10:07→20:38)
[2019-11-10] MEDS: MIDODRINE HCL 5 MG TABLET (PROAMATINE) GT SCH ×3 (10:07→20:38)
[2019-11-10] MEDS: ERGOCALCIFEROL 8000 UNITS/ML ORAL SOLUTION, 60 ML BOTTLE GT SCH (10:08)
[2019-11-10] MEDS: MULTIVIT-MINERALS/FERROUS GLUC 15 ML UDC GT SCH (10:08)
[2019-11-10] MEDS: BALSAM PERU/CASTOR OIL 60 GM OINT...G. TP SCH (10:09)
--- NOTE | 2019-11-10 10:15 | NUR ---
SEEN AND EXAMINED BY ANABEL CHAMORRO.
--- NOTE | 2019-11-10 10:44 | NUR ---
SEEN AND EXAMINED BY JUANIS MARTINEZ.
[2019-11-10 12:20] VITALS: BP_SYST 100
--- NOTE | 2019-11-10 12:35 | NUR ---
ROUND Patient resting in the bed. No acute distress. HOB elevated. Trach intact to O2. GT intact, GT feeding tolerated well. F/C intact, drain gravity. Bilateral hand mitten and soft wrist restraint in placed. Released Q 2hr, able to move fingers and hands without difficulty. On contact isolation. Safety measure maintained. Call light within reached. Bed locked in low position, side rails up, bed alarm on. Continue to monitor.
--- NOTE | 2019-11-10 14:15 | NUR ---
SEEN AND EXAMINED BY DR. KNOX [facility].
--- NOTE | 2019-11-10 18:53 | NUR ---
CLOSING NOTE Patient resting in the bed. No acute distress. Trach intact to O2 via T-bar with cool aerosol. HOB elevated. GT intact, patent, no residual. GT feeding tolerated well. No N/V or s/s of aspiration noted. Skin warm and dry to touch. Midline intact to JAYDE, no redness, no swelling, no drainage, covered with clean and dry transparent dressing. Bilateral hand mittens and soft wrist restraint in placed, pulse present. Able to move hands and fingers without problem. F/C intact, drain gravity. On contact isolation. All needs met. Safety measure maintained. Bed locked in low position, side rails up, bed alarm on. Call light within reached. Will endorse to night nurse.
--- NOTE | 2019-11-10 19:35 | NUR ---
INITIAL NOTES PATIENT IS LAYING IN BED AND WATCHING TV. PATIENT IS STABLE AND SHOWS NO S/S OF RESPIRATORY DISTRESS. CALL LIGHT EDUCATION WAS GIVEN AT THIS TIME. PATIENT UNSUCCESSFULLY DEMONSTRATES USAGE OF CALL LIGHT AT THIS TIME. WILL CONTINUE TO MONITOR FREQUENTLY. PLAN OF CARE WAS DISCUSSED WITH PATIENT AT THIS TIME. BED IS LOCKED, ALARMED, AND AT THE LOWEST POSITION. FALL, SAFETY, RESPIRATORY, CONTACT, AND ASPIRATION PRECAUTIONS WILL BE IN PLACE THROUGHOUT THE SHIFT.
[2019-11-10 19:39] VITALS: BP_SYST 98
--- NOTE | 2019-11-10 21:35 | NUR ---
ROUNDING PATIENT HAS BEEN CHANGED AT THIS TIME. PATIENT TOLERATED WELL. PATIENT REPOSITION FOR COMFORT. PATIENT IS STABLE. PATIENT SHOWS NO S/S OF RESPIRATORY DISTRESS NOTED. CALL LIGHT IN REACH. BED IS LOCKED, ALARMED, AND AT THE LOWEST POSITION. WILL CONTINUE TO MONITOR.
--- NOTE | 2019-11-10 23:35 | NUR ---
ROUNDING PATIENT IS STABLE AND IN BED. NO S/S OF RESPIRATORY DISTRESS NOTED. CALL LIGHT IS WITHIN REACH. BED IS LOCKED, ALARMED, AND AT THE LOWEST POSITION. WILL CONTINUE TO MONITOR.
[2019-11-11 00:34] VITALS: BP_SYST 90
--- NOTE | 2019-11-11 01:36 | NUR ---
ROUNDING PATIENT WAS SUCTIONED AT THIS TIME. PATIENT TOLERATED WELL. PATIENT WAS REPOSITION FOR COMFORT. NO S/S OF RESPIRATORY DISTRESS NOTED. CALL LIGHT IN REACH. BED IS LOCKED, ALARMED, AND AT THE LOWEST POSITION. WILL CONTINUE TO MONITOR.
--- NOTE | 2019-11-11 02:55 | NUR ---
ROUNDING PATIENT TRIED TO GET OUT OF BED. REORIENTED PATIENT. PATIENT IS OTHERWISE STABLE. NO S/S OF RESPIRATORY DISTRESS NOTED. CALL LIGHT IN REACH. BED IS LOCKED, ALARMED, AND AT THE LOWEST POSITION. WILL CONTINUE TO MONITOR.
[2019-11-11] MEDS: IPRATROPIUM/ALBUTEROL SULFATE 3 ML AMPUL.NEB (DUONEB) INH SCH ×6 (03:53→23:19)
--- NOTE | 2019-11-11 04:35 | NUR ---
ROUNDING PATIENT IS LAYING IN BED AND STABLE. NO S/S OF RESPIRATORY DISTRESS NOTED. PATIENT WAS CLEANED. PATIENT LINEN WERE CHANGED AND PATIENT WAS REPOSITION FOR COMFORT. PATIENT TOLERATED WELL. WILL CONTINUE TO MONITOR.
[2019-11-11] MEDS: QUEtiapine FUMARATE 100 MG TABLET GT SCH ×4 (05:33→23:52)
[2019-11-11] MEDS: LEVOTHYROXINE SODIUM 0.025 MG TABLET PO SCH (06:11)
--- NOTE | 2019-11-11 06:26 | NUR ---
CLOSING NOTES PATIENT IS STABLE AND IN BED. NO S/S OF RESPIRATORY DISTRESS NOTED. CALL LIGHT IS WITHIN REACH. BED IS LOCKED, ALARMED, AND AT THE LOWEST POSITION. FALL, SAFETY, ASPIRATION, CONTACT, AND RESPIRATORY PRECAUTIONS HAS BEEN PLACED THROUGHOUT THE SHIFT. WILL CONTINUE TO MONITOR UNTIL REPORT IS GIVEN TO AM NURSE BY BEDSIDE.
--- NOTE | 2019-11-11 07:35 | NUR ---
AM ROUNDS: PATIENT ON T-BAR @ 10L/MIN,FIO2 40%.STILL ON BILATERAL SOFT WRIST RESTRAINT AND MITTENS. JAYDE MIDLINE SALINE LOCK. TUBE FEEDS RUNNING AT 50CC/H.MARTÍNEZ IN PLACE.ON CONTACT ISOLATION PRECAUTION RENDERED.SLEEPING THIS TIME. NO ACUTE DISTRESS.
[2019-11-11 08:30] VITALS: BP_SYST 90
[2019-11-11] MEDS: POTASSIUM CHLORIDE 20 MEQ/PKT PACKET GT SCH ×2 (09:26→21:04)
[2019-11-11] MEDS: FERROUS SULFATE 300 MG/5 ML UDC GT SCH (09:26)
[2019-11-11] MEDS: PREDNISONE 20 MG TABLET GT SCH ×2 (09:26→21:04)
[2019-11-11] MEDS: MULTIVIT-MINERALS/FERROUS GLUC 15 ML UDC GT SCH (09:27)
[2019-11-11] MEDS: MIDODRINE HCL 5 MG TABLET (PROAMATINE) GT SCH ×3 (09:27→21:05)
[2019-11-11] MEDS: LACTOBACILLUS RHAMNOSUS GG 1 CAP CAPSULE GT SCH (09:27)
[2019-11-11] MEDS: SERTRALINE HCL 50 MG TABLET PO SCH ×2 (09:27→21:04)
[2019-11-11] MEDS: PANTOPRAZOLE SODIUM 40 MG/VIAL (PROTONIX) IVP SCH ×2 (09:27→21:12)
[2019-11-11] MEDS: ERGOCALCIFEROL 8000 UNITS/ML ORAL SOLUTION, 60 ML BOTTLE GT SCH (09:28)
[2019-11-11] MEDS: BALSAM PERU/CASTOR OIL 60 GM OINT...G. TP SCH (09:28)
[2019-11-11] MEDS: ENOXAPARIN SODIUM 30 MG/0.3 ML SYRINGE SUBCUT SCH (09:29)
--- NOTE | 2019-11-11 09:30 | NUR ---
MEDS/G TUBE: NO RESIDUALS PRIOR TO GIVING MEDS.CRUSHED MEDS GIVEN AND FLUSHED WITH WATER AFTER GIVING MEDS. NO PROBLEM.
[2019-11-11 12:49] VITALS: BP_SYST 100
[2019-11-11] MEDS: ACETAMINOPHEN 325 MG TABLET GT PRN (14:09)
--- NOTE | 2019-11-11 16:00 | NUR ---
WOUND CARE: CLEANSE HS SACRAL AREA,PAT DRY,VENELEX OINTMENT TO WOUND BED,PACK WITH IODOFORM 1 INCH,THEN COVERED WITH SACRAL FOAM DRESSING. CLEANSE NS RIGHT LOWER LEG,PAT DRY,VENELEX OINTMENT TO WOUND BED,BARRIER CREAM TO CARY WOUND AREA AND COVERED WITH FOAM DRESSING.
--- NOTE | 2019-11-11 16:19 | NUR ---
Nutrition F/U RD reviewed pt's current EMR including diet Hx, physician notes, nursing notes, pertinent labs/meds/procedures, care trends, and care activity. Current Nutrition Support: Jevity 1.5 at 50 ml/hr, Free Water Flush: 100 ml Q6H via GT x11 days Subjective information: Pt seen w/ bilateral wrist restraints w/ TF infusing as per physician order. Bedscale was not working. Per RN report, pt has been tolerating TF well, no s/s of intolerance. Current TF regimen is adequate/appropriate. 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 *ongoing Expected Outcomes/Goals Monitor EN support with goals of pt meeting at least 90% of estimated nutritional needs, labs trending WNL, and skin integrity/wt maintenance. Dietitian Recommendations * Recommend continuing Jevity 1.5 at 50 ml/hr, Free Water Flush: 100 ml Q6H via GT Provides: 1800 kcal/day, 77 gm protein/day, and 1312 ml free water/day Meets: 107% of upper end of estimated caloric needs and 108% of lower end of estimated protein needs Moderate Risk; F/U within 3-5 days
[2019-11-11 16:53] VITALS: BP_SYST 104
--- NOTE | 2019-11-11 18:43 | NUR ---
CLOSING NOTES: SLEEPING THIS TIME. TOLERATED T-BAR @ 10 L/MIN,GOOD SATURATION.TUBE FEEDS ON GOING,IN PLACE. MARTÍNEZ IN PLACE. BILATERAL SOFT WRIST RESTRAIN /MITTENS ON.BILATERAL SCD'S ON LE. SAFETY MEASURES RENDERED. CONDITION GUARDED.
--- NOTE | 2019-11-11 19:36 | NUR ---
Opening Note Received patient resting in bed awake, no s/sx of distress. Nonlabored breathing on T-bar at 40%; tolerating. Patient has bilat wrist restraints, and bilat mittens on hands. G-tube feeding is infusing at 50 ml/hr. Bed is locked in lowest position, side rails up 3x, bed alarm on and call light w/in reach. Updated board.
[2019-11-11 20:00] VITALS: BP_SYST 81
[2019-11-12 00:40] VITALS: BP_SYST 94
--- NOTE | 2019-11-12 02:17 | NUR ---
Resting Patient is presently resting w/ eyes closed. She is sleeping quietly. She continues on T-bar and does not exhibit SOB, or labored breathing. Safety precautions in place.
[2019-11-12] MEDS: IPRATROPIUM/ALBUTEROL SULFATE 3 ML AMPUL.NEB (DUONEB) INH SCH ×3 (03:28→23:46)
[2019-11-12] MEDS: QUEtiapine FUMARATE 100 MG TABLET GT SCH ×3 (06:02→17:09)
[2019-11-12] MEDS: LEVOTHYROXINE SODIUM 0.025 MG TABLET PO SCH (06:03)
--- NOTE | 2019-11-12 07:30 | NUR ---
Opening note patient resting in bed at this time, A/ox1, nonverbal. No SOB. No complaints of pain. Midline patent, intact. No infiltration noted. GT in place, patent, and intact. GT feeding tolerating well. No residual noted. No nausea, no vomiting. Pollack catheter in place, draining yellow urine to gravity. On safety and aspiration precautions, HOB kept elevated, 3 side rails up, call light within reach. Patient in stable condition. Will continue to monitor.
[2019-11-12 08:00] VITALS: BP_SYST 93
[2019-11-12] MEDS: ENOXAPARIN SODIUM 30 MG/0.3 ML SYRINGE SUBCUT SCH (09:03)
[2019-11-12] MEDS: PANTOPRAZOLE SODIUM 40 MG/VIAL (PROTONIX) IVP SCH ×2 (09:05→21:59)
[2019-11-12] MEDS: SERTRALINE HCL 50 MG TABLET PO SCH ×2 (09:06→22:00)
[2019-11-12] MEDS: POTASSIUM CHLORIDE 20 MEQ/PKT PACKET GT SCH ×2 (09:06→21:59)
[2019-11-12] MEDS: LACTOBACILLUS RHAMNOSUS GG 1 CAP CAPSULE GT SCH (09:06)
[2019-11-12] MEDS: MIDODRINE HCL 5 MG TABLET (PROAMATINE) GT SCH ×3 (09:06→21:59)
[2019-11-12] MEDS: FERROUS SULFATE 300 MG/5 ML UDC GT SCH (09:06)
[2019-11-12] MEDS: MULTIVIT-MINERALS/FERROUS GLUC 15 ML UDC GT SCH (09:07)
[2019-11-12] MEDS: PREDNISONE 20 MG TABLET GT SCH ×2 (09:07→22:00)
[2019-11-12] MEDS: ERGOCALCIFEROL 8000 UNITS/ML ORAL SOLUTION, 60 ML BOTTLE GT SCH (09:08)
[2019-11-12] MEDS: BALSAM PERU/CASTOR OIL 60 GM OINT...G. TP SCH (09:09)
--- NOTE | 2019-11-12 09:30 | NUR ---
medications All morning medications given as ordered. no adverse side effects. patient in stable condition.
[2019-11-12 11:22] VITALS: BP_SYST 93
--- NOTE | 2019-11-12 11:30 | NUR ---
GT feeding GT feeding replaced. GT feeding tolerating well. No residual noted. No vomiting. no complaints of abdominal pain.
--- NOTE | 2019-11-12 13:44 | NUR ---
Skin care Skin care provided. Linens changed. GT flushed as ordered. No other needs at this time.
--- NOTE | 2019-11-12 15:30 | NUR ---
wound care wound care done as ordered. Pictures taken. Linens changed. No other needs at this time.
[2019-11-12 15:36] VITALS: BP_SYST 115
--- NOTE | 2019-11-12 16:38 | NUR ---
Wound Re-Evaluation: Patient received in a Jasper bed with an IsoFlex RUBEN mattress with low air-loss therapy, awake, alert, confused, and mouths words secondary to tracheostomy tube. Patient is able to turn in bed with minimal assist. Barrett score is a 14. Microbiology: Blood culture results 2 negative. Intrinsic factors that delay wound healing: COPD, Anoxic Encephalopathy, Asthma, Respiratory Failure, Hypoalbuminemia. Extrinsic factors that delay wound healing: Immobility. Wound Assessment: 1. Sacral-Coccygeal area: Unstageable Pressure ulcer, present on admission. Wound bed has 40% yellow slough, 60% pink tissue. Mild odor, no drainage. Periwound is blanchable pink, macerated. Periwound and surrounding tissue has scar tissue, and blanchable erythema. Wound measures 1.0 cm x 1.7 cm x 0.9 cm. Undermining present from 7-12 o'clock (0.2 cm at 7 o'clock; 1.6 cm at 9 o'clock; 0.9 cm at 12 o'clock). Tunneling present at 8-10 o'clock measuring 2.0 cm depth. Tunnel is connecting to site 2. Recommend continue: Cleanse wound with normal saline. Apply moisture barrier cream to periwound. Apply Venelex ointment to wound bed. Pack wound with 1/2 inch iodoform packing strip. Cover with foam dressing. Perform wound care daily, and as needed for dressing soiling or dislodgment. 2. Left Sacral area: Pressure ulcer, present on admission. Site has 100% pink scar tissue. No odor, no drainage. Surrounding is pink. Pressure ulcer has resolved on top of skin. Tunneling from site 1 appears to be connected to this site, with decreased tunneling length. Will continue to monitor. Recommend: Cover with Sacral foam dressing. Perform site care daily, and as needed for dressing soiling or dislodgment. 3. Right Medial Malleolus: Unstageable pressure ulcer, present on admission. Site has 100% yellow eschar. No odor, no drainage. Periwound intact. Dry, stable. Wound measures 2.0 cm x 1.5 cm. Recommend continue: [place] site with Betadine. Allow to air dry. Cover with foam dressing. Perform wound care daily, and as needed for dressing soiling or dislodgment. 4. Right Distal Medial Lower Extremity, Superior to Site 3: Wound of unknown etiology, present on admission. Site has 90% dark red tissue, 10% yellow tissue. No odor, no drainage. Periwound intact, pink. Surrounding tissue has pink scar tissue. Wound measures 2.3 cm x 0.8 cm. Recommend continue: Cleanse wound with normal saline. Apply moisture barrier cream to periwound. Apply Venelex ointment to wound bed. Cover with foam dressing. Perform wound care daily, and as needed for dressing soiling or dislodgment. 5. Right Olecranon: Chronic wound of unknown etiology, present on admission. Blanchable red erythema present, wound has resolved.. 6. Coccygeal, Bilateral Hip and Lumbosacral joint areas: Bony areas with little adipose tissue and minimal muscle tissue. Recommend continue: Cover sites with foam dressings. Perform site care daily, and as needed for dressing soiling or dislodgment. Also recommend continue: Reposition patient side to side only every two hours with pillow support, and off-load pressure areas with pillows for pressure re-distribution. Offload, elevate and float heels with pillows. Perform skin care and monitor skin integrity q shift. Use moisture barrier cream on buttocks, and other moisture susceptible areas qid and as needed for soiling. Maintain patient on a low air-loss mattress.
--- NOTE | 2019-11-12 16:50 | NUR ---
rounds patient resting in bed at this time, no signs of pain. Patient sleeping at this time. No other needs.
--- NOTE | 2019-11-12 18:19 | NUR ---
closing note patient resting in bed at this time, A/ox1, nonverbal. No SOB. No complaints of pain. Midline patent, intact. No infiltration noted. GT in place, patent, and intact. GT feeding tolerating well. No residual noted. No nausea, no vomiting. Pollack catheter in place, draining yellow urine to gravity. On bilateral wrist restraints, released wrist restraints, patient pulled out T bar connector. reinforced by respiratory therapist. restraints reinforced. On safety and aspiration precautions, HOB kept elevated, 3 side rails up, call light within reach. Patient in stable condition. all needs met.
--- NOTE | 2019-11-12 19:20 | NUR ---
Opening Note Received patient resting in bed awake, no s/sx of distress. Nonlabored breathing on T-bar at 40%; tolerating. Patient has bilat wrist restraints, and bilat mittens on hands. G-tube feeding is infusing at 50 ml/hr. Bed is locked in lowest position, side rails up 3x, bed alarm on and call light w/in reach. Mid line to JAYDE is SL. Updated board.
[2019-11-12 20:00] VITALS: BP_SYST 94
[2019-11-12] MEDS: OLANZapine 5 MG TABLET GT SCH (21:59)
--- NOTE | 2019-11-12 22:00 | NUR ---
Medications Patient had no residual. Medications given via G-tube, she tolerated. After medication pass, resumed feeding at 50 ml/hr as ordered. Patient was not cooperative with oral care, she turned her head away and blocked with her hands. Provided suction, repositioned and turned.
[2019-11-13 00:01] VITALS: BP_SYST 92
[2019-11-13] MEDS: QUEtiapine FUMARATE 100 MG TABLET GT SCH ×5 (00:47→23:14)
[2019-11-13] MEDS: IPRATROPIUM/ALBUTEROL SULFATE 3 ML AMPUL.NEB (DUONEB) INH SCH ×5 (03:24→20:40)
[2019-11-13] MEDS: LEVOTHYROXINE SODIUM 0.025 MG TABLET PO SCH (05:54)
[2019-11-13 08:05] VITALS: BP_SYST 103
--- NOTE | 2019-11-13 08:05 | NUR ---
INITIAL ROUNDS Received pt AAox2, no s/s resp distress, no c/o pain or discomfort. Pt on Contact Isolation precautions for MDRO, AUTOMOBILE SERVICE WRITER of the sputum. Pt on T-bar via trach. Jevity 1.5 infusing well via G-tube at ordered rate with no residual noted. Pt on air mattress with sacral dressing noted, pt repositioned with pillow support and heels off-loaded for skin care. Bilat wrist restraints and mittens in place due to pt removing equipment. Side rails up x3, bed alarm on for safety.
[2019-11-13] MEDS: FERROUS SULFATE 300 MG/5 ML UDC GT SCH (10:59)
[2019-11-13] MEDS: LACTOBACILLUS RHAMNOSUS GG 1 CAP CAPSULE GT SCH (10:59)
[2019-11-13] MEDS: PANTOPRAZOLE SODIUM 40 MG/VIAL (PROTONIX) IVP SCH ×2 (10:59→21:25)
[2019-11-13] MEDS: OLANZapine 5 MG TABLET GT SCH ×2 (10:59→21:25)
[2019-11-13] MEDS: POTASSIUM CHLORIDE 20 MEQ/PKT PACKET GT SCH ×2 (10:59→21:25)
[2019-11-13] MEDS: PREDNISONE 20 MG TABLET GT SCH ×2 (11:00→21:25)
[2019-11-13] MEDS: SERTRALINE HCL 50 MG TABLET PO SCH ×2 (11:01→21:25)
[2019-11-13] MEDS: MIDODRINE HCL 5 MG TABLET (PROAMATINE) GT SCH ×3 (11:02→21:25)
[2019-11-13] MEDS: ERGOCALCIFEROL 8000 UNITS/ML ORAL SOLUTION, 60 ML BOTTLE GT SCH (11:02)
[2019-11-13] MEDS: MULTIVIT-MINERALS/FERROUS GLUC 15 ML UDC GT SCH (11:03)
[2019-11-13] MEDS: ENOXAPARIN SODIUM 30 MG/0.3 ML SYRINGE SUBCUT SCH (11:04)
--- NOTE | 2019-11-13 12:15 | NUR ---
KEY/ Pt resting quietly watching television with no s/s resp distress, no c/o pain or discomfort. Pt repositioned with pillow support-pt refused pillow under her heels at this time. Pt seen by Dr. Soto. All precautions remain in place.
--- NOTE | 2019-11-13 12:25 | NUR ---
EENT CONSULT WITH DR HENDRICKS SPOKE TO RIVERA HONEYCUTT AND MADE AWARE OF CONSULT WITH DR HENDRICKS ( [facility])
[2019-11-13 12:51] VITALS: BP_SYST 100
--- NOTE | 2019-11-13 15:19 | NUR ---
ROUNDS Pt resting quietly with no s/s resp distress, no c/o pain or discomfort. All precautions remain in place.
--- NOTE | 2019-11-13 16:05 | NUR ---
WOUND CARE *Sacral wound-old packing and dressing removed, wound cleansed with normal saline, Venelex ointment placed onto wound bed, tunneling of wound packed with iodoform dressing, moisture barrier cream applied to periwound, covered with foam dressing. Wound measures 1 cm x 1.6 cm x 0.9 cm, noted tunneling and undermining present. 60 % pink tissue, 40% yellow tissue, slight odor. Periwound is pink, blanchable. Right distal medial ankle-wound cleansed with normal saline, Venelex ointment placed onto wound bed, moisture barrier cream applied to periwound, covered with a foam dressing. Wound measures 2.3 cm x 0.9 cm, wound is 90% pink tissue, 10% yellow tissue, no odor, no drainage, periwound is pink. Right medial ankle-wound cleansed with normal saline, site painted with Betadine swap, air dried, periwound pink, covered with foam dressing. Wound is 100% yellow tissue, no odor, no drainage. Wound measures 2 cm x 1.5 cm. Pt tolerated well. All precautions remain in place.
[2019-11-13] MEDS: BALSAM PERU/CASTOR OIL 60 GM OINT...G. TP SCH (16:12)
[2019-11-13 16:54] VITALS: BP_SYST 103
--- NOTE | 2019-11-13 19:20 | NUR ---
CLOSING NOTE Pt resting quietly in bed watching television-noted pt had bumped ET tube out-family preservation caseworker placed back into trach and inflated the balloon. Noted pt with no s/s resp distress, no c/o pain or discomfort. Contact Isolation precautions maintained throughout shift. Aspiration, skin and safety precautions remain in place.
--- NOTE | 2019-11-13 19:30 | NUR ---
Opening notes Received report. Patient is resting in bed. No signs of distress noted. Breathing even and unlabored on 40% FiO2 T-bar. Midline patent and intact, no signs of infiltration noted. Bilateral wrist restraints in place, no signs of injury noted. G-tube in place infusing feeding. Pollack catheter in place draining urine. No needs at this time. Call light with the patient. Safety precautions in place.
--- NOTE | 2019-11-13 20:30 | NUR ---
PT PULLED TRACH OUT. PUT BACK IN AND SECURED. PT SATING 96%. NO DISTRESS NOTED. Addendum: 11/14/19 at 0110 by Celia Jaimes RT Amended: Links added.
--- NOTE | 2019-11-13 21:30 | NUR ---
Medications given via g-tube. No residual noted. Educated patient the action and side effects of medications. Patient tolerated well. Hygiene care provided. Also tracheal suction provided by patient request. No other needs. Call light with the patient. Safety precautions in place.
[2019-11-13 21:40] VITALS: BP_SYST 107
--- NOTE | 2019-11-13 23:30 | NUR ---
Sleeping Patient sleeping. No signs of distress noted. Breathing even and unlabored. No needs at this time. Call light with the patient. Safety precautions in place.
[2019-11-14 00:01] VITALS: BP_SYST 92
[2019-11-14] MEDS: IPRATROPIUM/ALBUTEROL SULFATE 3 ML AMPUL.NEB (DUONEB) INH SCH ×6 (00:10→20:20)
--- NOTE | 2019-11-14 02:17 | NUR ---
Resting Patient awake and watching TV. Patient moves around in bed. No signs of distress noted. Breathing even and unlabored. Tracheal suctioning provided per patient request. No other needs. Call light with the patient. Safety precautions in place.
--- NOTE | 2019-11-14 04:00 | NUR ---
Resting Patient is resting in bed. RT and RT student assessing patient. No signs of distress noted. Breathing even and unlabored. No needs. Call light with the patient. Safety precautions in place.
[2019-11-14] MEDS: QUEtiapine FUMARATE 100 MG TABLET GT SCH ×4 (06:01→23:20)
[2019-11-14] MEDS: LEVOTHYROXINE SODIUM 0.025 MG TABLET PO SCH (06:01)
[2019-11-14] MEDS: ACETAMINOPHEN 325 MG TABLET GT PRN (06:36)
--- NOTE | 2019-11-14 06:43 | NUR ---
Closing notes Patient was complaining of pain to right hand prn pain medication given. No residual noted. No signs of distress noted. Breathing even and unlabored. Midline patent and intact, no signs of infiltration noted. Bilateral wrist restraints in place, no signs of injury noted. G-tube in place, infusing feedings. Pollack catheter in place. All needs met throughout the shift. Call light with the patient. Safety precautions in place. will endorse care to day shift RN.
--- NOTE | 2019-11-14 07:15 | NUR ---
OPENING NOTE PT RESTING IN BED. CHEST RISE AND FALL NOTED. NO ACUTE DISTRESS NOTED. G-TUBE INTACT AND PATENT. SURROUNDING SKIN SHOWS NO SIGNS OF REDNESS. CLEAN SITE. CHECKED FOR PLACEMENT. 5 ML RESIDUAL, FEEDING RUNNING. TOLERATING WELL. HOB ELEVATED. IV INTACT AND PATENT. NO SIGNS OF INFILTRATION. SOFT BILATERAL WRIST RESTRAINTS AND BILATERAL MITTENS IN PLACE. NO SIGNS OF REDNESS. NO SIGNS OF INJURY NOTED. ALL NEEDS MET. CALL LIGHT IN REACH. FALL AND ASPIRATION PRECAUTIONS IN PLACE. CONTACT ISOLATION PRECAUTIONS IN PLACE. CONTINUE TO MONITOR.
[2019-11-14 07:51] LABS: BASOPHILS % (AUTO) 0.3 % (0.0-2.0); EOSINOPHILS % (AUTO) 0.4 % (0.0-4.0); HEMATOCRIT 35.9 % (36-48); HEMOGLOBIN 12.4 g/dL (12.0-16.0); LYMPHOCYTES # (AUTO) 1.2 K/uL (1.0-5.5); LYMPHOCYTES % (AUTO) 14.4 % (20.5-51.5); MEAN CORPUSCULAR HEMOGLOBIN 33 pg (27-31); MEAN CORPUSCULAR HGB CONC 35 % (32-36); MEAN CORPUSCULAR VOLUME 96 fL (79.0-98.0); MONOCYTES # (AUTO) 0.4 K/uL (0.0-1.0); MONOCYTES % (AUTO) 4.7 % (1.7-9.3); NEUTROPHILS # (AUTO) 6.4 K/uL (1.8-7.7); NEUTROPHILS % (AUTO) 80.2 % (40.0-70.0); PLATELET COUNT (AUTO) 236 K/uL (130-430); RED BLOOD CELL COUNT(AUTO) 3.73 MIL/uL (4.2-6.2); RED CELL DISTRIBUTION WIDTH 13.6 % (9.0-15.0)
[2019-11-14 08:00] VITALS: BP_SYST 94
[2019-11-14] MEDS: POTASSIUM CHLORIDE 20 MEQ/PKT PACKET GT SCH ×2 (08:01→20:41)
[2019-11-14] MEDS: PREDNISONE 20 MG TABLET GT SCH ×2 (08:01→20:41)
[2019-11-14] MEDS: FERROUS SULFATE 300 MG/5 ML UDC GT SCH (08:01)
[2019-11-14] MEDS: PANTOPRAZOLE SODIUM 40 MG/VIAL (PROTONIX) IVP SCH ×2 (08:01→20:42)
--- NOTE | 2019-11-14 08:01 | NUR ---
MEDS CHECKED G-TUBE PLACEMENT. 5ML RESIDUAL NOTED. NO ACUTE DISTRESS NOTED. MEDS ADMINISTERED ORDERED PER MD. TOLERATED WELL. EDUCATION GIVEN. FALL AND ASPIRATION PRECAUTIONS IN PLACE. CALL LIGHT IN REACH. ALL NEEDS MET. CONTINUE TO MONITOR.
[2019-11-14] MEDS: MIDODRINE HCL 5 MG TABLET (PROAMATINE) GT SCH ×3 (08:02→20:41)
[2019-11-14] MEDS: SERTRALINE HCL 50 MG TABLET PO SCH ×2 (08:02→20:41)
[2019-11-14] MEDS: OLANZapine 5 MG TABLET GT SCH ×2 (08:03→20:41)
[2019-11-14] MEDS: MULTIVIT-MINERALS/FERROUS GLUC 15 ML UDC GT SCH (08:03)
[2019-11-14] MEDS: ERGOCALCIFEROL 8000 UNITS/ML ORAL SOLUTION, 60 ML BOTTLE GT SCH (08:04)
[2019-11-14] MEDS: ENOXAPARIN SODIUM 30 MG/0.3 ML SYRINGE SUBCUT SCH (08:04)
[2019-11-14] MEDS: BALSAM PERU/CASTOR OIL 60 GM OINT...G. TP SCH (08:05)
[2019-11-14] MEDS: LACTOBACILLUS RHAMNOSUS GG 1 CAP CAPSULE GT SCH (08:06)
--- NOTE | 2019-11-14 10:15 | NUR ---
ROUNDS PT AWAKE IN BED WATCHING TV. NO ACUTE DISTRESS NOTED. HOB ELEVATED. ALL NEEDS MET. CALL LIGHT IN REACH. FALL, ASPIRATION, AND CONTACT ISOLATION PRECAUTIONS IN PLACE. CONTINUE TO MONITOR.
--- NOTE | 2019-11-14 12:00 | NUR ---
GTF PATIENT AWAKE AND ALERT. HOB UP. HUNG NEW GTUBE FEEDING ORDERED. ALONA WELL. KEPT CLEAN AND DRY. ALL NEEDS ANTICIPATED AND MET. CONT TO MONITOR WITH FREQUENT VISUAL CHECK. CALL LIGHT IN REACH
[2019-11-14 12:38] VITALS: BP_SYST 101
--- NOTE | 2019-11-14 14:00 | NUR ---
TBAR PATIENT DISCONNECTED TBAR. TRACH INTACT AND PATENT AND SECURED BY TRACH TIE. TBAR PLACED ORDERED, ALONA WELL. NO ACUTE DISTRESS. NO SOB. RESP EVEN AND UNLABORED. RESTRAINTS IN PLACE. NO INJURIES NOTED. REPOSITIONED FOR COMFORT. PATIENT CLEAN AND DRY. CONT TO MONITOR WITH FREQUENT VISUAL CHECKS
--- NOTE | 2019-11-14 15:00 | NUR ---
SEEN AND EXAMINED BY AT BEDSIDE
[2019-11-14 15:54] VITALS: BP_SYST 101
--- NOTE | 2019-11-14 16:00 | NUR ---
WOUND CARE WOUND CARE PROVIDED AND PATIENT ALONA WELL. NO C/O PAIN. REPOSITIONED FOR COMFORT WITH PILLOWS. ALL NEEDS MET. KEPT CLEAN AND DRY. CONT TO MONITOR WITH FREQUENT VISUAL CHECKS
[2019-11-14 16:52] VITALS: BP_SYST 106
--- NOTE | 2019-11-14 17:28 | NUR ---
NOTE PATIENT RESTING IN BED. TRACH INTACT AND PATENT. NO ACUTE DISTRESS. NO SOB. RESPIRATION EVEN AND UNLABORED. SKIN WARM AND DRY TO TOUCH. KEPT CLEAN AND DRY. CONT TO MONITOR
--- NOTE | 2019-11-14 18:53 | NUR ---
CLOSING NOTE PATIENT IS RESTING IN BED. NOTED RISE/FALL CHEST. HOB UP. TRACH INTACT AND PATENT AND SECURED WITH TRACH TIE. ALONA TBAR ORDERED. ALONA SUCTIONING; NOTED LARGE THICK YELLOW SECRETIONS. NO ACUTE DISTRESS. NO SOB. RESPIRATION EVEN AND UNLABORED. SKIN WARM AND DRY TO TOUCH. MIDLINE INTACT AND PATENT. GTUBE INTACT AND PATENT; ALONA GTUBE FEEDING. ABDOMINAL BINDER IN PLACE. PT CLEAN AND DRY. MARTÍNEZ CATH INTACT AND PATENT DRAINING YELLOW URINE. BED IN LOW AND LOCKED POSITION. SIDERAIL UPX4. BED ALARM ON. WILL ENDORSE TO ONCOMING SHIFT.
--- NOTE | 2019-11-14 19:30 | NUR ---
Opening notes Received report. Patient is sleeping at this time. No signs of distress noted. Breathing even and unlabored on 40% FiO2 T-bar. Midline patent and intact, no signs of infiltration noted. Bilateral wrist restraints in place, no signs of injury noted. G-tube in place infusing feeding. Pollack catheter in place draining urine. No needs at this time. Call light with the patient. Safety precautions in place.
--- NOTE | 2019-11-14 21:00 | NUR ---
Medications given via g-tube. No residual noted. Educated the action and side effects of medications. Patient tolerated well. Patient repositioned. Patient suctioned and obtained small amount of thick yellow secretions. No other needs. Call light with the patient. Safety precautions in place.
[2019-11-14 21:24] VITALS: BP_SYST 99
--- NOTE | 2019-11-14 23:30 | NUR ---
Resting patient resting in bed. No signs of distress noted. Breathing even and unlabored. Suctioned patient and moderate amount of thick yellow secretions noted. No other needs. call light with the patient. Safety precautions in place.
[2019-11-15] MEDS: IPRATROPIUM/ALBUTEROL SULFATE 3 ML AMPUL.NEB (DUONEB) INH SCH ×7 (00:15→23:15)
--- NOTE | 2019-11-15 01:42 | NUR ---
Hygiene care provided. Patient tolerated well. No signs of distress noted. Midline dressing changed using sterile technique. No other needs. call light with the patient. Safety precautions in place.
[2019-11-15 02:30] VITALS: BP_SYST 116
--- NOTE | 2019-11-15 04:30 | NUR ---
Sleeping Patient in and out of sleep. No signs of distress noted. Breathing even and unlabored. Suctioned patient. No other needs. Call light with the patient. Safety precautions in place.
[2019-11-15] MEDS: LEVOTHYROXINE SODIUM 0.025 MG TABLET PO SCH (06:03)
[2019-11-15] MEDS: QUEtiapine FUMARATE 100 MG TABLET GT SCH ×3 (06:03→17:09)
--- NOTE | 2019-11-15 06:38 | NUR ---
Closing notes Patient sleeping at this time. No signs of distress noted. Breathing even and unlabored. Midline patent and intact, no signs of infiltration noted. Bilateral wrist restraints in place, no signs of injury noted. G-tube in place, infusing feedings. Pollack catheter in place. All needs met throughout the shift. Call light with the patient. Safety precautions in place. Will endorse care to day shift RN.
--- NOTE | 2019-11-15 07:40 | NUR ---
Opening Note received bedside SBAR report from litigation attorney RN, patient resting in bed, respirations even and unlabored on t-bar to 10L oxygen, tube feeding infusing well, HOB elevated 30 degrees, educated patient on use of call light and asked to call for assistance, call light in reach, bed in low and locked position, bed alarm on.
[2019-11-15] MEDS: ENOXAPARIN SODIUM 30 MG/0.3 ML SYRINGE SUBCUT SCH (07:56)
[2019-11-15 08:00] VITALS: BP_SYST 90
[2019-11-15] MEDS: OLANZapine 5 MG TABLET GT SCH ×2 (08:00→22:37)
[2019-11-15] MEDS: SERTRALINE HCL 50 MG TABLET PO SCH ×2 (08:00→22:37)
[2019-11-15] MEDS: PREDNISONE 20 MG TABLET GT SCH ×2 (08:00→22:37)
[2019-11-15] MEDS: MIDODRINE HCL 5 MG TABLET (PROAMATINE) GT SCH ×3 (08:00→22:37)
[2019-11-15] MEDS: PANTOPRAZOLE SODIUM 40 MG/VIAL (PROTONIX) IVP SCH ×2 (08:00→22:37)
[2019-11-15] MEDS: FERROUS SULFATE 300 MG/5 ML UDC GT SCH (08:00)
[2019-11-15] MEDS: POTASSIUM CHLORIDE 20 MEQ/PKT PACKET GT SCH ×2 (08:00→22:37)
[2019-11-15] MEDS: LACTOBACILLUS RHAMNOSUS GG 1 CAP CAPSULE GT SCH (08:00)
[2019-11-15] MEDS: MULTIVIT-MINERALS/FERROUS GLUC 15 ML UDC GT SCH (08:01)
[2019-11-15] MEDS: BALSAM PERU/CASTOR OIL 60 GM OINT...G. TP SCH (08:01)
[2019-11-15] MEDS: ERGOCALCIFEROL 8000 UNITS/ML ORAL SOLUTION, 60 ML BOTTLE GT SCH (08:01)
--- NOTE | 2019-11-15 09:42 | NUR ---
RN Rounds patient resting in bed, respirations even and unlabored on trach to t-bar, no pain noted using FLACC scale, no acute distress noted.
[2019-11-15 11:31] VITALS: BP_SYST 92
--- NOTE | 2019-11-15 11:56 | NUR ---
Suctioning wet sound heard upon patients inspiration, tracheal suctioning provided, moderate amount of yellow secretions removed, patient tolerated well, respirations even and unlabored on trach to t-bar, no acute distress noted, HOB elevated 30 degrees.
--- NOTE | 2019-11-15 14:06 | NUR ---
Physician Rounds Dr. Soto at bedside examining patient.
[2019-11-15 15:44] VITALS: BP_SYST 100
--- NOTE | 2019-11-15 16:21 | NUR ---
Wound Care educated patient on purpose and procedure for wound care, wound care completed, patient tolerated well, patient denies any pain during or after wound care, no acute distress noted, patient tolerated well, see MST shift assessment for wound care.
--- NOTE | 2019-11-15 17:28 | NUR ---
Suctioning patient requesting tracheal and oral suctioning, tracheal and oral suctioning provided, patient tolerated well, no acute distress noted, respirations even and unlabored on trach to t-bar.
--- NOTE | 2019-11-15 19:27 | NUR ---
Closing Note bedside SBAR report given to receiving RN, patient resting in bed, respirations even and unlabored on trach to t-bar, no acute distress noted, educated patient on use of call light and asked to call for assistance, call light in reach, bed in low and locked position, bed alarm on, care endorsed to machinist 2nd shift RN.
--- NOTE | 2019-11-15 19:50 | NUR ---
Opening Note Received report from charan RN, patient resting in bed, no signs of acute distress, A/Ox1, patient is nonverbal, patient is tolerating T-Bar at 10L, FiO2 40%, right upper arm midline is SL, G-tube feeding infusing, Jevity 1.5 @50mL/hr, Pollack catheter draining to gravity, bilateral soft wrist restraints and bilateral mittens in place, no sign of skin breakdown, safety and fall precautions in place, bed locked and in lowest position, bed alarm on, three side rails up, aspiration and contact isolation precautions in place, call light with patient, will continue to monitor.
[2019-11-15 20:00] VITALS: BP_SYST 89
--- NOTE | 2019-11-15 22:40 | NUR ---
Trach Tube Dislodged Found trach tube dislodged, O2 sat 90%, called RT to reinsert, observed Garret, RT insert new trach tube, patient tolerated well, O2 sat now 99% on 10L T-Bar, trach suctioned provided. Safety and fall precautions in place, aspiration and contact isolation precautions in place, call light with patient, will continue to monitor.
--- NOTE | 2019-11-15 23:19 | NUR ---
RT NOTES TRACH REPLACED AFTER PT PULLS OUT TRACH. PT REAMIN ON 40% COOL AEROSOL. RN MADE AWARE. NO RESP DISTRESS NOTED.
--- NOTE | 2019-11-16 00:45 | NUR ---
Wound Care Patient had a BM and dressing became soiled. Completed wound care to patient's sacral wound per MD order and wound care nurse recommendations. Patient cleaned, dried and repositioned. Patient tolerated well. Safety and fall precautions in place. Aspiration and isolation precautions in place, call light with patient, will continue to monitor.
[2019-11-16] MEDS: QUEtiapine FUMARATE 100 MG TABLET GT SCH ×4 (00:59→16:54)
--- NOTE | 2019-11-16 02:40 | NUR ---
Wound Care/Incontinence Care Patient had a BM and dressing became soiled. Incontinence care rendered by this RN and IGOR Oakley. Completed wound care to patient's sacral wound per MD order and wound care nurse recommendations. Patient cleaned, dried and repositioned. Patient tolerated well. Safety and fall precautions in place. Aspiration and isolation precautions in place, call light with patient, will continue to monitor.
[2019-11-16 02:45] VITALS: BP_SYST 87
[2019-11-16 03:11] VITALS: BP_SYST 94
[2019-11-16] MEDS: IPRATROPIUM/ALBUTEROL SULFATE 3 ML AMPUL.NEB (DUONEB) INH SCH ×6 (03:38→22:30)
--- NOTE | 2019-11-16 05:30 | NUR ---
Trach Tube Dislodged Found trach tube dislodged, O2 sat 93%, called RT to reinsert, observed Garret, RT insert new trach tube, patient tolerated well, O2 sat now 99% on 10L T-Bar, trach suctioned provided. Safety and fall precautions in place, aspiration and contact isolation precautions in place, call light with patient, will continue to monitor.
[2019-11-16] MEDS: LEVOTHYROXINE SODIUM 0.025 MG TABLET PO SCH (06:21)
--- NOTE | 2019-11-16 06:55 | NUR ---
Closing Note Patient restless in bed, A/Ox1, patient is nonverbal, no signs of acute distress, patient is tolerating T-Bar at 10L, FiO2 40%, right upper arm midline is SL, G-tube feeding infusing, Jevity 1.5 @50mL/hr, Pollack catheter draining to gravity, bilateral soft wrist restraints and bilateral mittens in place, no sign of skin breakdown, safety and fall precautions in place, bed locked and in lowest position, bed alarm on, three side rails up, aspiration precautions in place, contact isolation precautions in place, call light with patient, will endorse care to dayshift RN.
--- NOTE | 2019-11-16 07:50 | NUR ---
INITIAL NOTE RECEIVED PT IN BED, NO S/S OF DISTRESS OR SOB NOTED, PT HAS NO FACIAL GRIMACING NOTED FOR PAIN AT THIS TIME, PT IN STABLE CONDITION, PT AAOX1, NONVERBAL, TRACKS, OPENS EYES. PT HAS A MIDLINE ON JAYDE, DOUBLE LUMEN, BOTH PORTS FLUSH BUT NO BLOOD RETURN. BED AT LOWEST POSITION, CALL LIGHT WITHIN REACH, WILL CONTINUE TO MONITOR PT FOR ANY CHANGES. FALL AND SAFETY PRECAUTIONS IN PLACE. PT HAS A TRACH AND T BAR AT 10LITERS. PT HAS A G TUBE, PATENT, FLUSHES, PLACEMENT VERIFIED, TOLERATING ORDERED FEEDINGS, NO RESIDUAL NOTED, DRESSING CLEAN AND DRY. F/C DRAINING VIA GRAVITY. PT HAS BILATERAL WRIST RESTRAINTS WITH MITTENS ON, PT CONFUSED AND ATTEMPTING TO PULL OUT IV LINES AND TRACH. CONTACT PRECAUTIONS IN PLACE.
[2019-11-16] MEDS: PREDNISONE 20 MG TABLET GT SCH ×2 (08:03→22:37)
[2019-11-16] MEDS: MIDODRINE HCL 5 MG TABLET (PROAMATINE) GT SCH ×3 (08:03→22:37)
[2019-11-16] MEDS: LACTOBACILLUS RHAMNOSUS GG 1 CAP CAPSULE GT SCH (08:04)
[2019-11-16] MEDS: ACETAMINOPHEN 325 MG TABLET GT PRN ×4 (08:05→22:39)
[2019-11-16] MEDS: PANTOPRAZOLE SODIUM 40 MG/VIAL (PROTONIX) IVP SCH ×2 (08:06→22:37)
[2019-11-16] MEDS: OLANZapine 5 MG TABLET GT SCH ×2 (08:06→22:37)
[2019-11-16] MEDS: FERROUS SULFATE 300 MG/5 ML UDC GT SCH (08:07)
[2019-11-16] MEDS: ERGOCALCIFEROL 8000 UNITS/ML ORAL SOLUTION, 60 ML BOTTLE GT SCH (08:07)
[2019-11-16] MEDS: MULTIVIT-MINERALS/FERROUS GLUC 15 ML UDC GT SCH (08:08)
[2019-11-16] MEDS: POTASSIUM CHLORIDE 20 MEQ/PKT PACKET GT SCH ×2 (08:08→22:36)
[2019-11-16] MEDS: SERTRALINE HCL 50 MG TABLET PO SCH ×2 (08:08→22:37)
[2019-11-16] MEDS: ENOXAPARIN SODIUM 30 MG/0.3 ML SYRINGE SUBCUT SCH (08:11)
[2019-11-16 08:30] VITALS: BP_SYST 89
--- NOTE | 2019-11-16 10:07 | NUR ---
PAGED PAGED PAM SMITH AT [phone] SPOKE WITH TROY.
--- NOTE | 2019-11-16 10:10 | NUR ---
ROUNDS PT IN BED, NO S/S OF DISTRESS OR SOB NOTED, PT HAS NO C/O PAIN AT THIS TIME, NO FACIAL GRIMACING NOTED FOR PAIN. PT RESTING COMFORTABLY, WILL CONTINUE TO MONITOR PT FOR ANY CHANGES. PT SEEMS TO BE MORE REDIRECTABLE, ABLE TO FOLLOW SIMPLE COMMANDS AND TRIES TO MOUTH WORDS OUT. PT CONTINUES TO HAVE BILATERAL WRIST AND MITTEN RESTRAINTS ON FOR SAFETY.
[2019-11-16] MEDS: BALSAM PERU/CASTOR OIL 60 GM OINT...G. TP SCH (10:59)
--- NOTE | 2019-11-16 11:00 | NUR ---
D/C RESTRAINTS PT IN STABLE CONDITION, PT ABLE TO FOLLOW SIMPLE COMMANDS, PT EDUCATED TO NOT REMOVE F/C, G TUBE OR TRACH PT VERBALIZED UNDERSTANDING BY SHAKING HEAD AND MOUTHING YES, ABLE TO READ HER LIPS. WILL CONTINUE TO MONITOR PT TO MAKE SURE SHE DOES NOT REMOVE ANYTHING.
--- NOTE | 2019-11-16 12:10 | NUR ---
ROUNDS PT IN BED, NO S/S OF DISTRESS OR SOB NOTED, PT HAS NO C/O PAIN AT THIS TIME. PT RESTING COMFORTABLY, WILL CONTINUE TO MONITOR PT FOR ANY CHANGES. PT NOT ATTEMPTING TO REMOVE ANYTHING.
[2019-11-16 12:34] VITALS: BP_SYST 99
--- NOTE | 2019-11-16 14:51 | NUR ---
MD ROUNDS DR LISETTE BURNS, AWARE OF PATIENT'S CONDITION, NEW ORDERS GIVEN FOR PT TO BE ON ROOM AIR WITH JUST TRACH LONG SHE IS ABOVE 85% OXYGEN SATURATION.
--- NOTE | 2019-11-16 16:03 | NUR ---
MIDLINE PT REMOVED MIDLINE ON RIGHT UPPER ARM, WHEN ASKED PT STATED IT WAS ITCHY AND SHE ACCIDENTALLY REMOVED IT, DR KNOX PAGED AND AWAITING CALL BACK TO NOTIFY, NO BLEEDING NOTED, CATHETER TIP INTACT, DRESSING IN PLACE. CHARGE NURSE MADE AWARE, PER PT SHE WILL NOT REMOVE ANYTHING ELSE. Addendum: 11/16/19 at 1620 by Christine Rodriguez RN SPOKE WITH MD, PER MD NO NEED FOR A MIDLINE, JUST AN IV CATHETER IS NEEDED. PIT RECORDER NURSE AWARE, WILL ATTEMPT TO INSERT AN IV CATHETER.
--- NOTE | 2019-11-16 16:05 | NUR ---
PAGED PAGED PAM SMITH AT [phone] SPOKE WITH RIVERA.
[2019-11-16 16:52] VITALS: BP_SYST 102
--- NOTE | 2019-11-16 17:00 | NUR ---
IV PLACEMENT: # 24 gauge angiocath placed to right forearm. Use of asceptic technique. Opsite placed over site. Blood return noted. Flushed with 10 cc of normal saline. No evidence of infiltration noted. Patient tolerated.
--- NOTE | 2019-11-16 18:43 | NUR ---
CLOSING NOTE PT IN BED, NO S/S OF DISTRESS OR SOB NOTED, PT HAS NO FACIAL GRIMACING NOTED FOR PAIN AT THIS TIME, PT HAS NO C/O PAIN AT THIS TIME. PT IN STABLE CONDITION, PT AAOX1, NONVERBAL, TRACKS, OPENS EYES. BED AT LOWEST POSITION, CALL LIGHT WITHIN REACH, WILL ENDORSE CARE OF PT TO INCOMING NURSE. FALL AND SAFETY PRECAUTIONS IN PLACE. PT HAS A TRACH AND ON ROOM AIR. PT HAS A G TUBE, PATENT, FLUSHES, PLACEMENT VERIFIED, TOLERATING ORDERED FEEDINGS, NO RESIDUAL NOTED, DRESSING CLEAN AND DRY. F/C DRAINING VIA GRAVITY. CONTACT PRECAUTIONS IN PLACE.
--- NOTE | 2019-11-16 19:30 | NUR ---
Opening Note Received report from charan RN, patient resting in bed, no signs of acute distress, A/Ox1, patient is able to follow commands, patient is tolerating T-Bar at 10L, FiO2 40%, right FA 24g is SL, G-tube feeding infusing, Jevity 1.5 @50mL/hr, 0 residual, Pollack catheter draining to gravity, safety and fall precautions in place, bed locked and in lowest position, bed alarm on, three side rails up, aspiration and contact isolation precautions in place, call light with patient, will continue to monitor.
[2019-11-16 20:00] VITALS: BP_SYST 103
--- NOTE | 2019-11-16 22:37 | NUR ---
RT NOTES PT DECANNULATED SELF AT THIS TIME. TRACH TUBE REPLACED AND PLACED PT BACK ON 40% CA. MED NEB TX. GIVEN INLINE WITHOUT ADVERSE REACTION NOTED. NO RESP DISTRESS NOTED. RN MADE AWARE.
--- NOTE | 2019-11-16 22:38 | NUR ---
Trach Tube Dislodged Found trach tube dislodged, O2 sat 92%, called RT to reinsert, observed Garret, RT insert new trach tube, patient tolerated well, O2 sat now 99% on 10L T-Bar, trach suctioned provided. No signs of acute distress. Safety and fall precautions in place, aspiration and contact isolation precautions in place, call light with patient, will continue to monitor.
[2019-11-17] VITALS (7 sets, daily range): BP systolic 80–106
[2019-11-17] MEDS: QUEtiapine FUMARATE 100 MG TABLET GT SCH ×4 (00:53→18:30)
--- NOTE | 2019-11-17 02:06 | NUR ---
IV RE-INSERTION: Previous IV site found completely dislodged, tip wholly intact. Restarted on left forearm 22 gauge. Successful after 3 attempts. Site saline locked, no infiltration. Will monitor for dislodgment.
--- NOTE | 2019-11-17 02:15 | NUR ---
MARTÍNEZ CATH: Found Martínez catheter completely dislodged, bulb tip intact. No signs of injury. New # 16 FR Martínez catheter with 10 cc bulb re-inserted with use of sterile technique. Bulb inflated with 10 cc sterile water. Immediate return of 75 cc yellow urine noted. Bedside drainage bag placed below level of bladder. Urine sample collected and sent to lab at 0230. Pt tolerated procedure well.
[2019-11-17 02:38] LABS: BILIRUBIN,URINE NEGATIVE (NEGATIVE); BLOOD, URINE 2+ (NEGATIVE); CLARITY/URINE CLEAR (CLEAR); COLOR,URINE YELLOW (YELLOW); GLUCOSE,URINE NEGATIVE (NEGATIVE); KETONES,URINE TRACE (NEGATIVE); LEUKOCYTE ESTERASE ,URINE 1+ (NEGATIVE); NITRITE, URINE NEGATIVE (NEGATIVE); PROTEIN URINE 2+ (NEGATIVE); UROBILINOGEN,URINE 0.2 (0.2-1.0)
[2019-11-17 02:47] LABS: WBC,URINE 50-80 /HPF (0-3)
[2019-11-17 02:48] LABS: BACTERIA,URINE MODERATE /HPF (None Seen); HYALINE CASTS, URINE 0-10 /LPF (None Seen)
[2019-11-17] MEDS: IPRATROPIUM/ALBUTEROL SULFATE 3 ML AMPUL.NEB (DUONEB) INH SCH ×6 (04:37→23:20)
[2019-11-17] MEDS: ACETAMINOPHEN 325 MG TABLET GT PRN ×4 (04:56→19:48)
[2019-11-17] MEDS: DIPHENHYDRAMINE INJ 50 MG/ML VIAL IVP PRN ×3 (04:56→21:20)
--- NOTE | 2019-11-17 05:09 | NUR ---
Pain/itching: Patient has pain 3/10, utilized FLACC scale. Tylenol 650 MG administered via G-tube per MD order, no gastric residual prior to administration. Patient was observed to be scratching right forearm, Benadryl 25 MG administered intravenously via left forearm IV site, no infiltration noted. Safety, fall, contact iso precautions in place. Will continue monitoring.
[2019-11-17 06:34] LABS: BASOPHILS % (AUTO) 0.3 % (0.0-2.0); EOSINOPHILS # (AUTO) 0.3 K/uL (0.0-0.4); HEMATOCRIT 36.9 % (36-48); HEMOGLOBIN 12.6 g/dL (12.0-16.0); LYMPHOCYTES # (AUTO) 0.8 K/uL (1.0-5.5); LYMPHOCYTES % (AUTO) 5.9 % (20.5-51.5); MEAN CORPUSCULAR HEMOGLOBIN 32 pg (27-31); MEAN CORPUSCULAR HGB CONC 34 % (32-36); MEAN CORPUSCULAR VOLUME 95 fL (79.0-98.0); MONOCYTES # (AUTO) 0.7 K/uL (0.0-1.0); MONOCYTES % (AUTO) 5.3 % (1.7-9.3); NEUTROPHILS # (AUTO) 11.8 K/uL (1.8-7.7); NEUTROPHILS % (AUTO) 86.5 % (40.0-70.0); PLATELET COUNT (AUTO) 176 K/uL (130-430); RED BLOOD CELL COUNT(AUTO) 3.88 MIL/uL (4.2-6.2); RED CELL DISTRIBUTION WIDTH 13.5 % (9.0-15.0); WHITE BLOOD COUNT (AUTO) 13.6 K/uL (4.8-10.8)
--- NOTE | 2019-11-17 06:56 | NUR ---
Closing Note Patient resting in bed, patient is able to follow commands, no signs of acute distress at this time, patient is tolerating T-Bar at 10L, FiO2 40%, left FA 24g is SL, G-tube feeding infusing, Jevity 1.5 @50mL/hr, 0 residual, Pollack catheter draining to gravity, safety and fall precautions in place, bed locked and in lowest position, bed alarm on, three side rails up, aspiration and contact isolation precautions in place, call light with patient, will endorse care to dayshift RN.
--- NOTE | 2019-11-17 07:33 | NUR ---
Opening Note Received plan of care via sbar from endorsing nurse Kimber HOUGH. Completed patient round.
[2019-11-17] MEDS: ENOXAPARIN SODIUM 30 MG/0.3 ML SYRINGE SUBCUT SCH (09:32)
[2019-11-17] MEDS: ERGOCALCIFEROL 8000 UNITS/ML ORAL SOLUTION, 60 ML BOTTLE GT SCH (09:32)
[2019-11-17] MEDS: MULTIVIT-MINERALS/FERROUS GLUC 15 ML UDC GT SCH (09:33)
[2019-11-17] MEDS: FERROUS SULFATE 300 MG/5 ML UDC GT SCH (09:33)
[2019-11-17] MEDS: LEVOTHYROXINE SODIUM 0.025 MG TABLET PO SCH (09:33)
[2019-11-17] MEDS: OLANZapine 5 MG TABLET GT SCH ×2 (09:34→21:16)
[2019-11-17] MEDS: PREDNISONE 20 MG TABLET GT SCH ×2 (09:34→21:15)
[2019-11-17] MEDS: LACTOBACILLUS RHAMNOSUS GG 1 CAP CAPSULE GT SCH (09:34)
[2019-11-17] MEDS: PANTOPRAZOLE SODIUM 40 MG/VIAL (PROTONIX) IVP SCH ×2 (09:34→21:16)
[2019-11-17] MEDS: POTASSIUM CHLORIDE 20 MEQ/PKT PACKET GT SCH ×2 (09:34→21:15)
[2019-11-17] MEDS: BALSAM PERU/CASTOR OIL 60 GM OINT...G. TP SCH (09:35)
[2019-11-17] MEDS: MIDODRINE HCL 5 MG TABLET (PROAMATINE) GT SCH ×3 (09:35→21:16)
[2019-11-17] MEDS: SERTRALINE HCL 50 MG TABLET PO SCH ×2 (09:35→21:17)
--- NOTE | 2019-11-17 10:30 | NUR ---
Found Brady removed from patient. Assessed site and no trauma seen. Cleansed patient and inserted new brady following sterile technique. Witnessed flash back of yellow clear liquid and inflated balloon with 10 CC. Placed bag under bladder and secured catheter in place. Patient tolerated without complication or complaint.
--- NOTE | 2019-11-17 11:38 | NUR ---
Discharge Planning: [facility] has faxed pt's information to the following Sub Acute Facilities: [facility] p.[phone] [phone]. [facility] p.[phone] [phone]. [facility] p.[phone] [phone]. [facility] p.[phone] [phone]. [facility] p.[phone] [phone]. [place] p.[phone] f.[phone]. ROD FILLER or DCP will follow up on bed availability. Addendum: 11/17/19 at 1510 by Cheryle Vaughan LCSW ROD FILLER contacted [facility] ([phone]) and they do have sub acute unit but have no beds. [facility] has faxed pt's information to: [facility] ([phone] f.[phone]).
--- NOTE | 2019-11-17 11:49 | NUR ---
Discharge Planning: DCP made transportation to [facility] p.[phone] [phone] RM 211A, with [facility] ([phone]) 2:00pm P/U. Patient packet taken to nurse station. Addendum: 11/17/19 at 1255 by Patricia Billings DP DCP was informed by Christina from [facility] ([phone]) 2:00pm can not take patient because DELL at [facility] told the the patient is on restraints . She has been off restraints for over 24 hours
--- NOTE | 2019-11-17 16:13 | NUR ---
OLIVIER YANG FROM [facility] AND INFORMED CELIA THAT THE PATIENT HAS BEEN OFF RESTRAINTS FOR OVER 24 HOURS. SHE WILL DISCUSSED WITH HER DON IF THEY CAN ACCEPT THE PATIENT AND WILL GIVE US A CALL BACK
--- NOTE | 2019-11-17 19:27 | NUR ---
Closing Note Provided plan of care via sbar to receiving Nurse RN. Completed patient round.
--- NOTE | 2019-11-17 20:00 | NUR ---
RECIEVED REPORT @ START OF SHIFT, ALERT TO NAME WITH CONFUSION,RESPIRATIONS EVEN AND UNLABORED, T-BAR @ 40% FIO2 AND 10L/N OF O2., S/ PATENT AND INTACT IN LFA,NONVERBAL JEVITY INFUSING @ 50 ML/HR VIA G-TUBE WITH 100 ML WATER FLUSH Q6HRS,SACRAL DRESSING C/D/I,, SR ON TELE MONITOR,, RIGHT ANKLE DRESSING C/D/I, INCONT. 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 SR'S UP X'S 3, CALL LIGHT WITHIN REACH, BED IN LOW POSITION, MEDICATED WITH BENADRYL 25 MG IVP FOR ITCHING, WILL CONTINUE TO MONITOR.
[2019-11-17] MEDS: CEFEPIME 1 GM in D5W 50 ML IV SCH (21:16)
[2019-11-18] MEDS: IPRATROPIUM/ALBUTEROL SULFATE 3 ML AMPUL.NEB (DUONEB) INH SCH ×6 (03:11→23:18)
[2019-11-18 04:00] VITALS: BP_SYST 100
[2019-11-18] MEDS: LEVOTHYROXINE SODIUM 0.025 MG TABLET PO SCH (05:56)
[2019-11-18] MEDS: QUEtiapine FUMARATE 100 MG TABLET GT SCH ×4 (05:57→18:04)
--- NOTE | 2019-11-18 06:48 | NUR ---
CLOSING NOTE: PATIENT MANAGED TO PULL OUT F/C, REINSERTED BY YONIS HOUGH, TRACH CARE PROVIDED, RESTING QUIETLY IN BED, BED ALARM ON , HOB ELEVATED TUBE FEEDING INFUSING @ 50 ML/HR VIA G-TUBE WITH 100 ML H2O FLUSH Q 6HRS, TOLERATED WELL NO RESIDUAL NOTED,WILL CONTINUE TO MONITOR CLOSELY
[2019-11-18 08:00] VITALS: BP_SYST 128
--- NOTE | 2019-11-18 08:00 | NUR ---
Note Pt resting in bed. No SOB/resp distress or chest pain/discomfort noted at this time. Tele unit attached and intact. Pollack catheter intact and draining. T-Bar oxygenating pt at this time with O2 at 10L. IV in left forearm wrapped intact and patent. Call light within reach. Pt calm in bed.
[2019-11-18] MEDS: CEFEPIME 1 GM in D5W 50 ML IV SCH ×2 (08:58→20:27)
[2019-11-18] MEDS: SERTRALINE HCL 50 MG TABLET PO SCH ×2 (08:58→20:27)
[2019-11-18] MEDS: POTASSIUM CHLORIDE 20 MEQ/PKT PACKET GT SCH ×2 (08:58→20:26)
[2019-11-18] MEDS: PREDNISONE 20 MG TABLET GT SCH ×2 (08:58→20:27)
[2019-11-18] MEDS: FERROUS SULFATE 300 MG/5 ML UDC GT SCH (08:58)
[2019-11-18] MEDS: MULTIVIT-MINERALS/FERROUS GLUC 15 ML UDC GT SCH (08:58)
[2019-11-18] MEDS: OLANZapine 5 MG TABLET GT SCH ×2 (08:59→20:27)
[2019-11-18] MEDS: LACTOBACILLUS RHAMNOSUS GG 1 CAP CAPSULE GT SCH (08:59)
[2019-11-18] MEDS: MIDODRINE HCL 5 MG TABLET (PROAMATINE) GT SCH ×3 (08:59→20:27)
[2019-11-18] MEDS: PANTOPRAZOLE SODIUM 40 MG/VIAL (PROTONIX) IVP SCH ×2 (09:00→20:26)
[2019-11-18] MEDS: ERGOCALCIFEROL 8000 UNITS/ML ORAL SOLUTION, 60 ML BOTTLE GT SCH (09:00)
[2019-11-18] MEDS: BALSAM PERU/CASTOR OIL 60 GM OINT...G. TP SCH (09:01)
[2019-11-18] MEDS: ENOXAPARIN SODIUM 30 MG/0.3 ML SYRINGE SUBCUT SCH (09:06)
[2019-11-18 11:21] VITALS: BP_SYST 100
--- NOTE | 2019-11-18 12:00 | NUR ---
Note Pt resting in bed, is calm at this time. GT feedings infusing well and T-Bar intact and patent. RT treatments completed and done at this time. No needs noted. Pollack intact and IV intact on left forearm. Tele unit attached and intact at this time as well. Call light within reach.
[2019-11-18 14:41] LABS: BASOPHILS % (AUTO) 0.1 % (0.0-2.0); EOSINOPHILS # (AUTO) 0.1 K/uL (0.0-0.4); EOSINOPHILS % (AUTO) 0.9 % (0.0-4.0); HEMOGLOBIN 11.5 g/dL (12.0-16.0); LYMPHOCYTES # (AUTO) 0.6 K/uL (1.0-5.5); MEAN CORPUSCULAR HEMOGLOBIN 33 pg (27-31); MEAN CORPUSCULAR HGB CONC 34 % (32-36); MEAN CORPUSCULAR VOLUME 97 fL (79.0-98.0); MONOCYTES # (AUTO) 0.2 K/uL (0.0-1.0); MONOCYTES % (AUTO) 3.5 % (1.7-9.3); NEUTROPHILS # (AUTO) 5.7 K/uL (1.8-7.7); NEUTROPHILS % (AUTO) 86.5 % (40.0-70.0); PLATELET COUNT (AUTO) 207 K/uL (130-430); RED BLOOD CELL COUNT(AUTO) 3.51 MIL/uL (4.2-6.2); RED CELL DISTRIBUTION WIDTH 13.6 % (9.0-15.0); WHITE BLOOD COUNT (AUTO) 6.6 K/uL (4.8-10.8)
--- NOTE | 2019-11-18 14:55 | NUR ---
Note Representatives from [facility] at bedside assessing pt for possible transfer to their facility at 1435. Pt calm and no restlessness noted at this time. Pt resting in bed at this time. No needs noted. Call light within reach.
[2019-11-18 15:08] LABS: CALCIUM 8.6 mg/dL (8.4-11.0); CREATININE 0.7 mg/dL (0.55-1.30); POTASSIUM 4.5 mmol/L (3.5-5.1)
[2019-11-18 15:44] VITALS: BP_SYST 89
--- NOTE | 2019-11-18 16:18 | NUR ---
DC PLANNING RECEIVED CALL FROM MK WITH [facility] SAID THEY ARE NOT ACCEPTING [facility]. CALLED [facility] ADVISED THEY NEVER ADMITTED THE PATENT. DIRECTOR CONTACTED [facility]S CM DEPARTMENT WAS ADVISED BY GHISLAINE THAT PATIENT WAS ADMITTED TO [facility] FROM [facility]. [phone] [place] [facility] [place] DEREK IN ADMISS[place] ADVISED THIER JAIL PATIENT IS READY FOR DC BACK TO THEIR FACILITY. PER DEREK IN ADMISSION FAX REFERRAL THEY ARE THERE UNTIL 5PM. [place] [facility] [place] [place]PO[place] WITH GHISLAINE WHO STATS PATIENT WAS LAST AT [facility] FROM 04/04/19-09/12/2019 AND DC TO [facility].
--- NOTE | 2019-11-18 17:20 | NUR ---
Nutrition F/U RD reviewed pt's current EMR including diet Hx, physician notes, nursing notes, pertinent labs/meds/procedures, care trends, and care activity. Current Nutrition Support: Jevity 1.5 at 50 ml/hr, Free Water Flush: 100 ml Q6H via GT x18 days Subjective information: Pt seen without bilateral wrist restraints w/ TF infusing as per physician order. Bedscale was not working. Per RN report, pt has been tolerating TF well, no s/s of intolerance. Current TF regimen is adequate/appropriate. 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 *ongoing Expected Outcomes/Goals Monitor EN support with goals of pt meeting at least 90% of estimated nutritional needs, labs trending WNL, and skin integrity/wt maintenance. Dietitian Recommendations * Recommend continuing Jevity 1.5 at 50 ml/hr, Free Water Flush: 100 ml Q6H via GT Provides: 1800 kcal/day, 77 gm protein/day, and 1312 ml free water/day Meets: 107% of upper end of estimated caloric needs and 108% of lower end of estimated protein needs Low Risk; F/U within 7 days
--- NOTE | 2019-11-18 18:35 | NUR ---
Note Pt was checked on q1' and PRN all shift for needs and care. Pt's left forearm IV intact and patent at this time. No SOB/resp distress or pain/discomfort noted at this time. T-BAR in place and pt not pulling it out all shift. Pt was maintained with safety and isolation (MDRO/COMPUTING TUTOR sputum and MRSA in nares) precautions all shift. Tele unit attached and intact. Pollack catheter intact and draining. Call light within reach. No needs noted. GT feedings infusing well at this time.
--- NOTE | 2019-11-18 19:50 | NUR ---
OPENING NOTES Received report from morning shift RN. Patient is resting in bed, awake, alert, oriented x 1, nonverbal, breathing evenly and nonlabored on TBAR with 10L of oxygen and 40% FiO2. Patient has an IV on the left forearm 22g SL, patent and benign, no s/s of infiltration or infection at this time. Patient has a Pollack catheter secured and draining by gravity. Educated patient on plan of care, fall/safety/aspiration precautions, patient unable to state understanding due to cognitive limitations but nodded when prompted. Bed is locked, armed, and at lowest position. Will continue to monitor. Addendum: 11/19/19 at 0448 by Jaleel Ryan RN GT feeding running, patient is tolerating it well.
[2019-11-18 20:00] VITALS: BP_SYST 88
[2019-11-18] MEDS: DIPHENHYDRAMINE INJ 50 MG/ML VIAL IVP PRN (20:30)
--- NOTE | 2019-11-18 20:30 | NUR ---
MEDICATION/ROUNDS Patient is resting in bed, awake, breathing evenly and nonlabored on TBAR with 10L of oxygen and FiO2 of 40%. Educated patient on due medications, patient unable to state understanding due to cognitive limitations and being nonverbal. Administered GT medications, patient tolerated it well. IV on left forearm infiltrated, attempted to restart IV. IV is now on the right forearm 20g. Administered IV medication, patient is tolerating it well. No s/s of distress at this time. No other needs at this time. Fall/safety precautions. Will continue to monitor.
--- NOTE | 2019-11-18 22:30 | NUR ---
ROUNDS Patient is resting in bed, awake, breathing evenly and nonlabored on TBAR with 10L of oxygen and FiO2 of 40%. GT feeding running, patient is tolerating it well. No s/s of distress at this time. No other needs at this time. Fall/safety/aspiration precautions. Will continue to monitor.
[2019-11-19] MEDS: QUEtiapine FUMARATE 100 MG TABLET GT SCH ×5 (00:35→23:38)
--- NOTE | 2019-11-19 00:40 | NUR ---
MEDICATION/ROUNDS Patient is resting in bed, awake, breathing evenly and nonlabored on TBAR with 10L of oxygen and FiO2 of 40%. Educated patient on due medications, patient unable to state understanding due to cognitive limitations and being nonverbal. Administered GT medications, patient tolerated it well. No s/s of distress at this time. No other needs at this time. Fall/safety/aspiration precautions. Will continue to monitor.
--- NOTE | 2019-11-19 01:00 | NUR ---
ROUNDS/ROOM CHANGE Patient resting quietly in bed, in no distress, due medications administered via g tube, patient moved to room 113a, all belongings accounted for, remains on isolation precautions.
--- NOTE | 2019-11-19 03:11 | NUR ---
WOUND CARE Patient awake, wound care done to sacral area, venelex ointment applied to wound bed, 1/2 inch iodoform strip packed inside wound, covered with foam dressing, z guard applied to surrounding skin, patient tolerated well, repositioned with pillow support.
[2019-11-19] MEDS: IPRATROPIUM/ALBUTEROL SULFATE 3 ML AMPUL.NEB (DUONEB) INH PRN (03:47)
[2019-11-19] MEDS: IPRATROPIUM/ALBUTEROL SULFATE 3 ML AMPUL.NEB (DUONEB) INH SCH ×6 (03:50→23:53)
--- NOTE | 2019-11-19 04:50 | NUR ---
ROUNDS Patient is resting in bed, eyes closed, breathing evenly and nonlabored on TBAR with 10L of oxygen and FiO2 of 40%. GT feeding running, patient is tolerating it well. No s/s of distress at this time. No other needs at this time. Fall/safety/aspiration precautions. Will continue to monitor.
[2019-11-19] MEDS: LEVOTHYROXINE SODIUM 0.025 MG TABLET PO SCH (06:34)
--- NOTE | 2019-11-19 06:51 | NUR ---
CLOSING NOTES Patient is resting in bed, awake, breathing evenly and nonlabored on TBAR with 10L of oxygen and FiO2 of 40%. GT feeding running, patient is tolerating it well. Educated patient on medications, patient unable to state understanding due to being nonverbal and cognitive limitations. Administered due medications, patient tolerated it well. No s/s of distress at this time. No other needs at this time. Fall/safety/aspiration precautions. Will endorse care to morning shift RN.
[2019-11-19 08:00] VITALS: BP_SYST 92
--- NOTE | 2019-11-19 08:00 | NUR ---
Note Pt resting in bed with T-BAR on. No SOB/resp distress or pain/discomfort noted. Tele unit attached and intact at this time. IV in right forearm intact and patent. Pt next to nurses' station for close observation for needs and care. Call light within reach. Pollack catheter intact and draining. GT feeding infusing through GT site - patently. No needs noted.
[2019-11-19] MEDS: FERROUS SULFATE 300 MG/5 ML UDC GT SCH (08:45)
[2019-11-19] MEDS: POTASSIUM CHLORIDE 20 MEQ/PKT PACKET GT SCH ×2 (08:45→22:08)
[2019-11-19] MEDS: OLANZapine 5 MG TABLET GT SCH ×2 (08:45→22:08)
[2019-11-19] MEDS: SERTRALINE HCL 50 MG TABLET PO SCH ×2 (08:45→22:08)
[2019-11-19] MEDS: LACTOBACILLUS RHAMNOSUS GG 1 CAP CAPSULE GT SCH (08:45)
[2019-11-19] MEDS: CEFEPIME 1 GM in D5W 50 ML IV SCH ×2 (08:45→21:57)
[2019-11-19] MEDS: ERGOCALCIFEROL 8000 UNITS/ML ORAL SOLUTION, 60 ML BOTTLE GT SCH (08:46)
[2019-11-19] MEDS: MULTIVIT-MINERALS/FERROUS GLUC 15 ML UDC GT SCH (08:46)
[2019-11-19] MEDS: PREDNISONE 20 MG TABLET GT SCH ×2 (08:46→22:08)
[2019-11-19] MEDS: MIDODRINE HCL 5 MG TABLET (PROAMATINE) GT SCH ×3 (08:46→22:07)
[2019-11-19] MEDS: PANTOPRAZOLE SODIUM 40 MG/VIAL (PROTONIX) IVP SCH ×2 (08:46→21:56)
[2019-11-19] MEDS: BALSAM PERU/CASTOR OIL 60 GM OINT...G. TP SCH (08:47)
[2019-11-19] MEDS: ENOXAPARIN SODIUM 30 MG/0.3 ML SYRINGE SUBCUT SCH (08:49)
--- NOTE | 2019-11-19 11:00 | NUR ---
Note Pt's O2 at 8.5L via T-BAR and FIO2 at 35%. No needs noted at this time. Call light within reach.
[2019-11-19 11:32] VITALS: BP_SYST 90
--- NOTE | 2019-11-19 14:15 | NUR ---
Note Pt resting in bed - sleepy, but easily arousable. Pt calm all shift, no restlessness or agitation noted all shift. GT feedings infusing well. Pollack catheter intact and draining. Call light within reach.
[2019-11-19 15:47] VITALS: BP_SYST 103
--- NOTE | 2019-11-19 18:40 | NUR ---
Note Pt next to nurses' station all shift for close observation. Pt was checked on q1' and PRN all shift for needs and care. No SOB/resp distress or pain/discomfort noted at this time. IV in right hand intact and patent at this time. Tele unit attached and intact. Pt has had her abdominal binder on all shift. GT intact and feedings infusing well. Pollack catheter intact and draining. T-BAR intact at this time. No needs noted. Call light within reach.
--- NOTE | 2019-11-19 19:58 | NUR ---
OPENING NOTES Received report from morning shift RN. Patient is resting in bed, awake, alert, oriented x 1, nonverbal, breathing evenly and nonlabored on TBAR with 10L of oxygen and 40% FiO2. Patient has an IV on the right forearm 20g SL, patent and benign, no s/s of infiltration or infection at this time. Patient has a Pollack catheter secured and draining by gravity. GT feeding Jevity 1.5 running at 50mL/hr, patient is tolerating it well. Educated patient on plan of care, fall/safety/aspiration precautions, patient unable to state understanding due to cognitive limitations but nodded when prompted. Bed is locked, armed, and at lowest position. Will continue to monitor.
[2019-11-19 20:00] VITALS: BP_SYST 95
[2019-11-19] MEDS: DIPHENHYDRAMINE INJ 50 MG/ML VIAL IVP PRN (21:56)
--- NOTE | 2019-11-19 22:08 | NUR ---
MEDICATION/ROUNDS Patient is resting in bed, awake, breathing evenly and nonlabored on TBAR with 10L of oxygen and FiO2 of 40%. Educated patient on medications, patient unable to state understanding due to cognitive limitations and being nonverbal. Administered medications, patient tolerated it well. No s/s of distress at this time. No other needs at this time. Fall/safety/aspiration precautions. Will continue to monitor.
[2019-11-20 01:20] VITALS: BP_SYST 101
--- NOTE | 2019-11-20 02:40 | NUR ---
ROUNDS Patient is resting in bed, awake, breathing evenly and nonlabored on TBAR with 10L of oxygen and FiO2 of 40%. GT feeding running, patient is tolerating it well. No s/s of distress at this time. No other needs at this time. Fall/safety/aspiration precautions.
[2019-11-20] MEDS: IPRATROPIUM/ALBUTEROL SULFATE 3 ML AMPUL.NEB (DUONEB) INH SCH ×6 (03:52→23:29)
--- NOTE | 2019-11-20 04:15 | NUR ---
ROUNDS Patient is resting in bed, awake, breathing evenly and nonlabored on TBAR with 10L of oxygen and FiO2 of 40%. GT feeding running, patient is tolerating it well. Hygiene care performed. Wound care done, patient tolerated it well. No s/s of distress at this time. No other needs at this time. Fall/safety/aspiration precautions. Will continue to monitor.
[2019-11-20] MEDS: LEVOTHYROXINE SODIUM 0.025 MG TABLET PO SCH (06:18)
[2019-11-20] MEDS: QUEtiapine FUMARATE 100 MG TABLET GT SCH ×3 (06:19→18:13)
--- NOTE | 2019-11-20 06:32 | NUR ---
CLOSING NOTES Patient is resting in bed, awake, breathing evenly and nonlabored on trach with mask at 10L of oxygen. New GT feeding running, patient is tolerating it well. Educated patient on medications, patient unable to state understanding due to being nonverbal and cognitive limitations. Administered due medications, patient tolerated it well. No s/s of distress at this time. No other needs at this time. Fall/safety/aspiration precautions. Will endorse care to morning shift RN.
--- NOTE | 2019-11-20 07:30 | NUR ---
Opening note patient resting in bed at this time, A/Ox1, nonverbal. denies pain. No SOB. IV patent, and intact. No infiltration noted. GT in place, patent, and intact. GT feeding tolerating well. No residual noted. Pollack catheter in place, draining yellow urine to gravity. On contact isolation precautions for COMPLETIONS ENGINEER/ MDRO of sputum and MRSA of nares. On safety and aspiration precautions, HOB kept elevated, 3 side rails up, call light within reach. Patient in stable condition. Will continue to monitor.
[2019-11-20 08:00] VITALS: BP_SYST 85
[2019-11-20] MEDS: OLANZapine 5 MG TABLET GT SCH ×2 (08:36→20:58)
[2019-11-20] MEDS: MULTIVIT-MINERALS/FERROUS GLUC 15 ML UDC GT SCH (08:36)
[2019-11-20] MEDS: LACTOBACILLUS RHAMNOSUS GG 1 CAP CAPSULE GT SCH (08:36)
[2019-11-20] MEDS: ENOXAPARIN SODIUM 30 MG/0.3 ML SYRINGE SUBCUT SCH (08:36)
[2019-11-20] MEDS: FERROUS SULFATE 300 MG/5 ML UDC GT SCH (08:36)
[2019-11-20] MEDS: DIPHENHYDRAMINE INJ 50 MG/ML VIAL IVP PRN (08:36)
[2019-11-20] MEDS: BALSAM PERU/CASTOR OIL 60 GM OINT...G. TP SCH (08:37)
[2019-11-20] MEDS: PANTOPRAZOLE SODIUM 40 MG/VIAL (PROTONIX) IVP SCH ×2 (08:37→21:05)
[2019-11-20] MEDS: SERTRALINE HCL 50 MG TABLET PO SCH ×2 (08:37→20:58)
[2019-11-20] MEDS: PREDNISONE 20 MG TABLET GT SCH ×2 (08:37→20:57)
[2019-11-20] MEDS: MIDODRINE HCL 5 MG TABLET (PROAMATINE) GT SCH ×3 (08:37→20:57)
[2019-11-20] MEDS: POTASSIUM CHLORIDE 20 MEQ/PKT PACKET GT SCH ×2 (08:37→20:57)
[2019-11-20] MEDS: ERGOCALCIFEROL 8000 UNITS/ML ORAL SOLUTION, 60 ML BOTTLE GT SCH (08:38)
[2019-11-20] MEDS: CEFEPIME 1 GM in D5W 50 ML IV SCH ×2 (08:40→21:05)
--- NOTE | 2019-11-20 09:00 | NUR ---
medications All morning medications given as ordered. No adverse side effects. no nausea, no vomiting. patient in stable condition. no complaints of pain at this time.
[2019-11-20 11:33] VITALS: BP_SYST 96
--- NOTE | 2019-11-20 11:57 | NUR ---
Wound Re-Evaluation: Patient received in a Nell bed with an IsoFlex RUBEN mattress with low air-loss therapy, awake, alert, confused, and mouths words secondary to tracheostomy tube. Patient is able to turn in bed with minimal assist. Barrett score is a 13. Intrinsic factors that delay wound healing: COPD, Anoxic Encephalopathy, Asthma, Respiratory Failure, Hypoalbuminemia. Extrinsic factors that delay wound healing: Immobility. Wound Assessment: 1. Sacral-Coccygeal area: Unstageable Pressure ulcer, present on admission. Wound care performed by veterinary hospital shift lead nurse this morning. Dressing not removed for assessment secondary to doing so would decrease wound temperature and retard wound healing rate. Recommend continue: Cleanse wound with normal saline. Apply moisture barrier cream to periwound. Apply Venelex ointment to wound bed. Pack wound with 1/2 inch iodoform packing strip. Cover with foam dressing. Perform wound care daily, and as needed for dressing soiling or dislodgment. 2. Left Sacral area: Pressure ulcer, present on admission. Site has pink scar tissue. No odor, no drainage. Surrounding is pink. Pressure ulcer has resolved on top of skin. Tunneling from site 1 appears to be connected to this site, with decreased tunneling length. Will continue to monitor. Recommend continue: Cover with Sacral foam dressing. Perform site care daily, and as needed for dressing soiling or dislodgment. 3. Right Medial Malleolus: Unstageable pressure ulcer, present on admission. Wound care performed by veterinary hospital shift lead nurse this morning. Dressing not removed for assessment secondary to doing so would decrease wound temperature and retard wound healing rate. Recommend continue: Hibernia site with Betadine. Allow to air dry. Cover with foam dressing. Perform wound care daily, and as needed for dressing soiling or dislodgment. 4. Right Distal Medial Lower Extremity, Superior to Site 3: Wound of unknown etiology, present on admission. Wound care performed by veterinary hospital shift lead nurse this morning. Dressing not removed for assessment secondary to doing so would decrease wound temperature and retard wound healing rate. Recommend continue: Cleanse wound with normal saline. Apply moisture barrier cream to periwound. Apply Venelex ointment to wound bed. Cover with foam dressing. Perform wound care daily, and as needed for dressing soiling or dislodgment. 5. Right Olecranon: Chronic wound of unknown etiology, present on admission. Blanchable red erythema present, wound has resolved. 6. Coccygeal, Bilateral Hip and Lumbosacral joint areas: Bony areas with little adipose tissue and minimal muscle tissue. Recommend continue: Cover sites with foam dressings. Perform site care daily, and as needed for dressing soiling or dislodgment. Also recommend continue: Reposition patient side to side only every two hours with pillow support, and off-load pressure areas with pillows for pressure re-distribution. Offload, elevate and float heels with pillows. Perform skin care and monitor skin integrity q shift. Use moisture barrier cream on buttocks, and other moisture susceptible areas qid and as needed for soiling. Maintain patient on a low air-loss mattress.
--- NOTE | 2019-11-20 12:01 | NUR ---
rounds patient resting in bed at this time, no complaints of pain. Gt feeding tolerating well. No residual noted.
--- NOTE | 2019-11-20 13:20 | NUR ---
DC Planning: CM Director Contact [facility] this morning at 8:45 am spoke with Kaitlin from admissions. Requested to know why pt is not accepted she states that the patient was DC to another facility [facility]. Advised that Director Researched and discovered [facility] states upon pt arrival she was having respiratory distress and was transferred to [place] subsequently here for 55 days today because no accepting facility. Left message for Store Standards Associate to contact me back regarding DC plan back to pt's care home Subacute. At 1300 contacted [facility] for follow up states security systems administrator is not in the office. Director asked is he is at [facility] (sister Facility) reply was yes. Called [facility] at requested to speak with Store Standards Associate to advise we are making every good kandice effort to work with [facility] to accept their care home patent back. Provided Cell and Office number awaiting call.
--- NOTE | 2019-11-20 14:02 | NUR ---
rounds patient resting in bed at this time, no complaints of pain. IV patent, intact. No infiltration noted. no complaints of pain.
[2019-11-20 16:00] VITALS: BP_SYST 95
--- NOTE | 2019-11-20 16:45 | NUR ---
Rounds GT flushed as ordered. tolerated well. No nausea, no vomiting. No complaints of pain. patient in stable condition.
--- NOTE | 2019-11-20 18:31 | NUR ---
closing note patient resting in bed at this time, A/Ox1, nonverbal. denies pain. No SOB. IV patent, and intact. No infiltration noted. GT in place, patent, and intact. GT feeding tolerating well. No residual noted. Pollack catheter in place, draining yellow urine to gravity. On contact isolation precautions for ACCOUNTING SYSTEM EXPERT/ MDRO of sputum and MRSA of nares. On safety and aspiration precautions, HOB kept elevated, 3 side rails up, call light within reach. Patient in stable condition. All needs met.
--- NOTE | 2019-11-20 19:20 | NUR ---
INITIAL NOTES PATIENT IS LAYING IN BED AND STABLE. NO S/S OF RESPIRATORY DISTRESS NOTED. PATIENT UNSUCCESSFULLY DEMONSTRATES USAGE OF CALL LIGHT AT THIS TIME. PLAN OF CARE IS DISCUSSED WITH PATIENT AT THIS TIME. FALL, SAFETY, ASPIRATION, AND CONTACT PRECAUTIONS WILL BE PLACE THROUGHOUT THE SHIFT. BED IS LOCKED, ALARMED, AND AT THE LOWEST POSITION. WILL CONTINUE TO MONITOR.
[2019-11-20 19:30] VITALS: BP_SYST 94
--- NOTE | 2019-11-20 20:15 | NUR ---
PATIENT PULLED OUT G-TUBE AT THIS TIME PATIENT PULLED OUT G-TUBE AT THIS TIME. PATIENT IS OTHERWISE STABLE. CALLED CHARGE NURSE FOR ASSIST.
--- NOTE | 2019-11-20 20:30 | NUR ---
ROUNDING PATIENT IS LAYING IN BED AND STABLE. NO S/S OF RESPIRATORY DISTRESS NOTED. CALL LIGHT IN REACH. BED IS LOCKED, ALARMED, AND AT THE LOWEST POSITION. WILL COTNINUE TO MONITOR.
--- NOTE | 2019-11-20 20:30 | NUR ---
G-TUBE PLACED CHARGE NURSE, NIDHI HOUGH. PLACED G-TUBE AT THIS TIME ENTRAFLO G-TUBE FEEDING TUBE 18 F. WITH 15 ML BALLOON. 50 ML OF GASTRIC CONTENT WAS PULLED OUT AND PLACED BACK IN. PATIENT IS OTHERWISE STABLE. NO S/S OF RESPIRATORY DISTRESS. CALL LIGHT IN REACH. BED IS LOCKED, ALARMED, AND AT THE LOWEST POSITION. WILL CONTACT DR. CASTELLANO AND CONTINUE TO MONITOR.
--- NOTE | 2019-11-20 20:35 | NUR ---
Paged Dr. Chun s/w Berenice
--- NOTE | 2019-11-20 21:03 | NUR ---
Second call for Dr. Chun s/yg Ng
--- NOTE | 2019-11-20 21:30 | NUR ---
COMMUNICATED WITH DR. CASTELLANO COMMUNICATED WITH DR. CASTELLANO AT THIS TIME. ORDERS RECEIVED AND WILL FOLLOW THROUGH.
--- NOTE | 2019-11-20 23:30 | NUR ---
PT HAD PULLED OUT TRACH. PLACED BACK AND SECURED. NO DISTRESS NOTED Addendum: 11/21/19 at 0039 by Celia Jaimes RT Amended: Links added.
--- NOTE | 2019-11-20 23:31 | NUR ---
Paged Dr. Chun s/w Zulma
--- NOTE | 2019-11-20 23:50 | NUR ---
COMMUNICATED WITH DR. CASTELLANO COMMUNICATED WITH DR. CASTELLANO REGARDING PREVIOUS ORDERS FOR CLARIFICATION. NEW ORDERS RECEIVED AND WILL FOLLOW THROUGH.
--- NOTE | 2019-11-21 00:30 | NUR ---
ROUNDING PATIENT IS SLEEPING IN BED AND STABLE. NO S/S OF RESPIRATORY DISTRESS NOTED. CALL LIGHT IN REACH. BED IS LOCKED, ALARMED, AND AT THE LOWEST POSITION. WILL COTNINUE TO MONITOR.
[2019-11-21 01:16] VITALS: BP_SYST 110
--- NOTE | 2019-11-21 03:00 | NUR ---
WOUND CARE PERFORMED WOUND CARE ON THE LEG AT THIS TIME. DESPITE EDUCATIONAL EFFORTS PATIENT REFUSED WOUND CARE ON THE SACRAL AREA. WILL CONTINUE TO EDUCATE THROUGHOUT THE SHIFT. PATIENT TOLERATED IT WELL. PATIENT REPOSITION FOR COMFORT. BED IS LOCKED, ALARMED, AND AT THE LOWEST POSITION. WILL CONTINUE TO MONITOR.
[2019-11-21] MEDS: IPRATROPIUM/ALBUTEROL SULFATE 3 ML AMPUL.NEB (DUONEB) INH SCH ×5 (03:34→23:55)
--- NOTE | 2019-11-21 04:30 | NUR ---
WOUND CARE WOUND CARE ON THE SACRAL AREA WAS DONE AT THIS TIME. PATIENT TOLERATED WELL. PATIENT REPOSITION FOR COMFORT. BED IS LOCKED, ALARMED, AND AT THE LOWEST POSITION. WILL CONTINUE TO MONITOR.
--- NOTE | 2019-11-21 05:04 | NUR ---
PATIENT KEEPS PULLING OUT LEADS PATIENT KEEPS PULLING OUT LEADS AT THIS TIME. EDUCATED PATIENT. PATIENT REFUSED TO HAVE LEADS ON AT THIS TIME. WILL CONTINUE TO EDUCATE AND MONITOR. BED IS LOCKED, ALARMED, AND AT THE LOWEST POSITION. WILL CONTINUE TO MONITOR.
[2019-11-21] MEDS: QUEtiapine FUMARATE 100 MG TABLET GT SCH ×5 (05:41→23:09)
[2019-11-21] MEDS: LEVOTHYROXINE SODIUM 0.025 MG TABLET PO SCH (06:04)
--- NOTE | 2019-11-21 06:22 | NUR ---
CLOSING NOTES PATIENT IS LAYING IN BED AND STABLE. NO S/S OF RESPIRATORY DISTRESS NOTED. CALL LIGHT IN REACH. BED IS LOCKED, ALARMED, AND AT THE LOWEST POSITION. FALL, SAFETY, ASPIRATION, RESPIRATORY, AND CONTACT PRECAUTIONS HAS BEEN IN PLACE THROUGHOUT THE SHIFT. WILL CONTINUE TO MONITOR UNTIL REPORT IS GIVEN TO AM NURSE BY BEDSIDE.
--- NOTE | 2019-11-21 06:30 | NUR ---
LEADS ARE ON PATIENT EDUCATIONAL SUCCESSFUL PATIENT ALLOWED LEADS TO BE PLACED ON AT THIS TIME. PATIENT IS REPOSITION FOR COMFORT. PATIENT IS STABLE. NO S/S OF RESPIRATORY DISTRESS NOTED. CALL LIGHT IN REACH. BED IS LOCKED, ALARMED, AND AT THE LOWEST POSITION.
--- NOTE | 2019-11-21 07:30 | NUR ---
Opening note patient resting in bed at this time, A/Ox1, nonverbal. denies pain. No SOB. IV patent, and intact. No infiltration noted. GT awaiting placement confirmation by Dr. Selby. Pollack catheter in place, draining yellow urine to gravity. On contact isolation precautions for SENIOR BRAND MANAGER/ MDRO of sputum and MRSA of nares. On safety and aspiration precautions, HOB kept elevated, 3 side rails up, call light within reach. Patient in stable condition. Will continue to monitor.
[2019-11-21 08:00] VITALS: BP_SYST 98
[2019-11-21] MEDS: CEFEPIME 1 GM in D5W 50 ML IV SCH (09:25)
[2019-11-21] MEDS: ENOXAPARIN SODIUM 30 MG/0.3 ML SYRINGE SUBCUT SCH (09:26)
[2019-11-21] MEDS: PANTOPRAZOLE SODIUM 40 MG/VIAL (PROTONIX) IVP SCH ×2 (09:26→20:54)
--- NOTE | 2019-11-21 09:30 | NUR ---
Dr. Rosemary SCHMIDT at bedside assessed GT, stated GT is in place, and we can use right away. Okayed by to start feeding and medications.
[2019-11-21] MEDS: LACTOBACILLUS RHAMNOSUS GG 1 CAP CAPSULE GT SCH (09:57)
[2019-11-21] MEDS: SERTRALINE HCL 50 MG TABLET PO SCH ×2 (09:57→20:55)
[2019-11-21] MEDS: OLANZapine 5 MG TABLET GT SCH ×2 (09:57→20:54)
[2019-11-21] MEDS: PREDNISONE 20 MG TABLET GT SCH ×2 (09:58→20:56)
[2019-11-21] MEDS: ERGOCALCIFEROL 8000 UNITS/ML ORAL SOLUTION, 60 ML BOTTLE GT SCH (09:58)
[2019-11-21] MEDS: MULTIVIT-MINERALS/FERROUS GLUC 15 ML UDC GT SCH (09:58)
[2019-11-21] MEDS: FERROUS SULFATE 300 MG/5 ML UDC GT SCH (09:58)
[2019-11-21] MEDS: MIDODRINE HCL 5 MG TABLET (PROAMATINE) GT SCH ×3 (09:58→20:55)
[2019-11-21] MEDS: BALSAM PERU/CASTOR OIL 60 GM OINT...G. TP SCH (09:59)
[2019-11-21] MEDS: POTASSIUM CHLORIDE 20 MEQ/PKT PACKET GT SCH ×2 (10:05→20:55)
--- NOTE | 2019-11-21 11:30 | NUR ---
Gt feeding Gt feeding tolerating well, no residual noted. No nausea, no vomiting noted. No complaints of abdominal pain. No other needs at this time.
--- NOTE | 2019-11-21 12:05 | NUR ---
Discharge Planning: MARTIN received a call from [facility] (f [phone] p [phone]) Per Jacques will accept patient to [facility]. FLACOP made CM aware.
[2019-11-21 12:50] VITALS: BP_SYST 93
--- NOTE | 2019-11-21 13:30 | NUR ---
rounds GT flushed as ordered. skin care provided. Linens changed. no other needs at this time.
--- NOTE | 2019-11-21 14:45 | NUR ---
[facility] WAS CALLED, RE: CRITICAL LABS. SPOKE TO RILEY.
[2019-11-21] MEDS ORDERED: DOXYCYCLINE HYCLATE 100 MG CAPSULE GT ONE (15:00)
--- NOTE | 2019-11-21 15:45 | NUR ---
wound care Wound care done as ordered. tolerated well. no adverse side effects. Skin care provided. No other needs at this time.
--- NOTE | 2019-11-21 16:24 | NUR ---
Wound Assessment: 1. Sacral-Coccygeal area: Unstageable Pressure ulcer, present on admission. Wound bed has 40% yellow slough, 40% pink tissue, 40% white tissue. Mild odor, no drainage. Periwound is blanchable pink, macerated. Periwound and surrounding tissue has scar tissue, and blanchable erythema. Wound measures 1.6 cm x 1.4 cm x 1.0 cm. Undermining present: 0.3 cm at 3 o'clock; 0.2 cm at 6 o'clock; 2.1 cm at 9 o'clock; 1.0 cm at 12 o'clock). Tunneling present at 10-11 o'clock measuring 2.7 cm depth. Tunnel was connecting to site 2. Recommend continue: Cleanse wound with normal saline. Apply moisture barrier cream to periwound. Apply Venelex ointment to wound bed. Pack wound with 1/2 inch iodoform packing strip. Cover with foam dressing. Perform wound care daily, and as needed for dressing soiling or dislodgment. 2. Left Sacral area: Pressure ulcer, present on admission. Site has 100% pink scar tissue. No odor, no drainage. Surrounding is pink. Pressure ulcer has resolved on top of skin. Tunneling from site 1 appeared to be connecting to this site. Will continue to monitor. Recommend: Cover with Sacral foam dressing. Perform site care daily, and as needed for dressing soiling or dislodgment. 3. Right Medial Malleolus: Unstageable pressure ulcer, present on admission. Wound care performed by coupon and bond collection clerk nurse this morning. Dressing not removed for assessment secondary to doing so would decrease wound temperature and retard wound healing rate. Recommend continue: Ebony site with Betadine. Allow to air dry. Cover with foam dressing. Perform wound care daily, and as needed for dressing soiling or dislodgment. 4. Right Distal Medial Lower Extremity, Superior to Site 3: Wound of unknown etiology, present on admission. Wound care performed by coupon and bond collection clerk nurse this morning. Dressing not removed for assessment secondary to doing so would decrease wound temperature and retard wound healing rate. Recommend continue: Cleanse wound with normal saline. Apply moisture barrier cream to periwound. Apply Venelex ointment to wound bed. Cover with foam dressing. Perform wound care daily, and as needed for dressing soiling or dislodgment. 5. Right Olecranon: Chronic wound of unknown etiology, present on admission. Blanchable red erythema present, wound has resolved. 6. Coccygeal, Bilateral Hip and Lumbosacral joint areas: Bony areas with little adipose tissue and minimal muscle tissue. Recommend continue: Cover sites with foam dressings. Perform site care daily, and as needed for dressing soiling or dislodgment. Also recommend continue: Reposition patient side to side only every two hours with pillow support, and off-load pressure areas with pillows for pressure re-distribution. Offload, elevate and float heels with pillows. Perform skin care and monitor skin integrity q shift. Use moisture barrier cream on buttocks, and other moisture susceptible areas qid and as needed for soiling. Maintain patient on a low air-loss mattress.
[2019-11-21 16:45] VITALS: BP_SYST 100
--- NOTE | 2019-11-21 17:08 | NUR ---
rounds patient resting in bed at this time, no complaints of pain. Gt feeding infusing as ordered. patient in stable condition.
--- NOTE | 2019-11-21 18:00 | NUR ---
closing note patient resting in bed at this time, A/Ox1, nonverbal. denies pain. No SOB. IV patent, and intact. No infiltration noted. GT awaiting placement confirmation by Dr. Selby. Pollack catheter in place, draining yellow urine to gravity. 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 On safety and aspiration precautions, HOB kept elevated, 3 side rails up, call light within reach. Patient in stable condition. All needs met.
--- NOTE | 2019-11-21 18:29 | NUR ---
Pulled out IV patient pulled out IV line. Noted with bleeding, dressing applied. Linens changed. Unable to start new Iv at this time, attemptedx2., will endorse to shift production supervisor.
[2019-11-21 19:00] VITALS: BP_SYST 116
[2019-11-21 20:00] VITALS: BP_SYST 116
[2019-11-21] MEDS ORDERED: DOXYCYCLINE HYCLATE 100 MG CAPSULE GT SCH (21:00)
--- NOTE | 2019-11-22 00:47 | NUR ---
Patient in bed. No acute distress noted. Turned repositioned q2. Gtube patent and intact. No residual noted. HOB elevated. Will continue to monitor.
[2019-11-22] MEDS: IPRATROPIUM/ALBUTEROL SULFATE 3 ML AMPUL.NEB (DUONEB) INH SCH ×6 (03:32→23:25)
[2019-11-22] MEDS: QUEtiapine FUMARATE 100 MG TABLET GT SCH ×3 (05:22→19:14)
[2019-11-22] MEDS: LEVOTHYROXINE SODIUM 0.025 MG TABLET PO SCH (05:23)
--- NOTE | 2019-11-22 06:38 | NUR ---
Iv reinserted 22g to LFA.
--- NOTE | 2019-11-22 08:00 | NUR ---
OPENS EYES, BUT DOES NOT FOLLOW COMMANDS. APPEARS AGITATED. IV SITE REMOVED; NEW IV SITE IS PUT IN AT RIGHT AC, #22. SL. ON TRACH MASK 8L; GTUBE FEEDING IN PLACE. CALL LIGHT IN PLACE, BED LOCKED AT THE LOWEST POSITION WITH BED ALARM ON.
[2019-11-22] MEDS: MIDODRINE HCL 5 MG TABLET (PROAMATINE) GT SCH ×3 (09:13→21:24)
[2019-11-22] MEDS: DOXYCYCLINE HYCLATE 100 MG CAPSULE GT SCH ×2 (09:14→21:24)
[2019-11-22] MEDS: SERTRALINE HCL 50 MG TABLET PO SCH ×2 (09:14→21:24)
[2019-11-22] MEDS: OLANZapine 5 MG TABLET GT SCH ×2 (09:14→21:24)
[2019-11-22] MEDS: PANTOPRAZOLE SODIUM 40 MG/VIAL (PROTONIX) IVP SCH ×2 (09:14→21:24)
[2019-11-22] MEDS: FERROUS SULFATE 300 MG/5 ML UDC GT SCH (09:15)
[2019-11-22] MEDS: ERGOCALCIFEROL 8000 UNITS/ML ORAL SOLUTION, 60 ML BOTTLE GT SCH (09:15)
[2019-11-22] MEDS: LACTOBACILLUS RHAMNOSUS GG 1 CAP CAPSULE GT SCH (09:15)
[2019-11-22] MEDS: PREDNISONE 20 MG TABLET GT SCH (09:16)
[2019-11-22] MEDS: MULTIVIT-MINERALS/FERROUS GLUC 15 ML UDC GT SCH (09:16)
[2019-11-22] MEDS: POTASSIUM CHLORIDE 20 MEQ/PKT PACKET GT SCH ×2 (09:16→21:24)
[2019-11-22] MEDS: BALSAM PERU/CASTOR OIL 60 GM OINT...G. TP SCH (09:18)
[2019-11-22] MEDS: ENOXAPARIN SODIUM 30 MG/0.3 ML SYRINGE SUBCUT SCH (10:15)
--- NOTE | 2019-11-22 10:20 | NUR ---
IV INFILTRATED. NEW IV STARTED AT RIGHT FA, #24, SL.
[2019-11-22] MEDS: AMIKACIN SULFATE 250 MG in D5W 100 ML IV SCH (12:20)
[2019-11-22 12:22] VITALS: BP_SYST 114
--- NOTE | 2019-11-22 14:00 | NUR ---
Dr. armas at bedside assessing patient.
[2019-11-22 16:10] VITALS: BP_SYST 120
--- NOTE | 2019-11-22 18:00 | NUR ---
patient's IV infiltrated. New IV site at right FA, #24.
--- NOTE | 2019-11-22 19:15 | NUR ---
OPENING NOTES Late entry due to patient care. Bedside report received from dayshift nurse. Patient received lying in bed, awake, no s/s of acute distress noted. Breathing even and unlabored. Trach to TBAR attached, on 8L of oxygen, patient tolerating well. IVF and tube feeding infusing well. Pollack attached, secured, and draining by gravity. Call light with patient. Bed alarm on. Will continue to monitor.
[2019-11-22 20:00] VITALS: BP_SYST 95
--- NOTE | 2019-11-22 21:00 | NUR ---
PULLED OUT MARTÍNEZ Martínez removed by patient, balloon still inflated, catheter fully intact, no bleeding noted, no injuries noted. New Martínez inserted at this time. Patient tolerated well. Martínez back draining by gravity and secured at this time. Patient tolerated well. Bed alarm on. Will continue to monitor.
[2019-11-22] MEDS: PREDNISONE 10 MG TABLET GT SCH (21:24)
--- NOTE | 2019-11-22 23:00 | NUR ---
ROUNDS Patient in bed awake, watching TV. No s/s of acute distress noted. Breathing even and unlabored. Call light with patient. Bed alarm on. Will continue to monitor.
[2019-11-23] MEDS: QUEtiapine FUMARATE 100 MG TABLET GT SCH ×4 (00:34→17:02)
[2019-11-23] MEDS: AMIKACIN SULFATE 250 MG in D5W 100 ML IV SCH ×2 (00:34→13:26)
--- NOTE | 2019-11-23 01:00 | NUR ---
ROUNDS Patient in bed asleep at this time. No signs of discomfort noted. Chest rise and fall even bilaterally. All needs met. Bed alarm on. Will continue to monitor.
[2019-11-23 01:23] LABS: BILIRUBIN,URINE NEGATIVE (NEGATIVE); BLOOD, URINE NEGATIVE (NEGATIVE); CLARITY/URINE CLEAR (CLEAR); COLOR,URINE YELLOW (YELLOW); GLUCOSE,URINE NEGATIVE (NEGATIVE); KETONES,URINE NEGATIVE (NEGATIVE); LEUKOCYTE ESTERASE ,URINE 1+ (NEGATIVE); NITRITE, URINE NEGATIVE (NEGATIVE); PH,URINE 7.5 (5.0-8.0); PROTEIN URINE NEGATIVE (NEGATIVE); UROBILINOGEN,URINE 0.2 (0.2-1.0)
[2019-11-23 01:30] LABS: BACTERIA,URINE MODERATE /HPF (None Seen); RBC,URINE 0-3 /HPF (0-3)
[2019-11-23] MEDS: IPRATROPIUM/ALBUTEROL SULFATE 3 ML AMPUL.NEB (DUONEB) INH SCH ×6 (02:05→23:19)
[2019-11-23 02:20] VITALS: BP_SYST 115
--- NOTE | 2019-11-23 03:00 | NUR ---
ROUNDS Patient in bed asleep at this time. NO s/s of acute distress noted. Breathing even and unlabored. Bed alarm on. Will continue to monitor.
[2019-11-23] MEDS: LEVOTHYROXINE SODIUM 0.025 MG TABLET PO SCH (05:46)
--- NOTE | 2019-11-23 06:46 | NUR ---
CLOSING NOTES Patient in bed sleeping at this time. No s/s of acute distress noted. Breathing even and unlabored. HOB raised. Trach to tbar, on 8L of oxygen. Gtube infusing well. Pollack attached, secured, and draining by gravity. All needs met throughout shift. Fall, safety, and isolation precautions maintained throughout shift. Will continue to monitor until patient care is endorsed to dayshift nurse.
--- NOTE | 2019-11-23 07:21 | NUR ---
Patient is awake. Has trach mask. Trach to tbar, on 8L of oxygen. Gtube infusing well. Pollack is secured, and draining yellow urine by gravity. AFall, safety, and isolation precautions will be maintained.
[2019-11-23 08:00] VITALS: BP_SYST 92
[2019-11-23] MEDS: ENOXAPARIN SODIUM 30 MG/0.3 ML SYRINGE SUBCUT SCH ×2 (09:00→11:59)
--- NOTE | 2019-11-23 09:30 | NUR ---
ALL MORNING MEDS ARE GIVEN. TOLERATED WITHOUT DISTRESS.
[2019-11-23] MEDS: LACTOBACILLUS RHAMNOSUS GG 1 CAP CAPSULE GT SCH (09:33)
[2019-11-23] MEDS: SERTRALINE HCL 50 MG TABLET PO SCH ×2 (09:33→21:44)
[2019-11-23] MEDS: FERROUS SULFATE 300 MG/5 ML UDC GT SCH (09:33)
[2019-11-23] MEDS: MIDODRINE HCL 5 MG TABLET (PROAMATINE) GT SCH ×3 (09:33→21:44)
[2019-11-23] MEDS: POTASSIUM CHLORIDE 20 MEQ/PKT PACKET GT SCH ×2 (09:34→21:44)
[2019-11-23] MEDS: BALSAM PERU/CASTOR OIL 60 GM OINT...G. TP SCH (09:34)
[2019-11-23] MEDS: PREDNISONE 10 MG TABLET GT SCH ×2 (09:34→21:44)
[2019-11-23] MEDS: PANTOPRAZOLE SODIUM 40 MG/VIAL (PROTONIX) IVP SCH ×2 (09:34→21:44)
[2019-11-23] MEDS: OLANZapine 5 MG TABLET GT SCH ×2 (09:35→21:44)
[2019-11-23] MEDS: ERGOCALCIFEROL 8000 UNITS/ML ORAL SOLUTION, 60 ML BOTTLE GT SCH (09:48)
[2019-11-23] MEDS: MULTIVIT-MINERALS/FERROUS GLUC 15 ML UDC GT SCH (09:49)
[2019-11-23] MEDS: DOXYCYCLINE HYCLATE 100 MG CAPSULE GT SCH ×2 (09:49→21:44)
[2019-11-23 10:18] VITALS: BP_SYST 115
--- NOTE | 2019-11-23 11:57 | NUR ---
PATIENT IS TURNED AND REPOSITIONED FOR COMFORT. TOLERATES WITHOUT DISTRESS.
[2019-11-23 12:16] VITALS: BP_SYST 97
--- NOTE | 2019-11-23 14:00 | NUR ---
Patient is ripping of monitor leads and attempting to ambulate of bed. Patient is placed back in bed, and instructed to patient to stay in bed for the reason of safety.
--- NOTE | 2019-11-23 16:00 | NUR ---
WOUND CARE IS DONE FOR THE PATIENT. PATIENT TOLERATES WITHOUT DISTRESS.
--- NOTE | 2019-11-23 16:14 | NUR ---
Discharge Planning: SENIOR DESIGN ENGINEERING SPECIALIST placed call to Kayleigh at [facility] - [place], [place] ([phone]) who stated that they still do not have a female bed for pt. Kayleigh states that they are trying to convert a male room to female to be able to accommodate pt. SENIOR DESIGN ENGINEERING SPECIALIST placed call to [facility] ([phone]); SENIOR DESIGN ENGINEERING SPECIALIST was told no one was working in admissions, SENIOR DESIGN ENGINEERING SPECIALIST was transferred to the SNF side and could not be helped, SENIOR DESIGN ENGINEERING SPECIALIST then transferred to Sub Acute and placed on hold for 10 minutes. SENIOR DESIGN ENGINEERING SPECIALIST called back to [facility] and call kept going to voicewail. SENIOR DESIGN ENGINEERING SPECIALIST or DC facility planner will follow up on 11/24/18 to see if there is a bed for pt at [facility].
[2019-11-23 16:15] VITALS: BP_SYST 115
--- NOTE | 2019-11-23 18:00 | NUR ---
Patient is turned and repositioned for comfort. All needs met. Will endorse to next shift.
--- NOTE | 2019-11-23 19:15 | NUR ---
OPENING NOTES Late entry due to patient care. Bedside report received from dayshift nurse. Patient received lying in bed, awake, watching TV, no s/s of acute distress noted. Patient denies pain. Breathing even and unlabored. HOB raised. Tube feeding infusing well. IV site patent, no signs of infiltration or infection noted. Pollack attached, secured, and draining by gravity. Skin warm and dry to touch. Call light with patient. Bed alarm on. Will continue to monitor.
[2019-11-23 20:00] VITALS: BP_SYST 96
--- NOTE | 2019-11-23 21:30 | NUR ---
ROUNDS Patient in bed, awake, no signs of discomfort noted. Chest rise and fall even bilaterally. All needs met at this time. Call light with patient. Bed alarm on. Will continue to monitor.
[2019-11-24] MEDS: QUEtiapine FUMARATE 100 MG TABLET GT SCH ×4 (00:28→17:45)
[2019-11-24] MEDS: AMIKACIN SULFATE 250 MG in D5W 100 ML IV SCH ×2 (00:28→11:28)
--- NOTE | 2019-11-24 00:28 | NUR ---
SCHEDULED MEDS Scheduled medications administered at this time, patient tolerated well. IV antibiotics infusing well. Tube feeding infusing well. All needs met. Call light with patient. Bed alarm on. Will continue to monitor.
[2019-11-24 01:22] VITALS: BP_SYST 124
--- NOTE | 2019-11-24 02:30 | NUR ---
ROUNDS Patient sleeping at this time. No signs of discomfort noted. Chest rise and fall even bilaterally. Call light with patient. Bed alarm on. Will continue to monitor.
[2019-11-24] MEDS: IPRATROPIUM/ALBUTEROL SULFATE 3 ML AMPUL.NEB (DUONEB) INH SCH ×6 (03:19→23:10)
--- NOTE | 2019-11-24 04:30 | NUR ---
ROUNDS Patient in bed sleeping at this time. No signs of discomfort noted. Chest rise and fall even bilaterally. Bed alarm on. Will continue to monitor.
[2019-11-24] MEDS: LEVOTHYROXINE SODIUM 0.025 MG TABLET PO SCH (06:22)
--- NOTE | 2019-11-24 06:51 | NUR ---
CLOSING NOTES Patient in bed sleeping at this time. No s/s of acute distress noted. Breathing even and unlabored. Trach to TBAR, on 8L of oxygen. HOB raised. Tube feeding infusing well. IV site patent, no signs of infiltration or infection noted. Skin warm and dry to touch. Pollack attached, secured, and draining by gravity. All needs met throughout shift. Fall and safety precautions maintained throughout shift. Will continue to monitor until patient care is endorsed to oncoming dayshift nurse.
--- NOTE | 2019-11-24 07:25 | NUR ---
AM ROUNDS: PATIENT AWAKE DURING ROUNDS. ON CONTACT ISOLATION PRECAUTION RENDERED. STILL WITH TRACH MASK 8L/MIN,GOOD SATURATION. TUBE FEEDS ON GOING. MARTÍNEZ IN PLACE. BED LOCKED AT LOWEST POSITION. BED ALARM ON. NO ACUTE DISTRESS.CONTINUE TO MONITOR FOR ANY UNTOWARD MANIFESTATIONS.
--- NOTE | 2019-11-24 07:46 | NUR ---
Nutrition Note EN Formula Jevity 1.5 is not available and Vital AF 1.2 will be provided instead. RD reviewed labs, skin integrity (+pressure ulcer per Territory Manager General Sales note) Dietitian Recommendation * Vital AF 1.2 at 50ml/hr, Colt BID, Free Water Flush 100ml Q6H via GT Provides: 1600 kcal, 95 gm protein and 1373ml fluid daily. Meets: 95% of upper end of estimated calorie needs and 101% of upper end of estimated protein needs. LONG TERM, RD
[2019-11-24 08:23] VITALS: BP_SYST 104
[2019-11-24] MEDS: MULTIVIT-MINERALS/FERROUS GLUC 15 ML UDC GT SCH (09:41)
[2019-11-24] MEDS: POTASSIUM CHLORIDE 20 MEQ/PKT PACKET GT SCH ×2 (09:42→21:42)
[2019-11-24] MEDS: DOXYCYCLINE HYCLATE 100 MG CAPSULE GT SCH ×2 (09:42→21:42)
[2019-11-24] MEDS: LACTOBACILLUS RHAMNOSUS GG 1 CAP CAPSULE GT SCH (09:42)
[2019-11-24] MEDS: FERROUS SULFATE 300 MG/5 ML UDC GT SCH (09:42)
[2019-11-24] MEDS: MIDODRINE HCL 5 MG TABLET (PROAMATINE) GT SCH ×3 (09:42→21:43)
[2019-11-24] MEDS: OLANZapine 5 MG TABLET GT SCH ×2 (09:42→21:43)
[2019-11-24] MEDS: SERTRALINE HCL 50 MG TABLET PO SCH ×2 (09:42→21:42)
[2019-11-24] MEDS: PREDNISONE 10 MG TABLET GT SCH ×2 (09:42→21:42)
[2019-11-24] MEDS: ERGOCALCIFEROL 8000 UNITS/ML ORAL SOLUTION, 60 ML BOTTLE GT SCH (09:43)
[2019-11-24] MEDS: BALSAM PERU/CASTOR OIL 60 GM OINT...G. TP SCH (09:43)
[2019-11-24] MEDS: PANTOPRAZOLE SODIUM 40 MG/VIAL (PROTONIX) IVP SCH ×2 (09:44→21:42)
--- NOTE | 2019-11-24 09:45 | NUR ---
MEDS/G-TUBE: NO RESIDUALS PRIOR TO GIVING MEDS. FLUSHED WITH WATER AFTER GIVING THE MEDS PER G TUBE. NO PROBLEM.
[2019-11-24] MEDS: ENOXAPARIN SODIUM 30 MG/0.3 ML SYRINGE SUBCUT SCH (09:47)
--- NOTE | 2019-11-24 12:00 | NUR ---
MEDS/G TUBE: DUE CRUSHED MEDS GIVEN. NO RESIDUALS PRIOR TO GIVING MEDS. NO PROBLEM.
[2019-11-24 12:30] VITALS: BP_SYST 99
--- NOTE | 2019-11-24 12:42 | NUR ---
DCP: Arranged transportation with [facility] ([phone]) 3:00pm P/u to [facility] ([phone]) Rm 6C. DCP took patient packet to nurse station. Addendum: 11/24/19 at 1711 by Patricia Billings DP DCP spoke to Lisa made her aware patient DC held will follow up tomorrow,bed will be held.
--- NOTE | 2019-11-24 14:05 | NUR ---
RAPID RESPONSE: CALLED FOR A RAPIED RESPONSE,PATIENT TURNED BLUE PER REPORT OF CHARGE NURSE JOANNE CORTEZ BAGGED DONE AND PATIENT FULLY AWAKE AND TURNED PINK AFTER 6MINUTES. BREATHING TREATMENT DONE BY RT AND WITH ORDERS HHN EVERY 4 HOURS ROUTINELY ORDERED.CONTINUE TO MONITOR.
[2019-11-24] MEDS ORDERED: LORazepam 2 MG/ML VIAL IVP ONE (14:15)
[2019-11-24] MEDS ORDERED: LORazepam 2 MG/ML VIAL ONE (14:24)
--- NOTE | 2019-11-24 16:30 | NUR ---
O2 DECREASED PER MD: NO ACUTE DISTRESS.RT DECREASED O2 TO 5L/MIN PER MASK,WITH FIO2 =28%,GOOD SATURATION. CONTINUE TO MONITOR.
[2019-11-24 16:56] VITALS: BP_SYST 130
--- NOTE | 2019-11-24 18:57 | NUR ---
Closing notes: Patient tolerated fio2=28%,o2 5l per mask. Tube feeds tolerated. Iv saline lock at right upper arm and right arm intact. Not in any distress. Hold transfer due to rapid response per MD.Continue to monitor.
--- NOTE | 2019-11-24 19:44 | NUR ---
Initial note: Received report from charan RN. Patient is awake in bed, no acute distress. Alert and oriented x1. Tolerating 6L O2, FiO2 35% via trach mask. Large amount of thick, perdomo secretions upon trach suction. IV site to right forearm 24 gauge and right upper arm 24 gauge are patent and benign. Tubefeeding in place per MD order, 0 ML gastric residual. Pollack catheter draining yellow urine to gravity. Call light with patient. Safety, fall, aspiration, contact iso precautions in place. Will continue with plan of care.
[2019-11-24 20:00] VITALS: BP_SYST 92
[2019-11-24] MEDS: ACETAMINOPHEN 325 MG TABLET GT PRN (21:42)
--- NOTE | 2019-11-24 21:47 | NUR ---
IV out: Found IV site to right forearm dislodged, site no longer bleeding. Patient's IV site to right upper arm still intact, flushes well with NS. Call light with patient. Will continue monitoring.
[2019-11-25 00:50] VITALS: BP_SYST 101
[2019-11-25] MEDS: AMIKACIN SULFATE 250 MG in D5W 100 ML IV SCH ×2 (00:57→12:19)
[2019-11-25] MEDS: QUEtiapine FUMARATE 100 MG TABLET GT SCH ×3 (00:57→12:20)
[2019-11-25] MEDS: IPRATROPIUM/ALBUTEROL SULFATE 3 ML AMPUL.NEB (DUONEB) INH SCH ×4 (02:18→15:36)
--- NOTE | 2019-11-25 04:49 | NUR ---
Incontinence care: Patient had a BM, incontinence care and partial bed bath rendered. Patient was cleaned, dried, repositioned. Noted current abdominal binder soiled, replaced with clean binder. Call light with patient. Will continue to monitor.
[2019-11-25] MEDS: ACETAMINOPHEN 325 MG TABLET GT PRN (04:50)
--- NOTE | 2019-11-25 05:00 | NUR ---
Wound care: Wound care and dressing change rendered for sacral, left wrist/forearm, and right ankle wounds. Patient tolerated well. Call light with patient. Will continue monitoring.
[2019-11-25] MEDS: LEVOTHYROXINE SODIUM 0.025 MG TABLET PO SCH (06:09)
--- NOTE | 2019-11-25 06:45 | NUR ---
Closing note: Patient is resting in bed, no acute distress. Tolerating O2 5L via trach mask FiO2 28%. IV site to JAYDE saline locked, intact. Tubefeeding in place per MD order. Pollack draining well to gravity. All needs met. Safety, fall, aspiration, contact isolation precautions observed. Hourly rounding performed throughout shift. Will endorse care to dayshift RN.
--- NOTE | 2019-11-25 07:33 | NUR ---
AM ROUNDS: PATIENT AWAKE,MOVING IN THE BED. STILL WITH O2 MASK 5L,FIO2=28%,GOOD SATURATION. UP DATES GIVEN BY NIGHT NURSE ARTHUR. TUBE FEEDS ON GOING. MARTÍNEZ IN PLACE. SAFETY MEASURES RENDERED. CONDITION GUARDED.
[2019-11-25 08:09] VITALS: BP_SYST 101
[2019-11-25] MEDS: ERGOCALCIFEROL 8000 UNITS/ML ORAL SOLUTION, 60 ML BOTTLE GT SCH (09:14)
[2019-11-25] MEDS: MULTIVIT-MINERALS/FERROUS GLUC 15 ML UDC GT SCH (09:15)
[2019-11-25] MEDS: FERROUS SULFATE 300 MG/5 ML UDC GT SCH (09:15)
[2019-11-25] MEDS: POTASSIUM CHLORIDE 20 MEQ/PKT PACKET GT SCH (09:16)
[2019-11-25] MEDS: MIDODRINE HCL 5 MG TABLET (PROAMATINE) GT SCH (09:17)
[2019-11-25] MEDS: OLANZapine 5 MG TABLET GT SCH (09:17)
[2019-11-25] MEDS: LACTOBACILLUS RHAMNOSUS GG 1 CAP CAPSULE GT SCH (09:17)
[2019-11-25] MEDS: DOXYCYCLINE HYCLATE 100 MG CAPSULE GT SCH (09:17)
[2019-11-25] MEDS: SERTRALINE HCL 50 MG TABLET PO SCH (09:18)
[2019-11-25] MEDS: PANTOPRAZOLE SODIUM 40 MG/VIAL (PROTONIX) IVP SCH (09:18)
[2019-11-25] MEDS: PREDNISONE 10 MG TABLET GT SCH (09:18)
[2019-11-25] MEDS: BALSAM PERU/CASTOR OIL 60 GM OINT...G. TP SCH (09:18)
[2019-11-25] MEDS: ENOXAPARIN SODIUM 30 MG/0.3 ML SYRINGE SUBCUT SCH (09:24)
--- NOTE | 2019-11-25 09:30 | NUR ---
MEDS/G TUBE: NO RESIDUALS PRIOR TO GIVING MEDS. WELL TOLERATED TF AND MEDS. FLUSHED WITH WATER AFTER GIVING MEDS.
[2019-11-25 11:24] VITALS: BP_SYST 95
--- NOTE | 2019-11-25 12:25 | NUR ---
MEDS/G TUBE: NO RESIDUALS PRIOR TO GIVING MEDS. FLUSHED WITH WATER AFTER GIVING MEDS. NO PROBLEM.
--- NOTE | 2019-11-25 13:30 | NUR ---
Nutrition F/U RD reviewed pt's current EMR including diet Hx, physician notes, nursing notes, pertinent labs/meds/procedures, care trends, and care activity. Current Nutrition Support: Vital AF 1.2 at 50 ml/hr, Colt BID, Free Water Flush: 100 ML Q6H via GT x1 day Subjective information: Pt seen sleeping in bed without bilateral wrist restraints w/ TF infusing as per physician order. Bedscale was not working. Per RN report, pt has been tolerating TF well, no s/s of intolerance, and plans for transfer and D/C today. Pt was switched from Jevity 1.5 to Vital AF 1.2 TF formula d/t lack of supply. Current TF regimen is adequate/appropriate. 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 *ongoing Expected Outcomes/Goals Monitor EN support with goals of pt meeting at least 90% of estimated nutritional needs, labs trending WNL, and skin integrity/wt maintenance. Dietitian Recommendations * Recommend continuing Vital AF 1.2 at 50 ml/hr, Colt BID, Free Water Flush: 100 ML Q6H via GT Provides: 1600 kcal/day, 95 gm protein/day, and 1373 ml free water/day Meets: 95% of upper end of estimated caloric needs and 101% of upper end of estimated protein needs Low Risk; F/U within 7 days
--- NOTE | 2019-11-25 13:35 | NUR ---
Dietitian Recommendations * Recommend continuing Vital AF 1.2 at 50 ml/hr, Colt BID, Free Water Flush: 100 ML Q6H via GT Provides: 1600 kcal/day, 95 gm protein/day, and 1373 ml free water/day Meets: 95% of upper end of estimated caloric needs and 101% of upper end of estimated protein needs LP, RD Please refer to Nutrition F/U for details.
[2019-11-25 15:33] VITALS: BP_SYST 97
[2019-11-25 16:02] VITALS: BP_SYST 97
--- NOTE | 2019-11-25 16:13 | NUR ---
Report: Report given to Niki Jordan Rn from [employer].
--- NOTE | 2019-11-25 16:55 | NUR ---
paged: Spoke with enrike Wong to transfer to [facility] after breathing treatment prior to dc. Addendum: 11/30/19 at 0741 by Rosibel Conteh RN ADDED NOTES: PAGED RE: LOW SATURATION=83%. AFTER FEW SECONDS PATIENT 'S O2 SATURATION INCREASED TO 93%,5L/MIN MASK,FIO2=28%.
[2019-11-25] MEDS: IPRATROPIUM/ALBUTEROL SULFATE 3 ML AMPUL.NEB (DUONEB) INH PRN (17:04)
[2019-11-25 17:30] VITALS: BP_SYST 114
--- NOTE | 2019-11-25 17:40 | NUR ---
Transfer D/c Notes: Transfer packets given to [facility] staff unit#[id number].Kept iv saline lock per Rn from [facility].Pollack kept during transfer per Md.No belongings noted. G tube clamped. On trach mask @ 5l/min,fio2=28%,with good saturation.[facility] ambulance transported patient to [facility] in stable condition.
== END 2019-11-25 17:40 | DRG 870 ==
LOC: SED 19:00 → STU 21:08 → SIC 22:30 → STU 09-29 18:45 → SIC 10-03 01:07 → STU 10-03 19:00
PROVIDERS: ADMIT Internal Medicine; ATTEND Internal Medicine
PROC: 5A1955Z Respiratory Ventilation, Greater than 96 Consecutive Hours (ICD-10-PCS; principal; 2019-09-26)
PROC: 30233N1 Transfusion of Nonautologous Red Blood Cells into Peripheral Vein, Percutaneous Approach (ICD-10-PCS; 2019-09-29)
PROC: 0B9G7ZX Drainage of Left Upper Lung Lobe, Via Natural or Artificial Opening, Diagnostic (ICD-10-PCS; 2019-10-02)
PROC: 0B9C7ZX Drainage of Right Upper Lung Lobe, Via Natural or Artificial Opening, Diagnostic (ICD-10-PCS; 2019-10-02)
PROC: B54MZZA Ultrasonography of Right Upper Extremity Veins, Guidance (ICD-10-PCS; 2019-10-05)
PROC: 05HY33Z Insertion of Infusion Device into Upper Vein, Percutaneous Approach (ICD-10-PCS; 2019-10-05)
PROC: 0D20XUZ Change Feeding Device in Upper Intestinal Tract, External Approach (ICD-10-PCS; 2019-10-30)
DX: A41.9 Sepsis, unspecified organism (principal); J15.8 Pneumonia due to other specified bacteria; E43 Unspecified severe protein-calorie malnutrition; J96.21 Acute and chronic respiratory failure with hypoxia; R65.21 Severe sepsis with septic shock; G93.40 Encephalopathy, unspecified; Z99.11 Dependence on respirator [ventilator] status; J95.851 Ventilator associated pneumonia; E27.40 Unspecified adrenocortical insufficiency; F03.91 Unspecified dementia, unspecified severity, with behavioral disturbance; K94.23 Gastrostomy malfunction; E11.9 Type 2 diabetes mellitus without complications; I10 Essential (primary) hypertension; D50.9 Iron deficiency anemia, unspecified; D63.8 Anemia in other chronic diseases classified elsewhere; I95.9 Hypotension, unspecified; Y83.8 Other surgical procedures as the cause of abnormal reaction of the patient, or of later complication, without mention of misadventure at the time of the procedure; J43.9 Emphysema, unspecified; F41.9 Anxiety disorder, unspecified; E87.6 Hypokalemia; L89.159 Pressure ulcer of sacral region, unspecified stage; F29 Unspecified psychosis not due to a substance or known physiological condition; R13.12 Dysphagia, oropharyngeal phase; Y95 Nosocomial condition; Z86.14 Personal history of Methicillin resistant Staphylococcus aureus infection; Z87.891 Personal history of nicotine dependence; Z87.440 Personal history of urinary (tract) infections; Z79.899 Other long term (current) drug therapy; Z68.20 Body mass index [BMI] 20.0-20.9, adult; Z85.21 Personal history of malignant neoplasm of larynx
CPT/HCPCS: 31624; 36415; 36600; 43246; 71045; 71250-TC; 71275; 80048; 80053; 80150; 81000-TC; 82272; 82533; 82607; 82728; 82746; 82803-TC; 82962; 83036; 83525; 83540-TC; 83550-TC; 83605; 83735-TC; 83880; 84100-TC; 84305; 84439; 84443-TC; 84478-TC; 84484; 85025; 85379; 85610-TC; 85651-TC; 86480; 86635; 86886; 86900; 86901; 86920; 87040-TC; 87070-TC; 87081; 87086; 87101; 87116; 87186-TC; 87205-TC; 87449; 87899; 88108; 88160; 93005; 94002; 94003; 94640; 94760; 96365; 96366; 96367; 96375; 99285; A6209; C1751; C9113; G0378; J0278; J0690; J0692; J0713; J0770; J0885; J1200; J1650; J1720; J1815; J1956; J2060; J2175; J2250; J2543; J2916; J2930; J3370; J3475; J3480; J7030; J7040; J7050; J7060; J7120; J7131; J7512; J7613; J7620; J7626; P9021; Q0163; Q9967